=== PATIENT | female | born 1960 | race Caucasian/White ===

== ENCOUNTER → 2017-03-18 | Outpatient (CLI) | payer OTHER ==
[~2017-03-18] MED LIST: FENT25DI T-DERMAL; HYDR2TAB PO; PAXI10TA2 PO; PERC5TAB12 PO; POTA10CA PO; PROT40TA PO; ZOCO40TA PO; ZOFR4TAB PO
[2017-03-18 11:19] LABS: AUTOMATED NEUTROPHIL # 5.4 TH/MM3 (1.8-7.7); BASOPHIL % 0.4 % (0.0-2.0); EOSINOPHIL % 0.7 % (0.0-4.0); HEMATOCRIT 36.1 % (35.0-46.0); HEMO FLAGS DIFF FINAL; LYMPH % 14.4 % (9.0-44.0); MEAN CORPUSCULAR HEMOGLOBIN 29.4 PG (27.0-34.0); MEAN CORPUSCULAR HGB CONC 34.2 % (32.0-36.0); MONO % 9.6 % (0.0-8.0); NEUT % 74.9 % (16.0-70.0); PLATELET COUNT 301 TH/MM3 (150-450); RED BLOOD COUNT 4.19 MIL/MM3 (4.00-5.30); RED CELL DISTRIBUTION WIDTH 13.6 % (11.6-17.2); WHITE BLOOD COUNT 7.2 TH/MM3 (4.0-11.0)
--- NOTE | 2017-03-18 11:30 | RADRPT ---
EXAM DATE/TIME: 03/18/2017 11:07 [facility] COMPARISON: No previous studies available for comparison. INDICATIONS : Evaluate for pneumothorax, pneumonia, or communicable disease. Pre-op, cystoscopy. MEDICAL HISTORY : None. SURGICAL HISTORY : None. ENCOUNTER: Initial ACUITY: 1 day PAIN SCORE: 0/10 LOCATION: Bilateral chest FINDINGS: PA and lateral views of the chest demonstrate the lungs to be symmetrically aerated without evidence of mass, infiltrate or effusion. The cardiomediastinal contours are unremarkable. Osseous structure s are intact. CONCLUSION: No acute disease. Paulo James MD on March 18, 2017 at 11:28 Board Certified Radiologist. This report was verified electronically.
[2017-03-18 11:36] LABS: APTT (PATIENT) 28.6 SEC (24.3-30.1); INTERNATIONAL NORMALIZED RATIO 0.9 RATIO; PROTHROMBIN TIME - PATIENT 10.2 SEC (9.8-11.6)
[2017-03-18 11:40] LABS: ANION GAP 7 MEQ/L (5-15); AST (GOT) 23 U/L (15-37); BICARBONATE 30.9 MEQ/L (21.0-32.0); BLOOD UREA NITROGEN 6 MG/DL (7-18); CHLORIDE 96 MEQ/L (98-107); GLOMERULAR FILTRATION RATE 79 ML/MIN (>89); GLUCOSE,FASTING 83 MG/DL (74-99); SODIUM (NA) 134 MEQ/L (136-145)
[2017-03-18 11:48] LABS: ALKALINE PHOSPHATASE 87 U/L (45-117); ALT (GPT) 14 U/L (10-53); BETA HCG TUMOR MARKER 2 MIU/ML (0-5); TOTAL BILIRUBIN ADULT 0.3 MG/DL (0.2-1.0)
--- NOTE | 2017-03-18 14:01 | EKG ---
Date Performed: 03/18/2017 Time Performed: 10:18:17 PTAGE: 57 years EKG: Sinus rhythm POOR R WAVE PROGRESSION NORMAL ECG NO PREVIOUS TRACING DOCTOR: Eyal Juárez Interpretating Date/Time 03/18/2017 13:59:06
== END ==
LOC: CPRE 09:48
PROVIDERS: ATTEND Obstetrics & Gynecology Gynecologic Oncology
DX: Z01.810 Encounter for preprocedural cardiovascular examination (principal); Z01.811 Encounter for preprocedural respiratory examination; Z01.812 Encounter for preprocedural laboratory examination; R19.09 Other intra-abdominal and pelvic swelling, mass and lump
CPT/HCPCS: 36415; 71020; 80053; 82378; 82397; 84702; 85025; 85610; 85730; 86301; 86304; 93005

== ENCOUNTER → 2017-03-22 | Day surgery (SDC) | payer OTHER ==
[~2017-03-22] VITALS: Ht 165.1 cm; Wt 104.4 kg
[~2017-03-22] MED LIST changes: +*MEPERIDINE 25 MG INJ VIAL PERIprocedural Use ONLY ONE; +*morphine SULFATE 8 MG/ML PERIprocedure ONLY ONE; +ACETAMINOPHEN 1000 MG/100 ML 100 ML IV ONE; +CHLORHEXIDINE GLUCONATE 2 % 1 PACK (2 CLOTHS) TOPICAL PRN; +DEXAMETHASONE SOD PHOS 4 MG/ML VIAL ONE; +DO NOT ADM ANY ANTICOAGULANT DRUGS PRN; +FAMOTIDINE 20 MG/2 ML VIAL ONE; +INSULIN HUMAN REGULAR 1,000 UNITS/10 ML VIAL SQ PRN; +KETOROLAC TROMETHAMINE 30 MG/ML (IVP) VIAL IV PUSH PRN; +KETOROLAC TROMETHAMINE 30 MG/ML (IVP) VIAL ONE; +LACTATED RINGER'S 1000 ML IV PRN; +METOPROLOL TARTRATE 25 MG TAB PO PRN; +MIDAZOLAM HCL 2 MG/2 ML VIAL ONE; +ONDANSETRON HCL 4 MG/2 ML VIAL IV PUSH ONE; +ONDANSETRON HCL 4 MG/2 ML VIAL ONE; +POVIDONE IODINE 5% (ANTISEPSIS KIT) 4 APPLICATIONS EACH NARE PRN; +PROPOFOL 200 MG/20 ML AMP IV ONE; +SILVER NITR/POTASSIUM NITRATE APPLICATORS TOPICAL ONE; +SODIUM CHLORID 0.9% 500 ML IV PRN; +fentaNYL CITRATE 250 MCG/5 ML AMP ONE; +hydrALAZINE HCL 20 MG/ML VIAL IV ONE; +hydrALAZINE HCL 20 MG/ML VIAL ONE; +oxyCODONE/ACETAMINOPHEN 5 MG/325 MG TAB PO PRN
--- NOTE | 2017-03-22 15:00 | MP ---
cc: MEET COLLIER M.D., KELLY L. MD DATE OF SURGERY: 03/22/2017 PREOPERATIVE DIAGNOSIS 1. Uterine mass, postmenopausal bleeding. 2. Adnexal mass, intraperitoneal carcinomatosis. POSTOPERATIVE DIAGNOSIS 1. Uterine mass, postmenopausal bleeding. 2. Adnexal mass, intraperitoneal carcinomatosis. PROCEDURE 1. Examination under anesthesia. 2. Fractional dilation and curettage. 3. Cystoscopy. 4. Proctoscopy. SURGEON Rohini Garsia. 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 ANESTHESIA General endotracheal. ESTIMATED BLOOD LOSS 20 cc. HISTORY This is a 57-year-old female who has had postmenopausal bleeding of many months duration. The last couple of months she really started feeling poorly with heavy bleeding, pelvic pain and back pain. She was found on exam and imaging to have a markedly enlarged uterus, intrauterine mass, adnexal mass, and changes in the peritoneal cavity suggestive of carcinomatous implants including prominent omentum, tumor implant along the rectum and questionable liver and pulmonary nodules. She has been counseled and recommended for a diagnostic surgical evaluation to try to clarify the diagnosis and clarify the extent of the problem. She is seen in the pre-op holding area again today where this plan is discussed. Questions were answered. She expressed good understanding and agreed to move forward. FINDINGS On exam under anesthesia there is no appreciable inguinal adenopathy. External genitalia is without mass or lesion. The cervix is visibly and palpably normal, circumferentially smooth. Rectovaginal exam does not reveal any overt parametrial infiltration or nodularity. The uterus is quite enlarged, sounds between 14 and 15 cm. The endocervix has a small amount of tissue obtained on curetting. The endometrium has a large amount of tissue, polypoid fragments obtained on curetting. On cystoscopy the bladder mucosa appears normal circumferentially. The trigone is well-visualized. The ureteral ostia are well-visualized with good reflux of urine bilaterally. There is no mass or polyp or other abnormality within the bladder. On rigid proctosigmoidoscopy to 22 cm the mucosa appears normal. There is no obvious mass or polyp. No obvious invasion into the colon or abnormality arising from that portion of the colon. It is noted that some extrinsic compression is noted on the rectum as well as on the posterior wall of the bladder due to enlarged uterus. 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 Final pathology is pending. DETAILS OF PROCEDURE She was taken to the operating room and placed in dorsal lithotomy position. After general endotracheal anesthesia was administered a timeout was undertaken. She was identified by sight recognition and hospital ID yogesh, and the proposed procedure was reviewed and confirmed. Exam under anesthesia was performed with findings as described above. She was prepped and draped in sterile fashion. The cervix was grasped, uterine cavity sounded. Endocervical curettings were obtained with multiple passes circumferentially and combined as endocervical curettings. Endometrial curettings were performed. A large volume of polypoid tissue grossly appearing malignant was obtained with endometrial curetting. The tenaculum was removed and the tenaculum sites were rendered hemostatic with silver nitrate. There was no uterine bleeding. Cystoscopy was performed using a 30-degree scope with findings as described above. The bladder was drained and then rigid proctosigmoidoscopy was performed with findings as described above. Adequate prep. Change of sterile gloves was undertaken. Pelvic exam was repeated, confirmed there were no remaining foreign objects in the vagina. The sites were hemostatic. Preliminary and final counts were correct. She was returned to dorsal supine position and was pending reversal of anesthesia when I left the operating room to precede her to the post-anesthesia care unit. MD JOVANI Dumont/GIBRAN /1:57 PM /2:42 PM
[2017-03-22 15:30] VITALS: BP 172/88; PULSE 100; RESP 20; TEMP 99.1; O2SAT 95
== END | disposition home or self-care (01) ==
LOC: HSDC 10:13
PROVIDERS: ATTEND Obstetrics & Gynecology Gynecologic Oncology
DX: C54.1 Malignant neoplasm of endometrium (principal); Z01.818 Encounter for other preprocedural examination
CPT/HCPCS: 00940; 45300; 52000; 58120; 86850; 86900; 86901; 88305; 88331; J0131; J0360; J1100; J1885; J2175; J2250; J2270; J2405; J3010; J7120

== ENCOUNTER 2017-03-29 07:48 | Emergency (ER) | payer OTHER ==
[~2017-03-29 07:48] MED LIST changes: -*MEPERIDINE 25 MG INJ VIAL PERIprocedural Use ONLY ONE; -*morphine SULFATE 8 MG/ML PERIprocedure ONLY ONE; -ACETAMINOPHEN 1000 MG/100 ML 100 ML IV ONE; -CHLORHEXIDINE GLUCONATE 2 % 1 PACK (2 CLOTHS) TOPICAL PRN; -DEXAMETHASONE SOD PHOS 4 MG/ML VIAL ONE; -DO NOT ADM ANY ANTICOAGULANT DRUGS PRN; -FAMOTIDINE 20 MG/2 ML VIAL ONE; -FENT25DI T-DERMAL; -HYDR2TAB PO; -INSULIN HUMAN REGULAR 1,000 UNITS/10 ML VIAL SQ PRN; -KETOROLAC TROMETHAMINE 30 MG/ML (IVP) VIAL IV PUSH PRN; -KETOROLAC TROMETHAMINE 30 MG/ML (IVP) VIAL ONE; -LACTATED RINGER'S 1000 ML IV PRN; -METOPROLOL TARTRATE 25 MG TAB PO PRN; -MIDAZOLAM HCL 2 MG/2 ML VIAL ONE; -ONDANSETRON HCL 4 MG/2 ML VIAL IV PUSH ONE; -ONDANSETRON HCL 4 MG/2 ML VIAL ONE; -POTA10CA PO; -POVIDONE IODINE 5% (ANTISEPSIS KIT) 4 APPLICATIONS EACH NARE PRN; -PROPOFOL 200 MG/20 ML AMP IV ONE; -SILVER NITR/POTASSIUM NITRATE APPLICATORS TOPICAL ONE; -SODIUM CHLORID 0.9% 500 ML IV PRN; -fentaNYL CITRATE 250 MCG/5 ML AMP ONE; -hydrALAZINE HCL 20 MG/ML VIAL IV ONE; -hydrALAZINE HCL 20 MG/ML VIAL ONE; -oxyCODONE/ACETAMINOPHEN 5 MG/325 MG TAB PO PRN
[2017-03-29 07:49] VITALS: BP 185/88; PULSE 104; RESP 20; TEMP 99.1; O2SAT 99
[2017-03-29 08:15] VITALS: BP 180/88; PULSE 82; RESP 22; TEMP 100.4; O2SAT 99
--- NOTE | 2017-03-29 08:29 | PD ---
HPI Chief Complaint: Bag Mender Problem/Complaint Time Seen by Provider: 08:07 Travel History International Travel<30 days: No Contact w/Intl Traveler<30days: No Traveled to known affect area: No History of Present Illness HPI 57-year-old female complains of fever and low abdominal pain pelvic pain. Patient has history of uterine mass, postmenopausal bleeding, adnexal mass, intraperitoneal carcinomatosis. Patient has been seen by Dr. Garsia. Patient is scheduled for outpatient CT-guided abdominal liver biopsy this morning by interventional radiologist. Patient states that she has severe pain that is not controlled with her pain medication at home. Patient has Percocet at home. Patient denies any headache. Patient denies any chest pain or shortness of breath. Patient states that the pain is severe localized to lower abdomen pelvic area. Patient denies any pain radiation. Patient states that she has intermittent nausea vomiting and chills. Patient still had persistent vaginal bleeding. Patient states that she used 1 pad per hour. On a scale of 1-10 the pain is a 10. PFSH Past Medical History Cancer: No Cardiovascular Problems: No High Cholesterol: Yes Diabetes: No Diminished Hearing: No Endocrine: No Gastrointestinal Disorders: Yes (REFLUX) Genitourinary: No Hepatitis: No Hiatal Hernia: No Hypertension: Yes Immune Disorder: No Musculoskeletal: No Neurologic: No Psychiatric: No Respiratory: No Thyroid Disease: No Tetanus Vaccination: Unknown Influenza Vaccination: Yes Menopausal: Yes : 4 Para: 3 Miscarriage: 1 Past Surgical History Body Medical Devices: NONE Gynecologic Surgery: Yes (D&C) Tonsillectomy: Yes Social History Alcohol Use: No Tobacco Use: No (QUIT 10 YEARS AGO, 45 PACK YEARS) Substance Use: No Allergies-Medications (Allergen,Severity, Reaction): Coded Allergies: ciprofloxacin (Verified Allergy, Severe, 03/22/17) Reported Meds & Prescriptions Reported Meds & Active Scripts Active Fentanyl Patch 72 HR (Fentanyl) 25 Mcg/Hr Patch 25 Mcg T-DERMAL Q72H Potassium Chloride ER (Potassium Chloride) 10 Meq Cap 10 Meq PO DAILY Reported Protonix (Pantoprazole Sodium) 40 Mg Tab 40 Mg PO DAILY Zofran (Ondansetron HCl) 4 Mg Tab 4 Mg PO Q8HR PRN Percocet (Oxycodone-Acetaminophen) 5-325 mg Tab 1 Tab PO Q4H PRN Zocor (Simvastatin) 40 Mg Tab 40 Mg PO HS Paxil (Paroxetine HCl) 10 Mg Tab 40 Mg PO HS Review of Systems General / Constitutional: Positive: Fever Eyes: No: Visual changes HENT: No: Headaches Cardiovascular: No: Chest Pain or Discomfort Respiratory: No: Shortness of Breath Gastrointestinal: Positive: Nausea, Vomiting, Abdominal Pain Genitourinary: No: Dysuria Musculoskeletal: No: Pain Skin: No Rash Neurologic: No: Weakness Psychiatric: No: Depression Endocrine: No: Polydipsia Hematologic/Lymphatic: No: Easy Bruising Physical Exam Narrative GENERAL: Well-nourished, well-developed patient. SKIN: Focused skin assessment warm/dry. HEAD: Normocephalic. EYES: No scleral icterus. No injection or drainage. NECK: Supple, trachea midline. No JVD or lymphadenopathy. CARDIOVASCULAR: Regular rate and rhythm without murmurs, gallops, or rubs. RESPIRATORY: Breath sounds equal bilaterally. No accessory muscle use. GASTROINTESTINAL: Abdomen soft, nondistended. Patient has moderate diffuse tenderness over the abdomen including lower abdomen area. No rebound tenderness. MUSCULOSKELETAL: No cyanosis, or edema. BACK: Nontender without obvious deformity. No CVA tenderness. Neurologic exam normal. Data Data Last Documented VS Vital Signs Date Time Temp Pulse Resp B/P (MAP) Pulse Ox O2 Delivery O2 Flow Rate FiO2 03/29/17 09:43 18 03/29/17 09:30 99.4 75 159/91 (113) 100 Room Air Orders Orders Electrocardiogram (03/29/17 08:19) Complete Blood Count With Diff (03/29/17 08:19) Comprehensive Metabolic Panel (03/29/17 08:19) Prothrombin Time / Inr (Pt) (03/29/17 08:19) Act Partial Throm Time (Ptt) (03/29/17 08:19) Blood Culture (03/29/17 08:19) Urinalysis - C+S If Indicated (03/29/17 08:19) Chest, Single Ap (03/29/17 08:19) Iv Access Insert/Monitor (03/29/17 08:19) Ecg Monitoring (03/29/17 08:19) Oximetry (03/29/17 08:19) Sodium Chlor 0.9% 1000 Ml Inj (Ns 1000 M (03/29/17 08:30) Morphine Inj (Morphine Inj) (03/29/17 08:30) Ondansetron Inj (Zofran Inj) (03/29/17 08:30) Lactic Acid (03/29/17 08:22) Morphine Inj (Morphine Inj) (03/29/17 09:15) Potassium Chlor 20 Meq Premix (Kcl 20 Me (03/29/17 09:30) Hydromorphone Pf Inj (Dilaudid Pf Inj) (03/29/17 09:45) Labs Laboratory Tests Test 03/29/17 08:28 03/29/17 08:33 03/29/17 08:45 White Blood Count 9.5 TH/MM3 Red Blood Count 4.40 MIL/MM3 Hemoglobin 12.3 GM/DL Hematocrit 37.3 % Mean Corpuscular Volume 84.9 FL Mean Corpuscular Hemoglobin 28.0 PG Mean Corpuscular Hemoglobin Concent 33.0 % Red Cell Distribution Width 13.5 % Platelet Count 352 TH/MM3 Mean Platelet Volume 8.0 FL Neutrophils (%) (Auto) 86.2 % Lymphocytes (%) (Auto) 6.5 % Monocytes (%) (Auto) 6.8 % Eosinophils (%) (Auto) 0.2 % Basophils (%) (Auto) 0.3 % Neutrophils # (Auto) 8.2 TH/MM3 Lymphocytes # (Auto) 0.6 TH/MM3 Monocytes # (Auto) 0.7 TH/MM3 Eosinophils # (Auto) 0.0 TH/MM3 Basophils # (Auto) 0.0 TH/MM3 CBC Comment DIFF FINAL Differential Comment Prothrombin Time 10.5 SEC Prothromb Time International Ratio 1.0 RATIO Activated Partial Thromboplast Time 28.4 SEC Blood Urea Nitrogen 7 MG/DL Creatinine 0.73 MG/DL Random Glucose 123 MG/DL Total Protein 7.2 GM/DL Albumin 3.2 GM/DL Calcium Level 8.7 MG/DL Alkaline Phosphatase 97 U/L Aspartate Amino Transf (AST/SGOT) 25 U/L Alanine Aminotransferase (ALT/SGPT) 12 U/L Total Bilirubin 0.3 MG/DL Sodium Level 137 MEQ/L Potassium Level 3.0 MEQ/L Chloride Level 97 MEQ/L Carbon Dioxide Level 26.6 MEQ/L Anion Gap 13 MEQ/L Estimat Glomerular Filtration Rate 82 ML/MIN Lactic Acid Level 1.5 mmol/L Urine Color YELLOW Urine Turbidity CLEAR Urine pH 7.5 Urine Specific [place] 1.015 Urine Protein TRACE mg/dL Urine Glucose (UA) NEG mg/dL Urine Ketones 10 mg/dL Urine Occult Blood NEG Urine Nitrite NEG Urine Bilirubin NEG Urine Urobilinogen LESS THAN 2.0 MG/DL Urine Leukocyte Esterase NEG Urine RBC LESS THAN 1 /hpf Urine WBC LESS THAN 1 /hpf Microscopic Urinalysis Comment CATH-CULT NOT IND MDM Medical Decision Making Medical Screen Exam Complete: Yes Emergency Medical Condition: Yes Interpretation(s) 9:16 AM. CBC WBC 9.5. 86 neutrophil. Potassium 3.0. Lactic acid 1.5. UA is negative. Differential Diagnosis Differential diagnosis including acute exacerbation of pain, UTI, pneumonia, sepsis. Narrative Course 57-year-old female with severe low abdominal pain and pelvic pain and vaginal bleeding. History of uterine mass, postmenopausal bleeding, Adnexal mass, intraperitoneal carcinomatosis. Normal saline solution 1 25 cc an hour. Morphine 4 mg IV. Zofran 4 mg IV. Morphine 2 mg IV. Dilaudid 0.5 mg IV. KCl 20 mEq IV given. I spoke with Dr. Garsia and interventional radiologist. Patient will be discharged from the emergency room and transferred to interventional radiology for biopsy. Diagnosis Primary Impression: Abdominal pain Qualified Codes: R10.84 - Generalized abdominal pain Additional Impressions: Hypokalemia Uterine mass Abdominal carcinomatosis Patient Instructions: General Instructions Additional Instructions: Fentanyl patch as directed. Follow-up with personal physician. Patient is scheduled for CT-guided biopsy by IR today. Med/Other Pt SpecificInfo: Prescription(s) given Scripts Fentanyl Patch 72 HR (Fentanyl Patch 72 HR) 25 Mcg/Hr Patch 25 MCG T-DERMAL Q72H for Pain Management, #10 PATCH 0 Refills Prov: Dewayne Mack MD 03/29/17 Potassium Chloride ER (Potassium Chloride ER) 10 Meq Cap 10 MEQ PO DAILY for Electrolyte Replacement, #7 CAP 0 Refills Prov: Dewayne Mack MD 03/29/17 Disposition: 01 DISCHARGE HOME Condition: Stable Dewayne Mack MD Mar 29, 2017 08:29
[2017-03-29] MEDS ORDERED: SODIUM CHLOR 0.9% 1000 ML INJ 1,000 ML IV SCH (08:30)
[2017-03-29] MEDS ORDERED: ONDANSETRON HCL 4 MG/2 ML VIAL IV PUSH ONE (08:30)
[2017-03-29] MEDS ORDERED: MORPHINE SULFATE 4 MG/ML INJ IV PUSH ONE ×2 (08:30→09:15)
[2017-03-29 08:42] VITALS: O2SAT 98
[2017-03-29 08:50] LABS: AUTOMATED NEUTROPHIL # 8.2 TH/MM3 (1.8-7.7); BASOPHIL % 0.3 % (0.0-2.0); EOSINOPHIL % 0.2 % (0.0-4.0); HEMATOCRIT 37.3 % (35.0-46.0); HEMO FLAGS DIFF FINAL; LYMPH % 6.5 % (9.0-44.0); LYMPHOCYTE # 0.6 TH/MM3 (1.0-4.8); MEAN CELL VOLUME 84.9 FL (80.0-100.0); MONO % 6.8 % (0.0-8.0); NEUT % 86.2 % (16.0-70.0); PLATELET COUNT 352 TH/MM3 (150-450); RED CELL DISTRIBUTION WIDTH 13.5 % (11.6-17.2); WHITE BLOOD COUNT 9.5 TH/MM3 (4.0-11.0)
[2017-03-29 08:55] LABS: APTT (PATIENT) 28.4 SEC (24.3-30.1); PROTHROMBIN TIME - PATIENT 10.5 SEC (9.8-11.6)
[2017-03-29 09:01] LABS: ALT (GPT) 12 U/L (10-53); ANION GAP 13 MEQ/L (5-15); AST (GOT) 25 U/L (15-37); BICARBONATE 26.6 MEQ/L (21.0-32.0); BLOOD UREA NITROGEN 7 MG/DL (7-18); CHLORIDE 97 MEQ/L (98-107); GLOMERULAR FILTRATION RATE 82 ML/MIN (>89); SODIUM (NA) 137 MEQ/L (136-145)
[2017-03-29 09:03] LABS: ALKALINE PHOSPHATASE 97 U/L (45-117); TOTAL BILIRUBIN ADULT 0.3 MG/DL (0.2-1.0)
[2017-03-29 09:10] LABS: BLOOD, URINE NEG (NEG); COMMENT (UR) CATH-CULT NOT IND; CULTURE IF INDICATED CATH CULTURE NOT IND; GLUCOSE,URINE NEG (NEG); KETONE, URINE 10 mg/dL (NEG); NITRITE,URINE NEG (NEG); PH, URINE 7.5 (5.0-8.5); URINE COLOR YELLOW (YELLW/STRAW)
--- NOTE | 2017-03-29 09:28 | RADRPT ---
EXAM DATE/TIME: 03/29/2017 09:02 [facility] COMPARISON: No previous studies available for comparison. INDICATIONS : Short of breath and abdominal pain. MEDICAL HISTORY : Hypertension. Hypercholesterolemia. SURGICAL HISTORY : None. ENCOUNTER: Initial ACUITY: 2 weeks PAIN SCORE: 9/10 LOCATION: Bilateral chest FINDINGS: A single view of the chest demonstrates the lungs to be symmetrically aerated without evidence of mas s, infiltrate or effusion. The cardiomediastinal contours are unremarkable. Osseous structures are intact. CONCLUSION: No acute disease. Renny Hollingsworth MD on March 29, 2017 at 9:26 Board Certified Radiologist. This report was verified electronically.
[2017-03-29 09:30] VITALS: BP 159/91; PULSE 75; RESP 22; TEMP 99.4; O2SAT 100
[2017-03-29] MEDS ORDERED: POTASSIUM CHLOR 20 MEQ PREMIX 100 ML IV ONE (09:30)
[2017-03-29] MEDS ORDERED: HYDROmorphone HCL PF 1 MG/ML VIAL IV PUSH ONE (09:45)
[2017-03-29] MEDS ORDERED: FENT25DI T-DERMAL (09:51)
[2017-03-29] MEDS ORDERED: POTA10CA PO (09:51)
[2017-03-29 10:30] VITALS: BP 177/82; PULSE 87; RESP 22; O2SAT 100
--- NOTE | 2017-03-29 15:19 | EKG ---
Date Performed: 03/29/2017 Time Performed: 08:58:23 PTAGE: 57 years EKG: Sinus rhythm BORDERLINE LEFT AXIS DEVIATION Nonspecific lateral T-wave changes BORDERLINE ECG PREVIOUS TRACING : 03/18/2017 10.18 Since the prior tracing, the lateral T-wave changes are new . Clinical correlation to assess the etiology will be important. DOCTOR: Camila Montenegro Interpretating Date/Time 03/29/2017 15:17:29
== END 2017-03-29 11:10 | disposition home or self-care (01) ==
LOC: NEPE 07:48
DX: R10.84 Generalized abdominal pain (principal); E87.6 Hypokalemia; C80.0 Disseminated malignant neoplasm, unspecified; R50.9 Fever, unspecified; R11.2 Nausea with vomiting, unspecified; N93.9 Abnormal uterine and vaginal bleeding, unspecified; E78.00 Pure hypercholesterolemia, unspecified; K21.9 Gastro-esophageal reflux disease without esophagitis; I10 Essential (primary) hypertension
CPT/HCPCS: 71010; 80053; 81001; 83605; 85025; 85610; 85730; 87040; 93005; 96361; 96374; 96375; 96376; 99285; J2270; J2405; J3480; J7030

== ENCOUNTER 2017-03-29 10:11 | Day surgery (SDC) | payer OTHER ==
[~2017-03-29 10:11] MED LIST changes: +FENT25DI T-DERMAL; +POTA10CA PO
[2017-03-29] MEDS ORDERED: SODIUM CHLOR 0.9% 1000 ML IV SCH (11:00)
[2017-03-29] MEDS ORDERED: MIDAZOLAM HCL 2 MG/2 ML VIAL ONE (11:01)
[2017-03-29] MEDS ORDERED: THROMBIN (TOPICAL) 5,000 UNIT VIAL ONE (11:29)
--- NOTE | 2017-03-29 11:38 | PD.RAD ---
Post CT Procedure Prog Note Pre Procedure Diagnosis: (1) Pelvic mass in female Post Procedure Diagnosis: (1) Pelvic mass in female Procedure Date: Mar 29, 2017 Supervising Radiologist: Son Elizabeth JR Anesthesia: Conscious Sedation Plan of Activity Patient to Unit: ROPU Patient Condition: Good See PACS Report for procedural detail/treatment Biopsy Imaging Guidance: CT Side: Right Biopsy Procedure: Pelvic Mass Specimen: Core Biopsy Findings: 3 core samples of large pelvic mass on the right. Thrombin/gelfoam utilized. No hemorrhage on post CT Jr. Glenn,Son Richter MD Mar 29, 2017 11:38
--- NOTE | 2017-03-29 11:58 | RADRPT ---
EXAM DATE/TIME: 03/29/2017 11:10 [facility] COMPARISON: No previous studies available for comparison. INDICATIONS : Pelvic mass SEDATION TIME: 30 minutes BIOPSY SITE: pelvis MEDICATION(S): 1.) 4 mg midazolam (Versed) IV 2.) 200 mcg fentanyl (Sublimaze) IV DEVICE(S): 1.) 18 gauge Temno core biopsy needle 2.) 17 gauge introducer MEDICAL HISTORY : None. SURGICAL HISTORY : None. ENCOUNTER: Initial ACUITY: 1 day PAIN SCORE: 7/10 LOCATION: pelvis A total of three core specimen(s) were obtained and sent to the laboratory for pathologic evaluation. PROCEDURE: 1. CT guided pelvic biopsy. Prior to the procedure informed consent was obtained. Any appropriate prior imaging studies were rev iewed. Using automated exposure control and adjustment of the mA and/or kV according to patient size, radiat ion dose was kept as low as reasonably achievable to obtain optimal diagnostic quality images. DICOM format image data is available electronically for review and comparison. The site was prepped in a sterile fashion. Full sterile technique was used, including cap, mask, chi rile gloves and gown and a large sterile sheet. Hand hygiene and 2% chlorhexidine and/or betadine/al cohol prep was utilized per protocol for cutaneous antisepsis. The skin and subcutaneous tissues wer e infiltrated with local anesthetic solution. With CT guidance the previously identified target was localized. Biopsy was performed using the presc ribed needle as above. Gelfoam and thrombin utilized. Adequate hemostasis was obtained with compressi on at the puncture site. Follow-up CT scan reveals no hemorrhage. The patient tolerated the procedure well and there were no complications. The patient was returned to the Radiology Outpatient Unit in stable condition. CONCLUSION: Uncomplicated CT guided biopsy of a right pelvic mass. Son Elizabeth Jr., MD on March 29, 2017 at 11:56 Board Certified Radiologist. This report was verified electronically.
[2017-03-29 12:05] VITALS: BP 192/100; PULSE 65; RESP 18; O2SAT 92
[2017-03-29 12:35] VITALS: BP 181/113; PULSE 69; RESP 18; O2SAT 92
[2017-03-29 13:05] VITALS: BP 195/113; PULSE 80; RESP 18; O2SAT 95
[2017-03-29 13:35] VITALS: BP 182/107; PULSE 80; RESP 16; O2SAT 96
[2017-03-29] MEDS ORDERED: oxyCODONE/ACETAMINOPHEN 5 MG/325 MG TAB PO ONE (14:00)
[2017-03-29] MEDS ORDERED: ACETAMINOPHEN 500 MG CPLT PO ONE (14:00)
== END 2017-03-29 14:10 | disposition home or self-care (01) ==
LOC: HRAD 10:11 → HRIP 10:14 → HRAD 14:10
PROVIDERS: ATTEND Obstetrics & Gynecology Gynecologic Oncology
DX: C76.8 Malignant neoplasm of other specified ill-defined sites (principal)
CPT/HCPCS: 49180; 77012; 88307; 99152; 99153; J2250; J3010; 88305

== ENCOUNTER 2017-04-06 05:49 | Day surgery (SDC) | payer OTHER ==
[~2017-04-06] VITALS: Ht 165.1 cm; Wt 100.0 kg
[2017-04-06] MEDS ORDERED: HYDR2TAB PO (06:43)
[2017-04-06 06:45] VITALS: BP 215/130; PULSE 88; RESP 22; TEMP 100.1; O2SAT 97
[2017-04-06] MEDS ORDERED: POVIDONE IODINE 5% (ANTISEPSIS KIT) 4 APPLICATIONS EACH NARE SCH (07:00)
[2017-04-06] MEDS ORDERED: SODIUM CHLORIDE 0.9% 1000 ML IV SCH (07:00)
[2017-04-06] MEDS ORDERED: CHLORHEXIDINE GLUCONATE 2 % 1 PACK (2 CLOTHS) TOPICAL SCH (07:00)
[2017-04-06] MEDS ORDERED: VANCOMYCIN 1000 MG/NS 250 ML - implanted port/tunneled catheter IV SCH ×2 (07:00)
[2017-04-06] MEDS ORDERED: ceFAZolin 2 GM PREMIX 50 ML - implanted port/tunneled catheter insertion IV SCH (07:00)
[2017-04-06] MEDS ORDERED: HYDROmorphone HCL 2 MG TAB PO SCH (07:30)
[2017-04-06] MEDS ORDERED: LORazepam 2 MG TAB PO PRN (07:30)
[2017-04-06] MEDS ORDERED: ONDANSETRON HCL 4 MG/2 ML VIAL ONE (07:55)
[2017-04-06] MEDS ORDERED: MIDAZOLAM HCL 2 MG/2 ML VIAL ONE ×3 (07:55→08:37)
[2017-04-06] MEDS ORDERED: SODIUM CHLORIDE 0.9% FLUSH 10 ML FLUSH IVF PRN (09:00)
[2017-04-06 09:05] VITALS: BP 177/70; PULSE 88; RESP 16; TEMP 99.3; O2SAT 91
[2017-04-06 09:20] VITALS: BP 177/70; PULSE 74; RESP 16; O2SAT 96
--- NOTE | 2017-04-06 09:34 | PD.RAD ---
Post Procedure Progress Note Pre Procedure Diagnosis: (1) Pelvic mass in female Post Procedure Diagnosis: (1) Pelvic mass in female Procedure Date: Apr 06, 2017 Supervising Radiologist: Bethel Stein Proceduralist/Assist: Mathew Cota RT(R), RT Yelena(R)(CV) Anesthesia: Local, Analgesia, Conscious Sedation Plan of Activity Patient to Unit: ROPU Patient Condition: Good See PACS Report for procedural detail/treatment Central Venous Access Device Procedure 1 Right Internal Jugular Infusaport Placement single lumen Georgian: 8 Bethel Stein MD Apr 06, 2017 09:34
[2017-04-06 09:50] VITALS: BP 171/87; PULSE 70; RESP 16; O2SAT 95
[2017-04-06 10:30] VITALS: BP 184/116; PULSE 84; RESP 16; O2SAT 96
--- NOTE | 2017-04-06 13:49 | RADRPT ---
EXAM DATE/TIME: 04/06/2017 08:24 [facility] COMPARISON: No previous studies available for comparison. INDICATIONS : Patient with uterine mass. Chemotherapy planed. MEDICAL HISTORY : 1. Uterine mass 2. Adnexal mass 3. Postmenopausal 4. GERD 5. fibroids SURGICAL HISTORY : 1. Colonoscopy 2. upper endoscopy 3. Rhizotomy ENCOUNTER: Initial ACUITY: 2 months PAIN SCORE: 10/10 LOCATION: Abdomin and pelvis and back FLUORO TIME: 0.8 minutes IMAGE SERIES: 1 SEDATION TIME: 30 minutes ACCESS: Right internal jugular vein SEDATION: 1.) 5 mg midazolam (Versed) IV 2.) 250 mcg fentanyl (Sublimaze) IV 3.) 4mg ondansetron (Zofran) IV Prophylactic antibiotics were administered with appropriate pre-procedure timing. Vancomycin within 2 hours of procedure, Ancef (or alternative) within 1 hour of procedure. DEVICE: 1. 8 [place]ian single lumen Smart port PROCEDURE : 1. Continuous pulse oximetry and EKG monitoring. 2. Intravenous conscious sedation. 3. Ultrasound guidance for venous access. 4. Fluoroscopic guided implantable central venous port placement. The patient was placed supine. The neck was prepped in sterile fashion. Full sterile technique was u sed, including cap, mask, sterile gloves and gown, and a large sterile sheet. Hand hygiene and 2% ch lorhexidine Betadine was utilized per protocol for cutaneous antisepsis with appropriate dry time for site. Sterile gel and sterile probe cover were utilized for ultrasound guidance. The skin and sub cutaneous tissues were infiltrated with local anesthetic solution. Under direct ultrasound guidance, central venous access was accomplished in the targeted vessel. The ultrasound images depicting access guidance were stored and saved to PACS for permanent record. A s ubcutaneous pocket was created using blunt dissection. The port was introduced to the pocket. The c atheter tubing was fed through a subcutaneous tunnel to the venotomy site. The catheter tubing was c ut to a suitable length and then was introduced through a valved Peel-Away sheath and positioned with catheter tubing tip at the cavo-atrial junction level. The pocket incision was closed with subcutic ular Vicryl suture. Steri-Strips were applied. The port was flushed and locked with heparin solutio n per protocol. Sterile dressing was applied to the site. The patient tolerated the procedure well. Conscious sedation was performed with the prescribed dosages and duration as above in the presence of an independent trained radiology nurse to assist in the monitoring of the patient. EKG and oximetry remained stable throughout the procedure. The patient tolerated the procedure well and there were no complications. The patient was sent to post anesthesia recovery in stable condition. CONCLUSION: Uncomplicated ultrasound and fluoroscopic guided implanted central venous port catheter placement as described in detail above. An 8 Ghanaian Power port was placed. Bethel Stein MD on April 06, 2017 at 13:47 Board Certified Radiologist. This report was verified electronically.
== END 2017-04-06 11:05 | disposition home or self-care (01) ==
LOC: HROP 05:49 → HRIP 05:49 → HROP 11:05
PROVIDERS: ATTEND Nurse Practitioner Family
DX: C55 Malignant neoplasm of uterus, part unspecified (principal); K21.9 Gastro-esophageal reflux disease without esophagitis; Z78.0 Asymptomatic menopausal state
CPT/HCPCS: 36561; 76937; 77001; 99152; 99153; C1788; J0690; J1642; J2250; J2405; J3010; J3370; J7030; J7050

== ENCOUNTER → 2017-06-16 | Outpatient (CLI) | payer OTHER ==
[~2017-06-16] MED LIST changes: +CALC1TAB87 PO; +FERR325T18 PO; +HYDR-3516 PO; +HYDR2TAB PO; +OXYC1TAB63 PO; -PAXI10TA2 PO; +PAXI10TA8 PO; -PERC5TAB12 PO; +VITA500C18 PO; +ZINC220T PO
== END ==
LOC: CPRE 14:19
PROVIDERS: ATTEND Obstetrics & Gynecology Gynecologic Oncology
DX: C54.1 Malignant neoplasm of endometrium (principal)

== ENCOUNTER 2017-06-30 05:35 | Inpatient (IN) | payer OTHER ==
[~2017-06-30] VITALS: Ht 166.6 cm; Wt 98.5 kg
[~2017-06-30 05:35] MED LIST changes: -FENT25DI T-DERMAL; -HYDR2TAB PO; -OXYC1TAB63 PO; -POTA10CA PO
[2017-06-30] MEDS ORDERED: METOPROLOL TARTRATE 25 MG TAB PO PRN (06:00)
[2017-06-30] MEDS ORDERED: SODIUM CHLORID 0.9% 500 ML IV PRN (06:00)
[2017-06-30] MEDS ORDERED: LACTATED RINGER'S 1000 ML IV PRN (06:00)
[2017-06-30] MEDS ORDERED: HEPARIN SODIUM - SQ 10,000 UNITS/ML VIAL SQ SCH (06:00)
[2017-06-30] MEDS ORDERED: CHLORHEXIDINE GLUCONATE 2 % 1 PACK (2 CLOTHS) TOPICAL PRN (06:00)
[2017-06-30] MEDS ORDERED: ceFAZolin 2 GM PREMIX 50 ML IV SCH (06:00)
[2017-06-30] MEDS ORDERED: POVIDONE IODINE 5% (ANTISEPSIS KIT) 4 APPLICATIONS EACH NARE PRN (06:00)
[2017-06-30] MEDS ORDERED: SODIUM CHLORIDE FLUSH PRN IV FLUSH (06:15)
[2017-06-30] MEDS ORDERED: SUGAMMADEX SODIUM 200 MG/2 ML VIAL IV PUSH ONE ×2 (06:32)
[2017-06-30] MEDS ORDERED: ACETAMINOPHEN 1000 MG/100 ML 100 ML IV ONE (06:32)
[2017-06-30] MEDS ORDERED: HYDROmorphone HCL PF 2 MG/ML VIAL ONE (06:33)
[2017-06-30] MEDS ORDERED: LIDOCAINE 1%/EPINEPHrine 1:100,000 SOLN 20 ML VIAL INFIL ONE (08:36)
[2017-06-30] MEDS ORDERED: ARTIFICIAL TEARS OPTH OINT 3.5 APPLIC/3.5 GM TUBO ONE (08:52)
[2017-06-30] MEDS ORDERED: SODIUM CHLORIDE FLUSH BID IV FLUSH SCH (09:00)
[2017-06-30] MEDS ORDERED: METHYLENE BLUE 10 MG/ML VIAL OTHER ONE (11:18)
[2017-06-30] MEDS ORDERED: LORazepam 0.5 MG TAB PO PRN (13:15)
[2017-06-30] MEDS ORDERED: oxyCODONE/ACETAMINOPHEN 5 MG/325 MG TAB PO PRN (13:15)
[2017-06-30] MEDS ORDERED: diphenhydrAMINE HCL 25 MG CAP PO PRN (13:15)
[2017-06-30] MEDS ORDERED: SODIUM CHLORIDE 0.9% FLUSH 10 ML FLUSH IV FLUSH PRN (13:15)
[2017-06-30] MEDS ORDERED: DO NOT ADM ANY ANTICOAGULANT DRUGS PRN (13:17)
[2017-06-30] MEDS ORDERED: ONDANSETRON ODT 4 MG TAB PO PRN (13:30)
[2017-06-30] MEDS ORDERED: *morphine SULFATE 8 MG/ML PERIprocedure ONLY ONE ×3 (13:30→14:53)
[2017-06-30] MEDS: D5-1/2 NS + KCL 20 MEQ INJ 1,000 ML IV SCH ×2 (13:58→21:12)
[2017-06-30] MEDS: KETOROLAC TROMETHAMINE 30 MG/ML (IVP) VIAL IVP SCH ×2 (14:00→20:59)
[2017-06-30 15:09] VITALS: BP 109/59; PULSE 76; RESP 18; TEMP 97.2; O2SAT 94
[2017-06-30] MEDS: oxyCODONE/ACETAMINOPHEN 5 MG/325 MG TAB PO PRN ×2 (15:35→20:58)
[2017-06-30 20:00] VITALS: PULSE 74
[2017-06-30] MEDS: SODIUM CHLORIDE 0.9% FLUSH 10 ML FLUSH IV FLUSH SCH (20:59)
[2017-06-30 21:00] VITALS: BP 99/55; PULSE 71; RESP 18; TEMP 98.7; O2SAT 94
[2017-06-30] MEDS ORDERED: PRAVASTATIN SOD 80 MG TAB PO SCH (21:00)
[2017-06-30] MEDS ORDERED: PARoxetine HCL 20 MG TAB PO SCH (21:00)
[2017-07-01] VITALS: BP 106/55; PULSE 76; RESP 19; TEMP 99.3; O2SAT 95
[2017-07-01] MEDS: oxyCODONE/ACETAMINOPHEN 5 MG/325 MG TAB PO PRN ×3 (00:53→09:44)
[2017-07-01] MEDS: KETOROLAC TROMETHAMINE 30 MG/ML (IVP) VIAL IVP SCH ×2 (02:31→07:54)
[2017-07-01 04:00] VITALS: BP 107/60; PULSE 71; RESP 18; TEMP 99.1; O2SAT 95
[2017-07-01] MEDS ORDERED: OXYC1TAB63 PO (06:53)
[2017-07-01 07:02] LABS: AUTOMATED NEUTROPHIL # 2.9 TH/MM3 (1.8-7.7); BASOPHIL % 0.1 % (0.0-2.0); EOSINOPHIL % 0.1 % (0.0-4.0); HEMO FLAGS DIFF FINAL; LYMPH % 15.7 % (9.0-44.0); LYMPHOCYTE # 0.6 TH/MM3 (1.0-4.8); MEAN CELL VOLUME 91.5 FL (80.0-100.0); MEAN CORPUSCULAR HEMOGLOBIN 31.2 PG (27.0-34.0); MEAN CORPUSCULAR HGB CONC 34.1 % (32.0-36.0); MONO % 9.4 % (0.0-8.0); NEUT % 74.7 % (16.0-70.0); PLATELET COUNT 156 TH/MM3 (150-450); RED BLOOD COUNT 2.41 MIL/MM3 (4.00-5.30); RED CELL DISTRIBUTION WIDTH 24.2 % (11.6-17.2); WHITE BLOOD COUNT 3.9 TH/MM3 (4.0-11.0)
[2017-07-01 07:16] LABS: POTASSIUM 3.5 MEQ/L (3.5-5.1)
[2017-07-01] MEDS: SODIUM CHLORIDE 0.9% FLUSH 10 ML FLUSH IV FLUSH SCH (07:54)
[2017-07-01 08:00] VITALS: BP 119/70; PULSE 73; PULSE 74; RESP 20; TEMP 98.8; O2SAT 95
--- NOTE | 2017-07-01 08:25 | MP ---
cc: MEET COLLIER M.D., KELLY L. MD DATE OF SURGERY: 06/30/2017 PREOPERATIVE DIAGNOSIS 1. Uterine carcinosarcoma. 2. Enlarged uterus. 3. Right adnexal mass. 4. Postmenopausal bleeding. 5. Probable stage IV disease based on imaging. POSTOPERATIVE DIAGNOSIS 1. Uterine carcinosarcoma. 2. Enlarged uterus. 3. Right adnexal mass. 4. Postmenopausal bleeding. 5. Probable stage IV disease based on imaging. PROCEDURE Robotic-assisted laparoscopic hysterectomy, bilateral salpingo-oophorectomy (with resection of right ovarian mass), omentectomy, intraperitoneal biopsies, resection of tumor. SURGEON Rohini Garsia. DOG OR ANIMAL SITTER [place] [employer]. ANESTHESIA General endotracheal. ESTIMATED BLOOD LOSS 150 cc. FLUIDS 2100 cc. URINE OUTPUT 300 cc. HISTORY A 57-year-old female who presented with findings of significant uterine bleeding and markedly enlarged uterus. Biopsy showed carcinosarcoma. She was having significant pain in the pelvis and the back at that time. Imaging suggested thickening of the omentum. There were what appeared to be tumor implants in the peritoneum adjacent to the liver and/or in the liver and suspicious nodules in the lungs all suggestive of metastatic disease. She was initiated on Taxol and carboplatin chemotherapy but had an infusion reaction to Taxol so she has been continued on single-agent carboplatin and she has completed three cycles now. Recent follow-up was quite significant for her improvement clinically as well as radiographically. Follow-up PET/CT scan showed a persistent PET avid signal in the middle of the uterus but the area of tumor appeared to be approximately half the size compared to prior imaging and the right adnexal mass approximately 8 cm persisted but was not PET avid and there were no other overt nodules, masses or PET avid activity elsewhere. She was counseled regarding the potential benefits of surgery. The main focus was to get the central tumor out and to stop her bleeding as she is still having bleeding and to address whatever areas that could be safely addressed surgically with the understanding that systemic treatment with chemotherapy is ultimately going to be recommended and continued She is seen again in the pre-op holding area where the findings are again reviewed. The pros, cons, risks, benefits and surgical plan are discussed. She expressed good understanding and would like to move forward with surgery. FINDINGS The uterus is markedly enlarged, approximately 16 cm and sounds to 14 cm. The uterine fundus is wide. There are several leiomyomas including a leiomyoma coming off the right side of the uterus overlying the uterine vessels with several fundal fibroids. The left tube and ovary grossly appear normal. The right adnexa appears abnormal. It is approximately 8 cm, irregular and complex in appearance. In the pelvis there are fine granular implants in the cul-de-sac and against the left pelvic sidewall and along the mesentery of the colon that have the appearance of tumor implants that have been responding to chemotherapy but there is no persistent mass effect. Additionally in the omentum there are some areas of the omentum that are thickened and irregular. There are some adhesions between the distal omentum and the pelvic structures but no mass effect or obvious gross disease in the omentum. The liver and diaphragm appears smooth to the extent it can be visualized. There is no obvious persistent mass or nodularity in the peritoneal cavity. The large and small bowel appear normal as do the adjacent mesentery and there are no overtly enlarged pelvic or paraaortic lymph nodes. 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 At the conclusion of the case the only obviously detectable abnormalities in the peritoneal cavity were the granular implants along the cul-de-sac, peritoneum, left pelvic sidewall and the colonic mesentery, the largest of which was approximately 3 mm. STATEMENT OF COMPLEXITY The uterus was markedly enlarged, clearly greater than 250 grams, and the size of uterus and the vascularity associated with it with the distorted anatomy all increased the complexity of this case significantly and modifier should be applied accordingly. DETAILS OF PROCEDURE She was taken to the operating room and placed in dorsal lithotomy position. After general endotracheal anesthesia was administered a timeout was undertaken. She was identified by sight recognition, hospital ID bracelet and the proposed procedure was reviewed and confirmed. She was carefully positioned in padded Ever stirrups. Her arms were padded and secured to the sides. She was further secured to the operating table with eggcrate padding and tape in an across chest over the shoulder fashion. All sites were noted to be properly aligned with no malalignments or pressure points. She was prepped and draped in sterile fashion, placed in high lithotomy position. The cervix was grasped. The uterine cavity was sounded. The cervix had essentially already been dilated from the tumor and a large VCare manipulator was inserted and secured in the usual fashion. A Ortega catheter was placed in the bladder. She was returned to low lithotomy position. Change of sterile gloves was undertaken. We confirmed that an orogastric tube was in the stomach on suction. We completed draping in anticipation of laparoscopy. With manual elevation of the abdominal wall and direct laparoscopic visualization a 5 mm cannula was introduced into the left upper quadrant and atraumatic entry was confirmed. Carbon dioxide gas was insufflated into the peritoneal cavity and under laparoscopic visualization a 12 mm cannula was placed in the midline above the umbilicus. An 8 mm cannula was placed in the right upper quadrant and left lateral quadrant, and the original 5 mm exchanged for an 8 mm cannula. She was placed in Trendelenburg position. The anatomy was explored with findings as described above. Peritoneal washings were obtained for cytology. Some initial adhesions were taken down. Three Ray-Sobia sponges were placed across the root of the small bowel mesentery. The robotic system was brought into the operative field and attached in the usual fashion. Monopolar scissors, fenestrated bipolar forceps and ProGrasp manipulators were placed in arms #1, 2 and 3 respectively, and I took my place at the surgeon's console. Additional lysis of adhesions was carried out, mobilizing adhesions to allow the omentum to be retracted into the abdominal cavity. The right round ligament was isolated, cauterized and transected. The anterior and posterior leafs of the broad ligament were opened. The right ureter was identified. The right infundibulopelvic ligament was isolated. The intervening peritoneum was opened. The infundibulopelvic ligament was cauterized thoroughly at the level of the pelvic brim and transected. The posterior peritoneum was opened along the right side of the uterus and cervix and the peritoneum and attachments around the right lateral fibroid were taken down with sharp dissection to initiate skeletonization of the right uterine vessels. The right vesicouterine peritoneum was dissected off the lower uterine segment and cervix. Attention was directed toward the left side. The left round ligament was isolated, cauterized and transected. The anterior and posterior leafs of the broad ligament were opened. Adhesions were taken down. The left ureter was identified. The left infundibulopelvic ligament was isolated. The intervening peritoneum was opened. The infundibulopelvic ligament was cauterized at the level of the pelvic brim and transected. The posterior peritoneum was opened along the left side of the uterus and cervix. The left vesicouterine peritoneum was dissected off the lower uterine segment and cervix and the left uterine vessels were skeletonized. Now that both sides of prominent uterine vessels were isolated, steps were taken to secure hemostasis and the left uterine vessels were isolated and cauterized thoroughly. Attention was directed toward the right side where the vessels were not directly accessible due to the right-sided leiomyoma so further dissection around the leiomyoma to elevate this mass to further isolate the vessels was undertaken. The right uterine vessels were thoroughly cauterized in a stepwise fashion until all vessels appeared to be secured and the uterus blanched significantly. To better facilitate visualization and specimen delivery the right-sided leiomyoma was removed and it was shelled out from the superficial myometrium. The right utero-ovarian ligament was cauterized and transected to remove the right adnexal mass. These were placed in the right pericolic gutter for later retrieval. Circumferential colpotomy was performed the cervix from the upper vagina and to assist in specimen delivery. I left the surgeon's console to help deliver the specimen. She was placed in high lithotomy position. Specimen was withdrawn such that the cervix was visible at the introitus. It was grasped with tenaculums and sharp curetting was performed where a large volume of tumor was removed from the endometrial cavity in an effort to try to decrease the size of the uterus. With continued manipulation and countertraction and some sharp incisions to essentially reduce the size of the central core the specimen was able to be delivered transvaginally including uterus, cervix and the attached left tube and ovary. A pneumo-occluder balloon was placed in the vagina to maintain pneumoperitoneum. I returned to the surgeon's console. A 12 cm EndoCatch bag was introduced into the pelvis to capture the leiomyoma and some detached tumor that appeared to be probably associated with the right adnexa. These were captured in the EndoCatch bag and brought out through the vagina. A separate EndoCatch bag was introduced and the right tube and ovary were captured and withdrawn transvaginally. A ring forceps was then used to remove each of the three Ray-Sobia sponges. These were removed transvaginally. Each were removed individually and inspected and noted to be removed in their entirety. Instruments 1 and 3 were exchanged for needle drivers as a 0 Vicryl suture was introduced. The vaginal cuff was closed starting at the left corner, full-thickness closure incorporating the edge of the uterosacral ligament and posterior peritoneum and tied via instrument tie. The closure was held on countertraction as a full-thickness running continuous closure was carried across the vaginal apex to the contralateral corner where it was similarly fixed, secured and tied via instrument tie. The needle was cut and removed. The integrity of the bladder was confirmed by filling the bladder with saline dyed with methylene blue. The bladder distended nicely under pressure. There were no areas of thinning of the bladder, certainly no defects in the bladder. There was a good margin between the bladder edge and the vaginal cuff suture line. There was good peristalsis of ureters bilaterally and the bladder was drained. Sharp excision of an area of peritoneum in the pelvis was obtained for biopsy purposes to determine if in fact the granular implants were tumor. A couple patches of peritoneum that could safely be resected were removed and withdrawn laparoscopically. Attention was then directed toward the abdomen. The omentum was placed on stretch by grasping the distal edge and pulling it toward the pelvis. The omentum was removed given its preliminary imaging showing that it was a source of high volume of tumor even though it appeared to have thus far a good response to chemotherapy. The nonvascular attachments were taken down with sharp dissection. The vascular attachments were isolated, cauterized with bipolar cautery and transected. The dissection started near the splenic flexure, was carried along parallel to the transverse colon toward the hepatic flexure until the infracolic omentum as well as a small portion of the gastrocolic ligament were removed and these were placed in the right pericolic gutter for later retrieval. The pelvis and abdomen were again thoroughly irrigated. All small bleeders were rendered hemostatic with bipolar cautery. Hemostatic Kurt powder was placed across the vaginal cuff and across the transverse colon dissection plane. It was felt that all reasonable surgical objectives had been completed. The robotic instruments were removed. The robotic system was disengaged from the operative field. I reentered the bedside under sterile condition. A 12 cm EndoCatch bag was used into which the omentum was placed. It was brought to the abdominal wall and using ring forceps the omentum was able to be withdrawn, still contained within the bag until the bag was withdrawn through the laparoscopic incision. There were no remaining foreign objects in the peritoneal cavity. There was good hemostasis. Preliminary counts were correct. The 12 mm fascial defect was closed with interrupted 0 Vicryl sutures using a fascial closure device under laparoscopic visualization, sutures were tied securely rendering the fascia completely airtight and hemostatic. The remaining cannulas were withdrawn. Carbon dioxide gas was removed. 3-0 Vicryl subcutaneous, 3-0 Vicryl subcuticular and Steri-Strips were used to close these incisions. She was returned to dorsal lithotomy position. Pelvic exam confirmed the vaginal cuff to be well-supported and completely hemostatic. There were no vaginal lacerations. No mucosal irritation except right at the introitus, some superficial irritation, and a small amount of remaining Kurt was placed in this area. There were no foreign objects in the vagina. Final counts were correct. She was returned to dorsal supine position and was pending reversal of anesthesia when I left the operating room to precede her to the post-anesthesia care unit. MD JOVANI Dumont/GIBRAN /6:59 AM /7:37 AM
[2017-07-01] MEDS ORDERED: PANTOPRAZOLE SOD 40 MG DELAYED RELEASE TAB PO SCH (09:00)
[2017-07-01] MEDS: D5-1/2 NS + KCL 20 MEQ INJ 1,000 ML IV SCH (09:40)
[2017-07-01 12:00] VITALS: BP 110/59; PULSE 75; RESP 20; TEMP 98.6; O2SAT 94
[2017-07-01 12:37] LABS: HEMATOCRIT 21.5 % (35.0-46.0); MEAN CELL VOLUME 91.9 FL (80.0-100.0); MEAN CORPUSCULAR HEMOGLOBIN 30.6 PG (27.0-34.0); MEAN CORPUSCULAR HGB CONC 33.3 % (32.0-36.0); PLATELET COUNT 151 TH/MM3 (150-450); RED BLOOD COUNT 2.34 MIL/MM3 (4.00-5.30); RED CELL DISTRIBUTION WIDTH 24.5 % (11.6-17.2); REVIEW FLAG FINAL; WHITE BLOOD COUNT 3.8 TH/MM3 (4.0-11.0)
--- NOTE | 2017-07-01 14:53 | MD ---
cc: MEET COLLIER M.D., KELLY L. MD ADMISSION DATE: 06/30/2017 DISCHARGE DATE: 07/01/2017 PROCEDURE 06/30/2017 Robotic-assisted laparoscopic hysterectomy bilateral salpingo-oophorectomy (with resection of right ovarian mass). Intraperitoneal biopsies tumor resection omentectomy. DIAGNOSIS Uterine carcinosarcoma HOSPITAL COURSE She did well in the early postoperative period she remained afebrile, pulse ranged from 62-76, respirations 12/19, blood pressure 99-109 over 55-59, O2 saturations greater than equal to 95% while awake ins and outs 1750/2250. Labs pending at time of this dictation. PHYSICAL EXAMINATION IN GENERAL: Alert and oriented x3. No acute distress. LUNGS: Lungs are clear except for mild basilar rales. CARDIOVASCULAR SYSTEM: Regular rate and rhythm. ABDOMEN: Soft. Incisions clean and dry. Mild irritation ecchymosis at the central incision. No active bleeding. CURATOR no active bleeding. EXTREMITIES: Nontender. ASSESSMENT Postop day #1 doing well in the early postoperative period. The findings at the time of surgery, the response thus far to chemotherapy. The preliminary pathology are discussed reviewed activities and restrictions reviewed. Questions were asked and answered to the best my capacity. She expressed good understanding. PLAN Anticipate discharge to home. She is to contact our office to schedule follow up in 2 weeks. She is to resume prior medications I will give her prescription for Percocet for pain and she is to contact our office between now the time of scheduled followup should she have any concerns or questions. MD JOVANI Dumont/jojo /6:55 AM /2:50 PM
== END 2017-07-01 13:23 | disposition home or self-care (01) | DRG 737 ==
LOC: HSDC 05:35 → HSDI 13:18 → HCIN 15:02
PROVIDERS: ADMIT Obstetrics & Gynecology Gynecologic Oncology; ATTEND Obstetrics & Gynecology Gynecologic Oncology
PROC: 0UT7FZZ Resection of Bilateral Fallopian Tubes, Via Natural or Artificial Opening With Percutaneous Endoscopic Assistance (ICD-10-PCS; 2017-06-30)
PROC: 0UT2FZZ Resection of Bilateral Ovaries, Via Natural or Artificial Opening With Percutaneous Endoscopic Assistance (ICD-10-PCS; 2017-06-30)
PROC: 0UTC7ZZ Resection of Cervix, Via Natural or Artificial Opening (ICD-10-PCS; 2017-06-30)
PROC: 0DTU4ZZ Resection of Omentum, Percutaneous Endoscopic Approach (ICD-10-PCS; 2017-06-30)
PROC: 8E0W4CZ Robotic Assisted Procedure of Trunk Region, Percutaneous Endoscopic Approach (ICD-10-PCS; 2017-06-30)
PROC: 0DBW4ZX Excision of Peritoneum, Percutaneous Endoscopic Approach, Diagnostic (ICD-10-PCS; 2017-06-30)
PROC: 0UT9FZZ Resection of Uterus, Via Natural or Artificial Opening With Percutaneous Endoscopic Assistance (ICD-10-PCS; principal; 2017-06-30 07:19)
DX: C56.1 Malignant neoplasm of right ovary (principal); C78.6 Secondary malignant neoplasm of retroperitoneum and peritoneum; C54.1 Malignant neoplasm of endometrium; D25.9 Leiomyoma of uterus, unspecified; N95.0 Postmenopausal bleeding
CPT/HCPCS: 80048; 85025; 85027; 86850; 86900; 86901; 86920; 88112; 88305; 88307; 88309; 88331; 94150; J0131; J0690; J1170; J1644; J1885; J2270; J3480; J7120

== ENCOUNTER 2017-08-24 12:21 | Emergency (ER) | payer OTHER ==
[~2017-08-24] VITALS: Ht 165.1 cm; Wt 84.0 kg
[~2017-08-24 12:21] MED LIST changes: +OXYC1TAB63 PO
[2017-08-24 12:23] VITALS: BP 154/93; PULSE 76; RESP 16; TEMP 99.5; O2SAT 100
[2017-08-24] MEDS ORDERED: SODIUM CHLOR 0.9% 1000 ML INJ 1,000 ML IV SCH (13:03)
--- NOTE | 2017-08-24 13:13 | PD ---
HPI Chief Complaint: Abdominal Pain Time Seen by Provider: 12:33 Travel History International Travel<30 days: No Contact w/Intl Traveler<30days: No Traveled to known affect area: No History of Present Illness HPI The patient is a 57-year-old female who presents emergency department for lower abdominal pain and pelvic pain of several days' duration. The patient states the pain started last Tuesday, has been intermittent, but worse today. The abdominal pain is located lower abdomen and pelvic region, left lower quadrant and right lower quadrant, not associated with any nausea or vomiting. The patient called her gynecologic oncologist, Dr. Garsia, and the patient states the office told her to take MiraLAX. The patient took MiraLAX and had a normal bowel movement this morning that was slightly watery, however, without blood. The patient continues to have pain. She does have a history of stage IV cancer and underwent hysterectomy and bilateral nephrectomy on June 30 by her gynecologic surgeon. The patient thinks she may have had a fever last night, denies any chills or sweats today. She denies any dysuria, frequency, urgency, nausea, or vomiting. She denies any known history of diverticulitis. She has been passing flatus without difficulty, denies any history of small bowel obstruction. PFSH Past Medical History Arthritis: Yes (LOW BACK) Anxiety: Yes Depression: No Heart Rhythm Problems: No Cancer: Yes (UTERINE) Cardiovascular Problems: Yes (hyperlipidemia) High Cholesterol: Yes Chemotherapy: Yes Chest Pain: No Congestive Heart Failure: No Diabetes: No Diminished Hearing: No Endocrine: No Gastrointestinal Disorders: Yes (REFLUX) GERD: Yes Genitourinary: No Hepatitis: No Hiatal Hernia: No Hypertension: Yes Immune Disorder: No Musculoskeletal: Yes (LOW BACK PAIN) Neurologic: No Psychiatric: Yes (ANXIETY) Reproductive: Yes (UTERINE CA, TUMOR IN UTERUS) Respiratory: No Immunizations Current: Yes Radiation Therapy: No Sickle Cell Disease: No Thyroid Disease: No Ulcer: Yes Menopausal: Yes : 4 Para: 3 Miscarriage: 1 Past Surgical History Abdominal Surgery: No AICD: No Body Medical Devices: TOP ORAL PLATE Cardiac Surgery: No Ear Surgery: No Endocrine Surgery: No Eye Surgery: No Genitourinary Surgery: No Gynecologic Surgery: Yes (D&C, LASH WITH BSO, OMENECTOMY, PELVIC MASS RESECTION ) Joint Replacement: No Oral Surgery: Yes (T/A) Pacemaker: No Thoracic Surgery: No Tonsillectomy: Yes Social History Alcohol Use: No Tobacco Use: No (QUIT 10 YEARS AGO, 43 PACK YEARS) Substance Use: No Allergies-Medications (Allergen,Severity, Reaction): Coded Allergies: ciprofloxacin (Verified Allergy, Severe, 06/30/17) Reported Meds & Prescriptions Reported Meds & Active Scripts Active Oxycodone-Acetaminophen 5-325 (Oxycodone HCl/Acetaminophen) 5 Mg-325 Mg Tablet 1 Tab PO Q4H PRN Reported Calcium 600 with Vitamin D (Calcium Carbonate-Cholecalciferol) 600-400 mg-Unit Tab 1 Tab PO DAILY Zinc Sulfate 220 Mg Tab 220 Mg PO DAILY Vitamin C Sr (Ascorbic Acid) 500 Mg Caper 1,000 Mg PO DAILY Ferrous Sulfate 325 Mg (65 Mg Iron) Tablet 325 Mg PO DAILY Hydrocodone-Acetaminophen 5-325 mg Tab 1 Tab PO Q4H PRN Protonix (Pantoprazole Sodium) 40 Mg Tab 40 Mg PO DAILY Zofran (Ondansetron HCl) 4 Mg Tab 4 Mg PO Q8HR PRN Zocor (Simvastatin) 40 Mg Tab 40 Mg PO HS Paxil (Paroxetine HCl) 10 Mg Tab 40 Mg PO HS Review of Systems Except as stated in HPI: all other systems reviewed are Neg General / Constitutional: No: Fever Cardiovascular: No: Chest Pain or Discomfort Respiratory: No: Shortness of Breath Gastrointestinal: Positive: Abdominal Pain, No: Nausea, Vomiting Genitourinary: Positive: Pelvic Pain, No: Dysuria, Hematuria, Discharge, Vaginal Bleeding Musculoskeletal: No: Edema Physical Exam Narrative GENERAL: Awake, alert, pleasant 37-year-old female who appears her stated age and is in no acute respiratory distress. SKIN: Focused skin assessment warm/dry. HEAD: Atraumatic. Normocephalic. EYES: Pupils equal and round. No scleral icterus. No injection or drainage. ENT: No nasal bleeding or discharge. Mucous membranes pink and moist. NECK: Trachea midline. No JVD. CARDIOVASCULAR: Regular rate and rhythm. No murmur appreciated. RESPIRATORY: No accessory muscle use. Clear to auscultation. Breath sounds equal bilaterally. GASTROINTESTINAL: Abdomen soft, mild tenderness right lower and left lower quadrant and suprapubic. No guarding or rigidity. Well-healed surgical scars noted. Back: No CVA tenderness. MUSCULOSKELETAL: No obvious deformities. No clubbing. No cyanosis. No edema. NEUROLOGICAL: Awake and alert. No obvious cranial nerve deficits. Motor grossly within normal limits. Normal speech. PSYCHIATRIC: Appropriate mood and affect; insight and judgment normal. Data Data Last Documented VS Vital Signs Date Time Temp Pulse Resp B/P (MAP) Pulse Ox O2 Delivery O2 Flow Rate FiO2 08/24/17 13:27 99 Room Air 08/24/17 12:23 99.5 76 16 Orders Orders Complete Blood Count With Diff (08/24/17 13:03) Comprehensive Metabolic Panel (08/24/17 13:03) Lipase (08/24/17 13:03) Lactic Acid (08/24/17 13:03) Urinalysis - C+S If Indicated (08/24/17 13:03) Iv Access Insert/Monitor (08/24/17 13:03) Ecg Monitoring (08/24/17 13:03) Oximetry (08/24/17 13:03) Morphine Inj (Morphine Inj) (08/24/17 13:15) Ondansetron Inj (Zofran Inj) (08/24/17 13:15) Sodium Chlor 0.9% 1000 Ml Inj (Ns 1000 M (08/24/17 13:03) Sodium Chloride 0.9% Flush (Ns Flush) (08/24/17 13:15) Ct Abd/Pel W Iv Contrast(Rout) (08/24/17 ) Iohexol 350 Inj (Omnipaque 350 Inj) (08/24/17 14:43) Morphine Inj (Morphine Inj) (08/24/17 15:45) Labs Laboratory Tests Test 08/24/17 13:10 White Blood Count 3.5 TH/MM3 Red Blood Count 3.06 MIL/MM3 Hemoglobin 9.5 GM/DL Hematocrit 27.8 % Mean Corpuscular Volume 90.8 FL Mean Corpuscular Hemoglobin 31.1 PG Mean Corpuscular Hemoglobin Concent 34.3 % Red Cell Distribution Width 16.2 % Platelet Count 296 TH/MM3 Mean Platelet Volume 7.5 FL Neutrophils (%) (Auto) 57.1 % Lymphocytes (%) (Auto) 29.5 % Monocytes (%) (Auto) 12.7 % Eosinophils (%) (Auto) 0.4 % Basophils (%) (Auto) 0.3 % Neutrophils # (Auto) 2.0 TH/MM3 Lymphocytes # (Auto) 1.0 TH/MM3 Monocytes # (Auto) 0.4 TH/MM3 Eosinophils # (Auto) 0.0 TH/MM3 Basophils # (Auto) 0.0 TH/MM3 CBC Comment DIFF FINAL Differential Comment Urine Color LIGHT-YELLOW Urine Turbidity CLEAR Urine pH 5.5 Urine Specific [place] 1.007 Urine Protein NEG mg/dL Urine Glucose (UA) NEG mg/dL Urine Ketones NEG mg/dL Urine Occult Blood NEG Urine Nitrite NEG Urine Bilirubin NEG Urine Urobilinogen LESS THAN 2.0 MG/DL Urine Leukocyte Esterase SMALL Urine RBC 1 /hpf Urine WBC 3 /hpf Urine Squamous Epithelial Cells <1 /hpf Urine Transitional Epithelial Cells <1 /hpf Microscopic Urinalysis Comment CULT NOT INDICATED Blood Urea Nitrogen 12 MG/DL Creatinine 0.72 MG/DL Random Glucose 90 MG/DL Total Protein 7.4 GM/DL Albumin 3.8 GM/DL Calcium Level 9.6 MG/DL Alkaline Phosphatase 91 U/L Aspartate Amino Transf (AST/SGOT) 26 U/L Alanine Aminotransferase (ALT/SGPT) 17 U/L Total Bilirubin 0.2 MG/DL Sodium Level 138 MEQ/L Potassium Level 3.5 MEQ/L Chloride Level 104 MEQ/L Carbon Dioxide Level 23.9 MEQ/L Anion Gap 10 MEQ/L Estimat Glomerular Filtration Rate 83 ML/MIN Lactic Acid Level 0.8 mmol/L Lipase 55 U/L [facility] Medical Decision Making Medical Screen Exam Complete: Yes Emergency Medical Condition: Yes Medical Record Reviewed: Yes Interpretation(s) Laboratory Tests Test 08/24/17 13:10 White Blood Count 3.5 TH/MM3 Red Blood Count 3.06 MIL/MM3 Hemoglobin 9.5 GM/DL Hematocrit 27.8 % Mean Corpuscular Volume 90.8 FL Mean Corpuscular Hemoglobin 31.1 PG Mean Corpuscular Hemoglobin Concent 34.3 % Red Cell Distribution Width 16.2 % Platelet Count 296 TH/MM3 Mean Platelet Volume 7.5 FL Neutrophils (%) (Auto) 57.1 % Lymphocytes (%) (Auto) 29.5 % Monocytes (%) (Auto) 12.7 % Eosinophils (%) (Auto) 0.4 % Basophils (%) (Auto) 0.3 % Neutrophils # (Auto) 2.0 TH/MM3 Lymphocytes # (Auto) 1.0 TH/MM3 Monocytes # (Auto) 0.4 TH/MM3 Eosinophils # (Auto) 0.0 TH/MM3 Basophils # (Auto) 0.0 TH/MM3 CBC Comment DIFF FINAL Differential Comment Urine Color LIGHT-YELLOW Urine Turbidity CLEAR Urine pH 5.5 Urine Specific [place] 1.007 Urine Protein NEG mg/dL Urine Glucose (UA) NEG mg/dL Urine Ketones NEG mg/dL Urine Occult Blood NEG Urine Nitrite NEG Urine Bilirubin NEG Urine Urobilinogen LESS THAN 2.0 MG/DL Urine Leukocyte Esterase SMALL Urine RBC 1 /hpf Urine WBC 3 /hpf Urine Squamous Epithelial Cells <1 /hpf Urine Transitional Epithelial Cells <1 /hpf Microscopic Urinalysis Comment CULT NOT INDICATED Blood Urea Nitrogen 12 MG/DL Creatinine 0.72 MG/DL Random Glucose 90 MG/DL Total Protein 7.4 GM/DL Albumin 3.8 GM/DL Calcium Level 9.6 MG/DL Alkaline Phosphatase 91 U/L Aspartate Amino Transf (AST/SGOT) 26 U/L Alanine Aminotransferase (ALT/SGPT) 17 U/L Total Bilirubin 0.2 MG/DL Sodium Level 138 MEQ/L Potassium Level 3.5 MEQ/L Chloride Level 104 MEQ/L Carbon Dioxide Level 23.9 MEQ/L Anion Gap 10 MEQ/L Estimat Glomerular Filtration Rate 83 ML/MIN Lactic Acid Level 0.8 mmol/L Lipase 55 U/L Last Impressions Abdomen/Pelvis CT 08/24/17 0000 Signed Impressions: Service Date/Time: Thursday, August 24, 2017 14:23 - CONCLUSION: 1. Interval hysterectomy with large heterogeneous mass in the uterine surgical bed measuring 9.6 x 5.0 x 6.8 cm. There is some mild inflammatory change particularly along the anterior-inferior margin of this mass without air in the mass. This most likely reflects a hematoma. Secondary infection cannot be excluded in the appropriate clinical setting. 2. Slightly prominent left external iliac node measuring 1.4 cm with a single slightly prominent distal retroperitoneal node measuring 1.3 cm. These nodes were present on PET/CT examination of 06/08/2017 although less than 8 mm in size and therefore may have been below the threshold for PET. Differential considerations include metastatic disease versus inflammatory/infectious adenopathy. Jamaal Meadows MD Differential Diagnosis Differential diagnosis includes postoperative abscess, neuralgia, diverticulitis , appendicitis, UTI, pyelonephritis, carcinoma. Narrative Course IV was established, labs are drawn and sent, and the patient was placed on cardiac telemetry monitoring and continuous pulse oximetry monitoring. The patient was administer morphine, Zofran, and IV fluids. A call was placed to the patient's gynecologic oncologist, Dr. Garsia, at [address] of the abdomen and pelvis with IV contrast was ordered. White count was slightly low at 3.5. Patient's temperature was 99.5. However, patient denies any actual fever at home. CT of the abdomen and pelvis reveals hematoma versus possible abscess. I discussed the patient with the radiologist who read the CT, he feels more than likely this is a hematoma. I discussed the patient with Dr. Garsia, we did have a discussion regarding 23 hour observation possible IR intervention for drainage versus Full watching and management. I had a discussion with the patient regarding this as well as her physician. After discussion with the patient was agreed she would be discharged home with pain medications, would return for intractable nausea/vomiting/pain or fever, temperature greater than 100.4. She is also advised to follow-up with her gynecologic surgeon. Patient does have appropriate discharge instructions, will be provided pain medications , she states she already has Zofran at home. Diagnosis Primary Impression: Pelvic pain in female Additional Impression: Hematoma Patient Instructions: General Instructions Additional Instructions: Please provide the patient a copy of CT results and lab results at discharge. Pain medications as directed. Follow-up with Dr. Garsia. Return for intractable nausea/vomiting/pain and/or temperature greater than 100.4. Med/Other Pt SpecificInfo: Prescription(s) given Scripts Oxycodone-Acetaminophen (Percocet) 5-325 mg Tab 1 TAB PO Q4H Y for PAIN, #20 TAB 0 Refills Prov: David Srivastava MD 08/24/17 Disposition: DISCHARGE HOME Condition: Stable David Srivastava MD Aug 24, 2017 13:13
[2017-08-24] MEDS ORDERED: MORPHINE SULFATE 4 MG/ML INJ IV PUSH ONE ×2 (13:15→15:45)
[2017-08-24] MEDS ORDERED: SODIUM CHLORIDE 0.9% FLUSH 10 ML FLUSH IV FLUSH PRN (13:15)
[2017-08-24] MEDS ORDERED: ONDANSETRON HCL 4 MG/2 ML VIAL IVP ONE (13:15)
[2017-08-24 13:27] VITALS: O2SAT 99
[2017-08-24 13:37] LABS: BASOPHIL % 0.3 % (0.0-2.0); EOSINOPHIL % 0.4 % (0.0-4.0); HEMATOCRIT 27.8 % (35.0-46.0); HEMOGLOBIN 9.5 GM/DL (11.6-15.3); LYMPH % 29.5 % (9.0-44.0); MEAN CELL VOLUME 90.8 FL (80.0-100.0); MEAN CORPUSCULAR HEMOGLOBIN 31.1 PG (27.0-34.0); MEAN CORPUSCULAR HGB CONC 34.3 % (32.0-36.0); MEAN PLATELET VOLUME 7.5 FL (7.0-11.0); MONO % 12.7 % (0.0-8.0); MONOCYTE # 0.4 TH/MM3 (0-0.9); NEUT % 57.1 % (16.0-70.0); PLATELET COUNT 296 TH/MM3 (150-450); RED BLOOD COUNT 3.06 MIL/MM3 (4.00-5.30); RED CELL DISTRIBUTION WIDTH 16.2 % (11.6-17.2); WHITE BLOOD COUNT 3.5 TH/MM3 (4.0-11.0)
[2017-08-24 13:49] LABS: BILIRUBIN, URINE NEG (NEG); BLOOD, URINE NEG (NEG); GLUCOSE,URINE NEG (NEG); KETONE, URINE NEG (NEG); NITRITE,URINE NEG (NEG); PH, URINE 5.5 (5.0-8.5); SQUAMOUS EPITHELIAL CELL URINE <1 /hpf (0-5); TRANSITIONAL EPI CELLS, URINE <1 /hpf; URINE COLOR LIGHT-YELLOW (YELLW/STRAW); URINE LEUKOCYTE ESTERASE SMALL (NEG)
[2017-08-24 13:58] LABS: ALBUMIN 3.8 GM/DL (3.4-5.0); AST (GOT) 26 U/L (15-37); BICARBONATE 23.9 MEQ/L (21.0-32.0); BLOOD UREA NITROGEN 12 MG/DL (7-18); CALCIUM 9.6 MG/DL (8.5-10.1); CHLORIDE 104 MEQ/L (98-107); CREATININE 0.72 MG/DL (0.50-1.00); GLOMERULAR FILTRATION RATE 83 ML/MIN (>89); GLUCOSE,RANDOM 90 MG/DL (74-106); LIPASE 55 U/L (73-393); SODIUM (NA) 138 MEQ/L (136-145)
[2017-08-24 13:59] LABS: ALT (GPT) 17 U/L (10-53)
[2017-08-24 14:01] LABS: ALKALINE PHOSPHATASE 91 U/L (45-117); TOTAL BILIRUBIN ADULT 0.2 MG/DL (0.2-1.0); TOTAL PROTEIN 7.4 GM/DL (6.4-8.2)
[2017-08-24] MEDS ORDERED: IOHEXOL 350 MG/ML 10 ML VIAL (for RAD DIAG) IVCONTRAST ONE (14:43)
--- NOTE | 2017-08-24 15:32 | RADRPT ---
EXAM DATE/TIME: 08/24/2017 14:23 This report includes an Addendum and supersedes previous reports for this exam. [facility] COMPARISON: CT NEEDLE BIOPSY ABDOMEN, March 29, 2017, 11:10. PET/CT examination from [facility] dated 08/08/2016. INDICATIONS : Pelvic pain since Tuesday IV CONTRAST: 95 cc Omnipaque 350 (iohexol) IV ORAL CONTRAST: No oral contrast ingested. RADIATION DOSE: 7.91 CTDIvol (mGy) MEDICAL HISTORY : Gastroesophageal reflux disease. Ulcers. Uterine cancer SURGICAL HISTORY : Hysterectomy. ENCOUNTER: Initial ACUITY: 4 - 6 days PAIN SCALE: 10/10 LOCATION: lower quadrant TECHNIQUE: Volumetric scanning of the abdomen and pelvis was performed. Using automated exposure control and ad justment of the mA and/or kV according to patient size, radiation dose was kept as low as reasonably achievable to obtain optimal diagnostic quality images. DICOM format image data is available electro nically for review and comparison. FINDINGS: LOWER LUNGS: There is a 6 mm solid nodule in the right lung base. LIVER: 1 cm hypodense lesion in segment 2 of the live, stable from prior exam r. Ill-defined region of hyper enhancement in segment 6 measuring 1.5 cm corresponds to focal lesion on prior PET/CT without PET act ivity. Gallbladder is distended but otherwise unremarkable by CT. SPLEEN: Normal size without lesion. PANCREAS: Within normal limits. KIDNEYS: Normal in size and shape. There is no mass, stone or hydronephrosis. ADRENAL GLANDS: Within normal limits. VASCULAR: There is no aortic aneurysm. BOWEL/MESENTERY: The stomach, small bowel, and colon demonstrate no acute abnormality. There is no free intraperitone al air or fluid. ABDOMINAL WALL: Within normal limits. RETROPERITONEUM: Single prominent retroperitoneal node measuring up to 1.3 cm. BLADDER: No wall thickening or mass. REPRODUCTIVE: Interval hysterectomy. Previously noted anterior right pelvic mass is not visualized, likely resected . There is a large heterogeneous partially enhancing mass in the uterine surgical bed measuring 9.6 x 5.0 x 6.8 cm. There is mild associated inflammatory stranding particularly along the inferior anteri or margin and trace fluid again anteriorly. There is a prominent left external iliac lymph node measu ring 1.4 cm. INGUINAL: No hernia. MUSCULOSKELETAL: Within normal limits for patient age. CONCLUSION: 1. Interval hysterectomy with large heterogeneous mass in the uterine surgical bed measuring 9.6 x 5. 0 x 6.8 cm. There is some mild inflammatory change particularly along the anterior-inferior margin of this mass without air in the mass. This most likely reflects a hematoma. Secondary infection cannot be excluded in the appropriate clinical setting. 2. Slightly prominent left external iliac node measuring 1.4 cm with a single slightly prominent dist al retroperitoneal node measuring 1.3 cm. These nodes were present on PET/CT examination of 06/08/2017 although less than 8 mm in size and therefore may have been below the threshold for PET. Differentia l considerations include metastatic disease versus inflammatory/infectious adenopathy. Jamaal Meadows MD on August 24, 2017 at 15:10 Board Certified Radiologist. This report was verified electronically. ADDENDUM: The following was excluded from the conclusion of the report: 3. 6 mm solid nodule in the inferior right lower lobe. Questionable subtle enlargement from prior PE T/CT examination where it measured almost 5 mm. This lesion is below the threshold for PET. Jamaal Meadows MD on August 24, 2017 at 16:08 Board Certified Radiologist. This report was verified electronically.
[2017-08-24] MEDS ORDERED: PERC5TAB12 PO (16:41)
== END 2017-08-24 17:20 | disposition home or self-care (01) ==
LOC: NEPC 12:21
DX: R10.2 Pelvic and perineal pain (principal); M19.90 Unspecified osteoarthritis, unspecified site; F41.9 Anxiety disorder, unspecified; E78.00 Pure hypercholesterolemia, unspecified; K21.9 Gastro-esophageal reflux disease without esophagitis; I10 Essential (primary) hypertension; Z79.899 Other long term (current) drug therapy; Z88.1 Allergy status to other antibiotic agents
CPT/HCPCS: 74177; 80053; 81001; 83605; 83690; 85025; 96374; 96375; 96376; 99285; J2270; J2405; J7030; Q9967

== ENCOUNTER 2017-09-05 09:51 | Inpatient (IN) | payer OTHER ==
[~2017-09-05] VITALS: Ht 165.1 cm; Wt 93.5 kg
[~2017-09-05 09:51] MED LIST changes: +PERC5TAB12 PO
[2017-09-05 09:57] VITALS: BP 121/76; PULSE 96; RESP 18; TEMP 97.7; O2SAT 98
--- NOTE | 2017-09-05 11:25 | PD ---
HPI Chief Complaint: Abdominal Pain Time Seen by Provider: 11:12 Travel History International Travel<30 days: No Contact w/Intl Traveler<30days: No Traveled to known affect area: No History of Present Illness HPI This is a 57 year old female who presents with abdominal pain in the right lower quadrant for 3 days, constant, pressure like, sharp, worse with eating, improved by bringing her legs closer to her. Pt. reports that she is constipated and has decreased appetite. Pt. had a fever of 102 at home, associated with some chills and night sweats. Pt. had a total hysterectomy, endometrial mass resection, and omentectomy on 06/30/[address] Garsia. Pt. reports that 2 weeks ago she had pain in the right lower abdomen and at that time she was noted to have a hematoma on CT. There was no intervention done at the time, but there was some consideration of drainage if her symptoms worsen. Pt. did have chemotherapy on Tuesday. PFSH Past Medical History Arthritis: Yes (LOW BACK) Anxiety: Yes Depression: No Heart Rhythm Problems: No Cancer: Yes (UTERINE) Cardiovascular Problems: Yes (hyperlipidemia) High Cholesterol: Yes Chemotherapy: Yes (UTERINE/OVARIES. LAST TUESDAY) Chest Pain: No Congestive Heart Failure: No Diabetes: No Diminished Hearing: No Endocrine: No Gastrointestinal Disorders: Yes (REFLUX) GERD: Yes Genitourinary: No Hepatitis: No Hiatal Hernia: No Hypertension: Yes Immune Disorder: No Implanted Vascular Access Dvce: Yes Musculoskeletal: Yes (LOW BACK PAIN) Neurologic: No Psychiatric: Yes (ANXIETY) Reproductive: Yes (UTERINE CA, TUMOR IN UTERUS) Respiratory: No Immunizations Current: Yes Radiation Therapy: No Sickle Cell Disease: No Thyroid Disease: No Ulcer: Yes ?: Not Menopausal: Yes : 4 Para: 3 Miscarriage: 1 Past Surgical History Abdominal Surgery: No AICD: No Body Medical Devices: TOP ORAL PLATE Cardiac Surgery: No Ear Surgery: No Endocrine Surgery: No Eye Surgery: No Genitourinary Surgery: No Gynecologic Surgery: Yes (D&C, LASH WITH BSO, OMENECTOMY, PELVIC MASS RESECTION ) Hysterectomy: Yes Joint Replacement: No Oral Surgery: Yes (T/A) Pacemaker: No Thoracic Surgery: No Tonsillectomy: Yes Other Surgery: Yes Social History Alcohol Use: No Tobacco Use: No (QUIT 10 YEARS AGO, 43 PACK YEARS) Substance Use: No Allergies-Medications (Allergen,Severity, Reaction): Coded Allergies: ciprofloxacin (Verified Allergy, Severe, 06/30/17) Reported Meds & Prescriptions Reported Meds & Active Scripts Active Oxycodone-Acetaminophen 5-325 (Oxycodone HCl/Acetaminophen) 5 Mg-325 Mg Tablet 1 Tab PO Q4H PRN Reported Calcium 600 with Vitamin D (Calcium Carbonate-Cholecalciferol) 600-400 mg-Unit Tab 1 Tab PO DAILY Protonix (Pantoprazole Sodium) 40 Mg Tab 40 Mg PO DAILY Zofran (Ondansetron HCl) 4 Mg Tab 4 Mg PO Q8HR PRN Zocor (Simvastatin) 40 Mg Tab 40 Mg PO HS Paxil (Paroxetine HCl) 10 Mg Tab 40 Mg PO HS Review of Systems Except as stated in HPI: all other systems reviewed are Neg Physical Exam Narrative GENERAL:Well appearing, no acute distress SKIN: Focused skin assessment warm and dry. HEAD: Atraumatic. Normocephalic. EYES: Pupils equal and round. No injection or drainage. ENT: Moist mucous membranes NECK: Trachea midline. CARDIOVASCULAR: Regular rate and rhythm. No murmur appreciated. RESPIRATORY: Clear to auscultation. Breath sounds equal bilaterally. GASTROINTESTINAL: Abdomen soft,distended, tender to palpation with rebound and guarding in the right lower quadrant MUSCULOSKELETAL: No obvious deformities. NEUROLOGICAL: Awake and alert. No obvious cranial nerve deficits. Moving all extremities. PSYCHIATRIC: Appropriate mood and affect; insight and judgment normal. Data Data Last Documented VS Vital Signs Date Time Temp Pulse Resp B/P (MAP) Pulse Ox O2 Delivery O2 Flow Rate FiO2 09/05/17 09:57 97.7 96 18 121/76 (91) 98 Orders Orders Complete Blood Count With Diff (09/05/17 11:27) Comprehensive Metabolic Panel (09/05/17 11:27) Prothrombin Time / Inr (Pt) (09/05/17 11:27) Act Partial Throm Time (Ptt) (09/05/17 11:27) Ct Abd/Pel W Iv Contrast(Rout) (09/05/17 ) ^ Insert Iv (09/05/17 11:27) Morphine Inj (Morphine Inj) (09/05/17 11:30) Iohexol 350 Inj (Omnipaque 350 Inj) (09/05/17 13:49) Morphine Inj (Morphine Inj) (09/05/17 14:00) Admit Order (Ed Use Only) (09/05/17 ) Labs Laboratory Tests Test 09/05/17 12:04 White Blood Count 5.2 TH/MM3 Red Blood Count 3.29 MIL/MM3 Hemoglobin 10.3 GM/DL Hematocrit 29.2 % Mean Corpuscular Volume 88.8 FL Mean Corpuscular Hemoglobin 31.2 PG Mean Corpuscular Hemoglobin Concent 35.1 % Red Cell Distribution Width 15.8 % Platelet Count 284 TH/MM3 Mean Platelet Volume 7.4 FL Neutrophils (%) (Auto) 77.1 % Lymphocytes (%) (Auto) 16.4 % Monocytes (%) (Auto) 6.0 % Eosinophils (%) (Auto) 0.2 % Basophils (%) (Auto) 0.3 % Neutrophils # (Auto) 4.0 TH/MM3 Lymphocytes # (Auto) 0.9 TH/MM3 Monocytes # (Auto) 0.3 TH/MM3 Eosinophils # (Auto) 0.0 TH/MM3 Basophils # (Auto) 0.0 TH/MM3 CBC Comment DIFF FINAL Differential Comment Prothrombin Time 10.0 SEC Prothromb Time International Ratio 1.0 RATIO Activated Partial Thromboplast Time 26.8 SEC Blood Urea Nitrogen 14 MG/DL Creatinine 0.86 MG/DL Random Glucose 101 MG/DL Total Protein 7.6 GM/DL Albumin 3.4 GM/DL Calcium Level 9.2 MG/DL Alkaline Phosphatase 94 U/L Aspartate Amino Transf (AST/SGOT) 45 U/L Alanine Aminotransferase (ALT/SGPT) 14 U/L Total Bilirubin 0.4 MG/DL Sodium Level 133 MEQ/L Potassium Level 3.2 MEQ/L Chloride Level 96 MEQ/L Carbon Dioxide Level 30.0 MEQ/L Anion Gap 7 MEQ/L Estimat Glomerular Filtration Rate 68 ML/MIN [facility] Medical Decision Making Medical Screen Exam Complete: Yes Emergency Medical Condition: Yes Interpretation(s) Afebrile, no tachycardia, normotensive Anemia Mild hypokalemia Last 24 hours Impressions Abdomen/Pelvis CT 09/05/17 0000 Signed Impressions: Service Date/Time: Tuesday, September 05, 2017 13:36 - CONCLUSION: Predominantly cystic mass in the pelvis larger when compared to the comparison study either hematoma or seroma. Abscess cannot be entirely excluded Hemangioma right lobe of the liver. Nahum Carrasco MD FACR Differential Diagnosis Hematoma, seroma, abscess, malignancy, obstruction Narrative Course This is a 57-year-old female who presents to the emergency department with abdominal discomfort that has been going on for several days. She has a known pelvic hematoma which was seen on CT following hysterectomy and endometrial mass resection. She was placed on a monitor and an IV was established. Labs are reassuring with an upward trending hemoglobin. She has no fever or leukocytosis to suggest infection. CT demonstrates an increasing size of fluid collection in her pelvis from 9 cm to 12 cm. She is quite uncomfortable on exam. Patient will be admitted. I spoke to Dr. Garsia who requests interventional radiology consult for evaluation of the fluid for possible blood versus infection versus malignancy. Patient will be admitted to Dr. Solorio 's service. Physician Communication Physician Communication Discussed with Dr. Solorio Diagnosis Primary Impression: Abdominal fluid collection Admitting Information Admitting Physician Requests: Admit Yoko Russo MD Sep 05, 2017 11:25
[2017-09-05] MEDS ORDERED: MORPHINE SULFATE 2 MG/ML INJ IV PUSH ONE ×2 (11:30→14:00)
[2017-09-05 12:16] LABS: BASOPHIL % 0.3 % (0.0-2.0); EOSINOPHIL % 0.2 % (0.0-4.0); HEMATOCRIT 29.2 % (35.0-46.0); HEMOGLOBIN 10.3 GM/DL (11.6-15.3); LYMPH % 16.4 % (9.0-44.0); LYMPHOCYTE # 0.9 TH/MM3 (1.0-4.8); MEAN CELL VOLUME 88.8 FL (80.0-100.0); MEAN CORPUSCULAR HEMOGLOBIN 31.2 PG (27.0-34.0); MEAN CORPUSCULAR HGB CONC 35.1 % (32.0-36.0); MEAN PLATELET VOLUME 7.4 FL (7.0-11.0); MONOCYTE # 0.3 TH/MM3 (0-0.9); NEUT % 77.1 % (16.0-70.0); PLATELET COUNT 284 TH/MM3 (150-450); RED BLOOD COUNT 3.29 MIL/MM3 (4.00-5.30); RED CELL DISTRIBUTION WIDTH 15.8 % (11.6-17.2); WHITE BLOOD COUNT 5.2 TH/MM3 (4.0-11.0)
[2017-09-05 12:35] LABS: ALBUMIN 3.4 GM/DL (3.4-5.0); ALT (GPT) 14 U/L (10-53); AST (GOT) 45 U/L (15-37); BLOOD UREA NITROGEN 14 MG/DL (7-18); CALCIUM 9.2 MG/DL (8.5-10.1); CHLORIDE 96 MEQ/L (98-107); CREATININE 0.86 MG/DL (0.50-1.00); GLOMERULAR FILTRATION RATE 68 ML/MIN (>89); GLUCOSE,RANDOM 101 MG/DL (74-106); SODIUM (NA) 133 MEQ/L (136-145)
[2017-09-05 12:37] LABS: ALKALINE PHOSPHATASE 94 U/L (45-117); TOTAL BILIRUBIN ADULT 0.4 MG/DL (0.2-1.0); TOTAL PROTEIN 7.6 GM/DL (6.4-8.2)
[2017-09-05 12:45] VITALS: BP 124/68; PULSE 78; RESP 17; O2SAT 95
[2017-09-05] MEDS ORDERED: IOHEXOL 350 MG/ML 10 ML VIAL (for RAD DIAG) IVCONTRAST ONE (13:49)
--- NOTE | 2017-09-05 15:07 | RADRPT ---
EXAM DATE/TIME: 09/05/2017 13:36 [place] COMPARISON: CT ABDOMEN & PELVIS W CONTRAST, August 24, 2017, 14:23. INDICATIONS : Right lower abdominal pain, constipation. IV CONTRAST: 90 cc Omnipaque 350 (iohexol) IV ORAL CONTRAST: No oral contrast ingested. RADIATION DOSE: 7.11 CTDIvol (mGy) MEDICAL HISTORY : Cardiovascular disease. Uterine cancer SURGICAL HISTORY : Hysterectomy. ENCOUNTER: Initial ACUITY: 4 - 6 days PAIN SCALE: 10/10 LOCATION: Right lower quadrant TECHNIQUE: Volumetric scanning of the abdomen and pelvis was performed. Using automated exposure control and ad justment of the mA and/or kV according to patient size, radiation dose was kept as low as reasonably achievable to obtain optimal diagnostic quality images. DICOM format image data is available electro nically for review and comparison. FINDINGS: LOWER LUNGS: The visualized lower lungs are clear. LIVER: Hemangioma 2 cm right lobe of the liver SPLEEN: Normal size without lesion. PANCREAS: Within normal limits. KIDNEYS: Normal in size and shape. There is no mass, stone or hydronephrosis. ADRENAL GLANDS: Within normal limits. VASCULAR: There is no aortic aneurysm. BOWEL/MESENTERY: There is the large mass measuring 12.7 cm and has progressed in size from the previous study probably representing H. hematoma. Abscess cannot be excluded. ABDOMINAL WALL: Within normal limits. RETROPERITONEUM: Obturator node remains on the left. BLADDER: No wall thickening or mass. REPRODUCTIVE: Status post hysterectomy INGUINAL: There is no lymphadenopathy or hernia. MUSCULOSKELETAL: Within normal limits for patient age. CONCLUSION: Predominantly cystic mass in the pelvis larger when compared to the comparison study either hematoma or seroma. Abscess cannot be entirely excluded Hemangioma right lobe of the liver. Nahum Carrasco MD FACR on September 05, 2017 at 14:59 Board Certified Radiologist. This report was verified electronically.
--- NOTE | 2017-09-05 16:01 | HHI.HP ---
HPI Service [facility] Hospitalists Primary Care Physician Delmar Gray M.D. Admission Diagnosis hematoma Chief Complaint: abd pain Travel History International Travel<30 Days: No Contact w/Intl Traveler <30 Da: No Traveled to Known Affected Are: No History of Present Illness This is a 57 year old female with a past medical history which includes anxiety/ depression, lumbar radiculopathy, chronic back pain, hyperlipidemia, uterine cancer. Patient is currently following with Dr. Garsia last chemotherapy this past Tuesday. She had three chemotherapy treatment then on 06/30/17 Robotic assisted Laparoscopic hysterectomy, BSO, resection of pelvic mass, omentectomy and tumor debulking with Dr. Garsia. After surgery patient has had two additional rounds of chemotherapy. Patient was seen in ER 08/24/17 for lower abdominal pain. CT abd/pelvic revealed: Large heterogeneous mass in the uterine surgical bed measuring 9.6 x 5.0 x6.8 cm. Patient was then DC with follow up with Dr. Garsia as an outpatient. Today patient returned to the ER due to worsening abdominal pain for the past 3 days. Pain constant, pressure like, sharp, worse with eating, improved by bringing her legs closer to her. Pt. reports that she is constipated and has decreased appetite. Pt. had a fever of 100.2 at home, associated with some chills and night sweats. CT abd/Pelvis (09/05/17) revealed: mass 12.7 cm which has progressed in size from previous study. Predominantly cystic mass in the pelvis larger when compared to the comparison study either hematoma or seroma. Abscess cannot be entirely excluded Hemangioma right lobe of the liver. Review of Systems Constitutional: COMPLAINS OF: Fever, Chills Gastrointestinal: COMPLAINS OF: Abdominal pain, Constipation Past Family Social History Past Medical History anxiety/depression, lumbar radiculopathy, chronic back pain, hyperlipidemia, uterine cancer Past Surgical History PORT 06/30/17 Robotic assisted Laparoscopic hysterectomy, BSO, resection of pelvic mass, omentectomy and tumor debulking with Dr. Garsia Reported Medications Oxycodone-Acetaminophen 5-325 (Oxycodone HCl/Acetaminophen) 5 Mg-325 Mg Tablet 1 Tab PO Q4H PRN Protonix (Pantoprazole Sodium) 40 Mg Tab 40 Mg PO DAILY Zofran (Ondansetron HCl) 4 Mg Tab 4 Mg PO Q8HR PRN Zocor (Simvastatin) 40 Mg Tab 40 Mg PO HS Paxil (Paroxetine HCl) 10 Mg Tab 40 Mg PO HS Allergies: Coded Allergies: ciprofloxacin (Verified Allergy, Severe, 06/30/17) Family History HTN and DM Social History Denies ETOH use Denies tobacco use Physical Exam Vital Signs Vital Signs Date Time Temp Pulse Resp B/P (MAP) Pulse Ox O2 Delivery O2 Flow Rate FiO2 09/05/17 09:57 97.7 96 18 121/76 (91) 98 Physical Exam GENERAL: This is a chronically ill appearing 57 year old female. SKIN: No rashes, ecchymoses or lesions. Cool and dry. HEAD: Atraumatic. Normocephalic. No temporal or scalp tenderness. EYES: Extraocular motions intact. No scleral icterus. No injection or drainage. CARDIOVASCULAR: Regular rate and rhythm RESPIRATORY: Clear to auscultation. Breath sounds equal bilaterally. GASTROINTESTINAL: Abdomen soft, tender to mild palpation of generalized abdomen most tender RUQ, nondistended. MUSCULOSKELETAL: Extremities without clubbing, cyanosis, or edema. No joint tenderness, effusion, or edema noted. No calf tenderness. Negative Homans sign bilaterally. NEUROLOGICAL: Awake and alert. No focal deficits. Motor and sensory grossly within normal limits. Five out of 5 muscle strength in all muscle groups. Normal speech. Laboratory Laboratory Tests Test 09/05/17 12:04 White Blood Count 5.2 Red Blood Count 3.29 Hemoglobin 10.3 Hematocrit 29.2 Mean Corpuscular Volume 88.8 Mean Corpuscular Hemoglobin 31.2 Mean Corpuscular Hemoglobin Concent 35.1 Red Cell Distribution Width 15.8 Platelet Count 284 Mean Platelet Volume 7.4 Neutrophils (%) (Auto) 77.1 Lymphocytes (%) (Auto) 16.4 Monocytes (%) (Auto) 6.0 Eosinophils (%) (Auto) 0.2 Basophils (%) (Auto) 0.3 Neutrophils # (Auto) 4.0 Lymphocytes # (Auto) 0.9 Monocytes # (Auto) 0.3 Eosinophils # (Auto) 0.0 Basophils # (Auto) 0.0 CBC Comment DIFF FINAL Differential Comment Prothrombin Time 10.0 Prothromb Time International Ratio 1.0 Activated Partial Thromboplast Time 26.8 Blood Urea Nitrogen 14 Creatinine 0.86 Random Glucose 101 Total Protein 7.6 Albumin 3.4 Calcium Level 9.2 Alkaline Phosphatase 94 Aspartate Amino Transf (AST/SGOT) 45 Alanine Aminotransferase (ALT/SGPT) 14 Total Bilirubin 0.4 Sodium Level 133 Potassium Level 3.2 Chloride Level 96 Carbon Dioxide Level 30.0 Anion Gap 7 Estimat Glomerular Filtration Rate 68 Result Diagram: 09/05/17 1204 09/05/17 1204 Imaging Last Impressions Abdomen/Pelvis CT 09/05/17 0000 Signed Impressions: Service Date/Time: Tuesday, September 05, 2017 13:36 - CONCLUSION: Predominantly cystic mass in the pelvis larger when compared to the comparison study either hematoma or seroma. Abscess cannot be entirely excluded Hemangioma right lobe of the liver. Nahum Carrasco MD FACR Caprini VTE Risk Assessment Caprini VTE Risk Assessment: Mod/High Risk (score >= 2) Caprini Risk Assessment Model Point Value = 1 Point Value = 2 Point Value = 3 Point Value = 5 Age 41-60 Minor surgery BMI > 25 kg/m2 Swollen legs Varicose veins or History of unexplained or recurrent spontaneous Oral contraceptives or hormone replacement Sepsis (< 1 month) Serious lung disease, including pneumonia (< 1 month) Abnormal pulmonary function Acute myocardial infarction Congestive heart failure (< 1 month) History of inflammatory bowel disease Medical patient at bed rest Age 61-74 Arthroscopic surgery Major open surgery (> 45 min) Laparoscopic surgery (> 45 min) Malignancy Confined to bed (> 72 hours) Immobilizing plaster cast Central venous access Age >= 75 History of VTE Family history of VTE Factor V Leiden Prothrombin [id number] Lupus anticoagulant Anticardiolipin antibodies Elevated serum homocysteine Heparin-induced thrombocytopenia Other congenital or acquired thrombophilia Stroke (< 1 month) Elective arthroplasty Hip, pelvis, or leg fracture Acute spinal cord injury (< 1 month) Prophylaxis Regimen Total Risk Factor Score Risk Level Prophylaxis Regimen 0-1 Low Early ambulation 2 Moderate Order ONE of the following: *Sequential Compression Device (SCD) *Heparin 5000 units SQ BID 3-4 Higher Order ONE of the following medications: *Heparin 5000 units SQ TID *Enoxaparin/Lovenox 40 mg SQ daily (WT < 150 kg, CrCl > 30 mL/min) *Enoxaparin/Lovenox 30 mg SQ daily (WT < 150 kg, CrCl > 10-29 mL/min) *Enoxaparin/Lovenox 30 mg SQ BID (WT < 150 kg, CrCl > 30 mL/min) AND/OR *Sequential Compression Device (SCD) 5 or more Highest Order ONE of the following medications: *Heparin 5000 units SQ TID (Preferred with Epidurals) *Enoxaparin/Lovenox 40 mg SQ daily (WT < 150 kg, CrCl > 30 mL/min) *Enoxaparin/Lovenox 30 mg SQ daily (WT < 150 kg, CrCl > 10-29 mL/min) *Enoxaparin/Lovenox 30 mg SQ BID (WT < 150 kg, CrCl > 30 mL/min) AND *Sequential Compression Device (SCD) Assessment and Plan Problem List: (1) Abdominal pain ICD Codes: R10.9 - Unspecified abdominal pain Plan: Abdominal pain Uterine cancer (carcinosarcoma) pelvic mass/hematoma This is a 57 year old female with a past medical history which includes anxiety/ depression, lumbar radiculopathy, chronic back pain, hyperlipidemia, uterine cancer. Patient is currently following with Dr. Garsia last chemotherapy this past Tuesday. She had three chemotherapy treatment then on 06/30/17 Robotic assisted Laparoscopic hysterectomy, BSO, resection of pelvic mass, omentectomy and tumor debulking with Dr. Garsia. After surgery patient has had two additional rounds of chemotherapy. Patient was seen in ER 08/24/17 for lower abdominal pain. CT abd/pelvic (08/24/17)revealed: Large heterogeneous mass in the uterine surgical bed measuring 9.6 x 5.0 x6.8 cm. Patient was then DC with follow up with Dr. Garsia as an outpatient. Today patient returned to the ER due to worsening abdominal pain for the past 3 days. Pain constant, pressure like, sharp, worse with eating, improved by bringing her legs closer to her. Pt. reports that she is constipated and has decreased appetite. Pt. had a fever of 100.2 at home, associated with some chills and night sweats. CT abd/Pelvis (09/05/17) revealed: mass 12.7 cm which has progressed in size from previous study. Predominantly cystic mass in the pelvis larger when compared to the comparison study either hematoma or seroma. Abscess cannot be entirely excluded Hemangioma right lobe of the liver. - ER provider discussed with Dr. Garsia who would like IR to aspirate/biopsy mass/Hematoma - Request placed to IR - Consult placed to Dr. Garsia - Pain medication Morphine and Peridot as needed Constipation Bowel regiment Anxiety/depression continue home Paxil 40 mg PO QHS Hyperlipidemia continue home simvastatin DVT prophylaxis with SCDs (2) Uterine cancer ICD Codes: C55 - Malignant neoplasm of uterus, part unspecified (3) Pelvic mass in female ICD Codes: R19.00 - Intra-abdominal and pelvic swelling, mass and lump, unspecified site (4) Hyperlipidemia ICD Codes: E78.5 - Hyperlipidemia, unspecified (5) Anxiety and depression ICD Codes: F41.8 - Other specified anxiety disorders Physician Certification 2 Midnight Certification Type: Admission for Inpatient Services Order for Inpatient Services The services are ordered in accordance with Medicare regulations or non- Medicare payer requirements, as applicable. In the case of services not specified as inpatient-only, they are appropriately provided as inpatient services in accordance with the 2-midnight benchmark. Estimated LOS (days): 3 days is the estimated time the patient will need to remain in the hospital, assuming treatment plan goals are met and no additional complications. Post-Hospital Plan: Not yet determined Lashanda Call Sep 05, 2017 16:01
[2017-09-05] MEDS ORDERED: NALOXONE HCL 0.4 MG/ML AMP IV PUSH PRN (16:15)
[2017-09-05] MEDS ORDERED: MAGNESIUM HYDROXIDE SUSP 30 ML CUP PO PRN (16:15)
[2017-09-05] MEDS ORDERED: BISACODYL 10 MG SUPP RECTAL PRN (16:15)
[2017-09-05] MEDS ORDERED: ACETAMINOPHEN/HYDROcodone 325 MG/7.5 MG TAB PO PRN (17:00)
[2017-09-05] MEDS ORDERED: LACTULOSE SYRUP 20 GM/30 ML CUP PO ONE (17:00)
[2017-09-05] MEDS ORDERED: BISACODYL EC 5 MG TABEC PO ONE (17:00)
[2017-09-05] MEDS ORDERED: POTASSIUM CHLORIDE 20 MEQ CONTROLLED RELEASE TAB PO ONE (17:00)
[2017-09-05] MEDS: MORPHINE SULFATE 4 MG/ML INJ IV PUSH PRN ×2 (17:32→21:31)
[2017-09-05 17:58] VITALS: BP 116/66; PULSE 75; RESP 16; O2SAT 95
[2017-09-05] MEDS: SODIUM CHLOR 0.9% 1000 ML INJ 1,000 ML IV SCH (18:17)
[2017-09-05 20:00] VITALS: BP 113/58; PULSE 81; RESP 21; TEMP 98.5; O2SAT 97
[2017-09-05] MEDS: PRAVASTATIN SOD 80 MG TAB PO SCH (20:21)
[2017-09-05] MEDS: PARoxetine HCL 20 MG TAB PO SCH (20:22)
[2017-09-05] MEDS: SODIUM CHLORIDE 0.9% FLUSH 10 ML FLUSH IV FLUSH SCH (20:23)
[2017-09-05] MEDS: DOCUSATE SODIUM 50 MG/SENNA 8.6 MG TAB PO SCH (20:27)
[2017-09-06] VITALS (9 sets, daily range): BP systolic 102–137; BP diastolic 55–73; PULSE 74–80; RESP 18–22; TEMP 98.4–100; O2SAT 92–98
[2017-09-06] MEDS: MORPHINE SULFATE 4 MG/ML INJ IV PUSH PRN ×6 (01:22→21:02)
[2017-09-06] MEDS: SODIUM CHLOR 0.9% 1000 ML INJ 1,000 ML IV SCH ×3 (02:14→21:06)
[2017-09-06 06:59] LABS: AUTOMATED NEUTROPHIL # 2.7 TH/MM3 (1.8-7.7); BASOPHIL % 0.4 % (0.0-2.0); EOSINOPHIL % 0.3 % (0.0-4.0); HEMATOCRIT 24.7 % (35.0-46.0); HEMOGLOBIN 8.5 GM/DL (11.6-15.3); LYMPH % 16.3 % (9.0-44.0); LYMPHOCYTE # 0.6 TH/MM3 (1.0-4.8); MEAN CELL VOLUME 89.7 FL (80.0-100.0); MEAN CORPUSCULAR HEMOGLOBIN 30.9 PG (27.0-34.0); MEAN CORPUSCULAR HGB CONC 34.5 % (32.0-36.0); MEAN PLATELET VOLUME 7.4 FL (7.0-11.0); MONO % 8.3 % (0.0-8.0); MONOCYTE # 0.3 TH/MM3 (0-0.9); NEUT % 74.7 % (16.0-70.0); PLATELET COUNT 232 TH/MM3 (150-450); RED BLOOD COUNT 2.75 MIL/MM3 (4.00-5.30); RED CELL DISTRIBUTION WIDTH 15.8 % (11.6-17.2); WHITE BLOOD COUNT 3.6 TH/MM3 (4.0-11.0)
[2017-09-06 07:23] LABS: BICARBONATE 29.1 MEQ/L (21.0-32.0); CALCIUM 8.4 MG/DL (8.5-10.1); CREATININE 0.76 MG/DL (0.50-1.00)
[2017-09-06] MEDS: SODIUM CHLORIDE 0.9% FLUSH 10 ML FLUSH IV FLUSH SCH ×2 (07:55→21:00)
--- NOTE | 2017-09-06 08:14 | PD.CONS ---
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 Lyndsey Call NP Reason for Consult pelvic fluid collection Primary Care Physician Delmar Gary M.D. 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 She was recently seen and evaluated in the ER for pelvic pain. Imaging showed a pelvic fluid collection aprox 9-10cm in greatest dimension. It was described as heterogeneous in nature. She was released and followed up with Dr. Garsia on 09/02/17 where is was discussed to see if IR can drain the fluid, Ms. Reyna at the time did not wish to have it drained and she continued with Chemotherapy, with orders for a [address] scan for reevaluation. Her last IV chemo was cycle #5 Carbplatin AUC 6 on 08/31/17. Ms. Reyna came back to the ER for worsening pelvic pain for 3 days. She was evaluated and admitted to have IR drain drain the fluid collection. Orders were place by hospitalist and she has been NPO for today's procedure. Patient states besides pain she has had constipation with decreased appetite. She reports febrile at home. Ct scan completed and shown that the pelvic fluid collection has gotten bigger at 12.7cm, predominately cystic. Review of Systems Constitutional: COMPLAINS OF: Fever Gastrointestinal: COMPLAINS OF: Abdominal pain, Constipation, Anorexia Past Family Social History Allergies: Coded Allergies: ciprofloxacin (Verified Allergy, Severe, 06/30/17) Past Medical History anxiety depression lumbar radiculopathy chronic back pain hyperlipidemia uterine carcinosarcoma stage IV Past Surgical History robotic assisted laproscopic hysterectomy with BSO and resection of pelvic mass, omentectomy 06/30/17 Reported Medications per EMR Active Ordered Medications Current Medications Morphine Sulfate (Morphine Inj) 4 mg ONCE ONCE IV PUSH Last administered on 09/05/17at 12:19; Start 09/05/17 at 11:30; Stop 09/05/17 at 11:31; Status DC Iohexol (Omnipaque 350 Inj) 90 ml STK-MED ONCE IVCONTRAST Last administered on 09/05/17at 13:49; Start 09/05/17 at 13:49; Stop 09/05/17 at 13:50; Status DC Morphine Sulfate (Morphine Inj) 4 mg ONCE ONCE IV PUSH Last administered on 09/05/17at 15:15; Start 09/05/17 at 14:00; Stop 09/05/17 at 14:01; Status DC Sodium Chloride 1,000 ml @ 100 mls/hr Q10H IV Last administered on 09/06/17at 03 :36; Start 09/05/17 at 16:14 Sodium Chloride (NS Flush) 2 ml UNSCH PRN IV FLUSH FLUSH AFTER USING IV ACCESS ; Start 09/05/17 at 16:15 Sodium Chloride (NS Flush) 2 ml BID IV FLUSH ; Start 09/05/17 at 21:00 Acetaminophen (Tylenol) 650 mg Q4H PRN PO TEMP > 100.4; Start 09/05/17 at 16:15 Ondansetron HCl (Zofran Inj) 4 mg Q6H PRN IVP NAUSEA OR VOMITING; Start at 16:15 Naloxone HCl (Narcan Inj) 0.4 mg UNSCH PRN IV PUSH SEE LABEL COMMENTS; Start at 16:15 Senna/Docusate Sodium (Sharri-Colace) 1 tab BID PO Last administered on 09/05/17at 20:27; Start 09/05/17 at 21:00 Magnesium Hydroxide (Milk Of Magnesia Liq) 30 ml Q12H PRN PO Mild constipation ; Start 09/05/17 at 16:15 Bisacodyl (Dulcolax Supp) 10 mg DAILY PRN RECTAL SEVERE CONSITIPATION; Start at 16:15 Acetaminophen/ Hydrocodone Bitart ([place] 7.5-325 Mg) 1 tab Q4H PRN PO pain 3- 5 Last administered on 09/05/17at 20:22; Start 09/05/17 at 17:00 Morphine Sulfate (Morphine Inj) 4 mg Q4H PRN IV PUSH pain 6-10 Last administered on 09/06/17at 05:45; Start 09/05/17 at 17:00 Pantoprazole Sodium (Protonix) 40 mg DAILY PO ; Start 09/06/17 at 09:00 Paroxetine HCl (Paxil) 40 mg HS PO Last administered on 09/05/17at 20:22; Start 09/05/17 at 21:00 Pravastatin Sodium (Pravachol) 80 mg HS PO Last administered on 09/05/17at 20:21 ; Start 09/05/17 at 21:00 Potassium Chloride (KCl) 40 meq ONCE ONCE PO Last administered on 09/05/17at 17: 31; Start 09/05/17 at 17:00; Stop 09/05/17 at 17:01; Status DC Bisacodyl (Dulcolax Ec) 10 mg ONCE ONCE PO ; Start 09/05/17 at 17:00; Stop at 17:00; Status DC Bisacodyl (Dulcolax Ec) 10 mg DAILY PO ; Start 09/06/17 at 09:00; Stop 09/06/17 at 09:00; Status DC Lactulose (Lactulose Liq) 30 ml ONCE ONCE PO Last administered on 09/05/17at 17: 32; Start 09/05/17 at 17:00; Stop 09/05/17 at 17:01; Status DC Lactulose (Lactulose Liq) 30 ml BID PO ; Start 09/06/17 at 09:00 Family History in EMR Social History denies ETOH denies tobacco Physical Exam Vital Signs Vital Signs Date Time Temp Pulse Resp B/P (MAP) Pulse Ox O2 Delivery O2 Flow Rate FiO2 09/06/17 04:00 98.8 78 18 111/55 (73) 95 09/06/17 00:00 98.6 76 22 104/65 (78) 95 09/05/17 20:00 98.5 81 21 113/58 (76) 97 09/05/17 18:12 09/05/17 18:00 16 09/05/17 17:58 75 16 116/66 (83) 95 Room Air 09/05/17 12:45 78 17 124/68 (86) 95 Room Air 09/05/17 09:57 97.7 96 18 121/76 (91) 98 Physical Exam GENERAL: This is a well-nourished, well-developed patient, in mild amount of distress SKIN: No rashes, ecchymoses or lesions. Cool and dry. HEAD: Atraumatic. Normocephalic. No temporal or scalp tenderness. EYES: Pupils equal round and reactive. Extraocular motions intact. No scleral icterus. No injection or drainage. CARDIOVASCULAR: Regular rate and rhythm without murmurs, gallops, or rubs. RESPIRATORY: Clear to auscultation. Breath sounds equal bilaterally. No wheezes , rales, or rhonchi. GASTROINTESTINAL: Abdomen soft with guarding. + BS x 4 MUSCULOSKELETAL: Extremities without clubbing, cyanosis, or edema. No joint tenderness, effusion, or edema noted. No calf tenderness. Negative Homans sign bilaterally. NEUROLOGICAL: Awake and alert. Normal speech. Laboratory Laboratory Tests Test 09/05/17 12:04 09/06/17 06:40 White Blood Count 5.2 3.6 Red Blood Count 3.29 2.75 Hemoglobin 10.3 8.5 Hematocrit 29.2 24.7 Mean Corpuscular Volume 88.8 89.7 Mean Corpuscular Hemoglobin 31.2 30.9 Mean Corpuscular Hemoglobin Concent 35.1 34.5 Red Cell Distribution Width 15.8 15.8 Platelet Count 284 232 Mean Platelet Volume 7.4 7.4 Neutrophils (%) (Auto) 77.1 74.7 Lymphocytes (%) (Auto) 16.4 16.3 Monocytes (%) (Auto) 6.0 8.3 Eosinophils (%) (Auto) 0.2 0.3 Basophils (%) (Auto) 0.3 0.4 Neutrophils # (Auto) 4.0 2.7 Lymphocytes # (Auto) 0.9 0.6 Monocytes # (Auto) 0.3 0.3 Eosinophils # (Auto) 0.0 0.0 Basophils # (Auto) 0.0 0.0 CBC Comment DIFF FINAL DIFF FINAL Differential Comment Prothrombin Time 10.0 Prothromb Time International Ratio 1.0 Activated Partial Thromboplast Time 26.8 Blood Urea Nitrogen 14 14 Creatinine 0.86 0.76 Random Glucose 101 113 Total Protein 7.6 Albumin 3.4 Calcium Level 9.2 8.4 Alkaline Phosphatase 94 Aspartate Amino Transf (AST/SGOT) 45 Alanine Aminotransferase (ALT/SGPT) 14 Total Bilirubin 0.4 Sodium Level 133 137 Potassium Level 3.2 3.4 Chloride Level 96 101 Carbon Dioxide Level 30.0 29.1 Anion Gap 7 7 Estimat Glomerular Filtration Rate 68 78 Result Diagram: 09/06/17 0640 09/06/17 0640 Imaging Last Impressions Abdomen/Pelvis CT 09/05/17 0000 Signed Impressions: Service Date/Time: Tuesday, September 05, 2017 13:36 - CONCLUSION: Predominantly cystic mass in the pelvis larger when compared to the comparison study either hematoma or seroma. Abscess cannot be entirely excluded Hemangioma right lobe of the liver. Nahum Carrasco MD FACR Assessment and Plan Problem List: (1) Abdominal fluid collection ICD Codes: R18.8 - Other ascites Status: Acute Plan: IR to drain fluid collection to be sent for cytology, gram stain and culture, leave drain in place if needed. (2) Uterine cancer ICD Codes: C55 - Malignant neoplasm of uterus, part unspecified Status: Chronic Plan: Continue IV chemotherapy as scheduled once discharged from hospital Problem Qualifiers (1) Uterine cancer: Qualified Codes: C55 - Malignant neoplasm of uterus, part unspecified Andriy Laguna Sep 06, 2017 08:14
[2017-09-06] MEDS ORDERED: BISACODYL EC 5 MG TABEC PO SCH (09:00)
[2017-09-06] MEDS: LACTULOSE SYRUP 20 GM/30 ML CUP PO SCH ×2 (09:37→21:00)
[2017-09-06] MEDS: DOCUSATE SODIUM 50 MG/SENNA 8.6 MG TAB PO SCH ×2 (09:37→21:00)
[2017-09-06] MEDS: PANTOPRAZOLE SOD 40 MG DELAYED RELEASE TAB PO SCH (09:38)
--- NOTE | 2017-09-06 09:39 | HHI.PR ---
Subjective Remarks pain more controlled Objective Vitals heart reg lung cta abd tender mostly rlq. bs ext no edema Vital Signs Date Time Temp Pulse Resp B/P (MAP) Pulse Ox O2 Delivery O2 Flow Rate FiO2 09/06/17 04:00 98.8 78 18 111/55 (73) 95 09/06/17 00:00 98.6 76 22 104/65 (78) 95 09/05/17 20:00 98.5 81 21 113/58 (76) 97 09/05/17 18:12 09/05/17 18:00 16 09/05/17 17:58 75 16 116/66 (83) 95 Room Air 09/05/17 12:45 78 17 124/68 (86) 95 Room Air 09/05/17 09:57 97.7 96 18 121/76 (91) 98 Result Diagram: 09/06/17 0640 09/06/17 0640 Imaging Last Impressions Abdomen/Pelvis CT 09/05/17 0000 Signed Impressions: Service Date/Time: Tuesday, September 05, 2017 13:36 - CONCLUSION: Predominantly cystic mass in the pelvis larger when compared to the comparison study either hematoma or seroma. Abscess cannot be entirely excluded Hemangioma right lobe of the liver. Nahum Carrasco MD FACR A/P Problem List: (1) Abdominal pain ICD Codes: R10.9 - Unspecified abdominal pain Status: Acute Plan: Abdominal pain Uterine cancer (carcinosarcoma) pelvic mass/hematoma This is a 57 year old female with a past medical history which includes anxiety/ depression, lumbar radiculopathy, chronic back pain, hyperlipidemia, uterine cancer. Patient is currently following with Dr. Garsia last chemotherapy this past Tuesday. She had three chemotherapy treatment then on 06/30/17 Robotic assisted Laparoscopic hysterectomy, BSO, resection of pelvic mass, omentectomy and tumor debulking with Dr. Garsia. After surgery patient has had two additional rounds of chemotherapy. Patient was seen in ER 08/24/17 for lower abdominal pain. CT abd/pelvic (08/24/17)revealed: Large heterogeneous mass in the uterine surgical bed measuring 9.6 x 5.0 x6.8 cm. Patient was then DC with follow up with Dr. Garsia as an outpatient. Today patient returned to the ER due to worsening abdominal pain for the past 3 days. Pain constant, pressure like, sharp, worse with eating, improved by bringing her legs closer to her. Pt. reports that she is constipated and has decreased appetite. Pt. had a fever of 100.2 at home, associated with some chills and night sweats. CT abd/Pelvis (09/05/17) revealed: mass 12.7 cm which has progressed in size from previous study. Predominantly cystic mass in the pelvis larger when compared to the comparison study either hematoma or seroma. Abscess cannot be entirely excluded Hemangioma right lobe of the liver. - ER provider discussed with Dr. Garsia who would like IR to aspirate/biopsy mass/Hematoma - Request placed to IR. going today for ct guided aspiration..check gs/cx/ cytology - Discussed with dr Garsia - Pain medication Morphine and Louise as needed Constipation Bowel regimen Anxiety/depression continue home Paxil 40 mg PO QHS Hyperlipidemia continue home simvastatin DVT prophylaxis with SCDs (2) Uterine cancer ICD Codes: C55 - Malignant neoplasm of uterus, part unspecified Status: Chronic (3) Pelvic mass in female ICD Codes: R19.00 - Intra-abdominal and pelvic swelling, mass and lump, unspecified site Status: Chronic (4) Hyperlipidemia ICD Codes: E78.5 - Hyperlipidemia, unspecified Status: Chronic (5) Anxiety and depression ICD Codes: F41.8 - Other specified anxiety disorders Status: Chronic Jakub Solorio MD Sep 06, 2017 09:39
[2017-09-06] MEDS ORDERED: LIDOCAINE HCL 1% 20 ML VIAL ONE (15:18)
[2017-09-06] MEDS ORDERED: MIDAZOLAM HCL 2 MG/2 ML VIAL ONE (15:27)
--- NOTE | 2017-09-06 16:59 | PD.RAD ---
Post CT Procedure Prog Note Pre Procedure Diagnosis: (1) Abdominal fluid collection Post Procedure Diagnosis: (1) Abdominal fluid collection Procedure Date: Sep 06, 2017 Supervising Radiologist: Jamaal Meadows Anesthesia: Conscious Sedation Plan of Activity Patient to Unit: ROP[facility] Patient Condition: Good See PACS Report for procedural detail/treatment Jamaal Meadows MD Sep 06, 2017 16:59
[2017-09-06] MEDS: PRAVASTATIN SOD 80 MG TAB PO SCH (21:01)
[2017-09-06] MEDS: PARoxetine HCL 20 MG TAB PO SCH (21:01)
[2017-09-06] MEDS: SODIUM CHLORIDE 0.9% 10 ML VIAL IRRIGATION SCH (21:06)
[2017-09-07] VITALS (8 sets, daily range): BP systolic 101–140; BP diastolic 58–84; PULSE 69–94; RESP 18–20; TEMP 98.5–102.6; O2SAT 93–99
[2017-09-07] MEDS: MORPHINE SULFATE 4 MG/ML INJ IV PUSH PRN ×6 (01:57→21:19)
[2017-09-07] MEDS: DOCUSATE SODIUM 50 MG/SENNA 8.6 MG TAB PO SCH ×2 (05:38→20:49)
[2017-09-07] MEDS: LACTULOSE SYRUP 20 GM/30 ML CUP PO SCH (05:38)
[2017-09-07 05:56] LABS: BICARBONATE 30.2 MEQ/L (21.0-32.0); CALCIUM 9.5 MG/DL (8.5-10.1); CREATININE 0.81 MG/DL (0.50-1.00)
[2017-09-07] MEDS: SODIUM CHLORIDE 0.9% 10 ML VIAL IRRIGATION SCH ×3 (06:00→20:50)
[2017-09-07] MEDS ORDERED: POTASSIUM CHLORIDE 20 MEQ CONTROLLED RELEASE TAB PO ONE (07:45)
[2017-09-07] MEDS: PANTOPRAZOLE SOD 40 MG DELAYED RELEASE TAB PO SCH (08:48)
[2017-09-07] MEDS: SODIUM CHLORIDE 0.9% FLUSH 10 ML FLUSH IV FLUSH SCH ×2 (08:49→20:49)
--- NOTE | 2017-09-07 09:10 | HHI.PR ---
Subjective Remarks alot of pain/cramps this AM near drain site had "large bm after lactulose." Objective Vitals heart reg lung cta abd right abdomen drain. bloody drainage very tender over rlq. bs active ext no edema Vital Signs Date Time Temp Pulse Resp B/P (MAP) Pulse Ox O2 Delivery O2 Flow Rate FiO2 09/07/17 08:54 18 09/07/17 07:57 98.5 69 20 140/84 (102) 97 09/07/17 04:00 98.6 80 18 101/58 (72) 99 09/07/17 01:55 99.5 75 19 111/67 (82) 09/06/17 20:00 99.0 80 18 112/63 (79) 96 09/06/17 20:00 99.0 80 18 112/63 (79) 96 09/06/17 17:00 77 20 111/69 (83) 93 09/06/17 16:40 75 20 111/73 (86) 92 09/06/17 16:25 98.5 75 20 102/59 (73) 95 09/06/17 16:00 100.0 74 18 137/66 (89) 98 09/06/17 12:00 98.4 78 18 128/70 (89) 97 09/06/17 10:00 97 Result Diagram: 09/06/17 0640 09/07/17 0434 Imaging Last Impressions Abdomen/Pelvis CT 09/05/17 0000 Signed Impressions: Service Date/Time: Tuesday, September 05, 2017 13:36 - CONCLUSION: Predominantly cystic mass in the pelvis larger when compared to the comparison study either hematoma or seroma. Abscess cannot be entirely excluded Hemangioma right lobe of the liver. Nahum Carrasco MD FACR A/P Problem List: (1) Abdominal pain ICD Codes: R10.9 - Unspecified abdominal pain Status: Acute Plan: Abdominal pain Uterine cancer (carcinosarcoma) pelvic mass/hematoma This is a 57 year old female with a past medical history which includes anxiety/ depression, lumbar radiculopathy, chronic back pain, hyperlipidemia, uterine cancer. Patient is currently following with Dr. Garsia last chemotherapy this past Tuesday. She had three chemotherapy treatment then on 06/30/17 Robotic assisted Laparoscopic hysterectomy, BSO, resection of pelvic mass, omentectomy and tumor debulking with Dr. Garsia. After surgery patient has had two additional rounds of chemotherapy. Patient was seen in ER 08/24/17 for lower abdominal pain. CT abd/pelvic (08/24/17)revealed: Large heterogeneous mass in the uterine surgical bed measuring 9.6 x 5.0 x6.8 cm. Patient was then DC with follow up with Dr. Garsia as an outpatient. Today patient returned to the ER due to worsening abdominal pain for the past 3 days. Pain constant, pressure like, sharp, worse with eating, improved by bringing her legs closer to her. Pt. reports that she is constipated and has decreased appetite. Pt. had a fever of 100.2 at home, associated with some chills and night sweats. CT abd/Pelvis (09/05/17) revealed: mass 12.7 cm which has progressed in size from previous study. Predominantly cystic mass in the pelvis larger when compared to the comparison study either hematoma or seroma. Abscess cannot be entirely excluded Hemangioma right lobe of the liver. - IR placed drain into abdomen fluid collection on 09/06..bloody fluid overnight nursing reports about 100ml bloody fluid out - pain control - f/u cytology and gs/cx -? repeat ct at some point per IR Constipation Bowel regimen Anxiety/depression continue home Paxil 40 mg PO QHS Hyperlipidemia continue home simvastatin DVT prophylaxis with SCDs (2) Uterine cancer ICD Codes: C55 - Malignant neoplasm of uterus, part unspecified Status: Chronic (3) Pelvic mass in female ICD Codes: R19.00 - Intra-abdominal and pelvic swelling, mass and lump, unspecified site Status: Chronic (4) Hyperlipidemia ICD Codes: E78.5 - Hyperlipidemia, unspecified Status: Chronic (5) Anxiety and depression ICD Codes: F41.8 - Other specified anxiety disorders Status: Chronic Jakub Solorio MD Sep 07, 2017 09:10
[2017-09-07] MEDS ORDERED: LACTULOSE SYRUP 20 GM/30 ML CUP PO PRN (09:15)
--- NOTE | 2017-09-07 10:25 | PD.ONC.PN ---
Subjective Subjective Remarks patient OOB to bathroom states she still has a lot of pain to the right side of abdomen. drain placed with bloody drainage aprox 5 cc in bag but was drained at aprox 6:30am this morning patient + BM + flatus Objective Data Date Time Temp Pulse Resp B/P (MAP) Pulse Ox O2 Delivery O2 Flow Rate FiO2 09/07/17 08:54 18 09/07/17 07:57 98.5 69 20 140/84 (102) 97 09/07/17 04:00 98.6 80 18 101/58 (72) 99 09/07/17 01:55 99.5 75 19 111/67 (82) 09/06/17 20:00 99.0 80 18 112/63 (79) 96 09/06/17 20:00 99.0 80 18 112/63 (79) 96 09/06/17 17:00 77 20 111/69 (83) 93 09/06/17 16:40 75 20 111/73 (86) 92 09/06/17 16:25 98.5 75 20 102/59 (73) 95 09/06/17 16:00 100.0 74 18 137/66 (89) 98 09/06/17 12:00 98.4 78 18 128/70 (89) 97 09/07/17 09/07/17 09/07/17 07:00 15:00 23:00 Output Total 100 ml Balance -100 ml Result Diagram: 09/06/17 0640 09/07/17 0434 Laboratory Results Laboratory Tests Test 09/07/17 04:34 Blood Urea Nitrogen 13 MG/DL Creatinine 0.81 MG/DL Random Glucose 114 MG/DL Calcium Level 9.5 MG/DL Sodium Level 136 MEQ/L Potassium Level 3.2 MEQ/L Chloride Level 98 MEQ/L Carbon Dioxide Level 30.2 MEQ/L Anion Gap 8 MEQ/L Estimat Glomerular Filtration Rate 72 ML/MIN Culture Results Microbiology Date/Time Source Procedure Growth Status 09/06/17 16:00 Abscess Abdomen Gram Stain - Final Resulted 09/06/17 16:00 Abscess Abdomen Wound Culture Pending Resulted Administered Medications Medications (Trade) Dose Ordered Sig/Khloe Route PRN Reason Start Time Stop Time Status Last Admin Dose Admin Sodium Chloride (NS Flush) 2 ml BID IV FLUSH 09/05/17 21:00 09/07/17 08:49 Senna/Docusate Sodium (Sharri-Colace) 1 tab BID PO 09/05/17 21:00 09/07/17 05:38 Acetaminophen/ Hydrocodone Bitart (Nelson 7.5-325 Mg) 1 tab Q4H PRN PO pain 3-5 09/05/17 17:00 09/05/17 20:22 Morphine Sulfate (Morphine Inj) 4 mg Q4H PRN IV PUSH pain 6-10 09/05/17 17:00 09/07/17 08:49 Pantoprazole Sodium (Protonix) 40 mg DAILY PO 09/06/17 09:00 09/07/17 08:48 Paroxetine HCl (Paxil) 40 mg HS PO 09/05/17 21:00 09/06/17 21:01 Pravastatin Sodium (Pravachol) 80 mg HS PO 09/05/17 21:00 09/06/17 21:01 Sodium Chloride (NS Inj) 10 ml Q8HR IRRIGATION 09/06/17 22:00 09/07/17 06:00 Objective Remarks GENERAL: Well-nourished, well-developed patient. SKIN: Warm and dry. HEAD: Normocephalic. EYES: No scleral icterus. No injection or drainage. NECK: Supple CARDIOVASCULAR: Regular rate and rhythm without murmurs. RESPIRATORY: Breath sounds equal bilaterally. No accessory muscle use. GASTROINTESTINAL: tender to right abdomen, drain with bloody drainage EXTREMITIES: No cyanosis, or edema. MUSCULOSKELETAL: Adequate muscle tone. NEUROLOGICAL: No obvious focal deficit. Awake, alert, and oriented x3. PSYCHIATRIC: Appropriate mood and affect; insight and judgment normal. Assessment/Plan Problem List: (1) Abdominal fluid collection ICD Codes: R18.8 - Other ascites Status: Acute Plan: s/p IR drainage of pelvic fluid collection 09/06/17 drain placed cultures pending monitor drain outpt (2) Uterine cancer ICD Codes: C55 - Malignant neoplasm of uterus, part unspecified Status: Chronic Plan: patient will continue with IV chemotherapy as scheduled once discharged from [facility] Andriy Laguna Sep 07, 2017 10:25
[2017-09-07] MEDS ORDERED: POLYETHYLENE GLYCOL 17 GM PKG PO PRN (10:30)
[2017-09-07] MEDS: ACETAMINOPHEN 325 MG TAB PO PRN ×2 (14:58→20:49)
[2017-09-07] MEDS ORDERED: cefTRIAXone INJ 1,000 MG in SODIUM CHLORIDE 0.9% INJ 100 ML IV SCH (16:00)
[2017-09-07] MEDS: PRAVASTATIN SOD 80 MG TAB PO SCH (20:48)
[2017-09-07] MEDS: PARoxetine HCL 20 MG TAB PO SCH (20:48)
[2017-09-07] MEDS: POTASSIUM CHLORIDE 20 MEQ CONTROLLED RELEASE TAB PO SCH (20:48)
--- NOTE | 2017-09-07 23:30 | MB ---
cc: MEET COLLIER M.D.,MERYL LUIS,DEBBY Carrizales MD DATE OF CONSULTATION: 09/06/2017 REQUESTING PHYSICIAN: Dr. Meryl Solorio REASON FOR CONSULTATION 1. Uterine carcinosarcoma. 2. Symptomatic pelvic fluid collection. Althea Reyna's findings are reviewed. Her history is reviewed. She is seen, examined by me, counseled by me in conjunction with our nurse practitioner, (Andriy Laguna). I agree with her findings, assessment and plan of care. HISTORY OF PRESENT ILLNESS: The patient is a 57 year-old female who presented with a stage IV uterine carcinosarcoma, initially with significant pain, compromised performance status. She was treated with neoadjuvant Taxol and carboplatin chemotherapy, and then changed to single agent carboplatin because of infusion reaction to Taxol. She then underwent robotic-assisted laparoscopic hysterectomy, bilateral salpingo-oophorectomy, omentectomy, resection of any other detectable tumor. At the time of surgery the impression was that of a good response to chemotherapy thus far. She did well postoperative. She was continued on single-agent carboplatin but in recent time she has had problems with central pelvic, lower abdominal and even at times upper abdominal pain. She has been troubled by constipation, decreased appetite at times, some nausea. She recently presented to the emergency room were exam and imaging showed approximately 9-10 cm complex fluid collection that the radiologist felt had the characteristics of a probable hematoma in the pelvis. She was treated symptomatically. She had no fevers, no elevated white count and no evidence of obstruction. She was seen in followup by me in my office where we again reviewed these findings. She was feeling reasonably well. We offered consult again to interventional radiology to drain the fluid collection but she wanted to see how she would do overtime. Unfortunately her symptoms worsened and she presented to the emergency room. She is admitted now with worsening abdominal pain, pelvic pain, constipation, nausea, decreased appetite. Repeat imaging confirms the central pelvic fluid collection, although now it measures several centimeters larger than on last CT scan. The remainder of her imaging shows no overt evidence of measurable metastatic disease. There is no ascites, no adenopathy, no mesenteric or omental tumor. No solid abnormality. The radiographic features still favor hematoma, although abscess is included in the differential and given her history of carcinosarcoma and the possibility of a cystic recurrence of tumor is considered as well. She is seen in consultation for further evaluation and recommendations regarding these findings. PAST MEDICAL HISTORY, PAST SURGICAL HISTORY, MEDICATIONS, FAMILY HISTORY, SOCIAL HISTORY, REVIEW OF SYSTEMS: All reviewed. I have nothing further to add to that other than the history as summarized above. OBJECTIVE: The CT imaging is as described above showing persistence of the pelvic lower abdominal fluid collection that has increased in size. LABORATORY DATA: Hemoglobin/hematocrit 8.5 and 24.7 which are down a bit from admission after hydration and equilibration. Coagulation studies show INR to be 1.0, platelet count normal at 232. No other sites of reported bleeding, bruising. Electrolytes show preserved renal function, BUN and creatinine of 13 and 0.81, potassium low being repleted at 3.4. PHYSICAL EXAMINATION: GENERAL: The patient is alert and oriented x 3. She is in good spirits but she is clearly uncomfortable. VITAL SIGNS: At the time she is seen in consultation, she has been afebrile, pulse 74 to 78, respiratory rate 18 to 22. Blood pressure 104 to 124/58 to 76. O2 saturations greater than or equal to 95%. HEENT: Pupils equal, round and reactive to light. Mucous membranes a little dry, pale. LYMPH NODE SURVEY: Negative. LUNGS: Clear to auscultation bilaterally. CARDIOVASCULAR: Regular rate and rhythm. ABDOMEN: Tender, right and left lower quadrant and even the right upper quadrant there is some rebound and some guarding. The abdominal wall is a little bit tense. They are present but hypoactive bowel sounds throughout. The mass is difficult to palpate on abdominal exam. BACK: No CVA tenderness or spinal point tenderness. PELVIC: Deferred given recent exam. EXTREMITIES: No palpable cords, neurovascularly intact. Time was spent in discussion with Althea Weeks reviewing the findings in her case to date. I have discussed her care with our nurse practitioner, Andriy Laguna, as well as Dr. Meryl Solorio the admitting physician, very grateful for the excellent medical therapy. The cause of the fluid collection remains unknown but it is likely either directly or indirectly contributing to her symptomatology. I am sorry she is feeling poorly. I think we need to drain this fluid collection, just send it for Gram stain, culture and sensitivity, to determine if it is an infection, need to see if it is drainable, to see if it is blood related, such as hematoma, determine if there is any persistent bleeding for reasons that are unclear, and also to send it for cytology, to determine if this is related to the cancer. I explained to not be overly discourage if cytology shows malignant cells, we know that there is a tumor present and that is the reason she is undergoing chemotherapy. It is unclear why she would have a hematoma more than two months out from surgery. She has not had any vaginal bleeding, spotting or discharge. No other bleeding, bruising and looking through her chemotherapy counts, I do not believe her platelets ever dropped to dangerously low that may have triggered bleeding on her coags. Platelets all are normal at the present time. Nevertheless we need further evaluation to try to get her feeling better and resolve this issue. We have consulted interventional radiology to drain this to the extent possible, remove as much fluid as possible and to leave an indwelling drain if they think that would be helpful. In this case, I suspect it may be helpful to leave an indwelling drain. In the interim will provide supportive care, IV fluids, correction of electrolyte, symptomatic management. Discussion ensued, questions were answered. She expressed good understanding and agreed. ASSESSMENT 1. Stage IV uterine carcinosarcoma. 2. Initial good response to chemotherapy followed by surgery with ongoing carboplatin chemotherapy. 3. Admitted now with persistent symptomatic multiloculated fluid collection radiographically favoring hematoma, although further evaluation needed. 4. Discussion. PLAN 1. Move forward with interventional radiology, image guided drainage of this fluid collection and consider leaving indwelling drain to maximize effective drainage of this collection. 2. Send fluid for Gram stain culture and sensitivity, cytology. 3. Supportive care. Thank you for the consultation. I will follow along in her care. MD JOVANI Dumont/MOO /5:41 PM /11:04 PM
[2017-09-08] VITALS (8 sets, daily range): BP systolic 104–164; BP diastolic 53–66; PULSE 69–80; RESP 18; TEMP 98.6–101.2; O2SAT 94–97
[2017-09-08] MEDS: ACETAMINOPHEN 325 MG TAB PO PRN (02:13)
[2017-09-08] MEDS: MORPHINE SULFATE 4 MG/ML INJ IV PUSH PRN ×6 (02:13→20:09)
[2017-09-08] MEDS: SODIUM CHLORIDE 0.9% 10 ML VIAL IRRIGATION SCH ×3 (06:00→20:10)
[2017-09-08 08:02] LABS: BICARBONATE 29.2 MEQ/L (21.0-32.0); CALCIUM 9.1 MG/DL (8.5-10.1); CREATININE 0.67 MG/DL (0.50-1.00)
[2017-09-08] MEDS: POTASSIUM CHLORIDE 20 MEQ CONTROLLED RELEASE TAB PO SCH ×2 (08:27→20:09)
[2017-09-08] MEDS: PANTOPRAZOLE SOD 40 MG DELAYED RELEASE TAB PO SCH (08:27)
[2017-09-08] MEDS: DOCUSATE SODIUM 50 MG/SENNA 8.6 MG TAB PO SCH ×2 (08:28→20:09)
[2017-09-08] MEDS: SODIUM CHLORIDE 0.9% FLUSH 10 ML FLUSH IV FLUSH SCH ×2 (08:28→20:19)
[2017-09-08] MEDS ORDERED: POTASSIUM CHLORIDE 20 MEQ CONTROLLED RELEASE TAB PO ONE (09:30)
--- NOTE | 2017-09-08 09:42 | HHI.PR ---
Subjective Remarks c/o pain at 3 hr nicolette after morphine. Objective Vitals heart reg lung cta abd rlq drain ext no edema Vital Signs Date Time Temp Pulse Resp B/P (MAP) Pulse Ox O2 Delivery O2 Flow Rate FiO2 09/08/17 08:16 99.9 76 18 111/62 (78) 96 09/08/17 03:10 100.5 80 18 164/66 (98) 95 09/08/17 02:11 101.2 09/08/17 00:39 100.0 76 18 121/61 (81) 94 09/07/17 20:44 101.0 90 18 130/72 (91) 93 09/07/17 17:46 18 09/07/17 15:35 100.3 93 20 132/73 (92) 98 09/07/17 14:51 102.6 94 131/74 (93) 99 09/07/17 12:00 98 09/07/17 11:53 98.6 75 19 119/60 (79) 98 09/08/17 09/08/17 09/09/17 15:00 23:00 07:00 Output Total 150 ml Balance -150 ml Output Drainage Total 150 ml Result Diagram: 09/06/17 0640 09/08/17 0632 Imaging Last Impressions Abdomen/Pelvis CT 09/05/17 0000 Signed Impressions: Service Date/Time: Tuesday, September 05, 2017 13:36 - CONCLUSION: Predominantly cystic mass in the pelvis larger when compared to the comparison study either hematoma or seroma. Abscess cannot be entirely excluded Hemangioma right lobe of the liver. Nahum Carrasco MD FACR A/P Problem List: (1) Abdominal pain ICD Codes: R10.9 - Unspecified abdominal pain Status: Acute Plan: Abdominal pain Uterine cancer (carcinosarcoma) pelvic mass/hematoma This is a 57 year old female with a past medical history which includes anxiety/ depression, lumbar radiculopathy, chronic back pain, hyperlipidemia, uterine cancer. Patient is currently following with Dr. Garsia last chemotherapy this past Tuesday. She had three chemotherapy treatment then on 06/30/17 Robotic assisted Laparoscopic hysterectomy, BSO, resection of pelvic mass, omentectomy and tumor debulking with Dr. Garsia. After surgery patient has had two additional rounds of chemotherapy. Patient was seen in ER 08/24/17 for lower abdominal pain. CT abd/pelvic (08/24/17)revealed: Large heterogeneous mass in the uterine surgical bed measuring 9.6 x 5.0 x6.8 cm. Patient was then DC with follow up with Dr. Garsia as an outpatient. Today patient returned to the ER due to worsening abdominal pain for the past 3 days. Pain constant, pressure like, sharp, worse with eating, improved by bringing her legs closer to her. Pt. reports that she is constipated and has decreased appetite. Pt. had a fever of 100.2 at home, associated with some chills and night sweats. CT abd/Pelvis (09/05/17) revealed: mass 12.7 cm which has progressed in size from previous study. Predominantly cystic mass in the pelvis larger when compared to the comparison study either hematoma or seroma. Abscess cannot be entirely excluded Hemangioma right lobe of the liver. - IR placed drain into abdomen fluid collection on 09/06..bloody fluid - pain control adjustment. - f/u cytology and gs/cx -Pt with fevers since 09/07...zosyn emperically. blood cx pending. -repeat ct at some point to reevaluate fluid collection. Constipation Bowel regimen Anxiety/depression continue home Paxil 40 mg PO QHS Hyperlipidemia continue home simvastatin DVT prophylaxis with SCDs (2) Uterine cancer ICD Codes: C55 - Malignant neoplasm of uterus, part unspecified Status: Chronic (3) Pelvic mass in female ICD Codes: R19.00 - Intra-abdominal and pelvic swelling, mass and lump, unspecified site Status: Chronic (4) Hyperlipidemia ICD Codes: E78.5 - Hyperlipidemia, unspecified Status: Chronic (5) Anxiety and depression ICD Codes: F41.8 - Other specified anxiety disorders Status: Chronic Jakub Solorio MD Sep 08, 2017 09:42
[2017-09-08 10:17] LABS: AUTOMATED NEUTROPHIL # 7.2 TH/MM3 (1.8-7.7); BASOPHIL % 0.2 % (0.0-2.0); EOSINOPHIL % 0.1 % (0.0-4.0); HEMATOCRIT 23.9 % (35.0-46.0); HEMOGLOBIN 8.2 GM/DL (11.6-15.3); LYMPH % 7.7 % (9.0-44.0); LYMPHOCYTE # 0.7 TH/MM3 (1.0-4.8); MEAN CELL VOLUME 88.8 FL (80.0-100.0); MEAN CORPUSCULAR HEMOGLOBIN 30.5 PG (27.0-34.0); MEAN CORPUSCULAR HGB CONC 34.4 % (32.0-36.0); MEAN PLATELET VOLUME 7.6 FL (7.0-11.0); MONO % 6.2 % (0.0-8.0); MONOCYTE # 0.5 TH/MM3 (0-0.9); NEUT % 85.8 % (16.0-70.0); PLATELET COUNT 176 TH/MM3 (150-450); RED BLOOD COUNT 2.69 MIL/MM3 (4.00-5.30); RED CELL DISTRIBUTION WIDTH 15.8 % (11.6-17.2); WHITE BLOOD COUNT 8.4 TH/MM3 (4.0-11.0)
[2017-09-08] MEDS: PIPERACIL-TAZO 3.375 GM PREMIX 50 ML IV SCH ×3 (10:20→20:08)
[2017-09-08] MEDS: oxyCODONE/ACETAMINOPHEN 10 MG/325 MG TAB PO PRN ×4 (12:20→22:45)
[2017-09-08 13:14] LABS: AMORPHOUS SEDIMENT, URINE RARE; BILIRUBIN, URINE NEG (NEG); BLOOD, URINE NEG (NEG); GLUCOSE,URINE NEG (NEG); KETONE, URINE NEG (NEG); MUCUS URINE FEW /lpf (OCC); NITRITE,URINE NEG (NEG); PH, URINE 5.5 (5.0-8.5); SQUAMOUS EPITHELIAL CELL URINE <1 /hpf (0-5); URINE COLOR YELLOW (YELLW/STRAW); URINE LEUKOCYTE ESTERASE MOD (NEG)
[2017-09-08] MEDS: PRAVASTATIN SOD 80 MG TAB PO SCH (20:09)
[2017-09-08] MEDS: PARoxetine HCL 20 MG TAB PO SCH (20:09)
[2017-09-09] VITALS (7 sets, daily range): BP systolic 98–134; BP diastolic 57–60; PULSE 70–92; RESP 16–18; TEMP 98.3–100.9; O2SAT 95–98
[2017-09-09] MEDS: MORPHINE SULFATE 4 MG/ML INJ IV PUSH PRN ×7 (00:03→22:40)
[2017-09-09] MEDS: PIPERACIL-TAZO 3.375 GM PREMIX 50 ML IV SCH ×4 (03:24→21:42)
[2017-09-09] MEDS: oxyCODONE/ACETAMINOPHEN 10 MG/325 MG TAB PO PRN ×5 (03:25→21:41)
[2017-09-09] MEDS: SODIUM CHLORIDE 0.9% 10 ML VIAL IRRIGATION SCH ×3 (05:57→21:46)
[2017-09-09 06:22] LABS: AUTOMATED NEUTROPHIL # 3.7 TH/MM3 (1.8-7.7); BASOPHIL % 0.3 % (0.0-2.0); EOSINOPHIL % 0.3 % (0.0-4.0); HEMOGLOBIN 7.5 GM/DL (11.6-15.3); LYMPH % 20.2 % (9.0-44.0); MEAN CELL VOLUME 90.2 FL (80.0-100.0); MEAN CORPUSCULAR HEMOGLOBIN 30.9 PG (27.0-34.0); MEAN CORPUSCULAR HGB CONC 34.2 % (32.0-36.0); MEAN PLATELET VOLUME 7.8 FL (7.0-11.0); MONO % 7.3 % (0.0-8.0); MONOCYTE # 0.4 TH/MM3 (0-0.9); NEUT % 71.9 % (16.0-70.0); PLATELET COUNT 141 TH/MM3 (150-450); RED BLOOD COUNT 2.44 MIL/MM3 (4.00-5.30); RED CELL DISTRIBUTION WIDTH 15.9 % (11.6-17.2); WHITE BLOOD COUNT 5.1 TH/MM3 (4.0-11.0)
[2017-09-09 06:41] LABS: BICARBONATE 28.8 MEQ/L (21.0-32.0); CALCIUM 8.5 MG/DL (8.5-10.1); CREATININE 0.74 MG/DL (0.50-1.00)
--- NOTE | 2017-09-09 08:12 | HHI.PR ---
Subjective . she reports decreased pain, no n/v, bm x 2 yesterday, no new c/o Objective . afeb (after fever spike ~ 48 hours ago), vss a&o x 3 nad abdomen less distended, drain site clean, minimal (reduced) tenderness, guarding drain with bloody fluid, no overt purulence hgb 7.5 Assessment/Plan . 10 of 15 minute face to face time spent in counseling & coordination of care. Q&A, gram stain & c&s negative to date, positive cytology discussed clinical improvement, on antibiotics, s/p indwelling drain, supportive care cpm, consider transfusion for hgb < 7. Rohini Garsia MD Sep 09, 2017 08:12
[2017-09-09] MEDS: PANTOPRAZOLE SOD 40 MG DELAYED RELEASE TAB PO SCH (08:55)
[2017-09-09] MEDS: POTASSIUM CHLORIDE 20 MEQ CONTROLLED RELEASE TAB PO SCH ×2 (08:55→21:46)
[2017-09-09] MEDS: DOCUSATE SODIUM 50 MG/SENNA 8.6 MG TAB PO SCH ×2 (08:55→21:00)
[2017-09-09] MEDS: SODIUM CHLORIDE 0.9% FLUSH 10 ML FLUSH IV FLUSH SCH ×2 (08:56→21:42)
--- NOTE | 2017-09-09 11:24 | HHI.PR ---
Subjective Remarks less abdomen pain now with some right thigh numbness. no weakness no back pain. Objective Vitals heart reg lung cta abd softer. bs/ rlq drain/bloody ext no edema Vital Signs Date Time Temp Pulse Resp B/P (MAP) Pulse Ox O2 Delivery O2 Flow Rate FiO2 09/09/17 10:16 97 09/09/17 08:15 98.3 92 18 134/60 (84) 97 09/09/17 03:35 98.5 72 16 111/59 (76) 98 09/09/17 00:06 98.8 75 18 103/59 (74) 96 09/08/17 20:00 99.3 71 18 109/56 (73) 97 09/08/17 17:56 95 21 09/08/17 16:19 99.7 77 18 110/53 (72) 95 09/08/17 12:49 98.6 69 18 104/58 (73) 95 Result Diagram: 09/09/17 0551 09/09/17 0551 Imaging Last Impressions Abdomen/Pelvis CT 09/05/17 0000 Signed Impressions: Service Date/Time: Tuesday, September 05, 2017 13:36 - CONCLUSION: Predominantly cystic mass in the pelvis larger when compared to the comparison study either hematoma or seroma. Abscess cannot be entirely excluded Hemangioma right lobe of the liver. Nahum Carrasco MD FACR A/P Problem List: (1) Abdominal pain ICD Codes: R10.9 - Unspecified abdominal pain Status: Acute Plan: Abdominal pain Uterine cancer (carcinosarcoma) pelvic mass/hematoma This is a 57 year old female with a past medical history which includes anxiety/ depression, lumbar radiculopathy, chronic back pain, hyperlipidemia, uterine cancer. Patient is currently following with Dr. Garsia last chemotherapy this past Tuesday. She had three chemotherapy treatment then on 06/30/17 Robotic assisted Laparoscopic hysterectomy, BSO, resection of pelvic mass, omentectomy and tumor debulking with Dr. Garsia. After surgery patient has had two additional rounds of chemotherapy. Patient was seen in ER 08/24/17 for lower abdominal pain. CT abd/pelvic (08/24/17)revealed: Large heterogeneous mass in the uterine surgical bed measuring 9.6 x 5.0 x6.8 cm. Patient was then DC with follow up with Dr. Garsia as an outpatient. Today patient returned to the ER due to worsening abdominal pain for the past 3 days. Pain constant, pressure like, sharp, worse with eating, improved by bringing her legs closer to her. Pt. reports that she is constipated and has decreased appetite. Pt. had a fever of 100.2 at home, associated with some chills and night sweats. CT abd/Pelvis (09/05/17) revealed: mass 12.7 cm which has progressed in size from previous study. Predominantly cystic mass in the pelvis larger when compared to the comparison study either hematoma or seroma. Abscess cannot be entirely excluded Hemangioma right lobe of the liver. - IR placed drain into abdomen fluid collection on 09/06..bloody fluid - pain control adjustment. - f/u cytology shows malignant cells and gs/cx ngtd -Pt with fevers since 09/07...zosyn emperically. blood cx ngtd. no fever x 24hrs. presumed related to fluid collection. -repeat ct at some point over the weekend to reevaluate fluid collection. Constipation Bowel regimen Anxiety/depression continue home Paxil 40 mg PO QHS Hyperlipidemia continue home simvastatin DVT prophylaxis with SCDs (2) Uterine cancer ICD Codes: C55 - Malignant neoplasm of uterus, part unspecified Status: Chronic (3) Pelvic mass in female ICD Codes: R19.00 - Intra-abdominal and pelvic swelling, mass and lump, unspecified site Status: Chronic (4) Hyperlipidemia ICD Codes: E78.5 - Hyperlipidemia, unspecified Status: Chronic (5) Anxiety and depression ICD Codes: F41.8 - Other specified anxiety disorders Status: Chronic Jakub Solorio MD Sep 09, 2017 11:24
[2017-09-09] MEDS: PRAVASTATIN SOD 80 MG TAB PO SCH (21:44)
[2017-09-09] MEDS: PARoxetine HCL 20 MG TAB PO SCH (21:44)
[2017-09-09] MEDS: ACETAMINOPHEN 325 MG TAB PO PRN (23:58)
[2017-09-10] VITALS (7 sets, daily range): BP systolic 102–128; BP diastolic 55–70; PULSE 71–84; RESP 16–18; TEMP 97.8–99.7; O2SAT 93–96
[2017-09-10] MEDS: oxyCODONE/ACETAMINOPHEN 10 MG/325 MG TAB PO PRN ×6 (01:42→22:55)
[2017-09-10] MEDS: PIPERACIL-TAZO 3.375 GM PREMIX 50 ML IV SCH ×3 (03:01→14:30)
[2017-09-10] MEDS: MORPHINE SULFATE 4 MG/ML INJ IV PUSH PRN ×6 (03:01→23:54)
[2017-09-10] MEDS: SODIUM CHLORIDE 0.9% 10 ML VIAL IRRIGATION SCH ×3 (05:51→22:00)
[2017-09-10 08:25] LABS: AUTOMATED NEUTROPHIL # 2.3 TH/MM3 (1.8-7.7); BASOPHIL % 0.3 % (0.0-2.0); EOSINOPHIL % 0.2 % (0.0-4.0); HEMATOCRIT 21.3 % (35.0-46.0); HEMOGLOBIN 7.3 GM/DL (11.6-15.3); LYMPH % 25.2 % (9.0-44.0); LYMPHOCYTE # 0.9 TH/MM3 (1.0-4.8); MEAN CELL VOLUME 89.4 FL (80.0-100.0); MEAN CORPUSCULAR HEMOGLOBIN 30.5 PG (27.0-34.0); MEAN CORPUSCULAR HGB CONC 34.1 % (32.0-36.0); MONO % 8.1 % (0.0-8.0); MONOCYTE # 0.3 TH/MM3 (0-0.9); NEUT % 66.2 % (16.0-70.0); PLATELET COUNT 100 TH/MM3 (150-450); RED BLOOD COUNT 2.38 MIL/MM3 (4.00-5.30); WHITE BLOOD COUNT 3.5 TH/MM3 (4.0-11.0)
[2017-09-10] MEDS: PANTOPRAZOLE SOD 40 MG DELAYED RELEASE TAB PO SCH (08:59)
[2017-09-10] MEDS: SODIUM CHLORIDE 0.9% FLUSH 10 ML FLUSH IV FLUSH SCH ×2 (09:00→20:44)
[2017-09-10] MEDS: POTASSIUM CHLORIDE 20 MEQ CONTROLLED RELEASE TAB PO SCH ×2 (09:00→20:17)
[2017-09-10] MEDS: DOCUSATE SODIUM 50 MG/SENNA 8.6 MG TAB PO SCH (09:00)
--- NOTE | 2017-09-10 10:13 | HHI.PR ---
Subjective Remarks c/o pain around the drain site. loose stools. still numbness right thigh. no weakness. Objective Vitals heart reg lung cta abd right abd drain. bloody fluid tender around the drain site. no rebound. bs ext no edema Vital Signs Date Time Temp Pulse Resp B/P (MAP) Pulse Ox O2 Delivery O2 Flow Rate FiO2 09/10/17 08:00 97.9 71 17 102/55 (71) 93 09/10/17 04:47 97.8 71 18 125/58 (80) 93 09/10/17 01:38 99.7 09/09/17 23:50 100.9 83 16 112/57 (75) 95 09/09/17 16:45 98.4 77 18 98/58 (71) 97 09/09/17 12:12 98.4 70 16 123/59 (80) 98 09/09/17 10:16 97 Result Diagram: 09/10/17 0715 09/09/17 0551 Imaging Last Impressions Abdomen/Pelvis CT 09/05/17 0000 Signed Impressions: Service Date/Time: Tuesday, September 05, 2017 13:36 - CONCLUSION: Predominantly cystic mass in the pelvis larger when compared to the comparison study either hematoma or seroma. Abscess cannot be entirely excluded Hemangioma right lobe of the liver. Nahum Carrasco MD FACR A/P Problem List: (1) Abdominal pain ICD Codes: R10.9 - Unspecified abdominal pain Status: Acute Plan: Abdominal pain Uterine cancer (carcinosarcoma) pelvic mass/hematoma This is a 57 year old female with a past medical history which includes anxiety/ depression, lumbar radiculopathy, chronic back pain, hyperlipidemia, uterine cancer. Patient is currently following with Dr. Garsia last chemotherapy this past Tuesday. She had three chemotherapy treatment then on 06/30/17 Robotic assisted Laparoscopic hysterectomy, BSO, resection of pelvic mass, omentectomy and tumor debulking with Dr. Garsia. After surgery patient has had two additional rounds of chemotherapy. Patient was seen in ER 08/24/17 for lower abdominal pain. CT abd/pelvic (08/24/17)revealed: Large heterogeneous mass in the uterine surgical bed measuring 9.6 x 5.0 x6.8 cm. Patient was then DC with follow up with Dr. Garsia as an outpatient. Today patient returned to the ER due to worsening abdominal pain for the past 3 days. Pain constant, pressure like, sharp, worse with eating, improved by bringing her legs closer to her. Pt. reports that she is constipated and has decreased appetite. Pt. had a fever of 100.2 at home, associated with some chills and night sweats. CT abd/Pelvis (09/05/17) revealed: mass 12.7 cm which has progressed in size from previous study. Predominantly cystic mass in the pelvis larger when compared to the comparison study either hematoma or seroma. Abscess cannot be entirely excluded Hemangioma right lobe of the liver. - IR placed drain into abdomen fluid collection on 09/06..bloody fluid - pain control adjustment. - f/u cytology shows malignant cells and gs/cx ngtd -Pt with fevers since 09/07...zosyn emperically. blood cx ngtd. . presumed related to fluid collection. -repeat ct to reevaluate fluid collection. Constipation Bowel regimen Anxiety/depression continue home Paxil 40 mg PO QHS Hyperlipidemia continue home simvastatin DVT prophylaxis with SCDs (2) Uterine cancer ICD Codes: C55 - Malignant neoplasm of uterus, part unspecified Status: Chronic (3) Pelvic mass in female ICD Codes: R19.00 - Intra-abdominal and pelvic swelling, mass and lump, unspecified site Status: Chronic (4) Hyperlipidemia ICD Codes: E78.5 - Hyperlipidemia, unspecified Status: Chronic (5) Anxiety and depression ICD Codes: F41.8 - Other specified anxiety disorders Status: Chronic Jakub Solorio MD Sep 10, 2017 10:13
[2017-09-10] MEDS ORDERED: DIATRIZOATE MEGLUM/DIATRIZOATE SOD 9 ML CUP PO ONE (11:00)
[2017-09-10] MEDS ORDERED: metroNIDAZOLE 500 MG TAB PO ONE (17:00)
[2017-09-10] MEDS ORDERED: IOHEXOL 350 MG/ML 10 ML VIAL (for RAD DIAG) IVCONTRAST ONE (19:39)
[2017-09-10] MEDS: PARoxetine HCL 20 MG TAB PO SCH (20:16)
[2017-09-10] MEDS: PRAVASTATIN SOD 80 MG TAB PO SCH (20:17)
--- NOTE | 2017-09-10 21:02 | RADRPT ---
EXAM DATE/TIME: 09/10/2017 19:22 [facility] COMPARISON: CT ASSISTED ABSCESS DRAIN, September 06, 2017, 15:39. CT ABDOMEN & PELVIS W CONTRAST, September 05 18, 13:36. INDICATIONS : Evaluate drain. IV CONTRAST: 100 cc Omnipaque 350 (iohexol) IV ORAL CONTRAST: No oral contrast ingested. RADIATION DOSE: 14.61 CTDIvol (mGy) MEDICAL HISTORY : Cardiovascular disease. Carcinoma, not otherwise specified. SURGICAL HISTORY : Hysterectomy. ENCOUNTER: Initial ACUITY: 1 day PAIN SCALE: 5/10 LOCATION: Bilateral abdomen TECHNIQUE: Volumetric scanning of the abdomen and pelvis was performed. Using automated exposure control and ad justment of the mA and/or kV according to patient size, radiation dose was kept as low as reasonably achievable to obtain optimal diagnostic quality images. DICOM format image data is available electro nically for review and comparison. FINDINGS: Right lower quadrant percutaneous drain is coiled within the lateral aspect of the abscess. The size of the abscess has not changed significantly from previous range and measures 16.0 x 7.5 cm. No mayo dence of free intraperitoneal gas. Other CT findings are stable in appearance including the 7 mm lateral right lower lung nodule, 1.7 cm hemangioma lower right lobe of the liver, clustered cysts. No calcified gallstones. The spleen, ki dneys, aorta, and adrenal glands are intact. The pancreas is normal in configuration. No dilated lo ops of small or large bowel. No evidence of free fluid. Inguinal region is unremarkable. Bony stru ctures are stable in appearance. CONCLUSION: Percutaneous drain is located within the pelvic fluid collection; there has been no significant decre ase in size when compared to pre-drainage. Son Pearson MD on September 10, 2017 at 20:56 Board Certified Radiologist. This report was verified electronically.
[2017-09-10] MEDS: metroNIDAZOLE 500 MG TAB PO SCH (22:00)
[2017-09-11 00:30] VITALS: BP 115/69; PULSE 80; RESP 17; TEMP 98.9; O2SAT 97
[2017-09-11] MEDS: MORPHINE SULFATE 4 MG/ML INJ IV PUSH PRN ×5 (03:39→20:29)
[2017-09-11 04:15] VITALS: BP 118/57; PULSE 67; RESP 17; TEMP 98.3; O2SAT 95
[2017-09-11] MEDS: metroNIDAZOLE 500 MG TAB PO SCH ×3 (05:32→21:32)
[2017-09-11] MEDS: oxyCODONE/ACETAMINOPHEN 10 MG/325 MG TAB PO PRN ×4 (05:32→18:38)
[2017-09-11] MEDS: SODIUM CHLORIDE 0.9% 10 ML VIAL IRRIGATION SCH ×3 (05:33→21:33)
[2017-09-11 08:00] VITALS: BP 108/60; PULSE 67; RESP 18; TEMP 98.4; O2SAT 99
[2017-09-11 09:20] LABS: BASOPHIL % 0.4 % (0.0-2.0); EOSINOPHIL % 0.2 % (0.0-4.0); HEMATOCRIT 22.4 % (35.0-46.0); HEMOGLOBIN 7.6 GM/DL (11.6-15.3); LYMPH % 24.2 % (9.0-44.0); LYMPHOCYTE # 0.7 TH/MM3 (1.0-4.8); MEAN CELL VOLUME 89.6 FL (80.0-100.0); MEAN CORPUSCULAR HEMOGLOBIN 30.5 PG (27.0-34.0); MEAN PLATELET VOLUME 7.8 FL (7.0-11.0); MONO % 8.4 % (0.0-8.0); MONOCYTE # 0.2 TH/MM3 (0-0.9); NEUT % 66.8 % (16.0-70.0); PLATELET COUNT 72 TH/MM3 (150-450); RED CELL DISTRIBUTION WIDTH 15.7 % (11.6-17.2)
[2017-09-11] MEDS: PANTOPRAZOLE SOD 40 MG DELAYED RELEASE TAB PO SCH (09:37)
[2017-09-11] MEDS: SODIUM CHLORIDE 0.9% FLUSH 10 ML FLUSH IV FLUSH SCH ×2 (09:38→20:29)
[2017-09-11] MEDS: POTASSIUM CHLORIDE 20 MEQ CONTROLLED RELEASE TAB PO SCH ×2 (09:38→20:28)
[2017-09-11 09:39] LABS: BICARBONATE 29.3 MEQ/L (21.0-32.0); CALCIUM 9.2 MG/DL (8.5-10.1); CREATININE 0.74 MG/DL (0.50-1.00)
[2017-09-11 12:00] VITALS: BP 109/65; PULSE 65; RESP 18; TEMP 98.6; O2SAT 96
--- NOTE | 2017-09-11 13:38 | HHI.PR ---
Subjective Remarks overall doing better. Objective Vitals heart reg lung cta abd mild rlq tenderness. bs. rlq drain. bloody. ext no edema Vital Signs Date Time Temp Pulse Resp B/P (MAP) Pulse Ox O2 Delivery O2 Flow Rate FiO2 09/11/17 12:00 98.6 65 18 109/65 (80) 96 09/11/17 08:00 98.4 67 18 108/60 (76) 99 09/11/17 04:15 98.3 67 17 118/57 (77) 95 09/11/17 00:30 98.9 80 17 115/69 (84) 97 09/10/17 21:30 98.5 84 16 117/61 (79) 96 09/10/17 20:15 95 21 09/10/17 16:00 99.1 83 18 111/63 (79) 96 09/11/17 09/11/17 09/12/17 15:00 23:00 07:00 Output Total 70 ml Balance -70 ml Output Drainage Total 70 ml # Bowel Movements 1 Result Diagram: 09/11/17 0820 09/11/17 0820 Imaging Last Impressions Abdomen/Pelvis CT 09/05/17 0000 Signed Impressions: Service Date/Time: Tuesday, September 05, 2017 13:36 - CONCLUSION: Predominantly cystic mass in the pelvis larger when compared to the comparison study either hematoma or seroma. Abscess cannot be entirely excluded Hemangioma right lobe of the liver. Nahum Carrasco MD FACR A/P Problem List: (1) Abdominal pain ICD Codes: R10.9 - Unspecified abdominal pain Status: Acute Plan: Abdominal pain Uterine cancer (carcinosarcoma) pelvic mass/hematoma This is a 57 year old female with a past medical history which includes anxiety/ depression, lumbar radiculopathy, chronic back pain, hyperlipidemia, uterine cancer. Patient is currently following with Dr. Garsia last chemotherapy this past Tuesday. She had three chemotherapy treatment then on 06/30/17 Robotic assisted Laparoscopic hysterectomy, BSO, resection of pelvic mass, omentectomy and tumor debulking with Dr. Garsia. After surgery patient has had two additional rounds of chemotherapy. Patient was seen in ER 08/24/17 for lower abdominal pain. CT abd/pelvic (08/24/17)revealed: Large heterogeneous mass in the uterine surgical bed measuring 9.6 x 5.0 x6.8 cm. Patient was then DC with follow up with Dr. Garsia as an outpatient. Today patient returned to the ER due to worsening abdominal pain for the past 3 days. Pain constant, pressure like, sharp, worse with eating, improved by bringing her legs closer to her. Pt. reports that she is constipated and has decreased appetite. Pt. had a fever of 100.2 at home, associated with some chills and night sweats. CT abd/Pelvis (09/05/17) revealed: mass 12.7 cm which has progressed in size from previous study. Predominantly cystic mass in the pelvis larger when compared to the comparison study either hematoma or seroma. Abscess cannot be entirely excluded Hemangioma right lobe of the liver. - IR placed drain into abdomen fluid collection on 09/06..bloody fluid - pain control adjustment. - f/u cytology shows malignant cells and gs/cx ngtd -Pt with fevers since 09/07...zosyn emperically. blood cx ngtd. . presumed related to fluid collection. -c.diff positive. flagyl started on 09/10 and zosyn stopped. -repeat ct to reevaluate fluid collection on 09/10 showed essentially the same amt of fluid - will have to reevaluate the situation on Tuesday with IR and Dr Garsia to see if any other surgical or IR options exist. Constipation Bowel regimen Anxiety/depression continue home Paxil 40 mg PO QHS Hyperlipidemia continue home simvastatin DVT prophylaxis with SCDs (2) Uterine cancer ICD Codes: C55 - Malignant neoplasm of uterus, part unspecified Status: Chronic (3) Pelvic mass in female ICD Codes: R19.00 - Intra-abdominal and pelvic swelling, mass and lump, unspecified site Status: Chronic (4) Hyperlipidemia ICD Codes: E78.5 - Hyperlipidemia, unspecified Status: Chronic (5) Anxiety and depression ICD Codes: F41.8 - Other specified anxiety disorders Status: Chronic Jakub Solorio MD Sep 11, 2017 13:38
--- NOTE | 2017-09-11 14:24 | RADRPT ---
EXAM DATE/TIME: 09/06/2017 15:39 [facility] COMPARISON: No previous studies available for comparison. INDICATIONS : Pelvic fluid collection. SEDATION TIME: 30 minutes MEDICATION(S): 1.) 3 mg midazolam (Versed) IV 2.) 150 mcg fentanyl (Sublimaze) IV DEVICE(S): 1.) 12 Fr Skater FLUID: Total volume of 5 cc of red fluid was removed. Fluid was sent for laboratory ordered studies. MEDICAL HISTORY : Uterine cancer SURGICAL HISTORY : Hysterectomy. Pelvic mass resection ENCOUNTER: Initial ACUITY: 2 months PAIN SCORE: 8/10 LOCATION: Bilateral pelvis PROCEDURE: 1.) Conscious sedation with continuous EKG and oximetry monitoring. PROCEDURE : 1. CT guided drainage of left pelvic fluid collection 2. Conscious sedation with continuous EKG and oximetry monitoring. The risks, benefits and alternatives to the procedure were explained and verbal and written consent w as obtained. Using automated exposure control and adjustment of the mA and/or kV according to patient size, radiation dose was kept as low as reasonably achievable to obtain optimal diagnostic quality i mages. The site was prepped in sterile fashion. Full sterile technique was used, including cap, ma sk, sterile gloves and gown and a large sterile sheet. Hand hygiene and 2% chlorhexidine and/or beta dine/alcohol prep was utilized per protocol for cutaneous antisepsis. The skin and subcutaneous tiss ues were infiltrated with local anesthetic solution. DICOM format image data is available electronic ally for review and comparison. Using CT guidance the prescribed site was localized. Drainage was performed using the prescribed cat heter The patient tolerated the procedure well and there were no complications. Conscious sedation was per formed with the prescribed dosages and duration as above in the presence of an independent trained ra diology nurse to assist in the monitoring of the patient. EKG and oximetry remained stable throughou t the procedure. The patient tolerated the procedure well and there were no complications. The patient was sent to pos t anesthesia recovery in stable condition. CONCLUSION: 1. Uncomplicated CT-guided drainage catheter placement in left pelvic fluid collection. Only a small amount of serosanguineous fluid could be aspirated immediately following catheter placement. Entire s ample was submitted for laboratory analysis. Overall, findings are most consistent with pelvic hemato ma. Jamaal Meadows MD on September 11, 2017 at 14:20 Board Certified Radiologist. This report was verified electronically.
[2017-09-11 16:32] VITALS: BP 100/54; PULSE 68; RESP 18; TEMP 97.9; O2SAT 98
[2017-09-11] MEDS: PARoxetine HCL 20 MG TAB PO SCH (20:27)
[2017-09-11] MEDS: PRAVASTATIN SOD 80 MG TAB PO SCH (20:28)
[2017-09-11 20:30] VITALS: BP 119/62; PULSE 71; RESP 18; TEMP 99.1; O2SAT 98
[2017-09-12] VITALS (7 sets, daily range): BP systolic 96–121; BP diastolic 53–67; PULSE 69–91; RESP 16–20; TEMP 97.7–99.7; O2SAT 95–98
[2017-09-12] MEDS: oxyCODONE/ACETAMINOPHEN 10 MG/325 MG TAB PO PRN ×6 (00:44→21:52)
[2017-09-12] MEDS: MORPHINE SULFATE 4 MG/ML INJ IV PUSH PRN ×6 (01:31→21:06)
[2017-09-12] MEDS: metroNIDAZOLE 500 MG TAB PO SCH ×3 (04:50→21:05)
[2017-09-12] MEDS: SODIUM CHLORIDE 0.9% 10 ML VIAL IRRIGATION SCH ×3 (06:00→21:06)
[2017-09-12] MEDS: SODIUM CHLORIDE 0.9% FLUSH 10 ML FLUSH IV FLUSH SCH ×2 (07:57→21:05)
[2017-09-12] MEDS: POTASSIUM CHLORIDE 20 MEQ CONTROLLED RELEASE TAB PO SCH ×2 (07:57→21:05)
[2017-09-12] MEDS: PANTOPRAZOLE SOD 40 MG DELAYED RELEASE TAB PO SCH (07:57)
--- NOTE | 2017-09-12 10:52 | HHI.PR ---
Subjective Remarks Pt states that she had one large BM around 8AM. BM had some form. Pt c/o increased abdominal pain today requiring morphine. Pt worried about decreased urine output. Bladder scan showed 30ml. Objective Vitals Vital Signs Date Time Temp Pulse Resp B/P (MAP) Pulse Ox O2 Delivery O2 Flow Rate FiO2 09/12/17 09:46 96 09/12/17 08:00 97.7 70 18 121/66 (84) 95 09/12/17 04:15 99.3 69 16 121/57 (78) 95 09/12/17 00:00 98.9 69 18 118/65 (82) 98 09/11/17 20:30 99.1 71 18 119/62 (81) 98 09/11/17 16:32 97.9 68 18 100/54 (69) 98 09/11/17 12:00 98.6 65 18 109/65 (80) 96 09/12/17 09/12/17 09/13/17 15:00 23:00 07:00 Output Total 50 ml Balance -50 ml Drainage Total 50 ml Result Diagram: 09/11/17 0820 09/11/17 0820 Imaging Last Impressions Abdomen/Pelvis CT 09/10/17 0000 Signed Impressions: Service Date/Time: Sunday, September 10, 2017 19:22 - CONCLUSION: Percutaneous drain is located within the pelvic fluid collection; there has been no significant decrease in size when compared to pre-drainage. Son Pearson MD Abscess Drainage CT 09/06/17 0833 Signed Impressions: Service Date/Time: Wednesday, September 06, 2017 15:39 - CONCLUSION: 1. Uncomplicated CT-guided drainage catheter placement in left pelvic fluid collection. Only a small amount of serosanguineous fluid could be aspirated immediately following catheter placement. Entire sample was submitted for laboratory analysis. Overall, findings are most consistent with pelvic hematoma. Jamaal Meadows MD Objective Remarks GENERAL: This is a well-nourished, well-developed patient, in no apparent distress. CARDIOVASCULAR: Regular rate and rhythm without murmurs, gallops, or rubs. RESPIRATORY: Clear to auscultation. Breath sounds equal bilaterally. No wheezes , rales, or rhonchi. GASTROINTESTINAL: Abdomen soft, non-tender, nondistended. Normal active bowel sounds drain at RLQ with small amount of sanguinous drainage in bulb MUSCULOSKELETAL: Extremities without clubbing, cyanosis, or edema. NEURO: Alert & Oriented x4 to person, place, time, situation. Moves all ext x4 A/P Problem List: (1) Abdominal pain ICD Codes: R10.9 - Unspecified abdominal pain Status: Acute Plan: Abdominal pain Uterine cancer (carcinosarcoma) pelvic mass/hematoma This is a 57 year old female with a past medical history which includes anxiety/ depression, lumbar radiculopathy, chronic back pain, hyperlipidemia, uterine cancer. Patient is currently following with Dr. Garsia last chemotherapy this past Tuesday. She had three chemotherapy treatment then on 06/30/17 Robotic assisted Laparoscopic hysterectomy, BSO, resection of pelvic mass, omentectomy and tumor debulking with Dr. Garsia. After surgery patient has had two additional rounds of chemotherapy. Patient was seen in ER 08/24/17 for lower abdominal pain. CT abd/pelvic (08/24/17)revealed: Large heterogeneous mass in the uterine surgical bed measuring 9.6 x 5.0 x6.8 cm. Patient was then DC with follow up with Dr. Garsia as an outpatient. Today patient returned to the ER due to worsening abdominal pain for the past 3 days. Pain constant, pressure like, sharp, worse with eating, improved by bringing her legs closer to her. Pt. reports that she is constipated and has decreased appetite. Pt. had a fever of 100.2 at home, associated with some chills and night sweats. CT abd/Pelvis (09/05/17) revealed: mass 12.7 cm which has progressed in size from previous study. Predominantly cystic mass in the pelvis larger when compared to the comparison study either hematoma or seroma. Abscess cannot be entirely excluded Hemangioma right lobe of the liver. - IR placed drain into abdomen fluid collection on 09/06..bloody fluid - pain control adjustment. - f/u cytology shows malignant cells and gs/cx ngtd - Pt with fevers since 09/07...zosyn emperically. blood cx ngtd. . presumed related to fluid collection. - c.diff positive. flagyl started on 09/10 and zosyn stopped. - repeat CT Abd/pelvis (09/10/17) --> pelvic fluid collection essentially unchanged - Case d/w IR, Dr. Stein (09/12) - IR will place tPA in drain, clamp 8 hours, then release clamp, reevaluate drainage - IR does NOT feel that pt would benefit from a 2nd drain. - Case d/w Dr. Garsia (09/12). He will reevaluate pt later today. - DVT prophylaxis with SCDs - supportive care (2) C. difficile colitis ICD Codes: A04.72 - Enterocolitis due to Clostridium difficile, not specified as recurrent Status: Acute Plan: - zosyn stopped. (09/08 - 09/10/17) - PO flagyl (09/10 - present) - supportive care. (3) Uterine cancer ICD Codes: C55 - Malignant neoplasm of uterus, part unspecified Status: Chronic Plan: - see above (4) Anxiety and depression ICD Codes: F41.8 - Other specified anxiety disorders Status: Chronic Plan: continue home Paxil 40 mg PO QHS Problem Qualifiers (1) Abdominal pain: Qualified Codes: R10.31 - Right lower quadrant pain (2) Uterine cancer: Qualified Codes: C55 - Malignant neoplasm of uterus, part unspecified Abel Garvin DO Sep 12, 2017 10:52
[2017-09-12] MEDS: PARoxetine HCL 20 MG TAB PO SCH (21:05)
[2017-09-12] MEDS: PRAVASTATIN SOD 80 MG TAB PO SCH (21:05)
[2017-09-13] VITALS (8 sets, daily range): BP systolic 98–110; BP diastolic 55–65; PULSE 72–80; RESP 17–20; TEMP 98.2–99.8; O2SAT 96–98
[2017-09-13] MEDS: MORPHINE SULFATE 4 MG/ML INJ IV PUSH PRN ×7 (00:51→21:22)
[2017-09-13] MEDS: oxyCODONE/ACETAMINOPHEN 10 MG/325 MG TAB PO PRN ×5 (02:25→20:15)
[2017-09-13] MEDS: SODIUM CHLORIDE 0.9% 10 ML VIAL IRRIGATION SCH ×3 (06:00→21:34)
[2017-09-13] MEDS: metroNIDAZOLE 500 MG TAB PO SCH ×3 (06:27→21:21)
[2017-09-13] MEDS: POTASSIUM CHLORIDE 20 MEQ CONTROLLED RELEASE TAB PO SCH ×2 (08:09→21:22)
[2017-09-13] MEDS: PANTOPRAZOLE SOD 40 MG DELAYED RELEASE TAB PO SCH (08:09)
[2017-09-13] MEDS: SODIUM CHLORIDE 0.9% FLUSH 10 ML FLUSH IV FLUSH SCH ×2 (08:10→21:21)
--- NOTE | 2017-09-13 09:25 | MB ---
cc: MEET COLLIER M.D., EDWARD B. DO MOLPUS, KELLY L. MD BRAITHWAITE, RICHARD L. M.D. FOLLOW-UP TO INITIAL CONSULTATION date of visit 09/13/2017 DIAGNOSIS Stage IV uterine carcinosarcoma. REASON FOR ADMISSION Symptomatic pelvic fluid collection. HISTORY OF PRESENT ILLNESS The history is outlined in recent consult note. She has had interventional radiology place a CT-directed drain. It appears to be placed right in the center of this fluid collection that had characteristics of a hematoma. Included in the differential was an abscess but cultures from the fluid are now greater than five days out with no evidence of infection. She has been treated on broad-spectrum antibiotics. These antibiotics had been stopped as she started having some GI symptoms. Culture was positive for Clostridium difficile and she is now on Flagyl. I had the opportunity to speak with Dr. Joshua Garvin and I am grateful for all of the excellent medical care. Concerns have been expressed and acknowledge as the drain has been placed for a number of days but repeat imaging does not show any significant decrease in the size of this fluid-like to mass-like effect in the pelvis. There was concern that there was ineffective drainage and reportedly some TPA or some other thrombolytic agent was placed in the drain to help remove clots to try and increase the efficiency of the drain and this was done yesterday. Althea Reyna reports and states that afterwards there seemed to be an increase in output from the catheter per her observation and nursing observation. The last 24 hours shows approximately 230 reported as out from that drain. She had been complaining of nausea and vomiting. Her stomach is more settled. She has been able to eat and drink some. Her abdominal pain which had a flare-up in recent time is now much better today per her report. PHYSICAL EXAMINATION VITAL SIGNS: She is afebrile, pulse 65-71, respirations 16-18, blood pressure 100-121/54-65. O2 saturations greater than or equal to 95%. LUNGS: Clear. CARDIOVASCULAR: Regular rate and rhythm. ABDOMEN: She now tolerates the exam reasonably well in all four quadrants without rebound or guarding. The drain site is clean. It is producing serosanguineous (mostly sanguineous) drainage into the collection bag. 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 EXTREMITIES: No focal tenderness. DISCUSSION Time is spent in discussion with her, reviewing the findings in her case to date. I am sorry she has been feeling poorly. I am pleased with the improvement in her abdominal pain and her nausea and it is hoped that increasing the efficiency of this drainage will help reduce or resolve this fluid collection that has been contributing at least in part to her symptomatology. I explained again that there were definitely malignant cells within this fluid collection. I also explained that sometimes a malignancy, especially a carcinosarcoma, can manifest in a complex recurrence that can be both solid and/or cystic in nature. In considering the prospect of surgery if the drainage does not effectively drain it, as well as considering a second drain placed by interventional radiology, Dr. Garvin had a conversation with Dr. Stein who felt that if the first drain was not effective that placing a second drain would be unlikely to help. I am concerned about surgical drainage. We could reenter the vaginal cuff, drain it transvaginally but that may leave her with chronic vaginal drainage and may also be a nidus for tumor formation at the vaginal cuff. We must take into consideration that whatever this process is it occurred within approximately eight weeks of her surgery and while on chemotherapy. This raises a concern about resistance of tumor to the current chemotherapy despite initial response. Furthermore surgery could actually further stir up additional bleeding and may not resolve the problem and ultimately adjunctive therapy is going to need to be effective from this point forward. We discussed the potential value of radiation therapy as this is a focal area in the pelvis. If it persists despite drainage that would suggest that there is an additional source contributing to its continued presence and in that situation we may consider palliative radiation to the pelvis. We also discussed changing chemotherapy. She is on single-agent carboplatin. The Taxol was discontinued because she had an allergic reaction to the Taxol. We could add back a second agent to carboplatin. All of this would be considered when she has a bit more recovery and her performance status has improved. Discussion ensued. Questions were answered. She expressed good understanding and agreed. MD JOVANI Dumont/GIBRAN /8:07 AM /9:02 AM JEANNE
[2017-09-13] MEDS: SODIUM CHLORIDE 0.9% FLUSH 10 ML FLUSH IV FLUSH PRN (14:55)
--- NOTE | 2017-09-13 16:45 | HHI.PR ---
Subjective Remarks No new complaints sensation of urinary retention improved with joshi placement Objective Vitals Vital Signs Date Time Temp Pulse Resp B/P (MAP) Pulse Ox O2 Delivery O2 Flow Rate FiO2 09/13/17 12:00 98.2 72 20 106/55 (72) 97 09/13/17 08:46 98.3 80 20 104/62 (76) 97 09/13/17 08:37 97 21 09/13/17 06:16 99.8 75 20 107/57 (74) 97 09/13/17 00:56 99.8 79 20 110/65 (80) 96 09/12/17 21:28 99.7 91 20 96/53 (67) 96 Result Diagram: 09/11/17 0820 09/11/17 0820 Other Results Laboratory Tests Test 09/11/17 08:20 White Blood Count 3.0 TH/MM3 Red Blood Count 2.50 MIL/MM3 Hemoglobin 7.6 GM/DL Hematocrit 22.4 % Mean Corpuscular Volume 89.6 FL Mean Corpuscular Hemoglobin 30.5 PG Mean Corpuscular Hemoglobin Concent 34.0 % Red Cell Distribution Width 15.7 % Platelet Count 72 TH/MM3 Mean Platelet Volume 7.8 FL Neutrophils (%) (Auto) 66.8 % Lymphocytes (%) (Auto) 24.2 % Monocytes (%) (Auto) 8.4 % Eosinophils (%) (Auto) 0.2 % Basophils (%) (Auto) 0.4 % Neutrophils # (Auto) 2.0 TH/MM3 Lymphocytes # (Auto) 0.7 TH/MM3 Monocytes # (Auto) 0.2 TH/MM3 Eosinophils # (Auto) 0.0 TH/MM3 Basophils # (Auto) 0.0 TH/MM3 CBC Comment AUTO DIFF Differential Comment AUTO DIFF CONFIRMED Platelet Estimate LOW Platelet Morphology Comment NORMAL Blood Urea Nitrogen 12 MG/DL Creatinine 0.74 MG/DL Random Glucose 98 MG/DL Calcium Level 9.2 MG/DL Sodium Level 137 MEQ/L Potassium Level 3.0 MEQ/L Chloride Level 99 MEQ/L Carbon Dioxide Level 29.3 MEQ/L Anion Gap 9 MEQ/L Estimat Glomerular Filtration Rate 80 ML/MIN Imaging Last Impressions Abdomen/Pelvis CT 09/10/17 0000 Signed Impressions: Service Date/Time: Sunday, September 10, 2017 19:22 - CONCLUSION: Percutaneous drain is located within the pelvic fluid collection; there has been no significant decrease in size when compared to pre-drainage. Son Pearson MD Abscess Drainage CT 09/06/17 0833 Signed Impressions: Service Date/Time: Wednesday, September 06, 2017 15:39 - CONCLUSION: 1. Uncomplicated CT-guided drainage catheter placement in left pelvic fluid collection. Only a small amount of serosanguineous fluid could be aspirated immediately following catheter placement. Entire sample was submitted for laboratory analysis. Overall, findings are most consistent with pelvic hematoma. Jamaal Meadows MD Objective Remarks GENERAL: This is a well-nourished, well-developed patient, in no apparent distress. CARDIOVASCULAR: Regular rate and rhythm RESPIRATORY: Clear to auscultation. Breath sounds equal bilaterally. GASTROINTESTINAL: Abdomen soft, generalized tenderness, nondistended. Normal active bowel sounds drain at RLQ with small amount of sanguinous drainage in bulb MUSCULOSKELETAL: Extremities without clubbing, cyanosis, or edema. NEURO: Alert & Oriented x4 to person, place, time, situation. Moves all ext x4 A/P Problem List: (1) Abdominal pain ICD Codes: R10.9 - Unspecified abdominal pain Status: Acute Plan: Abdominal pain Uterine cancer (carcinosarcoma) pelvic mass/hematoma This is a 57 year old female with a past medical history which includes anxiety/ depression, lumbar radiculopathy, chronic back pain, hyperlipidemia, uterine cancer. Patient is currently following with Dr. Garsia last chemotherapy this past Tuesday. She had three chemotherapy treatment then on 06/30/17 Robotic assisted Laparoscopic hysterectomy, BSO, resection of pelvic mass, omentectomy and tumor debulking with Dr. Garsia. After surgery patient has had two additional rounds of chemotherapy. Patient was seen in ER 08/24/17 for lower abdominal pain. CT abd/pelvic (08/24/17)revealed: Large heterogeneous mass in the uterine surgical bed measuring 9.6 x 5.0 x6.8 cm. Patient was then DC with follow up with Dr. Garsia as an outpatient. Today patient returned to the ER due to worsening abdominal pain for the past 3 days. Pain constant, pressure like, sharp, worse with eating, improved by bringing her legs closer to her. Pt. reports that she is constipated and has decreased appetite. Pt. had a fever of 100.2 at home, associated with some chills and night sweats. CT abd/Pelvis (09/05/17) revealed: mass 12.7 cm which has progressed in size from previous study. Predominantly cystic mass in the pelvis larger when compared to the comparison study either hematoma or seroma. Abscess cannot be entirely excluded Hemangioma right lobe of the liver. - IR placed drain into abdomen fluid collection on 09/06..bloody fluid - pain control adjustment. - f/u cytology shows malignant cells and gs/cx ngtd - Pt with fevers since 09/07...zosyn emperically. blood cx ngtd. . presumed related to fluid collection. - c.diff positive. flagyl started on 09/10 and zosyn stopped. - repeat CT Abd/pelvis (09/10/17) --> pelvic fluid collection essentially unchanged - Case d/w IR, Dr. Stein (09/12) - IR will place tPA in drain, clamp 8 hours, then release clamp, continue to monitor drainage - IR does NOT feel that pt would benefit from a 2nd drain. - Case d/w Dr. Garsia (09/12). He reevaluated pt later today (09/13). He discussed options regarding further chemo or radiation. Patient thinking about options at this time. - DVT prophylaxis with SCDs - supportive care - recheck CBC and BMP in AM (2) C. difficile colitis ICD Codes: A04.72 - Enterocolitis due to Clostridium difficile, not specified as recurrent Status: Acute Plan: - zosyn stopped. (09/08 - 09/10/17) - PO flagyl (09/10 - present) - supportive care. (3) Uterine cancer ICD Codes: C55 - Malignant neoplasm of uterus, part unspecified Status: Chronic Plan: - see above (4) Anxiety and depression ICD Codes: F41.8 - Other specified anxiety disorders Status: Chronic Plan: continue home Paxil 40 mg PO QHS Assessment and Plan Patient examined. Assessment and plan formulated with Lashanda Call PA-C. I agree with the above. Problem Qualifiers (1) Abdominal pain: Qualified Codes: R10.31 - Right lower quadrant pain (2) Uterine cancer: Qualified Codes: C55 - Malignant neoplasm of uterus, part unspecified Lashanda Call Sep 13, 2017 16:45 Abel Garvin DO Sep 16, 2017 23:28
[2017-09-13] MEDS: PARoxetine HCL 20 MG TAB PO SCH (21:22)
[2017-09-13] MEDS: PRAVASTATIN SOD 80 MG TAB PO SCH (21:22)
[2017-09-13] MEDS: CALCIUM CARBONATE 500 MG CHEWABLE TAB CHEW PRN (21:23)
[2017-09-14] VITALS (10 sets, daily range): BP systolic 93–112; BP diastolic 52–66; PULSE 71–96; RESP 17–20; TEMP 97.5–101.2; O2SAT 95–100
[2017-09-14] MEDS: oxyCODONE/ACETAMINOPHEN 10 MG/325 MG TAB PO PRN ×5 (00:26→21:24)
[2017-09-14] MEDS: MORPHINE SULFATE 4 MG/ML INJ IV PUSH PRN ×4 (02:15→23:41)
[2017-09-14] MEDS: metroNIDAZOLE 500 MG TAB PO SCH ×3 (05:44→21:24)
[2017-09-14] MEDS: SODIUM CHLORIDE 0.9% 10 ML VIAL IRRIGATION SCH ×3 (06:00→21:25)
[2017-09-14] MEDS: POTASSIUM CHLORIDE 20 MEQ CONTROLLED RELEASE TAB PO SCH ×2 (07:58→21:24)
[2017-09-14] MEDS: PANTOPRAZOLE SOD 40 MG DELAYED RELEASE TAB PO SCH (07:58)
[2017-09-14] MEDS: SODIUM CHLORIDE 0.9% FLUSH 10 ML FLUSH IV FLUSH SCH ×2 (07:58→20:26)
[2017-09-14 10:18] LABS: AUTOMATED NEUTROPHIL # 1.5 TH/MM3 (1.8-7.7); BASOPHIL % 0.2 % (0.0-2.0); EOSINOPHIL % 0.2 % (0.0-4.0); LYMPH % 29.9 % (9.0-44.0); LYMPHOCYTE # 0.7 TH/MM3 (1.0-4.8); MEAN CELL VOLUME 89.5 FL (80.0-100.0); MEAN CORPUSCULAR HEMOGLOBIN 30.8 PG (27.0-34.0); MEAN CORPUSCULAR HGB CONC 34.5 % (32.0-36.0); MEAN PLATELET VOLUME 8.4 FL (7.0-11.0); MONOCYTE # 0.2 TH/MM3 (0-0.9); NEUT % 61.7 % (16.0-70.0); RED BLOOD COUNT 2.03 MIL/MM3 (4.00-5.30); RED CELL DISTRIBUTION WIDTH 15.5 % (11.6-17.2); WHITE BLOOD COUNT 2.4 TH/MM3 (4.0-11.0)
[2017-09-14 10:34] LABS: HEMATOCRIT 18.1 % (35.0-46.0); HEMOGLOBIN 6.3 GM/DL (11.6-15.3); PLATELET COUNT 15 TH/MM3 (150-450)
[2017-09-14 10:47] LABS: BICARBONATE 30.4 MEQ/L (21.0-32.0); CALCIUM 8.9 MG/DL (8.5-10.1); CREATININE 0.59 MG/DL (0.50-1.00); MAGNESIUM 1.6 MG/DL (1.5-2.5)
[2017-09-14] MEDS ORDERED: SODIUM CHLOR 0.9% 250 ML INJ 250 ML IV ONE (11:00)
[2017-09-14 12:12] LABS: BANDS 4 % (0-6); LYMPHOCYTES 45 % (9-44); MONOCYTES 3 % (0-8); NEUTROPHIL # MANUAL DIFF 1.2 TH/MM3 (1.8-7.7); POLYS (SEG NEUTROPHILS) 48 % (16-70)
--- NOTE | 2017-09-14 13:37 | HHI.PR ---
Subjective Remarks Patient HGB dropped to 6.3, HCT 18.1, plt 15,000 Patient denies active bleeding drain at RLQ with 150ml sanguinous drainage in bulb Patient reports feeling much better today, much less painful today Objective Vitals Vital Signs Date Time Temp Pulse Resp B/P (MAP) Pulse Ox O2 Delivery O2 Flow Rate FiO2 09/14/17 12:25 16 09/14/17 12:17 97.5 78 20 93/52 (66) 95 09/14/17 12:16 21 09/14/17 08:44 98.0 83 20 96/52 (67) 96 09/14/17 08:05 16 09/14/17 05:39 97.8 71 17 107/59 (75) 95 09/14/17 00:35 98.5 82 17 103/59 (74) 95 09/13/17 20:32 98.4 75 17 98/55 (69) 96 09/13/17 17:00 97 21 09/13/17 16:00 98.6 74 20 101/62 (75) 98 Result Diagram: 09/14/17 0818 09/14/17 0818 Other Results Laboratory Tests Test 09/14/17 08:18 White Blood Count 2.4 TH/MM3 Red Blood Count 2.03 MIL/MM3 Hemoglobin 6.3 GM/DL Hematocrit 18.1 % Mean Corpuscular Volume 89.5 FL Mean Corpuscular Hemoglobin 30.8 PG Mean Corpuscular Hemoglobin Concent 34.5 % Red Cell Distribution Width 15.5 % Platelet Count 15 TH/MM3 Mean Platelet Volume 8.4 FL Neutrophils (%) (Auto) 61.7 % Lymphocytes (%) (Auto) 29.9 % Monocytes (%) (Auto) 8.0 % Eosinophils (%) (Auto) 0.2 % Basophils (%) (Auto) 0.2 % Neutrophils # (Auto) 1.5 TH/MM3 Lymphocytes # (Auto) 0.7 TH/MM3 Monocytes # (Auto) 0.2 TH/MM3 Eosinophils # (Auto) 0.0 TH/MM3 Basophils # (Auto) 0.0 TH/MM3 CBC Comment AUTO DIFF Differential Total Cells Counted 100 Neutrophils % (Manual) 48 % Band Neutrophils % 4 % Lymphocytes % 45 % Monocytes % 3 % Neutrophils # (Manual) 1.2 TH/MM3 Differential Comment FINAL DIFF MANUAL Platelet Estimate RARE Platelet Morphology Comment NORMAL Blood Urea Nitrogen 11 MG/DL Creatinine 0.59 MG/DL Random Glucose 104 MG/DL Calcium Level 8.9 MG/DL Magnesium Level 1.6 MG/DL Sodium Level 137 MEQ/L Potassium Level 3.6 MEQ/L Chloride Level 100 MEQ/L Carbon Dioxide Level 30.4 MEQ/L Anion Gap 7 MEQ/L Estimat Glomerular Filtration Rate 104 ML/MIN Imaging Last Impressions Abdomen/Pelvis CT 09/10/17 0000 Signed Impressions: Service Date/Time: Sunday, September 10, 2017 19:22 - CONCLUSION: Percutaneous drain is located within the pelvic fluid collection; there has been no significant decrease in size when compared to pre-drainage. Son Pearson MD Abscess Drainage CT 09/06/17 0833 Signed Impressions: Service Date/Time: Wednesday, September 06, 2017 15:39 - CONCLUSION: 1. Uncomplicated CT-guided drainage catheter placement in left pelvic fluid collection. Only a small amount of serosanguineous fluid could be aspirated immediately following catheter placement. Entire sample was submitted for laboratory analysis. Overall, findings are most consistent with pelvic hematoma. Jamaal Meadows MD Objective Remarks GENERAL: This is a well-nourished, well-developed patient, in no apparent distress. CARDIOVASCULAR: Regular rate and rhythm RESPIRATORY: Clear to auscultation. Breath sounds equal bilaterally. GASTROINTESTINAL: Abdomen soft, generalized tenderness, nondistended. Normal active bowel sounds drain at RLQ with small amount of sanguinous drainage in bulb MUSCULOSKELETAL: Extremities without clubbing, cyanosis, or edema. NEURO: Alert & Oriented x4 to person, place, time, situation. Moves all ext x4 A/P Problem List: (1) Abdominal pain ICD Codes: R10.9 - Unspecified abdominal pain Status: Acute Plan: Abdominal pain Uterine cancer (carcinosarcoma) pelvic mass/hematoma This is a 57 year old female with a past medical history which includes anxiety/ depression, lumbar radiculopathy, chronic back pain, hyperlipidemia, uterine cancer. Patient is currently following with Dr. Garsia last chemotherapy this past Tuesday. She had three chemotherapy treatment then on 06/30/17 Robotic assisted Laparoscopic hysterectomy, BSO, resection of pelvic mass, omentectomy and tumor debulking with Dr. Garsia. After surgery patient has had two additional rounds of chemotherapy. Patient was seen in ER 1/24/18 for lower abdominal pain. CT abd/pelvic (08/24/17)revealed: Large heterogeneous mass in the uterine surgical bed measuring 9.6 x 5.0 x6.8 cm. Patient was then DC with follow up with Dr. Garsia as an outpatient. Today patient returned to the ER due to worsening abdominal pain for the past 3 days. Pain constant, pressure like, sharp, worse with eating, improved by bringing her legs closer to her. Pt. reports that she is constipated and has decreased appetite. Pt. had a fever of 100.2 at home, associated with some chills and night sweats. CT abd/Pelvis (09/05/17) revealed: mass 12.7 cm which has progressed in size from previous study. Predominantly cystic mass in the pelvis larger when compared to the comparison study either hematoma or seroma. Abscess cannot be entirely excluded Hemangioma right lobe of the liver. - IR placed drain into abdomen fluid collection on 09/06..bloody fluid - pain control adjustment. - f/u cytology shows malignant cells and gs/cx ngtd - Pt with fevers since 09/07...zosyn empirically. blood cx ngtd. . presumed related to fluid collection. - c.diff positive. flagyl started on 09/10 and zosyn stopped. - repeat CT Abd/pelvis (09/10/17) --> pelvic fluid collection essentially unchanged - Case d/w IR, Dr. Stein (09/12) - IR will place tPA in drain, clamp 8 hours, then release clamp, continue to monitor drainage - IR does NOT feel that pt would benefit from a 2nd drain. - Case d/w Dr. Garsia (09/12). He reevaluated pt (09/13). He discussed options regarding further chemo or radiation. Patient thinking about options at this time. - DVT prophylaxis with SCDs - supportive care - recheck CBC in AM (2) C. difficile colitis ICD Codes: A04.72 - Enterocolitis due to Clostridium difficile, not specified as recurrent Status: Acute Plan: - zosyn stopped. (09/08 - 09/10/17) - PO flagyl (09/10 - present) - supportive care. (3) Uterine cancer ICD Codes: C55 - Malignant neoplasm of uterus, part unspecified Status: Chronic Plan: - see above (4) Anxiety and depression ICD Codes: F41.8 - Other specified anxiety disorders Status: Chronic Plan: continue home Paxil 40 mg PO QHS (5) Pancytopenia ICD Codes: D61.818 - Other pancytopenia Plan: Patient H/H 6.3, 18.1 (09/13) Plt count 15 no signs of active bleeding Patient reports last chemotherapy treatment was 08/31/17 2 units PRBC ordered (09/13) recheck CBC in AM consult placed to Hematology/Medical oncology Assessment and Plan Patient examined. Assessment and plan formulated with Lashanda Call PA-C. I agree with the above. Problem Qualifiers (1) Abdominal pain: Qualified Codes: R10.31 - Right lower quadrant pain (2) Uterine cancer: Qualified Codes: C55 - Malignant neoplasm of uterus, part unspecified Lashanda Call Sep 14, 2017 13:37 Abel Garvin DO Sep 16, 2017 23:29
[2017-09-14] MEDS: PRAVASTATIN SOD 80 MG TAB PO SCH (21:23)
[2017-09-14] MEDS: PARoxetine HCL 20 MG TAB PO SCH (21:24)
[2017-09-14] MEDS: CALCIUM CARBONATE 500 MG CHEWABLE TAB CHEW PRN (21:24)
--- NOTE | 2017-09-14 21:43 | MB ---
cc: IDANIA CORRAL M.D. DATE OF CONSULTATION 09/14/2017 REASON FOR CONSULTATION Consult requested by Dr. Garvin for evaluation of thrombocytopenia. HISTORY OF PRESENT ILLNESS There is a 57-year-old female. 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 She is under the care of Dr. Rohini Garsia, [facility] oncologist. The patient stated she had three cycles of carboplatin and Taxol chemotherapy. After that she had a total radical hysterectomy by Dr. Garsia. Then she had two cycles of chemotherapy. She had developed a reaction from Taxol chemotherapy. She had received cycle number 5 of carboplatin chemotherapy at a AUC of 6 just two weeks ago on August 31. The patient recently presented to the emergency room complaining of pelvic pain. She had a CT scan of the abdomen and pelvis which showed fluid collection. Discussion was held to work this up as an outpatient. She was discharged and was seen by Dr. Garsia who recommended IR to put a IR drain for the fluid collection. This was in the works but the patient came back to the emergency room complaining of worsening pelvic pain. She got admitted to the hospital. The IR put the drain which is draining well. Dr. Garsia also saw the patient. The patient had blood tests today which showed white count 2.4, hemoglobin 6.3 and platelet count is 15. Because of the thrombocytopenia and anemia I have been asked to see the patient for further evaluation. The patient stated that she typically gets severe myelosuppression from the chemotherapy and requires blood and platelet transfusion as an outpatient. Dr. Garvin already has put the order in for blood and platelet transfusion. The patient is currently receiving blood transfusion and the orders have been placed for platelet transfusion already after she completes the blood transfusion. The patient denies any bleeding. She denies any bruising or petechiae. Her abdominal pain has improved since the drain has been placed. She is overall feeling better. The rest of the review of systems is negative. PAST MEDICAL HISTORY 1. Anxiety, depression. 2. Chronic back pain. 3. Hypercholesterolemia. 4. Uterine carcinosarcoma stage IV. PAST SURGICAL HISTORY Robotic-assisted laparoscopic complete hysterectomy in June 2017. ALLERGIES CIPROFLOXACIN. MEDICATIONS Please see EMR FAMILY HISTORY None for malignancy. SOCIAL HISTORY The patient does not smoke cigarettes, does not drink alcohol. PHYSICAL EXAMINATION GENERAL: A well-developed, well-nourished white female in no apparent distress. VITAL SIGNS: Temperature 99.1, heart rate is 89, blood pressure 100/57, O2 saturation 100%. HEENT: PERRLA, EOMI, anicteric. No oral lesions noted. NECK: No lymphadenopathy noted. LUNGS: Are clear. No wheezing, rhonchi or rales. CARDIOVASCULAR: Heart is regular rate and rhythm. ABDOMEN: Soft, distended diffuse tenderness with drain noted on the right side. EXTREMITIES: No pedal edema. NEUROLOGIC: Awake, alert, oriented times three. SKIN: No significant lesions noted. ASSESSMENT 1. Carcinosarcoma of the uterus status post neoadjuvant chemotherapy followed by radical hysterectomy and now she is on the chemotherapy. Her last chemotherapy was 2 weeks ago on August 31. 2. Abdominal fluid collection status post IR, drainage tube. The cultures so far has been negative. The nature of the fluid collection is unknown at this time. 3. Severe anemia most likely due to her chemotherapy carboplatin. 4. Severe thrombocytopenia. This is due to her chemotherapy carboplatin which she had just two weeks ago. 5. C-difficile colitis on Flagyl. PLAN I have reviewed her available records and I have discussed with the patient regarding the anemia and thrombocytopenia. She is well aware of the side effects from the chemotherapy in terms of the myelosuppression. She states that she usually gets severe anemia and thrombocytopenia after the chemotherapy and she gets blood and platelet transfusion. Her last chemotherapy was 2 weeks ago, carboplatin at AUC of 6. She is now at [facility]. Typically the patients gets severe myelosuppression 2 weeks after the chemotherapy. This is very common reaction from the chemotherapy. The patient is well aware of that. The patient is getting blood transfusion and order has all already been placed in for platelet transfusion, this is very appropriate. My recommendation is to monitor the CBC daily and transfuse if the hemoglobin is less than 8 and/or platelet count is less than 15. Further recommendations based on the hospital stay. Thank you for asking my opinion. MD LANRE Lobato/YECENIA /6:47 PM /9:24 PM [facility]
[2017-09-14] MEDS: ACETAMINOPHEN 325 MG TAB PO PRN (23:57)
[2017-09-15] VITALS (11 sets, daily range): BP systolic 101–108; BP diastolic 55–67; PULSE 67–96; RESP 16–20; TEMP 98.1–102.7; O2SAT 94–97
[2017-09-15] MEDS: oxyCODONE/ACETAMINOPHEN 10 MG/325 MG TAB PO PRN ×5 (01:36→18:00)
[2017-09-15 02:40] LABS: BASOPHIL % 0.1 % (0.0-2.0); EOSINOPHIL % 0.2 % (0.0-4.0); HEMOGLOBIN 7.1 GM/DL (11.6-15.3); LYMPH % 16.7 % (9.0-44.0); LYMPHOCYTE # 0.5 TH/MM3 (1.0-4.8); MEAN CELL VOLUME 87.7 FL (80.0-100.0); MEAN CORPUSCULAR HEMOGLOBIN 30.5 PG (27.0-34.0); MEAN CORPUSCULAR HGB CONC 34.7 % (32.0-36.0); MEAN PLATELET VOLUME 8.3 FL (7.0-11.0); MONO % 7.7 % (0.0-8.0); MONOCYTE # 0.2 TH/MM3 (0-0.9); NEUT % 75.3 % (16.0-70.0); RED BLOOD COUNT 2.32 MIL/MM3 (4.00-5.30); RED CELL DISTRIBUTION WIDTH 15.9 % (11.6-17.2); WHITE BLOOD COUNT 2.7 TH/MM3 (4.0-11.0)
[2017-09-15 02:46] LABS: HEMATOCRIT 20.3 % (35.0-46.0); PLATELET COUNT 15 TH/MM3 (150-450)
[2017-09-15 03:26] LABS: BANDS 7 % (0-6); LYMPHOCYTES 12 % (9-44); MYELOCYTES 1 % (0-0); NEUTROPHIL # MANUAL DIFF 2.4 TH/MM3 (1.8-7.7); POLYS (SEG NEUTROPHILS) 80 % (16-70)
[2017-09-15 03:29] LABS: ACANTHOCYTES OCC (NORMAL); OVALOCYTES 1+ (NORMAL)
[2017-09-15] MEDS ORDERED: cefTRIAXone 1,000 MG/NS 100 ML IV ONE ×2 (03:45)
[2017-09-15] MEDS: MORPHINE SULFATE 4 MG/ML INJ IV PUSH PRN ×3 (03:52→21:13)
[2017-09-15] MEDS: ACETAMINOPHEN 325 MG TAB PO PRN ×2 (04:03→14:05)
[2017-09-15] MEDS: SODIUM CHLORIDE 0.9% 10 ML VIAL IRRIGATION SCH ×3 (06:00→21:14)
[2017-09-15] MEDS: metroNIDAZOLE 500 MG TAB PO SCH ×3 (06:19→21:10)
[2017-09-15] MEDS: SODIUM CHLORIDE 0.9% FLUSH 10 ML FLUSH IV FLUSH SCH ×2 (09:00→21:11)
[2017-09-15] MEDS: POTASSIUM CHLORIDE 20 MEQ CONTROLLED RELEASE TAB PO SCH ×2 (09:34→21:10)
[2017-09-15] MEDS: PANTOPRAZOLE SOD 40 MG DELAYED RELEASE TAB PO SCH (09:34)
--- NOTE | 2017-09-15 09:38 | RADRPT ---
EXAM DATE/TIME: 09/15/2017 09:14 [facility] COMPARISON: CHEST SINGLE AP, March 29, 2017, 9:02. INDICATIONS : Fever. MEDICAL HISTORY : Cardiovascular disease. Uterine cancer SURGICAL HISTORY : Hysterectomy. port for chemo for uterine cancer ENCOUNTER: Initial ACUITY: 1 week PAIN SCORE: 0/10 LOCATION: Bilateral chest FINDINGS: A single view of the chest demonstrates the lungs to be symmetrically aerated without evidence of mas s, infiltrate or effusion. Right IJ [id number] with tip in the central SVC. The cardiomediastinal contours are unremarkable. Osseous structures are intact. CONCLUSION: 1. No acute cardiopulmonary disease. Jamaal Meadows MD on September 15, 2017 at 9:36 Board Certified Radiologist. This report was verified electronically.
[2017-09-15] MEDS ORDERED: SODIUM CHLOR 0.9% 250 ML INJ 250 ML IV ONE (11:00)
[2017-09-15] MEDS ORDERED: ACETAMINOPHEN 325 MG TAB PO PRN (11:00)
[2017-09-15] MEDS ORDERED: diphenhydrAMINE HCL 25 MG CAP PO PRN (11:00)
--- NOTE | 2017-09-15 11:17 | HHI.PR ---
Subjective Remarks Patient had temp 102.7 through the night, denies specific cough or dysuria Patient reports a bad night due to fevers but feels much better now Objective Vitals Vital Signs Date Time Temp Pulse Resp B/P (MAP) Pulse Ox O2 Delivery O2 Flow Rate FiO2 09/15/17 08:53 98.6 67 20 106/55 (72) 96 09/15/17 07:00 99.3 09/15/17 06:17 99.3 78 18 102/67 95 09/15/17 04:05 100.4 09/15/17 04:00 100.2 80 18 102/60 (74) 95 09/15/17 01:20 102.7 09/15/17 01:00 102.0 09/15/17 00:00 102.0 96 18 106/57 (73) 94 09/15/17 00:00 99.5 09/14/17 23:45 101.2 96 20 108/56 (73) 100 09/14/17 21:16 98.2 83 17 112/66 100 09/14/17 20:00 99.3 79 18 105/58 (74) 99 09/14/17 17:30 99.1 89 18 100/57 100 09/14/17 17:03 16 09/14/17 16:55 98.2 79 20 94/55 95 09/14/17 16:00 98.2 79 20 94/55 (68) 95 09/14/17 12:17 97.5 78 20 93/52 (66) 95 09/14/17 12:16 21 Result Diagram: 09/15/17 0215 09/14/1718 Other Results Laboratory Tests Test 09/14/17 08:18 09/15/17 02:15 White Blood Count 2.4 TH/MM3 2.7 TH/MM3 Red Blood Count 2.03 MIL/MM3 2.32 MIL/MM3 Hemoglobin 6.3 GM/DL 7.1 GM/DL Hematocrit 18.1 % 20.3 % Mean Corpuscular Volume 89.5 FL 87.7 FL Mean Corpuscular Hemoglobin 30.8 PG 30.5 PG Mean Corpuscular Hemoglobin Concent 34.5 % 34.7 % Red Cell Distribution Width 15.5 % 15.9 % Platelet Count 15 TH/MM3 15 TH/MM3 Mean Platelet Volume 8.4 FL 8.3 FL Neutrophils (%) (Auto) 61.7 % 75.3 % Lymphocytes (%) (Auto) 29.9 % 16.7 % Monocytes (%) (Auto) 8.0 % 7.7 % Eosinophils (%) (Auto) 0.2 % 0.2 % Basophils (%) (Auto) 0.2 % 0.1 % Neutrophils # (Auto) 1.5 TH/MM3 2.0 TH/MM3 Lymphocytes # (Auto) 0.7 TH/MM3 0.5 TH/MM3 Monocytes # (Auto) 0.2 TH/MM3 0.2 TH/MM3 Eosinophils # (Auto) 0.0 TH/MM3 0.0 TH/MM3 Basophils # (Auto) 0.0 TH/MM3 0.0 TH/MM3 CBC Comment AUTO DIFF AUTO DIFF Differential Total Cells Counted 100 100 Neutrophils % (Manual) 48 % 80 % Band Neutrophils % 4 % 7 % Lymphocytes % 45 % 12 % Monocytes % 3 % Neutrophils # (Manual) 1.2 TH/MM3 2.4 TH/MM3 Differential Comment FINAL DIFF MANUAL FINAL DIFF MANUAL Platelet Estimate RARE LOW Platelet Morphology Comment NORMAL NORMAL Blood Urea Nitrogen 11 MG/DL Creatinine 0.59 MG/DL Random Glucose 104 MG/DL Calcium Level 8.9 MG/DL Magnesium Level 1.6 MG/DL Sodium Level 137 MEQ/L Potassium Level 3.6 MEQ/L Chloride Level 100 MEQ/L Carbon Dioxide Level 30.4 MEQ/L Anion Gap 7 MEQ/L Estimat Glomerular Filtration Rate 104 ML/MIN Myelocytes 1 % Ovalocytes 1+ Acanthocytes OCC Imaging Last Impressions Abdomen/Pelvis CT 09/10/17 0000 Signed Impressions: Service Date/Time: Sunday, September 10, 2017 19:22 - CONCLUSION: Percutaneous drain is located within the pelvic fluid collection; there has been no significant decrease in size when compared to pre-drainage. Son Pearson MD Abscess Drainage CT 09/06/17 0833 Signed Impressions: Service Date/Time: Wednesday, September 06, 2017 15:39 - CONCLUSION: 1. Uncomplicated CT-guided drainage catheter placement in left pelvic fluid collection. Only a small amount of serosanguineous fluid could be aspirated immediately following catheter placement. Entire sample was submitted for laboratory analysis. Overall, findings are most consistent with pelvic hematoma. Jamaal Meadows MD Objective Remarks GENERAL: This is a well-nourished, well-developed patient, in no apparent distress. CARDIOVASCULAR: Regular rate and rhythm RESPIRATORY: Clear to auscultation. Breath sounds equal bilaterally. GASTROINTESTINAL: Abdomen soft, generalized tenderness, nondistended. Normal active bowel sounds drain at RLQ with small amount of sanguinous drainage in bulb MUSCULOSKELETAL: Extremities without clubbing, cyanosis, or edema. NEURO: Alert & Oriented x4 to person, place, time, situation. Moves all ext x4 A/P Problem List: (1) Abdominal pain ICD Codes: R10.9 - Unspecified abdominal pain Status: Acute Plan: Abdominal pain Uterine cancer (carcinosarcoma) pelvic mass/hematoma This is a 57 year old female with a past medical history which includes anxiety/ depression, lumbar radiculopathy, chronic back pain, hyperlipidemia, uterine cancer. Patient is currently following with Dr. Garsia last chemotherapy this past Tuesday. She had three chemotherapy treatment then on 06/30/17 Robotic assisted Laparoscopic hysterectomy, BSO, resection of pelvic mass, omentectomy and tumor debulking with Dr. Garsia. After surgery patient has had two additional rounds of chemotherapy. Patient was seen in ER 08/24/17 for lower abdominal pain. CT abd/pelvic (08/24/17)revealed: Large heterogeneous mass in the uterine surgical bed measuring 9.6 x 5.0 x6.8 cm. Patient was then DC with follow up with Dr. Garsia as an outpatient. Today patient returned to the ER due to worsening abdominal pain for the past 3 days. Pain constant, pressure like, sharp, worse with eating, improved by bringing her legs closer to her. Pt. reports that she is constipated and has decreased appetite. Pt. had a fever of 100.2 at home, associated with some chills and night sweats. CT abd/Pelvis (09/05/17) revealed: mass 12.7 cm which has progressed in size from previous study. Predominantly cystic mass in the pelvis larger when compared to the comparison study either hematoma or seroma. Abscess cannot be entirely excluded Hemangioma right lobe of the liver. - IR placed drain into abdomen fluid collection on 09/06..bloody fluid - pain control adjustment. - f/u cytology shows malignant cells and gs/cx ngtd - Pt with fevers since 09/07...zosyn empirically. blood cx ngtd. . presumed related to fluid collection. - c.diff positive. flagyl started on 09/10 and zosyn stopped. - repeat CT Abd/pelvis (09/10/17) --> pelvic fluid collection essentially unchanged - Case d/w IR, Dr. Stein (09/12) - IR will place tPA in drain, clamp 8 hours, then release clamp, continue to monitor drainage - IR does NOT feel that pt would benefit from a 2nd drain. - Case d/w Dr. Garsia (09/12). He reevaluated pt (09/13). He discussed options regarding further chemo or radiation. Patient thinking about options at this time. - DVT prophylaxis with SCDs - supportive care (2) C. difficile colitis ICD Codes: A04.72 - Enterocolitis due to Clostridium difficile, not specified as recurrent Status: Acute Plan: - zosyn stopped. (09/08 - 09/10/17) - PO flagyl (09/10 - present) - supportive care. (3) Uterine cancer ICD Codes: C55 - Malignant neoplasm of uterus, part unspecified Status: Chronic Plan: - see above (4) Anxiety and depression ICD Codes: F41.8 - Other specified anxiety disorders Status: Chronic Plan: continue home Paxil 40 mg PO QHS (5) Pancytopenia ICD Codes: D61.818 - Other pancytopenia Plan: Patient H/H 6.3, 18.1 (09/14) -> 7.1 (09/15) Plt count 15 -> 15 (09/15) no signs of active bleeding Patient reports last chemotherapy treatment was 08/31/17 consult placed to Hematology/Medical oncology, appreciate input. Feel that the drop in Hgb and Plt likely secondary to myelosuppression secondary to chemotherapy two weeks ago. 2 units PRBC transfused (09/14) Hematology ordered additional 1 unit of PRBC (09/15) Patient also received Plt (09/14) recheck CBC pending (6) Fever ICD Codes: R50.9 - Fever, unspecified Plan: Patient had fever through the night, T max 102.7 could be reactive to blood products, tumor fever or infectious Blood cultures x 2 obtained Patient denies dysuria (does have a joshi in place) patient also denies SOB or cough repeat UA C&S if indicated CXR reviewed and reveals no acute cardiopulmonary disease Assessment and Plan Patient examined. Assessment and plan formulated with Lashanda Call PA-C. I agree with the above. Problem Qualifiers (1) Abdominal pain: Qualified Codes: R10.31 - Right lower quadrant pain (2) Uterine cancer: Qualified Codes: C55 - Malignant neoplasm of uterus, part unspecified Lashanda Call Sep 15, 2017 11:17 Abel Garvin DO Sep 16, 2017 23:30
--- NOTE | 2017-09-15 12:03 | PD.ONC.PN ---
Subjective Subjective Remarks Tmax 102.7 overnight. Patient states she feels fatigued. She states she just finished her second unit of blood transfusion. ~680cc drainage from right abdominal catheter. Objective Data Date Time Temp Pulse Resp B/P (MAP) Pulse Ox O2 Delivery O2 Flow Rate FiO2 09/15/17 11:41 99.0 70 20 108/57 (74) 97 09/15/17 08:53 98.6 67 20 106/55 (72) 96 09/15/17 07:00 99.3 09/15/17 06:17 99.3 78 18 102/67 95 09/15/17 04:05 100.4 09/15/17 04:00 100.2 80 18 102/60 (74) 95 09/15/17 01:20 102.7 09/15/17 01:00 102.0 09/15/17 00:00 102.0 96 18 106/57 (73) 94 09/15/17 00:00 99.5 09/14/17 23:45 101.2 96 20 108/56 (73) 100 09/14/17 21:16 98.2 83 17 112/66 100 09/14/17 20:00 99.3 79 18 105/58 (74) 99 09/14/17 17:30 99.1 89 18 100/57 100 09/14/17 17:03 16 09/14/17 16:55 98.2 79 20 94/55 95 09/14/17 16:00 98.2 79 20 94/55 (68) 95 09/14/17 12:17 97.5 78 20 93/52 (66) 95 09/14/17 12:16 21 09/15/17 09/15/17 09/15/17 07:00 15:00 23:00 Intake Total 2547 ml Output Total 380 ml Balance 2167 ml Result Diagram: 09/15/1721409/14/17817 Laboratory Results Laboratory Tests Test 09/15/17 02:15 White Blood Count 2.7 TH/MM3 Red Blood Count 2.32 MIL/MM3 Hemoglobin 7.1 GM/DL Hematocrit 20.3 % Mean Corpuscular Volume 87.7 FL Mean Corpuscular Hemoglobin 30.5 PG Mean Corpuscular Hemoglobin Concent 34.7 % Red Cell Distribution Width 15.9 % Platelet Count 15 TH/MM3 Mean Platelet Volume 8.3 FL Neutrophils (%) (Auto) 75.3 % Lymphocytes (%) (Auto) 16.7 % Monocytes (%) (Auto) 7.7 % Eosinophils (%) (Auto) 0.2 % Basophils (%) (Auto) 0.1 % Neutrophils # (Auto) 2.0 TH/MM3 Lymphocytes # (Auto) 0.5 TH/MM3 Monocytes # (Auto) 0.2 TH/MM3 Eosinophils # (Auto) 0.0 TH/MM3 Basophils # (Auto) 0.0 TH/MM3 CBC Comment AUTO DIFF Differential Total Cells Counted 100 Neutrophils % (Manual) 80 % Band Neutrophils % 7 % Lymphocytes % 12 % Neutrophils # (Manual) 2.4 TH/MM3 Myelocytes 1 % Differential Comment FINAL DIFF MANUAL Platelet Estimate LOW Platelet Morphology Comment NORMAL Ovalocytes 1+ Acanthocytes OCC Culture Results Microbiology Date/Time Source Procedure Growth Status 09/15/17 02:15 Blood Peripheral Aerobic Blood Culture Pending Received 09/15/17 02:15 Blood Peripheral Anaerobic Blood Culture Pending Received 09/15/17 02:00 Blood Peripheral Aerobic Blood Culture Pending Received 09/15/17 02:00 Blood Peripheral Anaerobic Blood Culture Pending Received Imaging Studies Last 24 hours Impressions Chest X-Ray 09/15/17 0000 Signed Impressions: Service Date/Time: September 09:14 - CONCLUSION: 1. No acute cardiopulmonary disease. Jamaal Meadows MD Administered Medications Medications (Trade) Dose Ordered Sig/Khloe Route PRN Reason Start Time Stop Time Status Last Admin Dose Admin Sodium Chloride (NS Flush) 2 ml UNSCH PRN IV FLUSH FLUSH AFTER USING IV ACCESS 09/05/17 16:15 09/13/17 14:55 Sodium Chloride (NS Flush) 2 ml BID IV FLUSH 09/05/17 21:00 09/14/17 20:26 Acetaminophen (Tylenol) 650 mg Q4H PRN PO TEMP > 100.4 09/05/17 16:15 09/15/17 04:03 Pantoprazole Sodium (Protonix) 40 mg DAILY PO 09/06/17 09:00 09/15/17 09:34 Paroxetine HCl (Paxil) 40 mg HS PO 09/05/17 21:00 09/14/17 21:24 Pravastatin Sodium (Pravachol) 80 mg HS PO 09/05/17 21:00 09/14/17 21:23 Sodium Chloride (NS Inj) 10 ml Q8HR IRRIGATION 09/06/17 22:00 09/14/17 11:23 Potassium Chloride (KCl) 20 meq Q12HR PO 09/07/17 21:00 09/15/17 09:34 Morphine Sulfate (Morphine Inj) 4 mg Q3H PRN IV PUSH pain 6-10 09/08/17 09:45 09/15/17 03:52 Oxycodone/ Acetaminophen (Percocet 10-325 Mg) 1 tab Q4H PRN PO pain 3-5 09/08/17 09:45 09/15/17 10:11 Metronidazole (Flagyl) 500 mg Q8HR PO 09/10/17 22:00 09/15/17 06:19 Calcium Carbonate (Tums Chew) 500 mg Q2H PRN CHEW INDIGESTION 09/13/17 17:00 09/14/17 21:24 Objective Remarks GENERAL: Pleasant middle aged female, lying in bed resting. SKIN: Warm and dry. HEAD: Normocephalic. EYES: o injection or drainage. NECK: Supple, trachea midline. CARDIOVASCULAR: Regular rate and rhythm RESPIRATORY: Breath sounds equal bilaterally. No accessory muscle use. GASTROINTESTINAL: Abdomen mildly distended, drainage catheter, right abdomen. EXTREMITIES: No cyanosis NEUROLOGICAL: awake and alert, normal speech. moving all extremities. Assessment/Plan Problem List: (1) Pancytopenia ICD Codes: D61.818 - Other pancytopenia Plan: 09/15: patient's hgb 7.1, however this was prior to the blood transfusion the patient already received this AM. will hold off on ordering additional blood until tomorrow. platelets =15. no platelet transfusion needed. --monitor the CBC daily and transfuse if the hemoglobin is less than 8 and/or platelet count is less than 15. --pancytopenia likely d/t chemotherapy (carboplatin) -- last chemotherapy was 2 weeks ago on August 31. Assessment 57y/o female with uterine cancer. Hematology consulted for thrombocytopenia. Consult requested by Dr. Garvin for evaluation of thrombocytopenia. HISTORY OF PRESENT ILLNESS There is a 57-year-old female. 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 She is under the care of Dr. Rohini Garsia, [employer] oncologist. The patient stated she had three cycles of carboplatin and Taxol chemotherapy. After that she had a total radical hysterectomy by Dr. Garsia. Then she had two cycles of chemotherapy. She had developed a reaction from Taxol chemotherapy. She had received cycle number 5 of carboplatin chemotherapy at a AUC of 6 just two weeks ago on August 31. The patient recently presented to the emergency room complaining of pelvic pain. She had a CT scan of the abdomen and pelvis which showed fluid collection. Discussion was held to work this up as an outpatient. She was discharged and was seen by Dr. Garsia who recommended IR to put a IR drain for the fluid collection. This was in the works but the patient came back to the emergency room complaining of worsening pelvic pain. She got admitted to the hospital. The IR put the drain which is draining well. Dr. Garsia also saw the patient. The patient had blood tests today which showed white count 2.4, hemoglobin 6.3 and platelet count is 15. Because of the thrombocytopenia and anemia I have been asked to see the patient for further evaluation. The patient stated that she typically gets severe myelosuppression from the chemotherapy and requires blood and platelet transfusion as an outpatient. Dr. Garvin already has put the order in for blood and platelet transfusion. The patient is currently receiving blood transfusion and the orders have been placed for platelet transfusion already after she completes the blood transfusion. The patient denies any bleeding. She denies any bruising or petechiae. Her abdominal pain has improved since the drain has been placed. She is overall feeling better. The rest of the review of systems is negative. Attending Statement The exam, history, and the medical decision-making described in the above note were completed with the assistance of the mid-level provider. I reviewed and agree with the findings presented. I attest that I had a [id number] encounter with the patient on the same day, and personally performed and documented my assessment and findings in the medical record. Fever last night after plat plat tx ( Pt did not received premeds) Pt is getting second unit of PRBC now. D/W RN to order cbc after the second unit. monitor cbc and tx as needed. will follow. Glenda Carreon Sep 15, 2017 12:03 Christen Cee MD Sep 15, 2017 15:59
[2017-09-15] MEDS ORDERED: FAMOTIDINE 20 MG TAB PO ONE (12:15)
[2017-09-15] MEDS ORDERED: diphenhydrAMINE HCL 25 MG CAP PO ONE (12:15)
[2017-09-15 12:44] LABS: AUTOMATED NEUTROPHIL # 2.1 TH/MM3 (1.8-7.7); BASOPHIL % 0.3 % (0.0-2.0); EOSINOPHIL % 0.7 % (0.0-4.0); HEMATOCRIT 23.6 % (35.0-46.0); HEMOGLOBIN 8.2 GM/DL (11.6-15.3); LYMPH % 36.3 % (9.0-44.0); LYMPHOCYTE # 1.4 TH/MM3 (1.0-4.8); MEAN CELL VOLUME 88.4 FL (80.0-100.0); MEAN CORPUSCULAR HEMOGLOBIN 30.8 PG (27.0-34.0); MEAN CORPUSCULAR HGB CONC 34.8 % (32.0-36.0); MEAN PLATELET VOLUME 8.9 FL (7.0-11.0); MONO % 9.1 % (0.0-8.0); MONOCYTE # 0.4 TH/MM3 (0-0.9); NEUT % 53.6 % (16.0-70.0); PLATELET COUNT 34 TH/MM3 (150-450); RED BLOOD COUNT 2.67 MIL/MM3 (4.00-5.30); RED CELL DISTRIBUTION WIDTH 15.6 % (11.6-17.2)
--- NOTE | 2017-09-15 12:50 | MB ---
cc: DEBBY LUIS MD FOLLOW-UP VISIT TO INITIAL CONSULTATION date of encounter 09/15/2017 DIAGNOSIS 1. Stage IV uterine carcinosarcoma. 2. Reason for admission abdominal pain, nausea, emesis, failure to thrive. 3. Symptomatic hemorrhagic fluid collection. She is seen. Her findings in the 24 hours are reviewed and have been preliminary discussed with Dr. Joshua Garvin. I appreciate the excellent medical care. I appreciate the input from Dr. Dillon Cee of hematology regarding her grade 4 thrombocytopenia. It is certainly plausible that her thrombocytopenia is related to her single-agent carboplatin chemotherapy which was given approximately two weeks ago and she has shown previous anemia and thrombocytopenia. She has required outpatient red blood cell transfusion, but has not required platelet transfusion. Because her platelet count went down to 15,000, she was given a unit of platelets and it is my understanding that another unit has been ordered. She has also received packed red blood cells. She reports last night that she felt feverish, chills and this was accompanied with her having a temperature spike to 102.7 degrees at 01:20 a.m. She defervesced and has been afebrile since 06:00 a.m. today. She is states that she tolerated the red cell transfusion without any problems, but started to feel poorly after the platelet transfusion. Whether or not this was cause and effect or true to an unrelated is unknown. She does report that she has received Tylenol, Benadryl and Zantac as premedication for transfusion at the [facility]. She does not recall being premedicated for transfusion such that it may be reasonable to consider these premedications. It is possible also she could be developing another manifestation of infection. We know that she is positive for Clostridium difficile. Her white count is low, although she is technically not neutropenic, but given that her white count is 2.7 with 75% neutrophils, but clinically she does not appear septic and she feels infinitely better this morning. PHYSICAL EXAM VITAL SIGNS: She is afebrile, pulse 70, respirations 20, blood pressure 108/57, O2 saturation 97%. GENERAL: She is alert and oriented times three. She is smiling, joking and in good spirits in no acute distress. LUNGS: Her respirations are unlabored. Lungs are clear. CARDIOVASCULAR: Regular rate and rhythm. BACK: No CVA tenderness. ABDOMEN: Completely nontender all four quadrant. She tolerates deep exam. No rebound or guarding. The drain site is clean in the right lower quadrant and the output of the drain has increased. BUDGET ASSISTANT: No bleeding. EXTREMITIES: Trace to 1+ chronic edema. No palpable cords. NEUROLOGIC: Neurovascular intact. IN'S AND OUT'S 3052/1330 with a drain output increased in volume last two 24-hour period measurements 560 cc and 680 cc. DISCUSSION Ten minutes of this 15-minute [id number] encounter were spent in counseling and coordination of care. We were able to joke about the fact that she certainly looks and feels better than her numbers would suggest. I am pleased that she is feeling better. Sorry she had a difficult night. Overall, the main problem that brought her in, the profound abdominal pain and GI symptoms, have largely resolved. She is now reporting essentially one relatively normal bowel movement per day, resolution of nausea and abdominal pain. I explained that if we continue on the carboplatin, we will need to dose reduce her. She is currently at an AUC dosing of 6. We would need to reduce that to an AUC of 5 and follow her counts closely. Because of her fever spike last night, blood cultures were obtained. Chest x-rays were obtained and I explained to her that blood cultures results are pending, but the chest x-ray showed no acute pulmonary problems. Once her counts turn around and start coming back up as is expected after a chemotherapy induced rico, at that point, she may be stabilized enough for transition to home care with home nursing. She understands that she can go home with the intraperitoneal drain in place. The plan would be to give a follow-up outpatient CT scan perhaps about a week after discharge to reevaluate the fluid collection and the timing of that would be somewhat based on the amount of fluid put out as well. Discussion ensued, questions were answered. She expressed a good understanding and agreed. MD JOVANI Dumont/MEGAN /12:08 PM /12:35 PM JEANNE
[2017-09-15 12:58] LABS: BACTERIA, URINE RARE /hpf; BILIRUBIN, URINE NEG (NEG); BLOOD, URINE SMALL (NEG); GLUCOSE,URINE NEG (NEG); KETONE, URINE NEG (NEG); NITRITE,URINE NEG (NEG); PH, URINE 5.5 (5.0-8.5); SQUAMOUS EPITHELIAL CELL URINE <1 /hpf (0-5); URINE COLOR YELLOW (YELLW/STRAW); URINE LEUKOCYTE ESTERASE TRACE (NEG)
[2017-09-15 13:29] LABS: OVALOCYTES 1+ (NORMAL)
[2017-09-15] MEDS: PRAVASTATIN SOD 80 MG TAB PO SCH (21:10)
[2017-09-15] MEDS: PARoxetine HCL 20 MG TAB PO SCH (21:11)
[2017-09-16] VITALS (7 sets, daily range): BP systolic 103–113; BP diastolic 56–64; PULSE 66–81; RESP 17–20; TEMP 97.3–99; O2SAT 96–98
[2017-09-16] MEDS: oxyCODONE/ACETAMINOPHEN 10 MG/325 MG TAB PO PRN ×6 (00:07→22:02)
[2017-09-16] MEDS: MORPHINE SULFATE 4 MG/ML INJ IV PUSH PRN ×6 (01:30→23:35)
[2017-09-16] MEDS: metroNIDAZOLE 500 MG TAB PO SCH ×3 (05:25→22:03)
[2017-09-16] MEDS: SODIUM CHLORIDE 0.9% 10 ML VIAL IRRIGATION SCH ×2 (05:27→22:15)
[2017-09-16] MEDS: POTASSIUM CHLORIDE 20 MEQ CONTROLLED RELEASE TAB PO SCH ×2 (09:06→22:03)
[2017-09-16] MEDS: PANTOPRAZOLE SOD 40 MG DELAYED RELEASE TAB PO SCH (09:06)
[2017-09-16 09:14] LABS: AUTOMATED NEUTROPHIL # 1.3 TH/MM3 (1.8-7.7); BASOPHIL % 0.2 % (0.0-2.0); EOSINOPHIL % 0.4 % (0.0-4.0); HEMATOCRIT 24.5 % (35.0-46.0); HEMOGLOBIN 8.5 GM/DL (11.6-15.3); LYMPH % 39.7 % (9.0-44.0); MEAN CELL VOLUME 89.4 FL (80.0-100.0); MEAN CORPUSCULAR HGB CONC 34.7 % (32.0-36.0); MEAN PLATELET VOLUME 8.3 FL (7.0-11.0); MONO % 8.7 % (0.0-8.0); MONOCYTE # 0.2 TH/MM3 (0-0.9); RED BLOOD COUNT 2.74 MIL/MM3 (4.00-5.30); RED CELL DISTRIBUTION WIDTH 15.8 % (11.6-17.2); WHITE BLOOD COUNT 2.6 TH/MM3 (4.0-11.0)
--- NOTE | 2017-09-16 09:16 | HHI.PR ---
Subjective . no new c/o. tolerated subsequent transfusions without any problems. (+) BM, no n /v Objective . afeb, vss hgb 8.3, platelets 35k s/p transfusion. This morning's labw drawn/results pending a&ox3, nad abd nt, nd, drain site clean ext nt Assessment/Plan . stable/improving check AM labs, if continued improvement is c/w resolving rico then work toward transition to outpatient care Rec repeat CT of pelvis in one week, with plans for IR to remove pelvic drain if collection has resolved/satisfactorily reduced would benefit from home health during this time cpm Rohini Garsia MD Sep 16, 2017 09:16
[2017-09-16 09:23] LABS: PLATELET COUNT 17 TH/MM3 (150-450)
[2017-09-16 10:12] LABS: BANDS 13 % (0-6); LYMPHOCYTES 27 % (9-44); MONOCYTES 5 % (0-8); NEUTROPHIL # MANUAL DIFF 1.8 TH/MM3 (1.8-7.7); POLYS (SEG NEUTROPHILS) 55 % (16-70)
--- NOTE | 2017-09-16 13:07 | PD.ONC.PN ---
Subjective Subjective Remarks Afebrile overnight. Patient resting in bed in nad. Denies dizziness or lightheadedness. No complaints. Objective Data Date Time Temp Pulse Resp B/P (MAP) Pulse Ox O2 Delivery O2 Flow Rate FiO2 09/16/17 11:27 98.5 72 20 103/57 (72) 96 09/16/17 08:10 98.4 66 20 113/64 (80) 96 09/16/17 05:44 18 09/16/17 05:20 18 09/16/17 03:45 97.3 69 17 110/64 (79) 98 09/16/17 01:15 98.5 81 19 112/64 (80) 97 09/15/17 20:40 98.8 70 16 101/62 (75) 96 09/15/17 16:13 98.1 74 20 107/58 (74) 96 09/16/17 09/16/17 09/16/17 07:00 15:00 23:00 Intake Total 1000 ml Output Total 1500 ml Balance -500 ml Result Diagram: 09/16/1782809/14/1718 Laboratory Results Laboratory Tests Test 09/16/17 08:29 White Blood Count 2.6 TH/MM3 Red Blood Count 2.74 MIL/MM3 Hemoglobin 8.5 GM/DL Hematocrit 24.5 % Mean Corpuscular Volume 89.4 FL Mean Corpuscular Hemoglobin 31.0 PG Mean Corpuscular Hemoglobin Concent 34.7 % Red Cell Distribution Width 15.8 % Platelet Count 17 TH/MM3 Mean Platelet Volume 8.3 FL Neutrophils (%) (Auto) 51.0 % Lymphocytes (%) (Auto) 39.7 % Monocytes (%) (Auto) 8.7 % Eosinophils (%) (Auto) 0.4 % Basophils (%) (Auto) 0.2 % Neutrophils # (Auto) 1.3 TH/MM3 Lymphocytes # (Auto) 1.0 TH/MM3 Monocytes # (Auto) 0.2 TH/MM3 Eosinophils # (Auto) 0.0 TH/MM3 Basophils # (Auto) 0.0 TH/MM3 CBC Comment AUTO DIFF Differential Total Cells Counted 100 Neutrophils % (Manual) 55 % Band Neutrophils % 13 % Lymphocytes % 27 % Monocytes % 5 % Neutrophils # (Manual) 1.8 TH/MM3 Differential Comment FINAL DIFF MANUAL Platelet Estimate RARE Platelet Morphology Comment NORMAL Culture Results Microbiology Date/Time Source Procedure Growth Status 09/15/17 02:15 Blood Peripheral Aerobic Blood Culture - Preliminary NO GROWTH IN 1 DAY Resulted 09/15/17 02:15 Blood Peripheral Anaerobic Blood Culture - Preliminary NO GROWTH IN 1 DAY Resulted 09/15/17 02:00 Blood Peripheral Aerobic Blood Culture - Preliminary NO GROWTH IN 1 DAY Resulted 09/15/17 02:00 Blood Peripheral Anaerobic Blood Culture - Preliminary NO GROWTH IN 1 DAY Resulted 09/15/17 11:45 Urine Catheterized Urine Urine Culture Pending Received Administered Medications Medications (Trade) Dose Ordered Sig/Khloe Route PRN Reason Start Time Stop Time Status Last Admin Dose Admin Sodium Chloride (NS Flush) 2 ml UNSCH PRN IV FLUSH FLUSH AFTER USING IV ACCESS 09/05/17 16:15 09/13/17 14:55 Sodium Chloride (NS Flush) 2 ml BID IV FLUSH 09/05/17 21:00 09/15/17 21:11 Acetaminophen (Tylenol) 650 mg Q4H PRN PO TEMP > 100.4 09/05/17 16:15 09/15/17 14:05 Pantoprazole Sodium (Protonix) 40 mg DAILY PO 09/06/17 09:00 09/16/17 09:06 Paroxetine HCl (Paxil) 40 mg HS PO 09/05/17 21:00 09/15/17 21:11 Pravastatin Sodium (Pravachol) 80 mg HS PO 09/05/17 21:00 09/15/17 21:10 Sodium Chloride (NS Inj) 10 ml Q8HR IRRIGATION 09/06/17 22:00 09/16/17 05:27 Potassium Chloride (KCl) 20 meq Q12HR PO 09/07/17 21:00 09/16/17 09:06 Morphine Sulfate (Morphine Inj) 4 mg Q3H PRN IV PUSH pain 6-10 09/08/17 09:45 09/16/17 09:07 Oxycodone/ Acetaminophen (Percocet 10-325 Mg) 1 tab Q4H PRN PO pain 3-5 09/08/17 09:45 09/16/17 09:56 Metronidazole (Flagyl) 500 mg Q8HR PO 09/10/17 22:00 09/16/17 05:25 Calcium Carbonate (Tums Chew) 500 mg Q2H PRN CHEW INDIGESTION 09/13/17 17:00 09/14/17 21:24 Objective Remarks GENERAL: Middle aged female, lying in bed in nad. SKIN: Warm and dry. HEAD: Normocephalic. EYES: no injection or drainage. NECK: Supple, trachea midline. CARDIOVASCULAR: Regular rate and rhythm RESPIRATORY: Breath sounds equal bilaterally. No accessory muscle use. GASTROINTESTINAL: Abdomen mildly distended, mildly ttp. catheter, right abdomen. EXTREMITIES: No cyanosis NEUROLOGICAL: no focal deficit. Assessment/Plan Problem List: (1) Pancytopenia ICD Codes: D61.818 - Other pancytopenia Plan: 09/16: hgb 8.5. platelets 17K. no need for transfusion. monitor CBC. expect counts to improve soon. --monitor the CBC daily and transfuse if the hemoglobin is less than 8 and/or platelet count is less than 15. --pancytopenia likely d/t chemotherapy (carboplatin) -- last chemotherapy was 2 weeks ago on August 31. Assessment 57y/o female with uterine cancer. Hematology consulted for thrombocytopenia. Attending Statement The exam, history, and the medical decision-making described in the above note were completed with the assistance of the mid-level provider. I reviewed and agree with the findings presented. I attest that I had a [id number] encounter with the patient on the same day, and personally performed and documented my assessment and findings in the medical record. pt feels better. Pain under control with present narc No Tx today. Monitor cbc will brando. d/w Dr Garsia. Glenda Carreon Sep 16, 2017 13:07 Christen Cee MD Sep 16, 2017 17:36
--- NOTE | 2017-09-16 17:01 | HHI.PR ---
Subjective Remarks No new complaints Patient continues to require Percocet and morphine IV for pain Objective Vitals Vital Signs Date Time Temp Pulse Resp B/P (MAP) Pulse Ox O2 Delivery O2 Flow Rate FiO2 09/16/17 15:29 98.1 74 20 108/56 (73) 98 09/16/17 11:27 98.5 72 20 103/57 (72) 96 09/16/17 08:10 98.4 66 20 113/64 (80) 96 09/16/17 05:44 18 09/16/17 05:20 18 09/16/17 03:45 97.3 69 17 110/64 (79) 98 09/16/17 01:15 98.5 81 19 112/64 (80) 97 09/15/17 20:40 98.8 70 16 101/62 (75) 96 09/16/17 09/16/17 09/17/17 15:00 23:00 07:00 Intake Total 720 ml Output Total 300 ml Balance 420 ml Intake Oral 720 ml Output Urine Total 300 ml # Bowel Movements 3 Result Diagram: 09/16/17 0829 09/14/1718 Other Results Laboratory Tests Test 09/14/17 08:18 09/15/17 02:15 09/15/17 11:40 09/15/17 11:45 White Blood Count 2.4 TH/MM3 2.7 TH/MM3 4.0 TH/MM3 Red Blood Count 2.03 MIL/MM3 2.32 MIL/MM3 2.67 MIL/MM3 Hemoglobin 6.3 GM/DL 7.1 GM/DL 8.2 GM/DL Hematocrit 18.1 % 20.3 % 23.6 % Mean Corpuscular Volume 89.5 FL 87.7 FL 88.4 FL Mean Corpuscular Hemoglobin 30.8 PG 30.5 PG 30.8 PG Mean Corpuscular Hemoglobin Concent 34.5 % 34.7 % 34.8 % Red Cell Distribution Width 15.5 % 15.9 % 15.6 % Platelet Count 15 TH/MM3 15 TH/MM3 34 TH/MM3 Mean Platelet Volume 8.4 FL 8.3 FL 8.9 FL Neutrophils (%) (Auto) 61.7 % 75.3 % 53.6 % Lymphocytes (%) (Auto) 29.9 % 16.7 % 36.3 % Monocytes (%) (Auto) 8.0 % 7.7 % 9.1 % Eosinophils (%) (Auto) 0.2 % 0.2 % 0.7 % Basophils (%) (Auto) 0.2 % 0.1 % 0.3 % Neutrophils # (Auto) 1.5 TH/MM3 2.0 TH/MM3 2.1 TH/MM3 Lymphocytes # (Auto) 0.7 TH/MM3 0.5 TH/MM3 1.4 TH/MM3 Monocytes # (Auto) 0.2 TH/MM3 0.2 TH/MM3 0.4 TH/MM3 Eosinophils # (Auto) 0.0 TH/MM3 0.0 TH/MM3 0.0 TH/MM3 Basophils # (Auto) 0.0 TH/MM3 0.0 TH/MM3 0.0 TH/MM3 CBC Comment AUTO DIFF AUTO DIFF AUTO DIFF Differential Total Cells Counted 100 100 Neutrophils % (Manual) 48 % 80 % Band Neutrophils % 4 % 7 % Lymphocytes % 45 % 12 % Monocytes % 3 % Neutrophils # (Manual) 1.2 TH/MM3 2.4 TH/MM3 Differential Comment FINAL DIFF MANUAL FINAL DIFF MANUAL AUTO DIFF CONFIRMED Platelet Estimate RARE LOW LOW Platelet Morphology Comment NORMAL NORMAL NORMAL Blood Urea Nitrogen 11 MG/DL Creatinine 0.59 MG/DL Random Glucose 104 MG/DL Calcium Level 8.9 MG/DL Magnesium Level 1.6 MG/DL Sodium Level 137 MEQ/L Potassium Level 3.6 MEQ/L Chloride Level 100 MEQ/L Carbon Dioxide Level 30.4 MEQ/L Anion Gap 7 MEQ/L Estimat Glomerular Filtration Rate 104 ML/MIN Myelocytes 1 % Ovalocytes 1+ 1+ Acanthocytes OCC Urine Color YELLOW Urine Turbidity CLEAR Urine pH 5.5 Urine Specific [place] 1.017 Urine Protein NEG mg/dL Urine Glucose (UA) NEG mg/dL Urine Ketones NEG mg/dL Urine Occult Blood SMALL Urine Nitrite NEG Urine Bilirubin NEG Urine Urobilinogen LESS THAN 2.0 MG/DL Urine Leukocyte Esterase TRACE Urine RBC 10 /hpf Urine WBC 1 /hpf Urine Squamous Epithelial Cells <1 /hpf Urine Bacteria RARE /hpf Microscopic Urinalysis Comment CATH-CULTURE IND Test 09/16/17 08:29 White Blood Count 2.6 TH/MM3 Red Blood Count 2.74 MIL/MM3 Hemoglobin 8.5 GM/DL Hematocrit 24.5 % Mean Corpuscular Volume 89.4 FL Mean Corpuscular Hemoglobin 31.0 PG Mean Corpuscular Hemoglobin Concent 34.7 % Red Cell Distribution Width 15.8 % Platelet Count 17 TH/MM3 Mean Platelet Volume 8.3 FL Neutrophils (%) (Auto) 51.0 % Lymphocytes (%) (Auto) 39.7 % Monocytes (%) (Auto) 8.7 % Eosinophils (%) (Auto) 0.4 % Basophils (%) (Auto) 0.2 % Neutrophils # (Auto) 1.3 TH/MM3 Lymphocytes # (Auto) 1.0 TH/MM3 Monocytes # (Auto) 0.2 TH/MM3 Eosinophils # (Auto) 0.0 TH/MM3 Basophils # (Auto) 0.0 TH/MM3 CBC Comment AUTO DIFF Differential Total Cells Counted 100 Neutrophils % (Manual) 55 % Band Neutrophils % 13 % Lymphocytes % 27 % Monocytes % 5 % Neutrophils # (Manual) 1.8 TH/MM3 Differential Comment FINAL DIFF MANUAL Platelet Estimate RARE Platelet Morphology Comment NORMAL Imaging Last Impressions Abdomen/Pelvis CT 09/10/17 0000 Signed Impressions: Service Date/Time: Sunday, September 10, 2017 19:22 - CONCLUSION: Percutaneous drain is located within the pelvic fluid collection; there has been no significant decrease in size when compared to pre-drainage. Son Pearson MD Abscess Drainage CT 09/06/17 0833 Signed Impressions: Service Date/Time: Wednesday, September 06, 2017 15:39 - CONCLUSION: 1. Uncomplicated CT-guided drainage catheter placement in left pelvic fluid collection. Only a small amount of serosanguineous fluid could be aspirated immediately following catheter placement. Entire sample was submitted for laboratory analysis. Overall, findings are most consistent with pelvic hematoma. Jamaal Meadows MD Objective Remarks GENERAL: This is a well-nourished, well-developed patient, in no apparent distress. CARDIOVASCULAR: Regular rate and rhythm RESPIRATORY: Clear to auscultation. Breath sounds equal bilaterally. GASTROINTESTINAL: Abdomen soft, generalized tenderness, nondistended. Normal active bowel sounds drain at RLQ with small amount of sanguinous drainage in bulb MUSCULOSKELETAL: Extremities without clubbing, cyanosis, or edema. NEURO: Alert & Oriented x4 to person, place, time, situation. Moves all ext x4 A/P Problem List: (1) Abdominal pain ICD Codes: R10.9 - Unspecified abdominal pain Status: Acute Plan: Abdominal pain Uterine cancer (carcinosarcoma) pelvic mass/hematoma This is a 57 year old female with a past medical history which includes anxiety/ depression, lumbar radiculopathy, chronic back pain, hyperlipidemia, uterine cancer. Patient is currently following with Dr. Garsia last chemotherapy this past Tuesday. She had three chemotherapy treatment then on 06/30/17 Robotic assisted Laparoscopic hysterectomy, BSO, resection of pelvic mass, omentectomy and tumor debulking with Dr. Garsia. After surgery patient has had two additional rounds of chemotherapy. Patient was seen in ER 08/24/17 for lower abdominal pain. CT abd/pelvic (08/24/17)revealed: Large heterogeneous mass in the uterine surgical bed measuring 9.6 x 5.0 x6.8 cm. Patient was then DC with follow up with Dr. Garsia as an outpatient. Today patient returned to the ER due to worsening abdominal pain for the past 3 days. Pain constant, pressure like, sharp, worse with eating, improved by bringing her legs closer to her. Pt. reports that she is constipated and has decreased appetite. Pt. had a fever of 100.2 at home, associated with some chills and night sweats. CT abd/Pelvis (09/05/17) revealed: mass 12.7 cm which has progressed in size from previous study. Predominantly cystic mass in the pelvis larger when compared to the comparison study either hematoma or seroma. Abscess cannot be entirely excluded Hemangioma right lobe of the liver. - IR placed drain into abdomen fluid collection on 09/06..bloody fluid - pain control adjustment. - f/u cytology shows malignant cells and gs/cx ngtd - Pt with fevers since 09/07...zosyn empirically. blood cx ngtd. . presumed related to fluid collection. - c.diff positive. flagyl started on 09/10 and zosyn stopped. - repeat CT Abd/pelvis (09/10/17) --> pelvic fluid collection essentially unchanged - Case d/w IR, Dr. Stein (09/12) - IR will place tPA in drain, clamp 8 hours, then release clamp, continue to monitor drainage - IR does NOT feel that pt would benefit from a 2nd drain. - Case d/w Dr. Garsia (09/12). He reevaluated pt (09/13). He discussed options regarding further chemo or radiation. - Dr. Garsia Rec repeat CT of pelvis in one week, with plans for IR to remove pelvic drain if collection has resolved/satisfactorily reduced - Patient continues to require Percocet and IV morphine for pain may need to repeat CT scan prior to DC - DVT prophylaxis with SCDs - supportive care (2) C. difficile colitis ICD Codes: A04.72 - Enterocolitis due to Clostridium difficile, not specified as recurrent Status: Acute Plan: - zosyn stopped. (09/08 - 09/10/17) - PO flagyl (09/10 - present) - supportive care. (3) Uterine cancer ICD Codes: C55 - Malignant neoplasm of uterus, part unspecified Status: Chronic Plan: - see above (4) Anxiety and depression ICD Codes: F41.8 - Other specified anxiety disorders Status: Chronic Plan: continue home Paxil 40 mg PO QHS (5) Pancytopenia ICD Codes: D61.818 - Other pancytopenia Plan: Patient H/H 6.3, 18.1 (09/14) -> 7.1 (09/15) -> 8.5 (09/16) Plt count 15 -> 15 (09/15) -> 17 (09/16) no signs of active bleeding Patient reports last chemotherapy treatment was 08/31/17 consult placed to Hematology/Medical oncology, appreciate input. Feel that the drop in Hgb and Plt likely secondary to myelosuppression secondary to chemotherapy two weeks ago. 2 units PRBC transfused (09/14) Hematology ordered additional 1 unit of PRBC (09/15) Patient also received Plt (09/14) recheck CBC in AM (6) Fever ICD Codes: R50.9 - Fever, unspecified Plan: Patient had fevers 09/14 till 09/15 early AM, T max 102.7 could be reactive to blood products, tumor fever or infectious Blood cultures x 2 obtained NGTD Patient denies dysuria (does have a joshi in place) patient also denies SOB or cough repeat UA C&S if indicated CXR reviewed and reveals no acute cardiopulmonary disease Assessment and Plan Patient examined. Assessment and plan formulated with Lashanda Call PA-C. I agree with the above. Pt continues to have soft stools but NOT watery. Pt continues to require narcotics for pelvic pain. platelet count 17K. Repeat CBC in AM. consider repeat CT abd/pelvis. Problem Qualifiers (1) Abdominal pain: Qualified Codes: R10.31 - Right lower quadrant pain (2) Uterine cancer: Qualified Codes: C55 - Malignant neoplasm of uterus, part unspecified Lashanda Call Sep 16, 2017 17:01 Abel Garvin DO Sep 16, 2017 23:32
[2017-09-16] MEDS: PARoxetine HCL 20 MG TAB PO SCH (22:03)
[2017-09-16] MEDS: PRAVASTATIN SOD 80 MG TAB PO SCH (22:03)
[2017-09-16] MEDS: SODIUM CHLORIDE 0.9% FLUSH 10 ML FLUSH IV FLUSH SCH (22:15)
[2017-09-17] VITALS (8 sets, daily range): BP systolic 93–134; BP diastolic 52–86; PULSE 65–79; RESP 17–20; TEMP 98.3–99.2; O2SAT 94–98
[2017-09-17] MEDS: oxyCODONE/ACETAMINOPHEN 10 MG/325 MG TAB PO PRN ×5 (02:35→19:43)
[2017-09-17] MEDS: MORPHINE SULFATE 4 MG/ML INJ IV PUSH PRN ×6 (03:32→22:06)
[2017-09-17] MEDS: metroNIDAZOLE 500 MG TAB PO SCH ×3 (05:16→22:06)
[2017-09-17] MEDS: SODIUM CHLORIDE 0.9% 10 ML VIAL IRRIGATION SCH ×3 (05:17→22:07)
[2017-09-17] MEDS: SODIUM CHLORIDE 0.9% FLUSH 10 ML FLUSH IV FLUSH SCH ×2 (07:43→20:57)
[2017-09-17] MEDS: PANTOPRAZOLE SOD 40 MG DELAYED RELEASE TAB PO SCH (07:44)
[2017-09-17] MEDS: POTASSIUM CHLORIDE 20 MEQ CONTROLLED RELEASE TAB PO SCH ×2 (07:45→20:57)
[2017-09-17 08:57] LABS: AUTOMATED NEUTROPHIL # 1.7 TH/MM3 (1.8-7.7); BASOPHIL % 0.2 % (0.0-2.0); EOSINOPHIL % 0.3 % (0.0-4.0); HEMATOCRIT 24.3 % (35.0-46.0); HEMOGLOBIN 8.4 GM/DL (11.6-15.3); LYMPH % 30.2 % (9.0-44.0); LYMPHOCYTE # 0.8 TH/MM3 (1.0-4.8); MEAN CELL VOLUME 89.7 FL (80.0-100.0); MEAN CORPUSCULAR HEMOGLOBIN 30.9 PG (27.0-34.0); MEAN CORPUSCULAR HGB CONC 34.5 % (32.0-36.0); MEAN PLATELET VOLUME 8.5 FL (7.0-11.0); MONO % 6.4 % (0.0-8.0); MONOCYTE # 0.2 TH/MM3 (0-0.9); NEUT % 62.9 % (16.0-70.0); PLATELET COUNT 24 TH/MM3 (150-450); RED BLOOD COUNT 2.71 MIL/MM3 (4.00-5.30); WHITE BLOOD COUNT 2.6 TH/MM3 (4.0-11.0)
[2017-09-17 09:20] LABS: BICARBONATE 30.1 MEQ/L (21.0-32.0); CALCIUM 8.9 MG/DL (8.5-10.1); CREATININE 0.72 MG/DL (0.50-1.00)
--- NOTE | 2017-09-17 12:00 | PD.ONC.PN ---
Subjective Subjective Remarks Afebrile overnight. patient resting in room. "I feel tired today." Patient otherwise without complaints. Objective Data Date Time Temp Pulse Resp B/P (MAP) Pulse Ox O2 Delivery O2 Flow Rate FiO2 09/17/17 11:48 98.6 70 20 100/65 (77) 98 09/17/17 07:47 98.5 65 20 109/62 (78) 97 09/17/17 05:53 98.3 09/17/17 04:00 99.0 72 18 134/86 (102) 94 09/17/17 03:38 18 09/17/17 03:29 18 09/17/17 00:00 98.4 66 17 100/58 (72) 96 09/16/17 22:16 97.7 09/16/17 20:00 99.0 77 20 113/64 (80) 96 09/16/17 15:29 98.1 74 20 108/56 (73) 98 09/17/17 09/17/17 09/17/17 07:00 15:00 23:00 Intake Total 240 ml Output Total 1975 ml 775 ml Balance -1735 ml -775 ml Result Diagram: 09/17/17 0820 09/17/17 0820 Laboratory Results Laboratory Tests Test 09/17/17 08:20 White Blood Count 2.6 TH/MM3 Red Blood Count 2.71 MIL/MM3 Hemoglobin 8.4 GM/DL Hematocrit 24.3 % Mean Corpuscular Volume 89.7 FL Mean Corpuscular Hemoglobin 30.9 PG Mean Corpuscular Hemoglobin Concent 34.5 % Red Cell Distribution Width 16.0 % Platelet Count 24 TH/MM3 Mean Platelet Volume 8.5 FL Neutrophils (%) (Auto) 62.9 % Lymphocytes (%) (Auto) 30.2 % Monocytes (%) (Auto) 6.4 % Eosinophils (%) (Auto) 0.3 % Basophils (%) (Auto) 0.2 % Neutrophils # (Auto) 1.7 TH/MM3 Lymphocytes # (Auto) 0.8 TH/MM3 Monocytes # (Auto) 0.2 TH/MM3 Eosinophils # (Auto) 0.0 TH/MM3 Basophils # (Auto) 0.0 TH/MM3 CBC Comment AUTO DIFF Differential Comment AUTO DIFF CONFIRMED Platelet Estimate LOW Platelet Morphology Comment NORMAL Blood Urea Nitrogen 11 MG/DL Creatinine 0.72 MG/DL Random Glucose 96 MG/DL Calcium Level 8.9 MG/DL Sodium Level 139 MEQ/L Potassium Level 3.8 MEQ/L Chloride Level 102 MEQ/L Carbon Dioxide Level 30.1 MEQ/L Anion Gap 7 MEQ/L Estimat Glomerular Filtration Rate 83 ML/MIN Culture Results Microbiology Date/Time Source Procedure Growth Status 09/15/17 02:15 Blood Peripheral Aerobic Blood Culture - Preliminary NO GROWTH IN 2 DAYS Resulted 09/15/17 02:15 Blood Peripheral Anaerobic Blood Culture - Preliminary NO GROWTH IN 2 DAYS Resulted 09/15/17 02:00 Blood Peripheral Aerobic Blood Culture - Preliminary NO GROWTH IN 2 DAYS Resulted 09/15/17 02:00 Blood Peripheral Anaerobic Blood Culture - Preliminary NO GROWTH IN 2 DAYS Resulted 09/15/17 11:45 Urine Catheterized Urine Urine Culture - Final NO GROWTH IN 48 HOURS. Complete Administered Medications Medications (Trade) Dose Ordered Sig/Khloe Route PRN Reason Start Time Stop Time Status Last Admin Dose Admin Sodium Chloride (NS Flush) 2 ml UNSCH PRN IV FLUSH FLUSH AFTER USING IV ACCESS 09/05/17 16:15 09/13/17 14:55 Sodium Chloride (NS Flush) 2 ml BID IV FLUSH 09/05/17 21:00 09/17/17 07:43 Acetaminophen (Tylenol) 650 mg Q4H PRN PO TEMP > 100.4 09/05/17 16:15 09/15/17 14:05 Pantoprazole Sodium (Protonix) 40 mg DAILY PO 09/06/17 09:00 09/17/17 07:44 Paroxetine HCl (Paxil) 40 mg HS PO 09/05/17 21:00 09/16/17 22:03 Pravastatin Sodium (Pravachol) 80 mg HS PO 09/05/17 21:00 09/16/17 22:03 Sodium Chloride (NS Inj) 10 ml Q8HR IRRIGATION 09/06/17 22:00 09/17/17 05:17 Potassium Chloride (KCl) 20 meq Q12HR PO 09/07/17 21:00 09/17/17 07:45 Morphine Sulfate (Morphine Inj) 4 mg Q3H PRN IV PUSH pain 6-10 09/08/17 09:45 09/17/17 11:31 Oxycodone/ Acetaminophen (Percocet 10-325 Mg) 1 tab Q4H PRN PO pain 3-5 09/08/17 09:45 09/17/17 10:30 Metronidazole (Flagyl) 500 mg Q8HR PO 09/10/17 22:00 09/17/17 05:16 Calcium Carbonate (Tums Chew) 500 mg Q2H PRN CHEW INDIGESTION 09/13/17 17:00 09/14/17 21:24 Objective Remarks GENERAL: Middle aged female, supine in bed resting. SKIN: Warm and dry. HEAD: Normocephalic. EYES: no injection or drainage. NECK: Supple, trachea midline. CARDIOVASCULAR: Regular rate and rhythm RESPIRATORY: Breath sounds equal bilaterally. No accessory muscle use. GASTROINTESTINAL: Abdomen with mild distension and ttp. percutaneous catheter without drainage at time of examination. EXTREMITIES: No cyanosis NEUROLOGICAL: awake, alert. no obvious focal deficit. Assessment/Plan Problem List: (1) Pancytopenia ICD Codes: D61.818 - Other pancytopenia Plan: --monitor the CBC daily and transfuse if the hemoglobin is less than 8 and/or platelet count is less than 15. --pancytopenia likely d/t chemotherapy (carboplatin) -- last chemotherapy was 2 weeks ago on August 31. Assessment 57y/o female with uterine cancer. Hematology consulted for thrombocytopenia. Plan 1. no transfusion needed today 2. monitor CBC Attending Statement The exam, history, and the medical decision-making described in the above note were completed with the assistance of the mid-level provider. I reviewed and agree with the findings presented. I attest that I had a [id number] encounter with the patient on the same day, and personally performed and documented my assessment and findings in the medical record. Pt seen and examined, family at bedside. Noted recovery of bone marrow, resolution of neutropenia. Neutropenic precaution can be DC'd . NO platelet transfusion needed. Glenda Carreon Sep 17, 2017 12:00 Maya Porras MD Sep 17, 2017 14:17
--- NOTE | 2017-09-17 13:00 | HHI.PR ---
Subjective Remarks Patient reports feeling fatigued today c/o pain across abdomen and tenderness at drain site Patient reports 1 BM soft formed Objective Vitals Vital Signs Date Time Temp Pulse Resp B/P (MAP) Pulse Ox O2 Delivery O2 Flow Rate FiO2 09/17/17 11:48 98.6 70 20 100/65 (77) 98 09/17/17 07:47 98.5 65 20 109/62 (78) 97 09/17/17 05:53 98.3 09/17/17 04:00 99.0 72 18 134/86 (102) 94 09/17/17 03:38 18 09/17/17 03:29 18 09/17/17 00:00 98.4 66 17 100/58 (72) 96 09/16/17 22:16 97.7 09/16/17 20:00 99.0 77 20 113/64 (80) 96 09/16/17 15:29 98.1 74 20 108/56 (73) 98 09/17/17 09/17/17 09/18/17 15:00 23:00 07:00 Output Total 775 ml Balance -775 ml Output Urine Total 775 ml Result Diagram: 09/17/17 0820 09/17/17 0820 Other Results Laboratory Tests Test 09/15/17 02:15 09/15/17 11:40 09/15/17 11:45 09/16/17 08:29 White Blood Count 2.7 TH/MM3 4.0 TH/MM3 2.6 TH/MM3 Red Blood Count 2.32 MIL/MM3 2.67 MIL/MM3 2.74 MIL/MM3 Hemoglobin 7.1 GM/DL 8.2 GM/DL 8.5 GM/DL Hematocrit 20.3 % 23.6 % 24.5 % Mean Corpuscular Volume 87.7 FL 88.4 FL 89.4 FL Mean Corpuscular Hemoglobin 30.5 PG 30.8 PG 31.0 PG Mean Corpuscular Hemoglobin Concent 34.7 % 34.8 % 34.7 % Red Cell Distribution Width 15.9 % 15.6 % 15.8 % Platelet Count 15 TH/MM3 34 TH/MM3 17 TH/MM3 Mean Platelet Volume 8.3 FL 8.9 FL 8.3 FL Neutrophils (%) (Auto) 75.3 % 53.6 % 51.0 % Lymphocytes (%) (Auto) 16.7 % 36.3 % 39.7 % Monocytes (%) (Auto) 7.7 % 9.1 % 8.7 % Eosinophils (%) (Auto) 0.2 % 0.7 % 0.4 % Basophils (%) (Auto) 0.1 % 0.3 % 0.2 % Neutrophils # (Auto) 2.0 TH/MM3 2.1 TH/MM3 1.3 TH/MM3 Lymphocytes # (Auto) 0.5 TH/MM3 1.4 TH/MM3 1.0 TH/MM3 Monocytes # (Auto) 0.2 TH/MM3 0.4 TH/MM3 0.2 TH/MM3 Eosinophils # (Auto) 0.0 TH/MM3 0.0 TH/MM3 0.0 TH/MM3 Basophils # (Auto) 0.0 TH/MM3 0.0 TH/MM3 0.0 TH/MM3 CBC Comment AUTO DIFF AUTO DIFF AUTO DIFF Differential Total Cells Counted 100 100 Neutrophils % (Manual) 80 % 55 % Band Neutrophils % 7 % 13 % Lymphocytes % 12 % 27 % Neutrophils # (Manual) 2.4 TH/MM3 1.8 TH/MM3 Myelocytes 1 % Differential Comment FINAL DIFF MANUAL AUTO DIFF CONFIRMED FINAL DIFF MANUAL Platelet Estimate LOW LOW RARE Platelet Morphology Comment NORMAL NORMAL NORMAL Ovalocytes 1+ 1+ Acanthocytes OCC Urine Color YELLOW Urine Turbidity CLEAR Urine pH 5.5 Urine Specific [place] 1.017 Urine Protein NEG mg/dL Urine Glucose (UA) NEG mg/dL Urine Ketones NEG mg/dL Urine Occult Blood SMALL Urine Nitrite NEG Urine Bilirubin NEG Urine Urobilinogen LESS THAN 2.0 MG/DL Urine Leukocyte Esterase TRACE Urine RBC 10 /hpf Urine WBC 1 /hpf Urine Squamous Epithelial Cells <1 /hpf Urine Bacteria RARE /hpf Microscopic Urinalysis Comment CATH-CULTURE IND Monocytes % 5 % Test 09/17/17 08:20 White Blood Count 2.6 TH/MM3 Red Blood Count 2.71 MIL/MM3 Hemoglobin 8.4 GM/DL Hematocrit 24.3 % Mean Corpuscular Volume 89.7 FL Mean Corpuscular Hemoglobin 30.9 PG Mean Corpuscular Hemoglobin Concent 34.5 % Red Cell Distribution Width 16.0 % Platelet Count 24 TH/MM3 Mean Platelet Volume 8.5 FL Neutrophils (%) (Auto) 62.9 % Lymphocytes (%) (Auto) 30.2 % Monocytes (%) (Auto) 6.4 % Eosinophils (%) (Auto) 0.3 % Basophils (%) (Auto) 0.2 % Neutrophils # (Auto) 1.7 TH/MM3 Lymphocytes # (Auto) 0.8 TH/MM3 Monocytes # (Auto) 0.2 TH/MM3 Eosinophils # (Auto) 0.0 TH/MM3 Basophils # (Auto) 0.0 TH/MM3 CBC Comment AUTO DIFF Differential Comment AUTO DIFF CONFIRMED Platelet Estimate LOW Platelet Morphology Comment NORMAL Blood Urea Nitrogen 11 MG/DL Creatinine 0.72 MG/DL Random Glucose 96 MG/DL Calcium Level 8.9 MG/DL Sodium Level 139 MEQ/L Potassium Level 3.8 MEQ/L Chloride Level 102 MEQ/L Carbon Dioxide Level 30.1 MEQ/L Anion Gap 7 MEQ/L Estimat Glomerular Filtration Rate 83 ML/MIN Imaging Last Impressions Abdomen/Pelvis CT 09/10/17 0000 Signed Impressions: Service Date/Time: Sunday, September 10, 2017 19:22 - CONCLUSION: Percutaneous drain is located within the pelvic fluid collection; there has been no significant decrease in size when compared to pre-drainage. Son Pearson MD Abscess Drainage CT 09/06/17 0833 Signed Impressions: Service Date/Time: Wednesday, September 06, 2017 15:39 - CONCLUSION: 1. Uncomplicated CT-guided drainage catheter placement in left pelvic fluid collection. Only a small amount of serosanguineous fluid could be aspirated immediately following catheter placement. Entire sample was submitted for laboratory analysis. Overall, findings are most consistent with pelvic hematoma. Jamaal Meadows MD Objective Remarks GENERAL: This is a well-nourished, well-developed patient, in no apparent distress. CARDIOVASCULAR: Regular rate and rhythm RESPIRATORY: Clear to auscultation. Breath sounds equal bilaterally. GASTROINTESTINAL: Abdomen soft, tender RLQ, nondistended. Normal active bowel sounds drain at RLQ with small amount of sanguinous drainage in bulb MUSCULOSKELETAL: Extremities without clubbing, cyanosis, or edema. NEURO: Alert & Oriented x4 to person, place, time, situation. Moves all ext x4 A/P Problem List: (1) Abdominal pain ICD Codes: R10.9 - Unspecified abdominal pain Status: Acute Plan: Abdominal pain Uterine cancer (carcinosarcoma) pelvic mass/hematoma This is a 57 year old female with a past medical history which includes anxiety/ depression, lumbar radiculopathy, chronic back pain, hyperlipidemia, uterine cancer. Patient is currently following with Dr. Garsia last chemotherapy this past Tuesday. She had three chemotherapy treatment then on 06/30/17 Robotic assisted Laparoscopic hysterectomy, BSO, resection of pelvic mass, omentectomy and tumor debulking with Dr. Garsia. After surgery patient has had two additional rounds of chemotherapy. Patient was seen in ER 08/24/17 for lower abdominal pain. CT abd/pelvic (08/24/17)revealed: Large heterogeneous mass in the uterine surgical bed measuring 9.6 x 5.0 x6.8 cm. Patient was then DC with follow up with Dr. Garsia as an outpatient. Today patient returned to the ER due to worsening abdominal pain for the past 3 days. Pain constant, pressure like, sharp, worse with eating, improved by bringing her legs closer to her. Pt. reports that she is constipated and has decreased appetite. Pt. had a fever of 100.2 at home, associated with some chills and night sweats. CT abd/Pelvis (09/05/17) revealed: mass 12.7 cm which has progressed in size from previous study. Predominantly cystic mass in the pelvis larger when compared to the comparison study either hematoma or seroma. Abscess cannot be entirely excluded Hemangioma right lobe of the liver. - IR placed drain into abdomen fluid collection on 09/06..bloody fluid - pain control adjustment. - f/u cytology shows malignant cells and gs/cx ngtd - Pt with fevers since 09/07...zosyn empirically. blood cx ngtd. . presumed related to fluid collection. - c.diff positive. flagyl started on 09/10 and zosyn stopped. - repeat CT Abd/pelvis (09/10/17) --> pelvic fluid collection essentially unchanged - Case d/w IR, Dr. Stein (09/12) - IR will place tPA in drain, clamp 8 hours, then release clamp, continue to monitor drainage - IR does NOT feel that pt would benefit from a 2nd drain. - Case d/w Dr. Garsia (09/12). He reevaluated pt (09/13). He discussed options regarding further chemo or radiation. - Dr. Garsia Rec repeat CT of pelvis in one week, with plans for IR to remove pelvic drain if collection has resolved/satisfactorily reduced - Patient continues to require Percocet and IV morphine for pain - repeat CT abd/pelvic with IV contrast - DVT prophylaxis with SCDs - supportive care (2) C. difficile colitis ICD Codes: A04.72 - Enterocolitis due to Clostridium difficile, not specified as recurrent Status: Acute Plan: - zosyn stopped. (09/08 - 09/10/17) - PO flagyl (09/10 - present) - supportive care. (3) Uterine cancer ICD Codes: C55 - Malignant neoplasm of uterus, part unspecified Status: Chronic Plan: - see above (4) Anxiety and depression ICD Codes: F41.8 - Other specified anxiety disorders Status: Chronic Plan: continue home Paxil 40 mg PO QHS (5) Pancytopenia ICD Codes: D61.818 - Other pancytopenia Plan: Patient H/H 6.3, 18.1 (09/14) -> 7.1 (09/15) -> 8.5 (09/16) -> 8.4 (09/17) Plt count 15 -> 15 (09/15) -> 17 (09/16) -> 24 (09/17) no signs of active bleeding Patient reports last chemotherapy treatment was 08/31/17 consult placed to Hematology/Medical oncology, appreciate input. Feel that the drop in Hgb and Plt likely secondary to myelosuppression secondary to chemotherapy two weeks ago. 2 units PRBC transfused (09/14) Hematology ordered additional 1 unit of PRBC (09/15) Patient also received Plt (09/14) recheck CBC in AM (6) Fever ICD Codes: R50.9 - Fever, unspecified Plan: Patient had fevers 09/14 till 09/15 early AM, T max 102.7 could be reactive to blood products, tumor fever or infectious Blood cultures x 2 obtained NGTD Patient denies dysuria (does have a joshi in place) patient also denies SOB or cough repeat UA C&S if indicated CXR reviewed and reveals no acute cardiopulmonary disease Assessment and Plan Patient examined. Assessment and plan formulated with Lashanda MACE I agree with the above. Problem Qualifiers (1) Abdominal pain: Qualified Codes: R10.31 - Right lower quadrant pain (2) Uterine cancer: Qualified Codes: C55 - Malignant neoplasm of uterus, part unspecified Lashanda Call Sep 17, 2017 13:00 Abel Garvin DO Sep 19, 2017 01:22
--- NOTE | 2017-09-17 13:04 | HHI.FF ---
Face to Face Verification Diagnosis: (1) Abdominal fluid collection (2) Abdominal pain (3) Pelvic mass in female (4) Pancytopenia Home Health Nursing Order: Medical education Medication education-adverse effect Nursing assessment with vital signs I have seen patient Althea Reyna on 09/17/17. My clinical findings support the need for the requested home health care services because: Deconditioned w/ increased weakness Limited ability to care for self I certify that my clinical findings support that this patient is homebound because: Post-op weakness Lashanda Call Sep 17, 2017 13:04
[2017-09-17] MEDS ORDERED: IOHEXOL 350 MG/ML 10 ML VIAL (for RAD DIAG) IVCONTRAST ONE (16:08)
--- NOTE | 2017-09-17 16:32 | RADRPT ---
EXAM DATE/TIME: 09/17/2017 16:03 [facility] COMPARISON: CT ABDOMEN & PELVIS W CONTRAST, September 10, 2017, 19:22. INDICATIONS : Evalaute drain. Lower abdominal pain and tenderness around drain. IV CONTRAST: 71 cc Omnipaque 350 (iohexol) IV ORAL CONTRAST: No oral contrast ingested. RADIATION DOSE: 15.18 CTDIvol (mGy) MEDICAL HISTORY : Cardiovascular disease. Gastroesophageal reflux disease. Uterine cancer. SURGICAL HISTORY : Hysterectomy. ENCOUNTER: Subsequent ACUITY: 1 week PAIN SCALE: 4/10 LOCATION: Bilateral lower quadrant TECHNIQUE: Volumetric scanning of the abdomen and pelvis was performed. Using automated exposure control and ad justment of the mA and/or kV according to patient size, radiation dose was kept as low as reasonably achievable to obtain optimal diagnostic quality images. DICOM format image data is available electro nically for review and comparison. FINDINGS: LOWER LUNGS: Stable 7 mm nodule in the right lung base. LIVER: Stable 1.2 cm low-density lesion in segment 2 of the liver. There is also a stable 1 cm probable faisal ngioma in segment 6. SPLEEN: Normal size without lesion. PANCREAS: Within normal limits. KIDNEYS: Normal in size and shape. There is no mass, stone or hydronephrosis. ADRENAL GLANDS: Within normal limits. VASCULAR: There is no aortic aneurysm. BOWEL/MESENTERY: Minimal interval improvement in the size of the large pelvic collection which now measures 14.5 x 7.5 cm in comparison to 16.1 x 7.5 cm on prior exam. The percutaneous drainage catheter has been retract ed and is now along the right inferior margin of the collection. The most proximal sidehole is abutti ng the collection wall. Bowel appears grossly unremarkable without evidence for obstruction. ABDOMINAL WALL: Very small fat containing periumbilical hernia. RETROPERITONEUM: There is no lymphadenopathy. BLADDER: Decompressed secondary to Ortega catheter. REPRODUCTIVE: Within normal limits. INGUINAL: There is no lymphadenopathy or hernia. MUSCULOSKELETAL: Within normal limits for patient age. CONCLUSION: 1. Minimally improved large pelvic collection now measuring 14.5 x 7.5 cm in comparison to 16.1 x 7.5 cm on prior exam. 2. Interval retraction of the percutaneous drainage catheter with pigtail in the inferior lateral mar gin of the collection and most proximal sidehole abutting the collection wall. 3. Remainder of the exam is unchanged. Jamaal Meadows MD on September 17, 2017 at 16:24 Board Certified Radiologist. This report was verified electronically.
[2017-09-17] MEDS: PRAVASTATIN SOD 80 MG TAB PO SCH (20:57)
[2017-09-17] MEDS: PARoxetine HCL 20 MG TAB PO SCH (20:57)
[2017-09-18] MEDS: oxyCODONE/ACETAMINOPHEN 10 MG/325 MG TAB PO PRN ×5 (00:30→20:46)
[2017-09-18 01:02] VITALS: BP 119/57; PULSE 80; RESP 18; TEMP 98.6; O2SAT 97
[2017-09-18] MEDS: MORPHINE SULFATE 4 MG/ML INJ IV PUSH PRN ×7 (01:47→21:44)
[2017-09-18 04:47] VITALS: BP 114/58; PULSE 80; RESP 18; TEMP 98.7; O2SAT 96
[2017-09-18] MEDS: metroNIDAZOLE 500 MG TAB PO SCH ×3 (04:58→21:43)
[2017-09-18] MEDS: SODIUM CHLORIDE 0.9% 10 ML VIAL IRRIGATION SCH ×3 (04:59→22:38)
[2017-09-18 07:38] VITALS: BP 106/59; PULSE 63; RESP 18; TEMP 98.6; O2SAT 98
[2017-09-18] MEDS: PANTOPRAZOLE SOD 40 MG DELAYED RELEASE TAB PO SCH (07:55)
[2017-09-18] MEDS: POTASSIUM CHLORIDE 20 MEQ CONTROLLED RELEASE TAB PO SCH ×2 (07:56→20:46)
[2017-09-18] MEDS: SODIUM CHLORIDE 0.9% FLUSH 10 ML FLUSH IV FLUSH SCH ×2 (07:56→20:46)
[2017-09-18 10:51] LABS: AUTOMATED NEUTROPHIL # 1.6 TH/MM3 (1.8-7.7); BASOPHIL % 0.1 % (0.0-2.0); EOSINOPHIL % 0.3 % (0.0-4.0); HEMATOCRIT 24.4 % (35.0-46.0); HEMOGLOBIN 8.2 GM/DL (11.6-15.3); LYMPH % 25.5 % (9.0-44.0); LYMPHOCYTE # 0.6 TH/MM3 (1.0-4.8); MEAN CELL VOLUME 90.3 FL (80.0-100.0); MEAN CORPUSCULAR HEMOGLOBIN 30.5 PG (27.0-34.0); MEAN CORPUSCULAR HGB CONC 33.7 % (32.0-36.0); MEAN PLATELET VOLUME 8.6 FL (7.0-11.0); MONO % 5.7 % (0.0-8.0); MONOCYTE # 0.1 TH/MM3 (0-0.9); NEUT % 68.4 % (16.0-70.0); PLATELET COUNT 31 TH/MM3 (150-450); WHITE BLOOD COUNT 2.3 TH/MM3 (4.0-11.0)
[2017-09-18 11:51] VITALS: BP 108/61; PULSE 65; RESP 18; TEMP 97.7; O2SAT 95
[2017-09-18 12:25] LABS: BANDS 13 % (0-6); LYMPHOCYTES 26 % (9-44); MONOCYTES 7 % (0-8); NEUTROPHIL # MANUAL DIFF 1.5 TH/MM3 (1.8-7.7); POLYS (SEG NEUTROPHILS) 54 % (16-70)
--- NOTE | 2017-09-18 12:57 | HHI.PR ---
Subjective Remarks Pt continues to require IV pain medication for pelvic/abdominal pain. Decrease output from drainage catheter. Objective Vitals Vital Signs Date Time Temp Pulse Resp B/P (MAP) Pulse Ox O2 Delivery O2 Flow Rate FiO2 09/18/17 11:51 97.7 65 18 108/61 (77) 95 09/18/17 07:38 98.6 63 18 106/59 (75) 98 09/18/17 04:47 98.7 80 18 114/58 (76) 96 09/18/17 01:02 98.6 80 18 119/57 (77) 97 09/17/17 21:03 99.2 79 18 106/62 (77) 95 09/17/17 16:21 110/57 (74) 09/17/17 15:36 98.8 75 20 93/52 (66) 97 09/18/17 09/18/17 09/19/17 15:00 23:00 07:00 Output Total 80 ml Balance -80 ml Drainage Total 80 ml Result Diagram: 09/18/17 1030 09/17/17 0820 Imaging Last Impressions Abdomen/Pelvis CT 09/17/17 0000 Signed Impressions: Service Date/Time: Sunday, September 17, 2017 16:03 - CONCLUSION: 1. Minimally improved large pelvic collection now measuring 14.5 x 7.5 cm in comparison to 16.1 x 7.5 cm on prior exam. 2. Interval retraction of the percutaneous drainage catheter with pigtail in the inferior lateral margin of the collection and most proximal sidehole abutting the collection wall. 3. Remainder of the exam is unchanged. Jamaal Meadows MD Chest X-Ray 09/15/17 0000 Signed Impressions: Service Date/Time: September 09:14 - CONCLUSION: 1. No acute cardiopulmonary disease. Jamaal Meadows MD Abscess Drainage CT 09/06/17 0833 Signed Impressions: Service Date/Time: Wednesday, September 06, 2017 15:39 - CONCLUSION: 1. Uncomplicated CT-guided drainage catheter placement in left pelvic fluid collection. Only a small amount of serosanguineous fluid could be aspirated immediately following catheter placement. Entire sample was submitted for laboratory analysis. Overall, findings are most consistent with pelvic hematoma. Jamaal Meadows MD Objective Remarks GENERAL: This is a well-nourished, well-developed patient, in no apparent distress. CARDIOVASCULAR: Regular rate and rhythm RESPIRATORY: Clear to auscultation. Breath sounds equal bilaterally. GASTROINTESTINAL: Abdomen soft, tender RLQ, nondistended. Normal active bowel sounds drain at RLQ with small amount of sanguinous drainage in bulb MUSCULOSKELETAL: Extremities without clubbing, cyanosis, or edema. NEURO: Alert & Oriented x4 to person, place, time, situation. Moves all ext x4 A/P Problem List: (1) Abdominal pain ICD Codes: R10.9 - Unspecified abdominal pain Status: Acute Plan: Abdominal pain Uterine cancer (carcinosarcoma) pelvic mass/hematoma This is a 57 year old female with a past medical history which includes anxiety/ depression, lumbar radiculopathy, chronic back pain, hyperlipidemia, uterine cancer. Patient is currently following with Dr. Garsia last chemotherapy this past Tuesday. She had three chemotherapy treatment then on 06/30/17 Robotic assisted Laparoscopic hysterectomy, BSO, resection of pelvic mass, omentectomy and tumor debulking with Dr. Garsia. After surgery patient has had two additional rounds of chemotherapy. Patient was seen in ER 08/24/17 for lower abdominal pain. CT abd/pelvic (08/24/17)revealed: Large heterogeneous mass in the uterine surgical bed measuring 9.6 x 5.0 x6.8 cm. Patient was then DC with follow up with Dr. Garsia as an outpatient. Today patient returned to the ER due to worsening abdominal pain for the past 3 days. Pain constant, pressure like, sharp, worse with eating, improved by bringing her legs closer to her. Pt. reports that she is constipated and has decreased appetite. Pt. had a fever of 100.2 at home, associated with some chills and night sweats. CT abd/Pelvis (09/05/17) revealed: mass 12.7 cm which has progressed in size from previous study. Predominantly cystic mass in the pelvis larger when compared to the comparison study either hematoma or seroma. Abscess cannot be entirely excluded Hemangioma right lobe of the liver. - IR placed drain into abdomen fluid collection on 09/06..bloody fluid - pain control adjustment. - f/u cytology shows malignant cells and gs/cx ngtd - Pt with fevers since 09/07...zosyn empirically. blood cx ngtd. . presumed related to fluid collection. - c.diff positive. flagyl started on 09/10 and zosyn stopped. - repeat CT Abd/pelvis (09/10/17) --> pelvic fluid collection essentially unchanged - Case d/w IR, Dr. Stien (09/12) - IR will place tPA in drain (09/12) - IR does NOT feel that pt would benefit from a 2nd drain. - Case d/w Dr. Garsia (09/12). He reevaluated pt (09/13). He discussed options regarding further chemo or radiation. - less output from drainage catheter in the last few days - Pt continues with pelvic/abd pain requiring IV pain medication - Request IR reevaluate drain to reposition or consider exchanging for larger drainage catheter - DVT prophylaxis with SCDs - supportive care (2) C. difficile colitis ICD Codes: A04.72 - Enterocolitis due to Clostridium difficile, not specified as recurrent Status: Acute Plan: - zosyn stopped. (09/08 - 09/10/17) - PO flagyl (09/10 - present) - supportive care. (3) Uterine cancer ICD Codes: C55 - Malignant neoplasm of uterus, part unspecified Status: Chronic Plan: - see above (4) Anxiety and depression ICD Codes: F41.8 - Other specified anxiety disorders Status: Chronic Plan: continue home Paxil 40 mg PO QHS (5) Pancytopenia ICD Codes: D61.818 - Other pancytopenia Plan: Patient H/H 6.3, 18.1 (09/14) -> 7.1 (09/15) -> 8.5 (09/16) -> 8.4 (09/17), 8.2 (09/18) Plt count 15 -> 15 (09/15) -> 17 (09/16) -> 24 (09/17), 31 (09/18) no signs of active bleeding Patient reports last chemotherapy treatment was 08/31/17 consult placed to Hematology/Medical oncology, appreciate input. Feel that the drop in Hgb and Plt likely secondary to myelosuppression secondary to chemotherapy two weeks ago. 2 units PRBC transfused (09/14) Hematology ordered additional 1 unit of PRBC (09/15) Patient also received Plt (09/14) recheck CBC in AM (6) Fever ICD Codes: R50.9 - Fever, unspecified Plan: Patient had fevers 09/14 till 09/15 early AM, T max 102.7 could be reactive to blood products, tumor fever or infectious Blood cultures x 2 obtained NGTD Patient denies dysuria (does have a joshi in place) patient also denies SOB or cough repeat UA C&S if indicated CXR reviewed and reveals no acute cardiopulmonary disease Problem Qualifiers (1) Abdominal pain: Qualified Codes: R10.31 - Right lower quadrant pain (2) Uterine cancer: Qualified Codes: C55 - Malignant neoplasm of uterus, part unspecified Abel Garvin DO Sep 18, 2017 12:57
[2017-09-18 15:32] VITALS: BP 101/61; PULSE 82; RESP 18; TEMP 98.5; O2SAT 96
[2017-09-18] MEDS: PARoxetine HCL 20 MG TAB PO SCH (20:46)
[2017-09-18] MEDS: PRAVASTATIN SOD 80 MG TAB PO SCH (20:46)
[2017-09-18 20:50] VITALS: BP 104/63; PULSE 75; RESP 18; TEMP 97.4; O2SAT 99
[2017-09-19] VITALS (10 sets, daily range): BP systolic 96–118; BP diastolic 55–80; PULSE 58–79; RESP 18–20; TEMP 96.9–99; O2SAT 96–99
[2017-09-19] MEDS: oxyCODONE/ACETAMINOPHEN 10 MG/325 MG TAB PO PRN ×5 (01:48→21:01)
[2017-09-19] MEDS: MORPHINE SULFATE 4 MG/ML INJ IV PUSH PRN ×6 (03:25→22:50)
[2017-09-19] MEDS: metroNIDAZOLE 500 MG TAB PO SCH ×3 (06:17→21:01)
[2017-09-19] MEDS: SODIUM CHLORIDE 0.9% 10 ML VIAL IRRIGATION SCH ×3 (06:18→21:01)
[2017-09-19] MEDS: PANTOPRAZOLE SOD 40 MG DELAYED RELEASE TAB PO SCH (08:37)
[2017-09-19] MEDS: SODIUM CHLORIDE 0.9% FLUSH 10 ML FLUSH IV FLUSH SCH ×2 (08:38→19:53)
[2017-09-19] MEDS: POTASSIUM CHLORIDE 20 MEQ CONTROLLED RELEASE TAB PO SCH ×2 (08:38→19:53)
--- NOTE | 2017-09-19 09:08 | PD.ONC.PN ---
Subjective Subjective Remarks patient resting in bed no complaints concerned about placing larger drain..if that doesn't work?? talked with her about consideration of radiation to the mass as malignant cells were found despite current treatment and surgery. discussed with her if she wants to continue with treatment as we know her type of cancer can be very aggressive and readily metastasize. consideration of speaking with Palliative Care, pt will let me know Objective Data Date Time Temp Pulse Resp B/P (MAP) Pulse Ox O2 Delivery O2 Flow Rate FiO2 09/19/17 08:00 96.9 59 18 113/59 (77) 96 09/19/17 05:10 99.0 74 18 107/60 (76) 97 09/19/17 01:03 97.7 68 18 98/55 (69) 97 09/18/17 20:50 97.4 75 18 104/63 (77) 99 09/18/17 17:56 16 09/18/17 15:32 98.5 82 18 101/61 (74) 96 09/18/17 11:51 97.7 65 18 108/61 (77) 95 09/19/17 09/19/17 09/19/17 07:00 15:00 23:00 Output Total 1350 ml Balance -1350 ml Result Diagram: 09/18/17 1030 09/17/17 0820 Laboratory Results Laboratory Tests Test 09/18/17 10:30 White Blood Count 2.3 TH/MM3 Red Blood Count 2.70 MIL/MM3 Hemoglobin 8.2 GM/DL Hematocrit 24.4 % Mean Corpuscular Volume 90.3 FL Mean Corpuscular Hemoglobin 30.5 PG Mean Corpuscular Hemoglobin Concent 33.7 % Red Cell Distribution Width 16.0 % Platelet Count 31 TH/MM3 Mean Platelet Volume 8.6 FL Neutrophils (%) (Auto) 68.4 % Lymphocytes (%) (Auto) 25.5 % Monocytes (%) (Auto) 5.7 % Eosinophils (%) (Auto) 0.3 % Basophils (%) (Auto) 0.1 % Neutrophils # (Auto) 1.6 TH/MM3 Lymphocytes # (Auto) 0.6 TH/MM3 Monocytes # (Auto) 0.1 TH/MM3 Eosinophils # (Auto) 0.0 TH/MM3 Basophils # (Auto) 0.0 TH/MM3 CBC Comment AUTO DIFF Differential Total Cells Counted 100 Neutrophils % (Manual) 54 % Band Neutrophils % 13 % Lymphocytes % 26 % Monocytes % 7 % Neutrophils # (Manual) 1.5 TH/MM3 Differential Comment FINAL DIFF MANUAL Platelet Estimate LOW Platelet Morphology Comment NORMAL Administered Medications Medications (Trade) Dose Ordered Sig/Khloe Route PRN Reason Start Time Stop Time Status Last Admin Dose Admin Sodium Chloride (NS Flush) 2 ml UNSCH PRN IV FLUSH FLUSH AFTER USING IV ACCESS 09/05/17 16:15 09/13/17 14:55 Sodium Chloride (NS Flush) 2 ml BID IV FLUSH 09/05/17 21:00 09/19/17 08:38 Acetaminophen (Tylenol) 650 mg Q4H PRN PO TEMP > 100.4 09/05/17 16:15 09/15/17 14:05 Pantoprazole Sodium (Protonix) 40 mg DAILY PO 09/06/17 09:00 09/19/17 08:37 Paroxetine HCl (Paxil) 40 mg HS PO 09/05/17 21:00 09/18/17 20:46 Pravastatin Sodium (Pravachol) 80 mg HS PO 09/05/17 21:00 09/18/17 20:46 Sodium Chloride (NS Inj) 10 ml Q8HR IRRIGATION 09/06/17 22:00 09/19/17 06:18 Potassium Chloride (KCl) 20 meq Q12HR PO 09/07/17 21:00 09/19/17 08:38 Morphine Sulfate (Morphine Inj) 4 mg Q3H PRN IV PUSH BREAKTHROUGH PAIN 09/08/17 09:45 09/19/17 08:38 Oxycodone/ Acetaminophen (Percocet 10-325 Mg) 1 tab Q4H PRN PO pain 3-10 09/08/17 09:45 09/19/17 06:17 Metronidazole (Flagyl) 500 mg Q8HR PO 09/10/17 22:00 09/19/17 06:17 Calcium Carbonate (Tums Chew) 500 mg Q2H PRN CHEW INDIGESTION 09/13/17 17:00 09/14/17 21:24 Objective Remarks GENERAL: Well-nourished, well-developed patient. SKIN: Warm and dry. HEAD: Normocephalic. EYES: No scleral icterus. No injection or drainage. EXTREMITIES: No cyanosis, or edema. MUSCULOSKELETAL: Adequate muscle tone. NEUROLOGICAL: No obvious focal deficit. Awake, alert, and oriented x3. PSYCHIATRIC: Appropriate mood and affect; insight and judgment normal. Assessment/Plan Problem List: (1) Pancytopenia ICD Codes: D61.818 - Other pancytopenia Plan: --monitor the CBC daily and transfuse if the hemoglobin is less than 8 and/or platelet count is less than 15. --pancytopenia likely d/t chemotherapy (carboplatin) -- last chemotherapy was 2 weeks ago on August 31. 09/19/17: ANC improved 1600, T max 99.0, continued thrombocytopenia: continue to monitor daily labs hem/omc following for pancytopenia (2) Abdominal fluid collection ICD Codes: R18.8 - Other ascites Status: Acute Plan: s/p IR drainage of pelvic fluid collection 09/06/17 drain placed cultures pending monitor drain outpt 09/19/17: patient to IR today to switch out drain for larger one in hopes of draining mass pelvic fluid cultures negative malignant cells found in pelvic fluid, radiation oncology consulted patient will let me know if she wants to consider talking to Palliative Care. Assessment 57y/o female with uterine cancer. Hematology consulted for thrombocytopenia. Plan 1. no transfusion needed today 2. monitor CBC Andriy Laguna Sep 19, 2017 09:08
[2017-09-19 10:29] LABS: AUTOMATED NEUTROPHIL # 1.7 TH/MM3 (1.8-7.7); BASOPHIL % 0.2 % (0.0-2.0); EOSINOPHIL % 0.3 % (0.0-4.0); HEMATOCRIT 24.9 % (35.0-46.0); HEMOGLOBIN 8.3 GM/DL (11.6-15.3); LYMPHOCYTE # 0.7 TH/MM3 (1.0-4.8); MEAN CORPUSCULAR HEMOGLOBIN 30.3 PG (27.0-34.0); MEAN CORPUSCULAR HGB CONC 33.3 % (32.0-36.0); MEAN PLATELET VOLUME 9.4 FL (7.0-11.0); MONO % 7.8 % (0.0-8.0); MONOCYTE # 0.2 TH/MM3 (0-0.9); NEUT % 65.7 % (16.0-70.0); PLATELET COUNT 55 TH/MM3 (150-450); RED BLOOD COUNT 2.74 MIL/MM3 (4.00-5.30); RED CELL DISTRIBUTION WIDTH 15.5 % (11.6-17.2); WHITE BLOOD COUNT 2.7 TH/MM3 (4.0-11.0)
--- NOTE | 2017-09-19 10:55 | HHI.PR ---
Subjective Remarks Patient feeling about the same, continues to require both PO and IV pain medication Objective Vitals Vital Signs Date Time Temp Pulse Resp B/P (MAP) Pulse Ox O2 Delivery O2 Flow Rate FiO2 09/19/17 08:00 96.9 59 18 113/59 (77) 96 09/19/17 05:10 99.0 74 18 107/60 (76) 97 09/19/17 01:03 97.7 68 18 98/55 (69) 97 09/18/17 20:50 97.4 75 18 104/63 (77) 99 09/18/17 17:56 16 09/18/17 15:32 98.5 82 18 101/61 (74) 96 09/18/17 11:51 97.7 65 18 108/61 (77) 95 Result Diagram: 09/19/17 0806 09/17/17 0820 Other Results Laboratory Tests Test 09/17/17 08:20 09/18/17 10:30 09/19/17 08:06 White Blood Count 2.6 TH/MM3 2.3 TH/MM3 2.7 TH/MM3 Red Blood Count 2.71 MIL/MM3 2.70 MIL/MM3 2.74 MIL/MM3 Hemoglobin 8.4 GM/DL 8.2 GM/DL 8.3 GM/DL Hematocrit 24.3 % 24.4 % 24.9 % Mean Corpuscular Volume 89.7 FL 90.3 FL 91.0 FL Mean Corpuscular Hemoglobin 30.9 PG 30.5 PG 30.3 PG Mean Corpuscular Hemoglobin Concent 34.5 % 33.7 % 33.3 % Red Cell Distribution Width 16.0 % 16.0 % 15.5 % Platelet Count 24 TH/MM3 31 TH/MM3 55 TH/MM3 Mean Platelet Volume 8.5 FL 8.6 FL 9.4 FL Neutrophils (%) (Auto) 62.9 % 68.4 % 65.7 % Lymphocytes (%) (Auto) 30.2 % 25.5 % 26.0 % Monocytes (%) (Auto) 6.4 % 5.7 % 7.8 % Eosinophils (%) (Auto) 0.3 % 0.3 % 0.3 % Basophils (%) (Auto) 0.2 % 0.1 % 0.2 % Neutrophils # (Auto) 1.7 TH/MM3 1.6 TH/MM3 1.7 TH/MM3 Lymphocytes # (Auto) 0.8 TH/MM3 0.6 TH/MM3 0.7 TH/MM3 Monocytes # (Auto) 0.2 TH/MM3 0.1 TH/MM3 0.2 TH/MM3 Eosinophils # (Auto) 0.0 TH/MM3 0.0 TH/MM3 0.0 TH/MM3 Basophils # (Auto) 0.0 TH/MM3 0.0 TH/MM3 0.0 TH/MM3 CBC Comment AUTO DIFF AUTO DIFF AUTO DIFF Differential Comment AUTO DIFF CONFIRMED FINAL DIFF MANUAL Platelet Estimate LOW LOW Platelet Morphology Comment NORMAL NORMAL Blood Urea Nitrogen 11 MG/DL Creatinine 0.72 MG/DL Random Glucose 96 MG/DL Calcium Level 8.9 MG/DL Sodium Level 139 MEQ/L Potassium Level 3.8 MEQ/L Chloride Level 102 MEQ/L Carbon Dioxide Level 30.1 MEQ/L Anion Gap 7 MEQ/L Estimat Glomerular Filtration Rate 83 ML/MIN Differential Total Cells Counted 100 Neutrophils % (Manual) 54 % Band Neutrophils % 13 % Lymphocytes % 26 % Monocytes % 7 % Neutrophils # (Manual) 1.5 TH/MM3 Imaging Last Impressions Abdomen/Pelvis CT 09/17/17 0000 Signed Impressions: Service Date/Time: Sunday, September 17, 2017 16:03 - CONCLUSION: 1. Minimally improved large pelvic collection now measuring 14.5 x 7.5 cm in comparison to 16.1 x 7.5 cm on prior exam. 2. Interval retraction of the percutaneous drainage catheter with pigtail in the inferior lateral margin of the collection and most proximal sidehole abutting the collection wall. 3. Remainder of the exam is unchanged. Jamaal Meadows MD Chest X-Ray 09/15/17 0000 Signed Impressions: Service Date/Time: September 09:14 - CONCLUSION: 1. No acute cardiopulmonary disease. Jamaal Meadows MD Abscess Drainage CT 09/06/17 0833 Signed Impressions: Service Date/Time: Wednesday, September 06, 2017 15:39 - CONCLUSION: 1. Uncomplicated CT-guided drainage catheter placement in left pelvic fluid collection. Only a small amount of serosanguineous fluid could be aspirated immediately following catheter placement. Entire sample was submitted for laboratory analysis. Overall, findings are most consistent with pelvic hematoma. Jamaal Meadows MD Objective Remarks GENERAL: This is a well-nourished, well-developed patient, in no apparent distress. CARDIOVASCULAR: Regular rate and rhythm RESPIRATORY: Clear to auscultation. Breath sounds equal bilaterally. GASTROINTESTINAL: Abdomen soft, tender RLQ, nondistended. Normal active bowel sounds drain at RLQ with small amount of sanguinous drainage in bulb MUSCULOSKELETAL: Extremities without clubbing, cyanosis, or edema. NEURO: Alert & Oriented x4 to person, place, time, situation. Moves all ext x4 A/P Problem List: (1) Abdominal pain ICD Codes: R10.9 - Unspecified abdominal pain Status: Acute Plan: Abdominal pain Uterine cancer (carcinosarcoma) pelvic mass/hematoma This is a 57 year old female with a past medical history which includes anxiety/ depression, lumbar radiculopathy, chronic back pain, hyperlipidemia, uterine cancer. Patient is currently following with Dr. Garsia last chemotherapy this past Tuesday. She had three chemotherapy treatment then on 06/30/17 Robotic assisted Laparoscopic hysterectomy, BSO, resection of pelvic mass, omentectomy and tumor debulking with Dr. Garsia. After surgery patient has had two additional rounds of chemotherapy. Patient was seen in ER 08/24/17 for lower abdominal pain. CT abd/pelvic (08/24/17)revealed: Large heterogeneous mass in the uterine surgical bed measuring 9.6 x 5.0 x6.8 cm. Patient was then DC with follow up with Dr. Garsia as an outpatient. Today patient returned to the ER due to worsening abdominal pain for the past 3 days. Pain constant, pressure like, sharp, worse with eating, improved by bringing her legs closer to her. Pt. reports that she is constipated and has decreased appetite. Pt. had a fever of 100.2 at home, associated with some chills and night sweats. CT abd/Pelvis (09/05/17) revealed: mass 12.7 cm which has progressed in size from previous study. Predominantly cystic mass in the pelvis larger when compared to the comparison study either hematoma or seroma. Abscess cannot be entirely excluded Hemangioma right lobe of the liver. - IR placed drain into abdomen fluid collection on 09/06..bloody fluid - pain control adjustment. - f/u cytology shows malignant cells and gs/cx ngtd - Pt with fevers since 2/7...zosyn empirically. blood cx ngtd. . presumed related to fluid collection. - c.diff positive. flagyl started on 09/10 and zosyn stopped. - repeat CT Abd/pelvis (09/10/17) --> pelvic fluid collection essentially unchanged - Case d/w IR, Dr. Stein (09/12) - IR will place tPA in drain (09/12) - IR does NOT feel that pt would benefit from a 2nd drain. - Case d/w Dr. Garsia (09/12). He reevaluated pt (09/13). He discussed options regarding further chemo or radiation. - less output from drainage catheter in the last few days - Pt continues with pelvic/abd pain requiring IV pain medication - Request IR reevaluate drain to reposition or consider exchanging for larger drainage catheter - Case discussed with Dr. Garsia plan to consult radiation oncology. Case discussed with Dr. Otto plan for radiation simulation tomorrow then start Radiation or Tuesday for a total of 10 treatments. - Patient seen by Andriy KESSLER CANAL EQUIPMENT MAINTENANCE SUPERVISOR oncology discussed the possible option of palliative care. Patient considering but has not yet decided - DVT prophylaxis with SCDs - supportive care (2) C. difficile colitis ICD Codes: A04.72 - Enterocolitis due to Clostridium difficile, not specified as recurrent Status: Acute Plan: - zosyn stopped. (09/08 - 09/10/17) - PO flagyl (09/10 - present) stop date 09/24 - 09/19 patient continues to have about 3 soft stools per day. Will recheck for C diff - if C diff neg will start Questran for bulking - supportive care. (3) Uterine cancer ICD Codes: C55 - Malignant neoplasm of uterus, part unspecified Status: Chronic Plan: - see above (4) Anxiety and depression ICD Codes: F41.8 - Other specified anxiety disorders Status: Chronic Plan: continue home Paxil 40 mg PO QHS (5) Pancytopenia ICD Codes: D61.818 - Other pancytopenia Status: Acute Plan: Patient H/H 6.3, 18.1 (09/14) -> 7.1 (09/15) -> 8.5 (09/16) -> 8.4 (09/17) - > 8.2 (09/18) -> 8.3 (09/19) Plt count 15 -> 15 (09/15) -> 17 (216) -> 24 (09/17) -> 31 (09/18) -> 55 (09/19) no signs of active bleeding Patient reports last chemotherapy treatment was 08/31/17 consult placed to Hematology/Medical oncology, appreciate input. Feel that the drop in Hgb and Plt likely secondary to myelosuppression secondary to chemotherapy two weeks ago. 2 units PRBC transfused (09/14) Hematology ordered additional 1 unit of PRBC (09/15) Patient also received Plt (09/14) (6) Fever ICD Codes: R50.9 - Fever, unspecified Status: Acute Plan: Patient had fevers 09/14 till 09/15 early AM, T max 102.7 could be reactive to blood products, tumor fever or infectious Blood cultures x 2 obtained NGTD Patient denies dysuria (does have a joshi in place) patient also denies SOB or cough repeat UA urine culture shows no growth in 48 hours CXR reviewed and reveals no acute cardiopulmonary disease Assessment and Plan Patient examined. Assessment and plan formulated with Lashanda Call PA-C. I agree with the above. Problem Qualifiers (1) Abdominal pain: Qualified Codes: R10.31 - Right lower quadrant pain (2) Uterine cancer: Qualified Codes: C55 - Malignant neoplasm of uterus, part unspecified Lashanda Call Sep 19, 2017 10:55 Abel Garvin DO Sep 24, 2017 15:48
[2017-09-19] MEDS ORDERED: MIDAZOLAM HCL 2 MG/2 ML VIAL IV ONE ×2 (14:10)
[2017-09-19] MEDS ORDERED: fentaNYL CITRATE 250 MCG/5 ML AMP IV ONE (14:10)
[2017-09-19] MEDS ORDERED: IOHEXOL 350 MG/ML 50 ML BTL (for RAD DIAG) OTHER ONE (14:30)
[2017-09-19] MEDS ORDERED: ALTEPLASE RECOMBINANT 2 MG VIAL OTHER ONE (14:40)
--- NOTE | 2017-09-19 15:11 | PD.RAD ---
Post Procedure Progress Note Pre Procedure Diagnosis: (1) Abdominal fluid collection (2) Uterine cancer Post Procedure Diagnosis: (1) Abdominal fluid collection (2) Uterine cancer Procedure Date: Sep 19, 2017 Supervising Radiologist: Son Elizabeth JR Proceduralist/Assist: Marian Marrero, RT(R), Kathleen Alex RT(R) Anesthesia: Conscious Sedation Plan of Activity Patient to Unit: ROPU Patient Condition: Good See PACS Report for procedural detail/treatment Drainage Procedure Procedure 1 Imaging Guidance: Fluoroscopy Side: Right Procedure Type: Abscess Drainage Procedure: Reposition Kazakh: 12 Drainage: Suction Fluid Description: Bloody Findings: Original 12F tube had backed out. Repositioned new 12 F tube deeper into collection and coiled a wire within the collection to try to break up some of the locules. Approx 10mL of sanguinous fluid obtained. Placed 4mg TPA into collection to try to aid in aspiration. Plan Keep tube capped for four hours. Then place to accordion suction device. Jr. Glenn,Son Richter MD Sep 19, 2017 15:11
--- NOTE | 2017-09-19 15:21 | RADRPT ---
EXAM DATE/TIME: 09/19/2017 14:01 [facility] COMPARISON: CT ABDOMEN & PELVIS W CONTRAST, September 17, 2017, 16:03. INDICATIONS : Patient with pelvic fluid collection in need of drainage catheter exchange. MEDICAL HISTORY : HLD, Uterine cancer, Chronic back pain, Lumbar radiculopathy, Pelvic mass SURGICAL HISTORY : Port, Drainage catheter, Resection of pelvic mass, Omentectomy and tumor debulking, Hysterectomy, Bi lateral salpingo oophorectomy ENCOUNTER: Initial ACUITY: 1 month PAIN SCORE: 5/10 LOCATION: Right drainage site FLUORO TIME: 2 minutes IMAGE SERIES: 2 SEDATION TIME: 30 minutes CONTRAST: 10 cc Omnipaque (iohexol) 350 MEDICATION(S): 1.) 3.5 mg midazolam (Versed) IV 2.) 175 mcg fentanyl (Sublimaze) IV DEVICE: 1.) 12 Jamaican X30CM locking pigtail [place] PROCEDURE : 1. Fluoroscopically guided tube exchange. 2. Conscious sedation with continuous EKG and oximetry monitoring. The risks, benefits and alternatives to the procedure were explained and verbal and written consent w as obtained. The site was prepped in sterile fashion. Full sterile technique was used, including ca p, mask, sterile gloves and gown and a large sterile sheet. Hand hygiene and 2% chlorhexidine and/or betadine/alcohol prep was utilized per protocol for cutaneous antisepsis. With fluoroscopic guidance the previously placed tube was removed over a wire. A Berenstein catheter was utilized to manipulate the wire throughout the fluid collection in an attempt to break up the loc ulations. A new 12 Jamaican catheter was coiled deeper within the collection. This yielded 10 mL of estrada guinous fluid. This was not turbid. Post procedure image demonstrates satisfactory position of the tu be. The catheter was sutured in place and a Percu-Stay was applied. 4 mg of TPA was instilled into t he collection and will be allowed to dwell for 4 hours. After which the drain will be placed back to a accordion suction. Conscious sedation was performed with the prescribed dosages and duration as above in the presence of an independent trained radiology nurse to assist in the monitoring of the patient. EKG and oximetry remained stable throughout the procedure. The patient tolerated the procedure well and there were no complications. The patient was sent to post anesthesia recovery in stable condition. CONCLUSION: The right lower quadrant drainage catheter was manipulated deeper into the collection. 4 mg of TPA wa s instilled into the collection to try and improve drainage. Son Elizabeth Jr., MD on September 19, 2017 at 15:16 Board Certified Radiologist. This report was verified electronically.
[2017-09-19] MEDS: fentaNYL 25 MCG/HR PATCH T-DERMAL SCH (16:46)
--- NOTE | 2017-09-19 17:22 | HHI.HCPN ---
Case discussed with onc, VICTORIA Chavez. Met with patient in her room. Just returned from IR from having pelvic drainage catheter exchanged. Palliative care services introduced, patient declined consultation today given recent procedure/discomfort. However, receptive to palliative care consult tomorrow 09/20 at 9:30 AM with sister present. Contact information provided. Palliative care to follow-up. VICTORIA Lopez Palliative care REFINERY OPERATOR . (Lucy Grimm) Chart reviewed. Case discussed with palliative care STACKER AND SORTER OPERATOR. Above VICTORIA note reviewed and I concur. . (Vimal Murphy MD) Lucy Grimm Sep 19, 2017 17:22 Vimal Murphy MD Sep 28, 2017 16:37
[2017-09-19] MEDS: PRAVASTATIN SOD 80 MG TAB PO SCH (19:53)
[2017-09-19] MEDS: PARoxetine HCL 20 MG TAB PO SCH (19:53)
--- NOTE | 2017-09-19 21:56 | PD.ONC.PN ---
Subjective Subjective Remarks Complaining of Severe Abdominal and pelvic pain Objective Data Date Time Temp Pulse Resp B/P (MAP) Pulse Ox O2 Delivery O2 Flow Rate FiO2 09/19/17 19:56 98.5 72 18 102/60 (74) 97 09/19/17 16:00 75 18 118/78 (91) 96 09/19/17 15:45 79 18 111/75 (87) 99 09/19/17 15:30 77 20 113/80 (91) 97 09/19/17 15:00 75 20 96/58 (71) 98 09/19/17 14:45 98.5 77 18 104/64 (77) 97 09/19/17 14:45 98.5 77 18 104/64 (77) 97 09/19/17 12:00 97.1 58 18 101/56 (71) 97 09/19/17 08:00 96.9 59 18 113/59 (77) 96 09/19/17 05:10 99.0 74 18 107/60 (76) 97 09/19/17 01:03 97.7 68 18 98/55 (69) 97 09/19/17 09/19/17 09/19/17 07:00 15:00 23:00 Output Total 1350 ml 500 ml Balance -1350 ml -500 ml Result Diagram: 09/19/17 0806 09/17/17 0820 Laboratory Results Laboratory Tests Test 09/19/17 08:06 09/19/17 21:39 White Blood Count 2.7 TH/MM3 Red Blood Count 2.74 MIL/MM3 Hemoglobin 8.3 GM/DL Hematocrit 24.9 % Mean Corpuscular Volume 91.0 FL Mean Corpuscular Hemoglobin 30.3 PG Mean Corpuscular Hemoglobin Concent 33.3 % Red Cell Distribution Width 15.5 % Platelet Count 55 TH/MM3 Mean Platelet Volume 9.4 FL Neutrophils (%) (Auto) 65.7 % Lymphocytes (%) (Auto) 26.0 % Monocytes (%) (Auto) 7.8 % Eosinophils (%) (Auto) 0.3 % Basophils (%) (Auto) 0.2 % Neutrophils # (Auto) 1.7 TH/MM3 Lymphocytes # (Auto) 0.7 TH/MM3 Monocytes # (Auto) 0.2 TH/MM3 Eosinophils # (Auto) 0.0 TH/MM3 Basophils # (Auto) 0.0 TH/MM3 CBC Comment AUTO DIFF Differential Comment AUTO DIFF CONFIRMED Platelet Estimate LOW Platelet Morphology Comment NORMAL Imaging Studies Last 24 hours Impressions Catheter Change 09/19/17 0000 Signed Impressions: Service Date/Time: Tuesday, September 19, 2017 14:01 - CONCLUSION: The right lower quadrant drainage catheter was manipulated deeper into the collection. 4 mg of TPA was instilled into the collection to try and improve drainage. Son Elizabeth Jr., MD Administered Medications Medications (Trade) Dose Ordered Sig/Khloe Route PRN Reason Start Time Stop Time Status Last Admin Dose Admin Sodium Chloride (NS Flush) 2 ml UNSCH PRN IV FLUSH FLUSH AFTER USING IV ACCESS 09/05/17 16:15 09/13/17 14:55 Sodium Chloride (NS Flush) 2 ml BID IV FLUSH 09/05/17 21:00 09/19/17 19:53 Acetaminophen (Tylenol) 650 mg Q4H PRN PO TEMP > 100.4 09/05/17 16:15 09/15/17 14:05 Pantoprazole Sodium (Protonix) 40 mg DAILY PO 09/06/17 09:00 09/19/17 08:37 Paroxetine HCl (Paxil) 40 mg HS PO 09/05/17 21:00 09/19/17 19:53 Pravastatin Sodium (Pravachol) 80 mg HS PO 09/05/17 21:00 09/19/17 19:53 Sodium Chloride (NS Inj) 10 ml Q8HR IRRIGATION 09/06/17 22:00 09/19/17 21:01 Potassium Chloride (KCl) 20 meq Q12HR PO 09/07/17 21:00 09/19/17 19:53 Morphine Sulfate (Morphine Inj) 4 mg Q3H PRN IV PUSH BREAKTHROUGH PAIN 09/08/17 09:45 09/19/17 19:50 Oxycodone/ Acetaminophen (Percocet 10-325 Mg) 1 tab Q4H PRN PO pain 3-10 09/08/17 09:45 09/19/17 21:01 Metronidazole (Flagyl) 500 mg Q8HR PO 09/10/17 22:00 09/19/17 21:01 Calcium Carbonate (Tums Chew) 500 mg Q2H PRN CHEW INDIGESTION 09/13/17 17:00 09/14/17 21:24 Fentanyl (Duragesic 25 Mcg Patch.72 Hr) 1 patch Q3D T-DERMAL 09/19/17 14:00 09/19/17 16:46 Objective Remarks GENERAL: Well-nourished, well-developed patient. SKIN: Warm and dry. HEAD: Normocephalic. EYES: No scleral icterus. No injection or drainage. NECK: Supple, trachea midline. No JVD or lymphadenopathy. LYMPHATIC: No adenopathy. CARDIOVASCULAR: Regular rate and rhythm without murmurs. RESPIRATORY: Breath sounds equal bilaterally. No accessory muscle use. GASTROINTESTINAL: Abdomen soft, tender, distended. EXTREMITIES: No cyanosis, or edema. MUSCULOSKELETAL: Adequate muscle tone. NEUROLOGICAL: No obvious focal deficit. Awake, alert, and oriented x3. PSYCHIATRIC: Appropriate mood and affect; insight and judgment normal. Assessment/Plan Problem List: (1) Pancytopenia ICD Codes: D61.818 - Other pancytopenia Plan: --monitor the CBC daily and transfuse if the hemoglobin is less than 8 and/or platelet count is less than 15. --pancytopenia likely d/t chemotherapy (carboplatin) -- last chemotherapy was 2 weeks ago on August 31. 09/19/17: ANC improved 1600, T max 99.0, continued thrombocytopenia but improving . continue to monitor daily labs (2) Abdominal fluid collection ICD Codes: R18.8 - Other ascites Status: Acute Plan: s/p IR drainage of pelvic fluid collection 09/06/17 drain placed cultures pending monitor drain outpt 09/19/17: patient to IR today to switch out drain for larger one in hopes of draining mass pelvic fluid cultures negative malignant cells found in pelvic fluid, radiation oncology consulted Assessment 57y/o female with uterine cancer. Hematology consulted for thrombocytopenia. Plan 1. no transfusion needed today 2. monitor CBC Christen Cee MD Sep 19, 2017 21:56
[2017-09-20 00:24] VITALS: BP 107/57; PULSE 81; RESP 16; TEMP 99.7; O2SAT 96
[2017-09-20] MEDS: oxyCODONE/ACETAMINOPHEN 10 MG/325 MG TAB PO PRN ×6 (00:51→21:26)
[2017-09-20] MEDS: MORPHINE SULFATE 4 MG/ML INJ IV PUSH PRN ×5 (02:00→21:26)
[2017-09-20 04:20] VITALS: BP 102/58; PULSE 82; RESP 18; TEMP 98.9; O2SAT 95
[2017-09-20] MEDS: metroNIDAZOLE 500 MG TAB PO SCH ×3 (05:38→21:26)
[2017-09-20] MEDS: SODIUM CHLORIDE 0.9% 10 ML VIAL IRRIGATION SCH ×3 (05:39→21:27)
[2017-09-20 08:00] VITALS: BP 109/53; PULSE 81; RESP 16; TEMP 98.5; O2SAT 95
--- NOTE | 2017-09-20 08:08 | HHI.PR ---
Subjective Remarks Patient had pelvic drain repositioned yesterday (09/19) Plan for radiation simulation today no new complaints Objective Vitals Vital Signs Date Time Temp Pulse Resp B/P (MAP) Pulse Ox O2 Delivery O2 Flow Rate FiO2 09/20/17 04:20 98.9 82 18 102/58 (73) 95 09/20/17 00:24 99.7 81 16 107/57 (74) 96 09/19/17 19:56 98.5 72 18 102/60 (74) 97 09/19/17 16:00 75 18 118/78 (91) 96 09/19/17 15:45 79 18 111/75 (87) 99 09/19/17 15:30 77 20 113/80 (91) 97 09/19/17 15:00 75 20 96/58 (71) 98 09/19/17 14:45 98.5 77 18 104/64 (77) 97 09/19/17 14:45 98.5 77 18 104/64 (77) 97 09/19/17 12:00 97.1 58 18 101/56 (71) 97 Result Diagram: 09/19/17 0806 09/17/17 0820 Other Results Laboratory Tests Test 09/17/17 08:20 09/18/17 10:30 09/19/17 08:06 09/19/17 21:39 White Blood Count 2.6 TH/MM3 2.3 TH/MM3 2.7 TH/MM3 Red Blood Count 2.71 MIL/MM3 2.70 MIL/MM3 2.74 MIL/MM3 Hemoglobin 8.4 GM/DL 8.2 GM/DL 8.3 GM/DL Hematocrit 24.3 % 24.4 % 24.9 % Mean Corpuscular Volume 89.7 FL 90.3 FL 91.0 FL Mean Corpuscular Hemoglobin 30.9 PG 30.5 PG 30.3 PG Mean Corpuscular Hemoglobin Concent 34.5 % 33.7 % 33.3 % Red Cell Distribution Width 16.0 % 16.0 % 15.5 % Platelet Count 24 TH/MM3 31 TH/MM3 55 TH/MM3 Mean Platelet Volume 8.5 FL 8.6 FL 9.4 FL Neutrophils (%) (Auto) 62.9 % 68.4 % 65.7 % Lymphocytes (%) (Auto) 30.2 % 25.5 % 26.0 % Monocytes (%) (Auto) 6.4 % 5.7 % 7.8 % Eosinophils (%) (Auto) 0.3 % 0.3 % 0.3 % Basophils (%) (Auto) 0.2 % 0.1 % 0.2 % Neutrophils # (Auto) 1.7 TH/MM3 1.6 TH/MM3 1.7 TH/MM3 Lymphocytes # (Auto) 0.8 TH/MM3 0.6 TH/MM3 0.7 TH/MM3 Monocytes # (Auto) 0.2 TH/MM3 0.1 TH/MM3 0.2 TH/MM3 Eosinophils # (Auto) 0.0 TH/MM3 0.0 TH/MM3 0.0 TH/MM3 Basophils # (Auto) 0.0 TH/MM3 0.0 TH/MM3 0.0 TH/MM3 CBC Comment AUTO DIFF AUTO DIFF AUTO DIFF Differential Comment AUTO DIFF CONFIRMED FINAL DIFF MANUAL AUTO DIFF CONFIRMED Platelet Estimate LOW LOW LOW Platelet Morphology Comment NORMAL NORMAL NORMAL Blood Urea Nitrogen 11 MG/DL Creatinine 0.72 MG/DL Random Glucose 96 MG/DL Calcium Level 8.9 MG/DL Sodium Level 139 MEQ/L Potassium Level 3.8 MEQ/L Chloride Level 102 MEQ/L Carbon Dioxide Level 30.1 MEQ/L Anion Gap 7 MEQ/L Estimat Glomerular Filtration Rate 83 ML/MIN Differential Total Cells Counted 100 Neutrophils % (Manual) 54 % Band Neutrophils % 13 % Lymphocytes % 26 % Monocytes % 7 % Neutrophils # (Manual) 1.5 TH/MM3 Stool C. difficile Toxin (PCR) NEGATIVE Stl C. difficile Toxin Epiderm 027 PRESUMPTIVE NEGATIVE Imaging Last Impressions Abdomen/Pelvis CT 09/17/17 0000 Signed Impressions: Service Date/Time: Sunday, September 17, 2017 16:03 - CONCLUSION: 1. Minimally improved large pelvic collection now measuring 14.5 x 7.5 cm in comparison to 16.1 x 7.5 cm on prior exam. 2. Interval retraction of the percutaneous drainage catheter with pigtail in the inferior lateral margin of the collection and most proximal sidehole abutting the collection wall. 3. Remainder of the exam is unchanged. Jamaal Meadows MD Chest X-Ray 09/15/17 0000 Signed Impressions: Service Date/Time: September 09:14 - CONCLUSION: 1. No acute cardiopulmonary disease. Jamaal Meadows MD Abscess Drainage CT 09/06/17 0833 Signed Impressions: Service Date/Time: Wednesday, September 06, 2017 15:39 - CONCLUSION: 1. Uncomplicated CT-guided drainage catheter placement in left pelvic fluid collection. Only a small amount of serosanguineous fluid could be aspirated immediately following catheter placement. Entire sample was submitted for laboratory analysis. Overall, findings are most consistent with pelvic hematoma. Jamaal Meadows MD Objective Remarks GENERAL: This is a well-nourished, well-developed patient, in no apparent distress. CARDIOVASCULAR: Regular rate and rhythm RESPIRATORY: Clear to auscultation. Breath sounds equal bilaterally. GASTROINTESTINAL: Abdomen soft, tender RLQ, nondistended. Normal active bowel sounds drain at RLQ with small amount of sanguinous drainage in bulb MUSCULOSKELETAL: Extremities without clubbing, cyanosis, or edema. NEURO: Alert & Oriented x4 to person, place, time, situation. Moves all ext x4 A/P Problem List: (1) Abdominal pain ICD Codes: R10.9 - Unspecified abdominal pain Status: Acute Plan: Abdominal pain Uterine cancer (carcinosarcoma) pelvic mass/hematoma This is a 57 year old female with a past medical history which includes anxiety/ depression, lumbar radiculopathy, chronic back pain, hyperlipidemia, uterine cancer. Patient is currently following with Dr. Garsia last chemotherapy this past Tuesday. She had three chemotherapy treatment then on 06/30/17 Robotic assisted Laparoscopic hysterectomy, BSO, resection of pelvic mass, omentectomy and tumor debulking with Dr. Garsia. After surgery patient has had two additional rounds of chemotherapy. Patient was seen in ER 08/24/17 for lower abdominal pain. CT abd/pelvic (08/24/17)revealed: Large heterogeneous mass in the uterine surgical bed measuring 9.6 x 5.0 x6.8 cm. Patient was then DC with follow up with Dr. Garsia as an outpatient. Today patient returned to the ER due to worsening abdominal pain for the past 3 days. Pain constant, pressure like, sharp, worse with eating, improved by bringing her legs closer to her. Pt. reports that she is constipated and has decreased appetite. Pt. had a fever of 100.2 at home, associated with some chills and night sweats. CT abd/Pelvis (09/05/17) revealed: mass 12.7 cm which has progressed in size from previous study. Predominantly cystic mass in the pelvis larger when compared to the comparison study either hematoma or seroma. Abscess cannot be entirely excluded Hemangioma right lobe of the liver. - IR placed drain into abdomen fluid collection on 09/06..bloody fluid - pain control adjustment. - f/u cytology shows malignant cells and gs/cx ngtd - Pt with fevers since 09/07...zosyn empirically. blood cx ngtd. . presumed related to fluid collection. - c.diff positive. flagyl started on 09/10 and zosyn stopped. - repeat CT Abd/pelvis (09/10/17) --> pelvic fluid collection essentially unchanged - Case d/w IR, Dr. Stein (09/12) - IR will place tPA in drain (09/12) - IR does NOT feel that pt would benefit from a 2nd drain. - Case d/w Dr. Garsia (09/12). He reevaluated pt (09/13). He discussed options regarding further chemo or radiation. - less output from drainage catheter in the last few days - Pt continues with pelvic/abd pain requiring IV pain medication - (09/19) Repositioned new 12 F tube deeper into collection and coiled a wire within the collection to try to break up some of the locules. Approx 10mL of sanguinous fluid obtained. Placed 4mg TPA into collection to try to aid in aspiration. - Case discussed with Dr. Garsia. Case discussed with Dr. Otto (09/19)plan for radiation simulation (09/20) then start Radiation or Tuesday for a total of 10 treatments. - Patient seen by Andriy [facility] [employer] oncology discussed the possible option of palliative care. Patient receptive to meeting with Palliative care - DVT prophylaxis with SCDs - supportive care C. difficile colitis - zosyn stopped. (09/08 - 09/10/17) - PO flagyl (09/10 - present) stop date 09/24 - 09/19 patient continues to have about 3 soft stools per day. recheck for C diff negative - will start Questran for bulking - supportive care. Uterine cancer - see above Anxiety and depression continue home Paxil 40 mg PO QHS Pancytopenia Patient H/H 6.3, 18.1 (09/14) -> 7.1 (09/15) -> 8.5 (09/16) -> 8.4 (09/17) -> 8.2 () -> 8.3 (09/19) -> CBC pending for (09/20) Plt count 15 -> 15 (09/15) -> 17 (09/16) -> 24 (09/17) -> 31 (09/18) -> 55 (09/19) - > CBC pending for (09/20) no signs of active bleeding Patient reports last chemotherapy treatment was 08/31/17 consult placed to Hematology/Medical oncology, appreciate input. Feel that the drop in Hgb and Plt likely secondary to myelosuppression secondary to chemotherapy two weeks ago. 2 units PRBC transfused (09/14) Hematology ordered additional 1 unit of PRBC (09/15) Patient also received Plt (09/14) Fever Patient had fevers 09/14 till 09/15 early AM, T max 102.7 could be reactive to blood products, tumor fever or infectious Blood cultures x 2 obtained NGTD Patient denies dysuria (does have a joshi in place) patient also denies SOB or cough repeat UA urine culture shows no growth in 48 hours CXR reviewed and reveals no acute cardiopulmonary disease (2) C. difficile colitis ICD Codes: A04.72 - Enterocolitis due to Clostridium difficile, not specified as recurrent Status: Acute (3) Uterine cancer ICD Codes: C55 - Malignant neoplasm of uterus, part unspecified Status: Chronic Plan: - see above (4) Anxiety and depression ICD Codes: F41.8 - Other specified anxiety disorders Status: Chronic (5) Pancytopenia ICD Codes: D61.818 - Other pancytopenia (6) Fever ICD Codes: R50.9 - Fever, unspecified Assessment and Plan Patient examined. Assessment and plan formulated with Lashanda Call PA-C. I agree with the above. drain exchanged and tpa given 09/19 ct simulation for radiation. cont supportive care. complete abx for c.diff Problem Qualifiers (1) Abdominal pain: Qualified Codes: R10.31 - Right lower quadrant pain (2) Uterine cancer: Qualified Codes: C55 - Malignant neoplasm of uterus, part unspecified Lashanda Call Sep 20, 2017 08:08 Jakub Solorio MD Sep 20, 2017 11:26
[2017-09-20] MEDS: POTASSIUM CHLORIDE 20 MEQ CONTROLLED RELEASE TAB PO SCH ×2 (08:41→21:26)
[2017-09-20] MEDS: PANTOPRAZOLE SOD 40 MG DELAYED RELEASE TAB PO SCH (08:41)
[2017-09-20] MEDS: SODIUM CHLORIDE 0.9% FLUSH 10 ML FLUSH IV FLUSH SCH ×2 (08:44→21:00)
--- NOTE | 2017-09-20 09:24 | MB ---
cc: MEET COLLIER M.D., EDWARD B. DO MOLPUS, KELLY L. MD FACTOR,GORDON BLACK,MERYL Carrizales M.D. FOLLOW-UP TO INITIAL CONSULTATION 09/20/2017 DAILY PROGRESS NOTE Essentially 15 minutes of this 15-minute [id number] encounter was spent in counseling and coordination of care. I met with Althea Reyna. Her sister is again at the bedside. Reviewed the findings in her case to date. She underwent reevaluation of the pelvic fluid collection where the drain seemed to have been dislodged to the periphery of the fluid collection that was draining inefficiently and so interventional radiology reevaluated and replaced a new drain that seems to be draining effectively. 700 cc of predominantly sanguineous fluid is recorded overnight and there seems to be more in the collection bag. She has had an increase in abdominal and pelvic pain the last couple of days and that seems to have been improved to some extent. Whether or not it is related to the new drain placement or whether or not it is related to other factors is unclear, possibly the improvement or resolution of her Clostridium difficile colitis. Nevertheless, her abdominal and pelvic pain are improved to some extent. I had the opportunity speak with Dr. Gordon Otto and he graciously saw her in consultation with concern that the central mass effect although it has a cystic component we know the cytology from it shows malignant cells such that it may well be at least in part related to the tumor. It is possible she continued to have bleeding in this area when she was thrombocytopenic from chemotherapy as her platelet count went down to 15,000, but it is also noted that she had this bleeding prior to profound thrombocytopenia such that there seems to be other contributing factors. As per our prior discussion, if with effective drainage this fluid collection persists there are other things contributing to it its persistence and I believe that is the case now since such that we must realize that this is likely to be tumor related. We know from the clinical behavior of carcinosarcomas they can be quite aggressive and they can present as recurrence in this fashion. VITAL SIGNS On exam she remains afebrile, vital signs are stable. LABORATORY H&H yesterday was 8.3 and 24.9. Electrolytes show BUN and creatinine 11 and 0.72. No labs yet this morning. Her cultures from the pelvic fluid as well as blood cultures have all been negative to date, now 4-5 days out with no growth. PHYSICAL EXAMINATION GENERAL: She is alert and oriented x3, in no acute distress, remains in good spirits. She was up walking around unassisted and in that regard doing well. ABDOMEN: On abdominal exam she tolerates deep palpation in all four quadrants with minimal discomfort. At the present time there is no rebound or guarding. The drain site in the right lower quadrant is clean. Additional time was spent in discussion. Questions were asked and answered. She understands the rationale for the recommendations of radiation. Will put chemotherapy on hold as the morbidity associated with simultaneous radiation and chemotherapy is thought to be excessive, especially given her bone marrow suppression Specific questions were asked and answered regarding the anticipated side effects as well as hopeful benefits of radiation therapy. Discussion was continued until they felt that all questions were satisfactorily answered and they expressed good understanding. MD JOVANI Dumont/GIBRAN /8:24 AM /9:05 AM MTDLeah
[2017-09-20] MEDS: CHOLESTYRAMINE 4 GM PACKET PO SCH (10:04)
--- NOTE | 2017-09-20 10:43 | PD.CONS ---
Consult Service Palliative Care Consult Requested By DEBBIE Call/ Dr. Garvin. Primary Care Physician Delmar Gary M.D. Reason for Consultation a. To assist with evaluation and management of symptoms including: pain. b. To assist medical decision maker(s) with: better understanding of current medical conditions; weighing benefits/burdens of medical treatment options; making medical treatment decisions. . (Lucy Grimm) HPI History of Present Illness Mrs. 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 Patient presented to emergency room on 09/05/17 endorsing right lower quadrant abdominal pain for the prior 3 days, decreased appetite, fever associated with chills and night sweats. CT of abdomen and pelvis revealing cystic mass in the pelvis measuring 12.7 cm suggesting hematoma or seroma, however, abscess could not be excluded. Patient was previously seen in the emergency room on 08/24/17 secondary to lower abdominal pain. At that time, CT abdomen and pelvis revealed heterogeneous mass in the uterine surgical bed measuring 9.6 x 5.0 x6.8 cm. Patient was admitted for further management. Patient was originally diagnosed of stage IV uterine carcinosarcoma on March 2017. She was treated with neoadjuvant Taxol and carboplatin chemotherapy, however, changed to single agent carboplatin secondary to infusion reaction to Taxol. On June,, patient underwent robotic-assisted laparoscopic hysterectomy, salpingo-oophorectomy, omentectomy and resection of tumor. Post surgical intervention, patient was continued on single agent chemotherapy. Oncology, Dr. Garsia consulted during this admission. Recommending drainage of fluid collection. On 09/06/17, patient underwent CT assisted drainage catheter placement in the left pelvic fluid collection. A small amount of serosanguineous fluid was aspirated and sent for cytology which was positive for very poorly differentiated malignant cells, consistent with carcinoma. Clinical course complicated by C. difficile. Follow-up imaging not showing any significant decrease in size of this fluid-like mass in the pelvis, concerns of ineffective drainage. Hematology, Dr. Holden consulted on 09/14/16 for evaluation of thrombocytopenia and anemia secondary to chemotherapy. Patient underwent replacement of abdominal drainage catheter on 09/19/17. Radiation oncology, Dr. Otto consulted 09/18/17 for consideration of radiation to the mass. Plan for radiation simulation today, followed by 10 treatments. Palliative care has been consulted for further clarifications of goals of care given progression of disease. Patient seen in her room, resting bed in no acute distress. Endorsing right upper lower quadrant pain, exacerbated with movement. Alleviating with aggressive pain medication. Pelvic drain in place, moderate amount of serosanguineous output. Patient reports that her appetite remains poor to fair. No nausea/vomiting reported. Currently being treated for C. difficile, last BM yesterday. Repeat C. difficile CPR 09/19/17 negative. Urine, blood and pelvic fluid cultures negative. Patient remains afebrile, stable hemodynamically. Tolerating room air with oxygen saturation in the mid to high 90s. Sister Carmen at bedside. In this first visit, introduced the role of palliative care in regards to symptom management as well as support surrounding advanced directives and goals of care. Patient receptive to visit. Obtained patient's past medical history and psychosocial history. Reviewed events leading to this hospitalization, clinical course and current medical management. Patient with a very good understanding of her diagnosis of stage IV uterine carcinosarcoma. Verbalized understanding of palliative chemotherapy and radiation but the goal to control symptoms, improve quality of life. Reviewed that additional palliative systemic therapy is subject to her performance status. Reviewed risks, benefits and limitations of CPR, intubation and mechanical ventilation given progressive disease. Patient electing full code at this time. Reviewed previously completed advance directives, no changes required. Introduce hospice philosophy and benefits. Patient receptive to comfort directed care with hospice should her clinical condition continues to worsen, increased symptoms burden or progressive physical decline. Goals of therapy remain aggressive at this time. . Function/Cognitive Trajectory Patient residing independently prior to this hospitalization. Independent with ADLs. No cognitive deficit or decline reported. . (Lucy Grimm) Review of Systems Constitutional: COMPLAINS OF: Change in appetite, Pain, DENIES: Fever Endocrine: DENIES: Heat/cold intolerance Eyes: DENIES: Eye inflammation, Eye pain Ears, nose, mouth, throat: DENIES: Hearing loss, Throat pain, Running Nose, Epistaxis, Sinus Pain Respiratory: DENIES: Cough, Wheezing, Shortness of breath Cardiovascular: DENIES: Dyspnea on Exertion, Lower Extremity Edema Gastrointestinal: COMPLAINS OF: Abdominal pain, Diarrhea, DENIES: Nausea, Vomiting, Difficulty Swallowing Genitourinary: DENIES: Urinary incontinence, Hematuria Musculoskeletal: DENIES: Joint pain, Back pain, Neck pain, Decreased range of motion Integumentary: DENIES: Abnormal pigmentation, Non-healing sores Hematologic/Lymphatics: COMPLAINS OF: Bruising Immunologic/Allergic: DENIES: Eczema Neurologic: DENIES: Abnormal gait, Localized weakness, Speech Problems, Tremor Psychiatric: DENIES: Anxiety, Confusion, Mood changes, Hallucinations, Agitation (Lucy Grimm) Past Family Social History Coded Allergies: ciprofloxacin (Verified Allergy, Severe, 06/30/17) Past Medical History Stage IV uterine carcinosarcoma Lumbar radiculopathy Hyperlipidemia GERD Anxiety Depression Migraine Uterine fibroids . Past Surgical History Robotic assisted Laparoscopic hysterectomy, BSO, resection of pelvic mass, omentectomy and tumor debulking with Dr. Garsia on 06/30/2017. Upper endoscopy in 2013 Colonoscopy in 2013 . Reported Medications Oxycodone-Acetaminophen 5-325 (Oxycodone HCl/Acetaminophen) 5 Mg-325 Mg Tablet 1 Tab PO Q4H PRN Calcium 600 with Vitamin D (Calcium Carbonate-Cholecalciferol) 600-400 mg-Unit Tab 1 Tab PO DAILY Protonix (Pantoprazole Sodium) 40 Mg Tab 40 Mg PO DAILY Zofran (Ondansetron HCl) 4 Mg Tab 4 Mg PO Q8HR PRN Zocor (Simvastatin) 40 Mg Tab 40 Mg PO HS Paxil (Paroxetine HCl) 10 Mg Tab 40 Mg PO HS . Current Medications Medications (Trade) Dose Ordered Sig/Khloe Route Start Time Stop Time Status Last Admin (NS Flush) 2 ml UNSCH PRN IV FLUSH 09/05/17 16:15 09/13/17 14:55 (NS Flush) 2 ml BID IV FLUSH 09/05/17 21:00 09/20/17 08:44 (Tylenol) 650 mg Q4H PRN PO 09/05/17 16:15 09/15/17 14:05 (Zofran Inj) 4 mg Q6H PRN IVP 09/05/17 16:15 (Narcan Inj) 0.4 mg UNSCH PRN IV PUSH 09/05/17 16:15 (Milk Of Magnesia Liq) 30 ml Q12H PRN PO 09/05/17 16:15 (Dulcolax Supp) 10 mg DAILY PRN RECTAL 09/05/17 16:15 (Protonix) 40 mg DAILY PO 09/06/17 09:00 09/20/17 08:41 (Paxil) 40 mg HS PO 09/05/17 21:00 09/19/17 19:53 (Pravachol) 80 mg HS PO 09/05/17 21:00 09/19/17 19:53 (NS Inj) 10 ml Q8HR IRRIGATION 09/06/17 22:00 09/20/17 05:39 (KCl) 20 meq Q12HR PO 09/07/17 21:00 09/20/17 08:41 (Lactulose Liq) 30 ml BID PRN PO 09/07/17 09:15 (Miralax) 17 gm BID PRN PO 09/07/17 10:30 (Morphine Inj) 4 mg Q3H PRN IV PUSH 09/08/17 09:45 09/20/17 05:38 (Percocet 10-325 Mg) 1 tab Q4H PRN PO 09/08/17 09:45 09/20/17 08:41 (Flagyl) 500 mg Q8HR PO 09/10/17 22:00 09/20/17 05:38 (Tums Chew) 500 mg Q2H PRN CHEW 09/13/17 17:00 09/14/17 21:24 (Duragesic 25 Mcg Patch.72 Hr) 1 patch Q3D T-DERMAL 09/19/17 14:00 09/19/17 16:46 Miscellaneous Information 1 Q3D T-DERMAL 09/22/17 14:00 (Questran 4 Gm Pkt) 4 gm DAILY PO 09/20/17 09:00 Family History Patient has 3 children who are alive and well. . Substance Use Tobacco: Denies. Alcohol: Denies. Prescription med abuse: Denies. Illicits: Denies. . Psychosocial History Patient originally from [place]. Moved to [place] 6 years ago. Patient is , in 2002. Patient has 3 children. 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 . Spiritual/Cultural Factors Seventh day Catholic marian. . (Lucy Grimm) Living Will: Copy in medical record Health Care Surrogate: Copy in medical record Date completed: 06/30/2017. . Health Care Surrogate(s): Patient has designated her sister Yoana Lopez as healthcare surrogate decision- maker, alternate surrogate is her mother Janice Abbott. . Documented care wishes: Living will with standard verbiage as it pertains to terminal condition, end- stage condition or persistent vegetative state. . Today's verbally stated goals: Full code. Patient electing aggressive management at this time. . Family/friends goals: Sister Carmen fully supportive of patient's wishes. . Ethical and Legal Issues No ethical legal issues identified. . (Lucy Grimm) Physical Exam Vital Signs Date Time Temp Pulse Resp B/P (MAP) Pulse Ox O2 Delivery O2 Flow Rate FiO2 09/20/17 08:00 98.5 81 16 109/53 (71) 95 09/20/17 04:20 98.9 82 18 102/58 (73) 95 09/20/17 00:24 99.7 81 16 107/57 (74) 96 09/19/17 19:56 98.5 72 18 102/60 (74) 97 09/19/17 16:00 75 18 118/78 (91) 96 09/19/17 15:45 79 18 111/75 (87) 99 09/19/17 15:30 77 20 113/80 (91) 97 09/19/17 15:00 75 20 96/58 (71) 98 09/19/17 14:45 98.5 77 18 104/64 (77) 97 09/19/17 14:45 98.5 77 18 104/64 (77) 97 09/19/17 12:00 97.1 58 18 101/56 (71) 97 Exam CONSTITUTIONAL/GENERAL: This is an adequately nourished patient, in no apparent distress. TUBES/LINES/DRAINS: PIV's, pelvic drainage catheter with moderate amount of serosanguineous output, Ortega catheter. SKIN: No jaundice, rashes, or lesions. Ecchymoses on upper extremities. No wounds seen anteriorly. Skin temperature appropriate. Not diaphoretic. HEAD: Atraumatic. Normocephalic. EYES: Pupils equal and round and reactive. Extraocular motions intact. No scleral icterus. No injection or drainage. ENT: Hearing grossly normal. Nose without bleeding or purulent drainage. Moist oral mucosa. NECK: Trachea midline. Supple, nontender. CARDIOVASCULAR: Regular rate and rhythm without murmurs, gallops, or rubs. No JVD. Peripheral pulses symmetric. RESPIRATORY/CHEST: Symmetric, unlabored respirations. Clear to auscultation. Breath sounds equal bilaterally. No wheezes, rales, or rhonchi. GASTROINTESTINAL: Abdomen soft, round, tender to palpation. Pelvic drainage catheter in place. Bowel sounds present. GENITOURINARY: Without palpable bladder distension. Ortega catheter in place. MUSCULOSKELETAL: Extremities without clubbing, cyanosis, or edema. No joint tenderness or effusion noted. No calf tenderness. No mottling or clubbing. NEUROLOGICAL: Awake and alert. Motor and sensory grossly within normal limits. Follows commands. Cognitively sharp. Moves all extremities. PSYCHIATRIC: No obvious anxiety/depression. no apparent hallucinations or other psychotic thought process. Pleasant and cooperative. . (Lucy Grimm) Diagnostic Tests Laboratory Laboratory Tests Test 09/18/17 10:30 09/19/17 08:06 09/19/17 21:39 White Blood Count 2.3 TH/MM3 (4.0-11.0) 2.7 TH/MM3 (4.0-11.0) Red Blood Count 2.70 MIL/MM3 (4.00-5.30) 2.74 MIL/MM3 (4.00-5.30) Hemoglobin 8.2 GM/DL (11.6-15.3) 8.3 GM/DL (11.6-15.3) Hematocrit 24.4 % (35.0-46.0) 24.9 % (35.0-46.0) Mean Corpuscular Volume 90.3 FL (80.0-100.0) 91.0 FL (80.0-100.0) Mean Corpuscular Hemoglobin 30.5 PG (27.0-34.0) 30.3 PG (27.0-34.0) Mean Corpuscular Hemoglobin Concent 33.7 % (32.0-36.0) 33.3 % (32.0-36.0) Red Cell Distribution Width 16.0 % (11.6-17.2) 15.5 % (11.6-17.2) Platelet Count 31 TH/MM3 (150-450) 55 TH/MM3 (150-450) Mean Platelet Volume 8.6 FL (7.0-11.0) 9.4 FL (7.0-11.0) Neutrophils (%) (Auto) 68.4 % (16.0-70.0) 65.7 % (16.0-70.0) Lymphocytes (%) (Auto) 25.5 % (9.0-44.0) 26.0 % (9.0-44.0) Monocytes (%) (Auto) 5.7 % (0.0-8.0) 7.8 % (0.0-8.0) Eosinophils (%) (Auto) 0.3 % (0.0-4.0) 0.3 % (0.0-4.0) Basophils (%) (Auto) 0.1 % (0.0-2.0) 0.2 % (0.0-2.0) Neutrophils # (Auto) 1.6 TH/MM3 (1.8-7.7) 1.7 TH/MM3 (1.8-7.7) Lymphocytes # (Auto) 0.6 TH/MM3 (1.0-4.8) 0.7 TH/MM3 (1.0-4.8) Monocytes # (Auto) 0.1 TH/MM3 (0-0.9) 0.2 TH/MM3 (0-0.9) Eosinophils # (Auto) 0.0 TH/MM3 (0-0.4) 0.0 TH/MM3 (0-0.4) Basophils # (Auto) 0.0 TH/MM3 (0-0.2) 0.0 TH/MM3 (0-0.2) CBC Comment AUTO DIFF AUTO DIFF Differential Total Cells Counted 100 Neutrophils % (Manual) 54 % (16-70) Band Neutrophils % 13 % (0-6) Lymphocytes % 26 % (9-44) Monocytes % 7 % (0-8) Neutrophils # (Manual) 1.5 TH/MM3 (1.8-7.7) Differential Comment FINAL DIFF MANUAL AUTO DIFF CONFIRMED Platelet Estimate LOW (NORMAL) LOW (NORMAL) Platelet Morphology Comment NORMAL (NORMAL) NORMAL (NORMAL) Stool C. difficile Toxin (PCR) NEGATIVE (NEGATIVE) Stl C. difficile Toxin Epiderm 027 PRESUMPTIVE NEGATIVE (Lucy Grimm [facility]) Result Diagram: 09/19/17 0806 09/17/17 0820 Microbiology Microbiology Date/Time Source Procedure Growth Status 09/15/17 02:15 Blood Peripheral Aerobic Blood Culture - Preliminary NO GROWTH IN 4 DAYS Resulted 09/15/17 02:15 Blood Peripheral Anaerobic Blood Culture - Preliminary NO GROWTH IN 4 DAYS Resulted 09/15/17 11:45 Urine Catheterized Urine Urine Culture - Final NO GROWTH IN 48 HOURS. Complete 09/06/17 16:00 Abscess Abdomen Gram Stain - Final Complete 09/06/17 16:00 Abscess Abdomen Wound Culture - Final NO GROWTH IN 72 HRS.--AEROBICALLY OR ... Complete Imaging Last Impressions Catheter Change 09/19/17 0000 Signed Impressions: Service Date/Time: Tuesday, September 19, 2017 14:01 - CONCLUSION: The right lower quadrant drainage catheter was manipulated deeper into the collection. 4 mg of TPA was instilled into the collection to try and improve drainage. Son Elizabeth Jr., MD Abdomen/Pelvis CT 09/17/17 0000 Signed Impressions: Service Date/Time: Sunday, September 17, 2017 16:03 - CONCLUSION: 1. Minimally improved large pelvic collection now measuring 14.5 x 7.5 cm in comparison to 16.1 x 7.5 cm on prior exam. 2. Interval retraction of the percutaneous drainage catheter with pigtail in the inferior lateral margin of the collection and most proximal sidehole abutting the collection wall. 3. Remainder of the exam is unchanged. Jamaal Meadows MD Chest X-Ray 09/15/17 0000 Signed Impressions: Service Date/Time: September 09:14 - CONCLUSION: 1. No acute cardiopulmonary disease. Jamaal Meadows MD Abscess Drainage CT 09/06/17 0833 Signed Impressions: Service Date/Time: Wednesday, September 06, 2017 15:39 - CONCLUSION: 1. Uncomplicated CT-guided drainage catheter placement in left pelvic fluid collection. Only a small amount of serosanguineous fluid could be aspirated immediately following catheter placement. Entire sample was submitted for laboratory analysis. Overall, findings are most consistent with pelvic hematoma. Jamaal Meadows MD Procedures * 09/06/17: Pelvic drainage catheter placement. * 09/19/17: Replacement of pelvic drainage catheter. . (Lucy Grimm) Patient/Family Conference Present at Family Conference: Sister Carmen and patient. Family Conference Time (mins): 44 Family Conference Location: Bedside Issues Discussed: * Palliative care role, purpose, approach * Additional medical, psychosocial, and spiritual history * Patients general health, functional status, and cognitive changes in the months leading up to the current hospitalization * Patient/family understanding of the current medical problems -progressive stage IV uterine carcinosarcoma. * Patient/family understanding of prognosis * Patients goals of care as best understood from advance directives and/or conversations and/or values * Current medical treatment options and benefits/burdens of those options * Likely scenarios comparing ongoing aggressive care with a transition to comfort measures only * Questions answered to the best of my ability * Palliative care contact information provided * Hospice philosophy and benefits * Risks, benefits and limitations of CPR, intubation and mechanical ventilation given her progressive carcinosarcoma. . (Lucy Grimm) Assessment and Plan Disease Oriented Problem List: (1) Uterine cancer (2) C. difficile colitis (3) Anemia (4) Pancytopenia (5) Abdominal fluid collection Symptom Scale: (1) Abdominal pain 0-10 Scale: 8 Pertinent Non-Medical Issues Psychosocial: Patient originally from [place]. Moved to [place] 6 years ago. Patient is , in 2002. Patient has 3 children. 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 Spiritual: Seventh day Catholic marian. Legal: Advance directives completed. Ethical issues impacting care: No ethical issues have been identified. . Important Contacts Sister/[facility] Yoana Lopez . Mother/alt [facility] Janice Abbott . Prognosis Mrs. 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 Medical course complicated by abdominal cystic mass requiring catheter drainage placement. Patient with progressive disease in spite of chemotherapy. Currently seeking palliative radiation. Patient at a very high risk for further complications, continue decline and . Patient appears hospice appropriate should she elects comfort-directed care. . Code Status: Full Code Plan * CODE STATUS: Full code. Risks, benefits and limitations of CPR, intubation and mechanical ventilation discussed with patient given progressive disease. * HEALTHCARE DECISION-MAKING: Patient participating in medical decision-making. Patient has a very good understanding of her diagnosis, prognosis and retains the ability to weight benefits versus burden of treatment options. Advance directives completed. Patient has designated her sister Yoana Lopez as healthcare surrogate decision-maker, alternate surrogate is her mother Janice Abbott. * GOALS OF CARE: Goals of therapy is to continue with ongoing aggressive attempts at disease specific therapy. Overall goal is for palliation of symptoms and prolongation of survival. Patient was encouraged to discuss limitations of treatment with her family, mainly her sister Yoana and her mother Janice as they are her designated healthcare surrogate. Hospice philosophy and benefits introduced. Discussed the future role of hospice should her symptom burden increases or she has additional functional decline which could limit additional treatment options. Patient appears receptive to this. * SYMPTOMS: =Pain, secondary to burden of disease. Home regimen of Percocet 5/ 325 mg every 4 hours as needed. Currently on Percocet 10/325 mg every 4 hours as needed, has required 5 doses yesterday and 3 doses today as of this morning. Morphine 4 mg IV q3hr PRN, required 6 doses yesterday and 2 doses today as of this morning. Patient was started on fentanyl patch 25 mcg yesterday, reviewed that it may take from 12-24 hours to full effect. No further recommendations at this time. = Bowel regimen: Being treated for C. difficile. CPR negative yesterday. Last BM 09/19. On lactulose daily twice a day. Milk of magnesia and Dulcolax suppository available as needed. * Case discussed with oncology, Ricky Laguna NP. * Contact information has been provided to patient and sister Carmen. * Palliative care will continue to follow-up for further clarifications of goals of care as patient's clinical course continues to evolve. . (Lucy Grimm) Time Spent Total Floor Time (mins): 75 (Total time to include review and summarization of available medical records to include prior hospitalizations, physical exam, goals of care conversation with patient and sister, case discussion with oncology.) >50% Counseling/Coord of Care: Yes (Lucy Grimm) Thank you for the opportunity to participate in the care of Ms. Reyna. (Lucy Grimm) Attestation To help prompt me to consider important information that might be impacting today's encounter and assessment, information from prior notes written by myself or my colleagues may have been "brought forward" into today's note. My signature on this note, however, is an attestation that I personally performed the exam, history, and/or decision-making noted today, and, unless otherwise indicated, the interactions with patient, family, and staff as well as the review of records all occurred today. I also attest that the listed assessment and stated plan reflect my best clinical judgment today based on the combination of historical information, prior notes, and today's exam/ interactions. When time spent is documented, it refers only to time spent today by the signer, or if indicated, combined time spent today by collaborating physician/nurse practitioner. (Lucy Grimm) Collaborating MD Comments Chart reviewed. Case discussed with palliative care NON LICENSED NUCLEAR PLANT OPERATOR. Above NON LICENSED NUCLEAR PLANT OPERATOR note reviewed and I concur. . (Vimal Murphy MD) Lucy Grimm Sep 20, 2017 10:43 Vimal Murphy MD Sep 28, 2017 16:57
[2017-09-20 12:00] VITALS: BP 103/62; PULSE 67; RESP 16; TEMP 98.6; O2SAT 94
[2017-09-20 13:32] LABS: AUTOMATED NEUTROPHIL # 1.5 TH/MM3 (1.8-7.7); BASOPHIL % 0.2 % (0.0-2.0); EOSINOPHIL % 0.2 % (0.0-4.0); HEMATOCRIT 23.6 % (35.0-46.0); HEMOGLOBIN 8.2 GM/DL (11.6-15.3); LYMPH % 27.5 % (9.0-44.0); LYMPHOCYTE # 0.7 TH/MM3 (1.0-4.8); MEAN CELL VOLUME 90.3 FL (80.0-100.0); MEAN CORPUSCULAR HEMOGLOBIN 31.2 PG (27.0-34.0); MEAN CORPUSCULAR HGB CONC 34.6 % (32.0-36.0); MEAN PLATELET VOLUME 8.8 FL (7.0-11.0); MONO % 9.8 % (0.0-8.0); MONOCYTE # 0.2 TH/MM3 (0-0.9); NEUT % 62.3 % (16.0-70.0); PLATELET COUNT 72 TH/MM3 (150-450); RED BLOOD COUNT 2.61 MIL/MM3 (4.00-5.30); RED CELL DISTRIBUTION WIDTH 16.3 % (11.6-17.2); WHITE BLOOD COUNT 2.5 TH/MM3 (4.0-11.0)
[2017-09-20 16:00] VITALS: BP 106/60; PULSE 71; RESP 16; TEMP 98; O2SAT 96
[2017-09-20 16:04] LABS: SPHEROCYTES OCC (NORMAL)
--- NOTE | 2017-09-20 17:44 | RC ---
cc: GORDON OTTO EDWARD B. DO MOLPUS, KELLY L. MD DATE OF SERVICE 09/19/2017 Initial evaluation HISTORY Ms. Reyna is a 57-year-old female I am asked to see by Dr. Garsia. A copy of this evaluation will be forwarded to Dr. Garsia to aide in the medical decision making process. Treatment recommendations be provided as well. Discussed the case with Dr. Garvin as well. Ms. Reyna is a 57-year-old female with recurrent stage IV uterine carcinosarcoma recently admitted for abdominal discomfort, thrombocytopenia, failure to thrive. She is seen as an inpatient. She is currently positive for C diff and has isolation contact criteria. She had been receiving systemic chemotherapy as well. She has a history of stage IV uterine carcinosarcoma and underwent three cycles carboplatin, Taxol and then total radical hysterectomy by Dr. Garsia and additional chemotherapy. CT scan of the abdomen and pelvis demonstrates fluid collection as well as mass. She does have a drain in place as well that will be changed today. She denies any prior radiation therapy. PAST MEDICAL HISTORY Significant for: 1. Anxiety. 2. Depression. 3. Back pain. 4. Hypercholesterolemia. ALLERGIES CIPROFLOXACIN. FAMILY HISTORY Negative for malignancy. MEDICATIONS Please see electronic medical record. SOCIAL HISTORY She does not smoke or consume alcohol. REVIEW OF SYSTEMS GENERAL: Fatigued. GASTROINTESTINAL: With C. Difficile looser. VITAL SIGNS: Reviewed. EYES: Extraocular muscles intact. EXTREMITIES: Clubbing or edema. NEUROLOGIC: Follw up commands. IMAGING Radiographic imaging data, please see above. Reviewed CT, mass approximately 14-16 cm. IMPRESSION Ms. Reyna is a 57-year-old female with recurrent carcinosarcoma. RECOMMENDATIONS We discussed definitive radiation therapy. Discussed palliative care. We discussed CT simulation. She is interested in proceeding with palliative approach of radiation therapy. We discussed likely radiation may decrease fluid collection. It may help with pain or discomfort and slow down disease progression. She is interested in considering radiation therapy and trying this. We will schedule her for CT simulation Tuesday. Discussed with Dr. Garsia and Dr. Garvin Gordon Otto MD Radiation Oncologist JOSEPHINE/YECENIA /12:59 PM /5:22 PM JEANNE
[2017-09-20 20:00] VITALS: BP 96/52; PULSE 80; RESP 18; TEMP 98.4; O2SAT 97
[2017-09-20] MEDS: PRAVASTATIN SOD 80 MG TAB PO SCH (21:25)
[2017-09-20] MEDS: PARoxetine HCL 20 MG TAB PO SCH (21:26)
[2017-09-21] VITALS: BP 103/58; PULSE 78; RESP 18; TEMP 98.3; O2SAT 97
[2017-09-21] MEDS: MORPHINE SULFATE 4 MG/ML INJ IV PUSH PRN ×5 (03:48→20:02)
[2017-09-21] MEDS: oxyCODONE/ACETAMINOPHEN 10 MG/325 MG TAB PO PRN ×4 (03:56→17:58)
[2017-09-21 04:00] VITALS: BP 107/64; PULSE 69; RESP 18; TEMP 98.4; O2SAT 96
[2017-09-21] MEDS: SODIUM CHLORIDE 0.9% 10 ML VIAL IRRIGATION SCH ×3 (06:00→20:02)
[2017-09-21] MEDS: metroNIDAZOLE 500 MG TAB PO SCH ×3 (06:50→20:01)
--- NOTE | 2017-09-21 07:15 | PD.ONC.PN ---
Subjective Subjective Remarks patient is resting in bed has met with Dr. Otto and wants to try Palliative radiation has met with Palliative Care and we appreciate assistance goal remain aggressive despite advancement of disease while on treatment still having abdominal pain Objective Data Date Time Temp Pulse Resp B/P (MAP) Pulse Ox O2 Delivery O2 Flow Rate FiO2 09/21/17 04:00 98.4 69 18 107/64 (78) 96 09/21/17 00:00 98.3 78 18 103/58 (73) 97 09/20/17 20:00 98.4 80 18 96/52 (67) 97 09/20/17 16:00 98.0 71 16 106/60 (75) 96 09/20/17 12:00 98.6 67 16 103/62 (76) 94 09/20/17 08:00 98.5 81 16 109/53 (71) 95 09/21/17 09/21/17 09/21/17 07:00 15:00 23:00 Output Total 250 ml Balance -250 ml Result Diagram: 09/20/17 1253 09/17/17 0820 Laboratory Results Laboratory Tests Test 09/20/17 12:53 White Blood Count 2.5 TH/MM3 Red Blood Count 2.61 MIL/MM3 Hemoglobin 8.2 GM/DL Hematocrit 23.6 % Mean Corpuscular Volume 90.3 FL Mean Corpuscular Hemoglobin 31.2 PG Mean Corpuscular Hemoglobin Concent 34.6 % Red Cell Distribution Width 16.3 % Platelet Count 72 TH/MM3 Mean Platelet Volume 8.8 FL Neutrophils (%) (Auto) 62.3 % Lymphocytes (%) (Auto) 27.5 % Monocytes (%) (Auto) 9.8 % Eosinophils (%) (Auto) 0.2 % Basophils (%) (Auto) 0.2 % Neutrophils # (Auto) 1.5 TH/MM3 Lymphocytes # (Auto) 0.7 TH/MM3 Monocytes # (Auto) 0.2 TH/MM3 Eosinophils # (Auto) 0.0 TH/MM3 Basophils # (Auto) 0.0 TH/MM3 CBC Comment AUTO DIFF Differential Comment AUTO DIFF CONFIRMED Platelet Estimate LOW Platelet Morphology Comment NORMAL Basophilic Stippling FAINT Spherocytes OCC Imaging Studies Last Impressions Catheter Change 09/19/17 0000 Signed Impressions: Service Date/Time: Tuesday, September 19, 2017 14:01 - CONCLUSION: The right lower quadrant drainage catheter was manipulated deeper into the collection. 4 mg of TPA was instilled into the collection to try and improve drainage. Son Elizabeth Jr., MD Abdomen/Pelvis CT 09/17/17 0000 Signed Impressions: Service Date/Time: Sunday, September 17, 2017 16:03 - CONCLUSION: 1. Minimally improved large pelvic collection now measuring 14.5 x 7.5 cm in comparison to 16.1 x 7.5 cm on prior exam. 2. Interval retraction of the percutaneous drainage catheter with pigtail in the inferior lateral margin of the collection and most proximal sidehole abutting the collection wall. 3. Remainder of the exam is unchanged. Jamaal Meadows MD Chest X-Ray 09/15/17 0000 Signed Impressions: Service Date/Time: September 09:14 - CONCLUSION: 1. No acute cardiopulmonary disease. Jamaal Meadows MD Abscess Drainage CT 09/06/17 0833 Signed Impressions: Service Date/Time: Wednesday, September 06, 2017 15:39 - CONCLUSION: 1. Uncomplicated CT-guided drainage catheter placement in left pelvic fluid collection. Only a small amount of serosanguineous fluid could be aspirated immediately following catheter placement. Entire sample was submitted for laboratory analysis. Overall, findings are most consistent with pelvic hematoma. Jamaal Meadows MD Administered Medications Medications (Trade) Dose Ordered Sig/Khloe Route PRN Reason Start Time Stop Time Status Last Admin Dose Admin Sodium Chloride (NS Flush) 2 ml UNSCH PRN IV FLUSH FLUSH AFTER USING IV ACCESS 09/05/17 16:15 09/13/17 14:55 Sodium Chloride (NS Flush) 2 ml BID IV FLUSH 09/05/17 21:00 09/20/17 21:00 Acetaminophen (Tylenol) 650 mg Q4H PRN PO TEMP > 100.4 09/05/17 16:15 09/15/17 14:05 Pantoprazole Sodium (Protonix) 40 mg DAILY PO 09/06/17 09:00 09/20/17 08:41 Paroxetine HCl (Paxil) 40 mg HS PO 09/05/17 21:00 09/20/17 21:26 Pravastatin Sodium (Pravachol) 80 mg HS PO 09/05/17 21:00 09/20/17 21:25 Sodium Chloride (NS Inj) 10 ml Q8HR IRRIGATION 09/06/17 22:00 09/21/17 06:00 Potassium Chloride (KCl) 20 meq Q12HR PO 09/07/17 21:00 09/20/17 21:26 Morphine Sulfate (Morphine Inj) 4 mg Q3H PRN IV PUSH BREAKTHROUGH PAIN 09/08/17 09:45 09/21/17 03:48 Oxycodone/ Acetaminophen (Percocet 10-325 Mg) 1 tab Q4H PRN PO pain 3-10 09/08/17 09:45 09/21/17 03:56 Metronidazole (Flagyl) 500 mg Q8HR PO 09/10/17 22:00 09/21/17 06:50 Calcium Carbonate (Tums Chew) 500 mg Q2H PRN CHEW INDIGESTION 09/13/17 17:00 09/14/17 21:24 Fentanyl (Duragesic 25 Mcg Patch.72 Hr) 1 patch Q3D T-DERMAL 09/19/17 14:00 09/19/17 16:46 Cholestyramine Resin (Questran 4 Gm Pkt) 4 gm DAILY PO 09/20/17 09:00 09/20/17 10:04 Objective Remarks GENERAL: Well-nourished, well-developed patient. SKIN: Warm and dry. HEAD: Normocephalic. EYES: No scleral icterus. No injection or drainage. GASTROINTESTINAL: Abdomen soft, drain to right lower quad, dressing C/D/I MUSCULOSKELETAL: Adequate muscle tone. NEUROLOGICAL: No obvious focal deficit. Awake, alert, and oriented x3. PSYCHIATRIC: Appropriate mood and affect; insight and judgment normal. Assessment/Plan Problem List: (1) Pancytopenia ICD Codes: D61.818 - Other pancytopenia Plan: --monitor the CBC daily and transfuse if the hemoglobin is less than 8 and/or platelet count is less than 15. --pancytopenia likely d/t chemotherapy (carboplatin) -- last chemotherapy was 2 weeks ago on August 31. 09/19/17: ANC improved 1600, T max 99.0, continued thrombocytopenia but improving . continue to monitor daily labs 09/21/17: platelets continue to improve, afebrile (2) Abdominal fluid collection ICD Codes: R18.8 - Other ascites Status: Acute Plan: s/p IR drainage of pelvic fluid collection 09/06/17 drain placed cultures pending monitor drain outpt 09/19/17: patient to IR today to switch out drain for larger one in hopes of draining mass pelvic fluid cultures negative malignant cells found in pelvic fluid, radiation oncology consulted 09/21/28: drain replaced on 09/19/17 with small improvement in drainage malignant cells found in mass, patient to start palliative radiation under direction of Dr. Otto, simulation today in hopes to shrink mass discharge per hospitalist Assessment 57y/o female with uterine cancer. Hematology consulted for thrombocytopenia. Plan 1. no transfusion needed today 2. monitor CBC Andriy Laguna Sep 21, 2017 07:15
[2017-09-21 08:00] VITALS: BP 108/58; PULSE 64; RESP 20; TEMP 98.6; O2SAT 97
[2017-09-21] MEDS: PANTOPRAZOLE SOD 40 MG DELAYED RELEASE TAB PO SCH (08:29)
[2017-09-21] MEDS: SODIUM CHLORIDE 0.9% FLUSH 10 ML FLUSH IV FLUSH SCH ×2 (08:29→20:01)
[2017-09-21] MEDS: POTASSIUM CHLORIDE 20 MEQ CONTROLLED RELEASE TAB PO SCH ×2 (08:29→20:01)
[2017-09-21] MEDS: CHOLESTYRAMINE 4 GM PACKET PO SCH (08:29)
--- NOTE | 2017-09-21 10:00 | HHI.PR ---
Subjective Remarks doing ok. comfortable. Objective Vitals heart reg lng cta abd s/nt ext no edema Vital Signs Date Time Temp Pulse Resp B/P (MAP) Pulse Ox O2 Delivery O2 Flow Rate FiO2 09/21/17 08:00 98.6 64 20 108/58 (75) 97 09/21/17 04:00 98.4 69 18 107/64 (78) 96 09/21/17 00:00 98.3 78 18 103/58 (73) 97 09/20/17 20:00 98.4 80 18 96/52 (67) 97 09/20/17 16:00 98.0 71 16 106/60 (75) 96 09/20/17 12:00 98.6 67 16 103/62 (76) 94 09/21/17 09/21/17 09/22/17 15:00 23:00 07:00 Output Total 2000 ml Balance -2000 ml Output Urine Total 2000 ml Result Diagram: 09/20/17 1253 09/17/17 0820 Imaging Last Impressions Abdomen/Pelvis CT 09/17/17 0000 Signed Impressions: Service Date/Time: Sunday, September 17, 2017 16:03 - CONCLUSION: 1. Minimally improved large pelvic collection now measuring 14.5 x 7.5 cm in comparison to 16.1 x 7.5 cm on prior exam. 2. Interval retraction of the percutaneous drainage catheter with pigtail in the inferior lateral margin of the collection and most proximal sidehole abutting the collection wall. 3. Remainder of the exam is unchanged. Jamaal Meadows MD Chest X-Ray 09/15/17 0000 Signed Impressions: Service Date/Time: September 09:14 - CONCLUSION: 1. No acute cardiopulmonary disease. Jamaal Meadows MD Abscess Drainage CT 09/06/17 0833 Signed Impressions: Service Date/Time: Wednesday, September 06, 2017 15:39 - CONCLUSION: 1. Uncomplicated CT-guided drainage catheter placement in left pelvic fluid collection. Only a small amount of serosanguineous fluid could be aspirated immediately following catheter placement. Entire sample was submitted for laboratory analysis. Overall, findings are most consistent with pelvic hematoma. Jamaal Meadows MD A/P Problem List: (1) Abdominal pain ICD Codes: R10.9 - Unspecified abdominal pain Status: Acute Plan: Abdominal pain Uterine cancer (carcinosarcoma) pelvic mass/hematoma This is a 57 year old female with a past medical history which includes anxiety/ depression, lumbar radiculopathy, chronic back pain, hyperlipidemia, uterine cancer. Patient is currently following with Dr. Garsia last chemotherapy this past Tuesday. She had three chemotherapy treatment then on 06/30/17 Robotic assisted Laparoscopic hysterectomy, BSO, resection of pelvic mass, omentectomy and tumor debulking with Dr. Garsia. After surgery patient has had two additional rounds of chemotherapy. Patient was seen in ER 08/24/17 for lower abdominal pain. CT abd/pelvic (08/24/17)revealed: Large heterogeneous mass in the uterine surgical bed measuring 9.6 x 5.0 x6.8 cm. Patient was then DC with follow up with Dr. Garsia as an outpatient. Today patient returned to the ER due to worsening abdominal pain for the past 3 days. Pain constant, pressure like, sharp, worse with eating, improved by bringing her legs closer to her. Pt. reports that she is constipated and has decreased appetite. Pt. had a fever of 100.2 at home, associated with some chills and night sweats. CT abd/Pelvis (09/05/17) revealed: mass 12.7 cm which has progressed in size from previous study. Predominantly cystic mass in the pelvis larger when compared to the comparison study either hematoma or seroma. Abscess cannot be entirely excluded Hemangioma right lobe of the liver. - IR placed drain into abdomen fluid collection on 09/06..bloody fluid - pain control adjustment. - f/u cytology shows malignant cells and gs/cx ngtd - Pt with fevers since 09/07...zosyn empirically. blood cx ngtd. . presumed related to fluid collection. - c.diff positive. flagyl started on 09/10 and zosyn stopped. - repeat CT Abd/pelvis (09/10/17) --> pelvic fluid collection essentially unchanged - Case d/w IR, Dr. Stein (09/12) - IR will place tPA in drain (09/12) - IR does NOT feel that pt would benefit from a 2nd drain. - Case d/w Dr. Garsia (09/12). He reevaluated pt (09/13). He discussed options regarding further chemo or radiation. - less output from drainage catheter in the last few days - Pt continues with pelvic/abd pain requiring IV pain medication - (09/19) Repositioned new 12 F tube deeper into collection and coiled a wire within the collection to try to break up some of the locules. . Placed 4mg TPA into collection to try to aid in aspiration. - Case discussed with Dr. Garsia. Case discussed with Dr. Otto (09/19)plan for radiation simulation then start Radiation or Tuesday for a total of 10 treatments. - - DVT prophylaxis with SCDs - supportive care C. difficile colitis - zosyn stopped. (09/08 - 09/10/17) - PO flagyl (09/10 - present) stop date 09/24 - 09/19 patient continues to have about 3 soft stools per day. recheck for C diff negative - will start Questran for bulking - supportive care. Uterine cancer - see above Anxiety and depression continue home Paxil 40 mg PO QHS Pancytopenia Patient H/H 6.3, 18.1 (09/14) -> 7.1 (09/15) -> 8.5 (09/16) -> 8.4 (09/17) -> 8.2 () -> 8.3 (09/19) -> CBC pending for (09/20) Plt count 15 -> 15 (09/15) -> 17 (09/16) -> 24 (09/17) -> 31 (09/18) -> 55 (09/19) - > CBC pending for (09/20) no signs of active bleeding Patient reports last chemotherapy treatment was 08/31/17 consult placed to Hematology/Medical oncology, appreciate input. Feel that the drop in Hgb and Plt likely secondary to myelosuppression secondary to chemotherapy two weeks ago. 2 units PRBC transfused (09/14) Hematology ordered additional 1 unit of PRBC (09/15) Patient also received Plt (09/14) (2) C. difficile colitis ICD Codes: A04.72 - Enterocolitis due to Clostridium difficile, not specified as recurrent Status: Acute (3) Uterine cancer ICD Codes: C55 - Malignant neoplasm of uterus, part unspecified Status: Chronic Plan: - see above (4) Anxiety and depression ICD Codes: F41.8 - Other specified anxiety disorders Status: Chronic (5) Pancytopenia ICD Codes: D61.818 - Other pancytopenia (6) Fever ICD Codes: R50.9 - Fever, unspecified Problem Qualifiers (1) Abdominal pain: Qualified Codes: R10.31 - Right lower quadrant pain (2) Uterine cancer: Qualified Codes: C55 - Malignant neoplasm of uterus, part unspecified Jakub Solorio MD Sep 21, 2017 10:00
[2017-09-21] MEDS: SODIUM CHLORIDE 0.9% FLUSH 10 ML FLUSH IV FLUSH PRN ×2 (11:55→16:02)
[2017-09-21 12:00] VITALS: BP 116/66; PULSE 78; RESP 20; TEMP 98.6; O2SAT 96
[2017-09-21 13:18] LABS: AUTOMATED NEUTROPHIL # 1.9 TH/MM3 (1.8-7.7); BASOPHIL % 0.2 % (0.0-2.0); EOSINOPHIL % 0.2 % (0.0-4.0); HEMATOCRIT 24.2 % (35.0-46.0); HEMOGLOBIN 8.1 GM/DL (11.6-15.3); LYMPH % 20.9 % (9.0-44.0); LYMPHOCYTE # 0.6 TH/MM3 (1.0-4.8); MEAN CELL VOLUME 91.5 FL (80.0-100.0); MEAN CORPUSCULAR HEMOGLOBIN 30.8 PG (27.0-34.0); MEAN CORPUSCULAR HGB CONC 33.6 % (32.0-36.0); MEAN PLATELET VOLUME 9.3 FL (7.0-11.0); MONO % 9.8 % (0.0-8.0); MONOCYTE # 0.3 TH/MM3 (0-0.9); NEUT % 68.9 % (16.0-70.0); PLATELET COUNT 89 TH/MM3 (150-450); RED BLOOD COUNT 2.65 MIL/MM3 (4.00-5.30); RED CELL DISTRIBUTION WIDTH 16.1 % (11.6-17.2); WHITE BLOOD COUNT 2.8 TH/MM3 (4.0-11.0)
[2017-09-21 14:26] LABS: OVALOCYTES 1+ (NORMAL)
[2017-09-21 14:29] LABS: SPHEROCYTES OCC (NORMAL)
[2017-09-21 16:07] VITALS: BP 99/63; PULSE 73; RESP 20; TEMP 98.2; O2SAT 96
[2017-09-21 20:00] VITALS: BP 97/52; PULSE 79; RESP 18; TEMP 98.2; O2SAT 99
[2017-09-21] MEDS: PARoxetine HCL 20 MG TAB PO SCH (20:01)
[2017-09-21] MEDS: PRAVASTATIN SOD 80 MG TAB PO SCH (20:01)
[2017-09-22] VITALS: BP 97/53; PULSE 73; RESP 18; TEMP 98.1; O2SAT 99
[2017-09-22] MEDS: oxyCODONE/ACETAMINOPHEN 10 MG/325 MG TAB PO PRN ×6 (03:22→20:57)
[2017-09-22 04:00] VITALS: BP 111/58; PULSE 74; RESP 18; TEMP 98; O2SAT 99
[2017-09-22] MEDS: SODIUM CHLORIDE 0.9% 10 ML VIAL IRRIGATION SCH ×3 (04:40→22:31)
[2017-09-22] MEDS: MORPHINE SULFATE 4 MG/ML INJ IV PUSH PRN ×5 (04:40→22:29)
[2017-09-22] MEDS: metroNIDAZOLE 500 MG TAB PO SCH ×3 (04:40→22:28)
[2017-09-22] MEDS: PANTOPRAZOLE SOD 40 MG DELAYED RELEASE TAB PO SCH (08:36)
[2017-09-22] MEDS: POTASSIUM CHLORIDE 20 MEQ CONTROLLED RELEASE TAB PO SCH ×2 (08:36→20:57)
[2017-09-22 08:38] VITALS: BP 109/76; PULSE 71; RESP 18; TEMP 98; O2SAT 93
[2017-09-22] MEDS: SODIUM CHLORIDE 0.9% FLUSH 10 ML FLUSH IV FLUSH SCH ×2 (09:00→20:58)
--- NOTE | 2017-09-22 09:13 | HHI.PR ---
Subjective Remarks painful. stool forming and not wanting the questran. Objective Vitals heart reg lung cta abd right abd drain. ext no edema Vital Signs Date Time Temp Pulse Resp B/P (MAP) Pulse Ox O2 Delivery O2 Flow Rate FiO2 09/22/17 08:38 98.0 71 18 109/76 (87) 93 09/22/17 04:00 98.0 74 18 111/58 (75) 99 09/22/17 00:00 98.1 73 18 97/53 (68) 99 09/21/17 20:00 98.2 79 18 97/52 (67) 99 09/21/17 16:07 98.2 73 20 99/63 (75) 96 09/21/17 12:00 98.6 78 20 116/66 (83) 96 09/22/17 09/22/17 09/23/17 15:00 23:00 07:00 Output Total 1000 ml Balance -1000 ml Output Urine Total 1000 ml Result Diagram: 09/21/17 1248 Imaging Last Impressions Abdomen/Pelvis CT 09/17/17 0000 Signed Impressions: Service Date/Time: Sunday, September 17, 2017 16:03 - CONCLUSION: 1. Minimally improved large pelvic collection now measuring 14.5 x 7.5 cm in comparison to 16.1 x 7.5 cm on prior exam. 2. Interval retraction of the percutaneous drainage catheter with pigtail in the inferior lateral margin of the collection and most proximal sidehole abutting the collection wall. 3. Remainder of the exam is unchanged. Jamaal Meadows MD Chest X-Ray 09/15/17 0000 Signed Impressions: Service Date/Time: September 09:14 - CONCLUSION: 1. No acute cardiopulmonary disease. Jamaal Meadows MD Abscess Drainage CT 09/06/17 0833 Signed Impressions: Service Date/Time: Wednesday, September 06, 2017 15:39 - CONCLUSION: 1. Uncomplicated CT-guided drainage catheter placement in left pelvic fluid collection. Only a small amount of serosanguineous fluid could be aspirated immediately following catheter placement. Entire sample was submitted for laboratory analysis. Overall, findings are most consistent with pelvic hematoma. Jamaal Meadows MD A/P Problem List: (1) Abdominal pain ICD Codes: R10.9 - Unspecified abdominal pain Status: Acute Plan: Abdominal pain Uterine cancer (carcinosarcoma) pelvic mass/hematoma This is a 57 year old female with a past medical history which includes anxiety/ depression, lumbar radiculopathy, chronic back pain, hyperlipidemia, uterine cancer. Patient is currently following with Dr. Garsia last chemotherapy this past Tuesday. She had three chemotherapy treatment then on 06/30/17 Robotic assisted Laparoscopic hysterectomy, BSO, resection of pelvic mass, omentectomy and tumor debulking with Dr. Garsia. After surgery patient has had two additional rounds of chemotherapy. Patient was seen in ER 08/24/17 for lower abdominal pain. CT abd/pelvic (08/24/17)revealed: Large heterogeneous mass in the uterine surgical bed measuring 9.6 x 5.0 x6.8 cm. Patient was then DC with follow up with Dr. Garsia as an outpatient. Today patient returned to the ER due to worsening abdominal pain for the past 3 days. Pain constant, pressure like, sharp, worse with eating, improved by bringing her legs closer to her. Pt. reports that she is constipated and has decreased appetite. Pt. had a fever of 100.2 at home, associated with some chills and night sweats. CT abd/Pelvis (09/05/17) revealed: mass 12.7 cm which has progressed in size from previous study. Predominantly cystic mass in the pelvis larger when compared to the comparison study either hematoma or seroma. Abscess cannot be entirely excluded Hemangioma right lobe of the liver. - IR placed drain into abdomen fluid collection on 09/06..bloody fluid - f/u cytology shows malignant cells and gs/cx ngtd - Pt with fevers 09/07...zosyn empirically. blood cx ngtd. . presumed related to fluid collection. - c.diff positive. flagyl started on 09/10 and zosyn stopped. - repeat CT Abd/pelvis (09/10/17) --> pelvic fluid collection essentially unchanged - Case d/w IR, Dr. Stein (09/12) - IR will place tPA in drain (09/12) - IR does NOT feel that pt would benefit from a 2nd drain. - Case d/w Dr. Garsia (09/12). He reevaluated pt (09/13). He discussed options regarding further chemo or radiation. - less output from drainage catheter in the last few days - Pt continues with pelvic/abd pain requiring IV pain medication - (09/19) Repositioned new 12 F tube deeper into collection and coiled a wire within the collection to try to break up some of the locules. . Placed 4mg TPA into collection to try to aid in aspiration. - Case discussed with Dr. Garsia. Case discussed with Dr. Otto (09/19)plan for radiation simulation/ CT simulation done on 09/21 and await planned 10 treatments. discussed again with Dr Otto on 09/21 - DVT prophylaxis with SCDs - supportive care C. difficile colitis - zosyn stopped. (09/08 - 09/10/17) - PO flagyl (09/10 - ) stop date 09/24 - stop questran - supportive care. overall improved. Uterine cancer - see above Anxiety and depression continue home Paxil 40 mg PO QHS Pancytopenia Patient H/H 6.3, 18.1 (09/14) -> 7.1 (09/15) -> 8.5 (09/16) -> 8.4 (09/17) -> 8.2 () -> 8.3 (09/19) -> CBC pending for (09/20) Plt count 15 -> 15 (09/15) -> 17 (09/16) -> 24 (09/17) -> 31 (09/18) -> 55 (09/19) - > CBC pending for (09/20) no signs of active bleeding Patient reports last chemotherapy treatment was 08/31/17 consult placed to Hematology/Medical oncology, appreciate input. Feel that the drop in Hgb and Plt likely secondary to myelosuppression secondary to chemotherapy two weeks ago. 2 units PRBC transfused (09/14) Hematology ordered additional 1 unit of PRBC (09/15) Patient also received Plt (09/14) (2) C. difficile colitis ICD Codes: A04.72 - Enterocolitis due to Clostridium difficile, not specified as recurrent Status: Acute (3) Uterine cancer ICD Codes: C55 - Malignant neoplasm of uterus, part unspecified Status: Chronic Plan: - see above (4) Anxiety and depression ICD Codes: F41.8 - Other specified anxiety disorders Status: Chronic (5) Pancytopenia ICD Codes: D61.818 - Other pancytopenia Status: Acute (6) Fever ICD Codes: R50.9 - Fever, unspecified Status: Acute Problem Qualifiers (1) Abdominal pain: Qualified Codes: R10.31 - Right lower quadrant pain (2) Uterine cancer: Qualified Codes: C55 - Malignant neoplasm of uterus, part unspecified Jakub Solorio MD Sep 22, 2017 09:13
[2017-09-22 12:00] VITALS: BP 123/60; PULSE 71; RESP 18; TEMP 98.3; O2SAT 95
[2017-09-22] MEDS: fentaNYL 25 MCG/HR PATCH T-DERMAL SCH (12:49)
[2017-09-22] MEDS ORDERED: REMOVE OLD FENTANYL PATCH T-DERMAL SCH (14:00)
--- NOTE | 2017-09-22 14:49 | HHI.HCPN ---
Reason for visit a. To assist with evaluation and management of symptoms including: pain. b. To assist medical decision maker(s) with: better understanding of current medical conditions; weighing benefits/burdens of medical treatment options; making medical treatment decisions. . (Lucy Grimm) Subjective/Interval History Palliative care follow-up for further clarifications of goals of care, symptom management. Patient seen in her room, resting in bed in moderate distress. Facial grimacing noted. Patient endorsing abdominal pain that is a mixture of sharp and crampy. Mainly localized to right side of abdomen, sometimes described as "pressure pain". Pain exacerbated by movement, alleviated with pain medication. However, patient reports that Percocet and morphine only offers a very short period of effectiveness. Patient denies nausea, vomiting or shortness of breath. Appetite remains fair. Pain interfering with eating, resting and sleep. Abdominal drainage catheter in place, moderate amount of sanguineous output in collection bag. Patient underwent radiation stimulation yesterday, plan for 10 treatments. Patient's sister and [id number] at bedside. Goals of care readdress. Patient wishing to proceed with palliative radiation for symptom management. Patient verbalized being aware that she may not be a candidate for further systemic chemotherapy given performance status. Reviewed the future role of hospice should her symptoms Barten increases or she has additional functional decline. Patient and family are receptive to this. Provided additional information regarding hospice services at home. Patient receptive to palliative care follow-ups. . Family/friend interactions See interval note. . (Lucy Grimm) Advance Directives Living Will: Copy in medical record Health Care Surrogate: Copy in medical record (Lucy Grimm) Advance Directive Specifics Date completed: 06/30/2017. . Health Care Surrogate(s): Patient has designated her sister Yoana Lopez as healthcare surrogate decision- maker, alternate surrogate is her mother Janice Abbott. . Documented care wishes: Living will with standard verbiage as it pertains to terminal condition, end- stage condition or persistent vegetative state. . Significant change in goals: Goals of therapy remain unchanged. . (Lucy Grimm) Objective Vital Signs Date Time Temp Pulse Resp B/P (MAP) Pulse Ox O2 Delivery O2 Flow Rate FiO2 09/22/17 12:00 98.3 71 18 123/60 (81) 95 09/22/17 08:38 98.0 71 18 109/76 (87) 93 09/22/17 04:00 98.0 74 18 111/58 (75) 99 09/22/17 00:00 98.1 73 18 97/53 (68) 99 09/21/17 20:00 98.2 79 18 97/52 (67) 99 09/21/17 16:07 98.2 73 20 99/63 (75) 96 Intake & Output 09/22/17 09/22/17 07:00 19:00 Intake Total 180 ml Output Total 260 ml 1000 ml Balance -80 ml -1000 ml Intake Oral 180 ml Output Urine Total 1000 ml Drainage Total 260 ml Physical Exam CONSTITUTIONAL/GENERAL: This is an adequately nourished patient in moderate distress secondary to abdominal pain. Facial grimacing noted, patient holding abdomen with hands. TUBES/LINES/DRAINS: PIV's, pelvic drainage catheter with moderate amount of serosanguineous output, Ortega catheter. SKIN: No jaundice, rashes, or lesions. Ecchymoses on upper extremities. No wounds seen anteriorly. Skin temperature appropriate. Not diaphoretic. HEAD: Atraumatic. Normocephalic. EYES: Pupils equal and round and reactive. Extraocular motions intact. No scleral icterus. No injection or drainage. ENT: Hearing grossly normal. Nose without bleeding or purulent drainage. Moist oral mucosa. NECK: Trachea midline. Supple, nontender. CARDIOVASCULAR: Regular rate and rhythm without murmurs, gallops, or rubs. No JVD. Peripheral pulses symmetric. RESPIRATORY/CHEST: Symmetric, unlabored respirations. Clear to auscultation. Breath sounds equal bilaterally. No wheezes, rales, or rhonchi. GASTROINTESTINAL: Abdomen soft, round, tender to palpation. Pelvic drainage catheter in place. Bowel sounds present. GENITOURINARY: Without palpable bladder distension. Ortega catheter in place. MUSCULOSKELETAL: Extremities without clubbing, cyanosis, or edema. No joint tenderness or effusion noted. No calf tenderness. No mottling or clubbing. NEUROLOGICAL: Awake and alert. Motor and sensory grossly within normal limits. Follows commands. Cognitively sharp. Moves all extremities. PSYCHIATRIC: No obvious anxiety/depression. no apparent hallucinations or other psychotic thought process. Pleasant and cooperative. . (Lucy Grimm) Diagnostic Tests Laboratory Laboratory Tests Test 09/19/17 21:39 09/20/17 12:53 09/21/17 12:48 Stool C. difficile Toxin (PCR) NEGATIVE (NEGATIVE) Stl C. difficile Toxin Epiderm 027 PRESUMPTIVE NEGATIVE White Blood Count 2.5 TH/MM3 (4.0-11.0) 2.8 TH/MM3 (4.0-11.0) Red Blood Count 2.61 MIL/MM3 (4.00-5.30) 2.65 MIL/MM3 (4.00-5.30) Hemoglobin 8.2 GM/DL (11.6-15.3) 8.1 GM/DL (11.6-15.3) Hematocrit 23.6 % (35.0-46.0) 24.2 % (35.0-46.0) Mean Corpuscular Volume 90.3 FL (80.0-100.0) 91.5 FL (80.0-100.0) Mean Corpuscular Hemoglobin 31.2 PG (27.0-34.0) 30.8 PG (27.0-34.0) Mean Corpuscular Hemoglobin Concent 34.6 % (32.0-36.0) 33.6 % (32.0-36.0) Red Cell Distribution Width 16.3 % (11.6-17.2) 16.1 % (11.6-17.2) Platelet Count 72 TH/MM3 (150-450) 89 TH/MM3 (150-450) Mean Platelet Volume 8.8 FL (7.0-11.0) 9.3 FL (7.0-11.0) Neutrophils (%) (Auto) 62.3 % (16.0-70.0) 68.9 % (16.0-70.0) Lymphocytes (%) (Auto) 27.5 % (9.0-44.0) 20.9 % (9.0-44.0) Monocytes (%) (Auto) 9.8 % (0.0-8.0) 9.8 % (0.0-8.0) Eosinophils (%) (Auto) 0.2 % (0.0-4.0) 0.2 % (0.0-4.0) Basophils (%) (Auto) 0.2 % (0.0-2.0) 0.2 % (0.0-2.0) Neutrophils # (Auto) 1.5 TH/MM3 (1.8-7.7) 1.9 TH/MM3 (1.8-7.7) Lymphocytes # (Auto) 0.7 TH/MM3 (1.0-4.8) 0.6 TH/MM3 (1.0-4.8) Monocytes # (Auto) 0.2 TH/MM3 (0-0.9) 0.3 TH/MM3 (0-0.9) Eosinophils # (Auto) 0.0 TH/MM3 (0-0.4) 0.0 TH/MM3 (0-0.4) Basophils # (Auto) 0.0 TH/MM3 (0-0.2) 0.0 TH/MM3 (0-0.2) CBC Comment AUTO DIFF AUTO DIFF Differential Comment AUTO DIFF CONFIRMED AUTO DIFF CONFIRMED Platelet Estimate LOW (NORMAL) LOW (NORMAL) Platelet Morphology Comment NORMAL (NORMAL) NORMAL (NORMAL) Basophilic Stippling FAINT (NORMAL) Spherocytes OCC (NORMAL) OCC (NORMAL) Ovalocytes 1+ (NORMAL) (Lucy Grimm) Result Diagram: 09/21/17 1248 Procedures * 09/06/17: Pelvic drainage catheter placement. * 09/19/17: Replacement of pelvic drainage catheter. . (Lucy Grimm) Assessment and Plan Disease Oriented Problem List: (1) Uterine cancer (2) C. difficile colitis (3) Anemia (4) Pancytopenia (5) Abdominal fluid collection Symptom Scale: (1) Abdominal pain 0-10 Scale: 8 Pertinent Non-Medical Issues Psychosocial: Patient originally from [place]. Moved to [place] 6 years ago. Patient is , in 2002. Patient has 3 children. 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 Spiritual: Seventh day Tenri[employer] marian. Legal: Advance directives completed. Ethical issues impacting care: No ethical issues have been identified. . Important Contacts Sister/HCS Yoana Lopez . Mother/alt HCS Janice Abbott . Prognosis Mrs. 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 Medical course complicated by abdominal cystic mass requiring catheter drainage placement. Patient with progressive disease in spite of chemotherapy. Currently seeking palliative radiation. Patient at a very high risk for further complications, continue decline and . Patient appears hospice appropriate should she elects comfort-directed care. . Code Status: Full Code Plan * CODE STATUS: Full code. Risks, benefits and limitations of CPR, intubation and mechanical ventilation discussed with patient given progressive disease. * HEALTHCARE DECISION-MAKING: Patient participating in medical decision-making. Patient has a very good understanding of her diagnosis, prognosis and retains the ability to weight benefits versus burden of treatment options. Advance directives completed. Patient has designated her sister Yoana Lopez as healthcare surrogate decision-maker, alternate surrogate is her mother Janice Abbott. * GOALS OF CARE: Overall goal is for palliation of symptoms and prolongation of survival. Patient electing to proceed with palliative radiation for symptom management. Patient verbalized being aware that she may not be a candidate for further systemic chemotherapy given performance status. Reviewed the future role of hospice should her symptoms burden increases or she has additional functional decline. Patient and family are receptive to this. Provided additional information regarding hospice services at home. Patient receptive to palliative care follow-ups. * SYMPTOMS: =Pain, secondary to burden of disease. Home regimen of Percocet 5/ 325 mg every 4 hours as needed. Currently on Percocet 10/325 mg every 4 hours as needed, has required 4 doses yesterday and 3 doses today. Morphine 4 mg IV q3hr PRN, required 5 doses yesterday and 2 doses today as of this morning. Patient was started on fentanyl patch 25 mcg 3 days ago. Patient reporting that pain it is not well controlled, interfering with rest, eating and sleeping. Has continued requiring as needed's [id number]. Palliative care recommends increasing fentanyl patch dose from 25mcg to 50mcg given total opioid use within the past 24 hours. = Bowel regimen: Being treated for C. difficile. Repeat test negative. Milk of magnesia and Dulcolax suppository available as needed. * Contact information has been provided to patient and sister Carmen. * Palliative care will continue to follow-up for further clarifications of goals of care as patient's clinical course continues to evolve. . (Lucy Grimm) Time Spent Total Floor Time (mins): 37 (Total time to include review of medical records, physical exam, goals of care conversation with patient. ) >50% Counseling/Coord of Care: Yes (Lucy Grimm) Attestation To help prompt me to consider important information that might be impacting today's encounter and assessment, information from prior notes written by myself or my colleagues may have been "brought forward" into today's note. My signature on this note, however, is an attestation that I personally performed the exam, history, and/or decision-making noted today, and, unless otherwise indicated, the interactions with patient, family, and staff as well as the review of records all occurred today. I also attest that the listed assessment and stated plan reflect my best clinical judgment today based on the combination of historical information, prior notes, and today's exam/ interactions. When time spent is documented, it refers only to time spent today by the signer, or if indicated, combined time spent today by collaborating physician/nurse practitioner. (Lucy Grimm) Collaborating MD Comments Chart reviewed. Case discussed with palliative care PROCESS VALIDATION ENGINEER. Above PROCESS VALIDATION ENGINEER note reviewed and I concur. . (Vimal Murphy MD) Lucy Grimm Sep 22, 2017 14:49 Vimal Murphy MD Sep 28, 2017 17:20
[2017-09-22 16:06] VITALS: BP 116/63; PULSE 75; RESP 18; TEMP 98.1; O2SAT 96
[2017-09-22 20:44] VITALS: BP 103/59; PULSE 107; RESP 18; TEMP 98.2; O2SAT 95
[2017-09-22] MEDS: PARoxetine HCL 20 MG TAB PO SCH (20:57)
[2017-09-22] MEDS: PRAVASTATIN SOD 80 MG TAB PO SCH (20:57)
[2017-09-23] VITALS: BP 93/56; PULSE 74; RESP 18; TEMP 98; O2SAT 94
[2017-09-23] MEDS: oxyCODONE/ACETAMINOPHEN 10 MG/325 MG TAB PO PRN ×5 (03:33→22:28)
[2017-09-23 04:00] VITALS: BP 98/63; PULSE 73; RESP 18; TEMP 98.7; O2SAT 97
[2017-09-23] MEDS: MORPHINE SULFATE 4 MG/ML INJ IV PUSH PRN ×5 (04:28→20:46)
[2017-09-23] MEDS: metroNIDAZOLE 500 MG TAB PO SCH ×3 (06:39→22:28)
[2017-09-23] MEDS: SODIUM CHLORIDE 0.9% 10 ML VIAL IRRIGATION SCH ×3 (06:40→22:29)
[2017-09-23 07:37] LABS: BICARBONATE 30.4 MEQ/L (21.0-32.0); CALCIUM 8.6 MG/DL (8.5-10.1); CREATININE 0.69 MG/DL (0.50-1.00)
[2017-09-23 08:00] VITALS: BP 120/57; RESP 18; TEMP 97.9; O2SAT 98
[2017-09-23] MEDS: PANTOPRAZOLE SOD 40 MG DELAYED RELEASE TAB PO SCH (08:12)
[2017-09-23] MEDS: POTASSIUM CHLORIDE 20 MEQ CONTROLLED RELEASE TAB PO SCH ×2 (08:12→20:45)
[2017-09-23] MEDS: SODIUM CHLORIDE 0.9% FLUSH 10 ML FLUSH IV FLUSH SCH ×2 (08:51→17:18)
--- NOTE | 2017-09-23 08:58 | HHI.PR ---
Subjective . no new c/o Objective . afeb vss nad abd minimal tender centrally, no rebound fisher troll line no bleeding Assessment/Plan . cpm XRT to be initiated Q&A, she expresses understanding Rohini Garsia MD Sep 23, 2017 08:58
--- NOTE | 2017-09-23 09:49 | HHI.PR ---
Subjective Remarks no complaints. Objective Vitals heart reg lung cta abd s/nt/drain ext no edema joshi Vital Signs Date Time Temp Pulse Resp B/P (MAP) Pulse Ox O2 Delivery O2 Flow Rate FiO2 09/23/17 08:00 97.9 18 120/57 (78) 98 09/23/17 04:00 98.7 73 18 98/63 (75) 97 09/23/17 00:00 98.0 74 18 93/56 (68) 94 09/22/17 20:44 98.2 107 18 103/59 (74) 95 09/22/17 16:06 98.1 75 18 116/63 (80) 96 09/22/17 12:00 98.3 71 18 123/60 (81) 95 Result Diagram: 09/21/17 1248 09/23/17 0527 Imaging Last Impressions Abdomen/Pelvis CT 09/17/17 0000 Signed Impressions: Service Date/Time: Sunday, September 17, 2017 16:03 - CONCLUSION: 1. Minimally improved large pelvic collection now measuring 14.5 x 7.5 cm in comparison to 16.1 x 7.5 cm on prior exam. 2. Interval retraction of the percutaneous drainage catheter with pigtail in the inferior lateral margin of the collection and most proximal sidehole abutting the collection wall. 3. Remainder of the exam is unchanged. Jamaal Meadows MD Chest X-Ray 09/15/17 0000 Signed Impressions: Service Date/Time: September 09:14 - CONCLUSION: 1. No acute cardiopulmonary disease. Jamaal Meadows MD Abscess Drainage CT 09/06/17 0833 Signed Impressions: Service Date/Time: Wednesday, September 06, 2017 15:39 - CONCLUSION: 1. Uncomplicated CT-guided drainage catheter placement in left pelvic fluid collection. Only a small amount of serosanguineous fluid could be aspirated immediately following catheter placement. Entire sample was submitted for laboratory analysis. Overall, findings are most consistent with pelvic hematoma. Jamaal Meadows MD A/P Problem List: (1) Abdominal pain ICD Codes: R10.9 - Unspecified abdominal pain Status: Acute Plan: Abdominal pain Uterine cancer (carcinosarcoma) pelvic mass/hematoma This is a 57 year old female with a past medical history which includes anxiety/ depression, lumbar radiculopathy, chronic back pain, hyperlipidemia, uterine cancer. Patient is currently following with Dr. Garsia last chemotherapy this past Tuesday. She had three chemotherapy treatment then on 06/30/17 Robotic assisted Laparoscopic hysterectomy, BSO, resection of pelvic mass, omentectomy and tumor debulking with Dr. Garsia. After surgery patient has had two additional rounds of chemotherapy. Patient was seen in ER 08/24/17 for lower abdominal pain. CT abd/pelvic (08/24/17)revealed: Large heterogeneous mass in the uterine surgical bed measuring 9.6 x 5.0 x6.8 cm. Patient was then DC with follow up with Dr. Garsia as an outpatient. Today patient returned to the ER due to worsening abdominal pain for the past 3 days. Pain constant, pressure like, sharp, worse with eating, improved by bringing her legs closer to her. Pt. reports that she is constipated and has decreased appetite. Pt. had a fever of 100.2 at home, associated with some chills and night sweats. CT abd/Pelvis (09/05/17) revealed: mass 12.7 cm which has progressed in size from previous study. Predominantly cystic mass in the pelvis larger when compared to the comparison study either hematoma or seroma. Abscess cannot be entirely excluded Hemangioma right lobe of the liver. - IR placed drain into abdomen fluid collection on 09/06..bloody fluid - f/u cytology shows malignant cells and gs/cx ngtd - Pt with fevers 09/07...zosyn empirically. blood cx ngtd. . presumed related to fluid collection. - c.diff positive. flagyl started on 09/10 and zosyn stopped. - repeat CT Abd/pelvis (09/10/17) --> pelvic fluid collection essentially unchanged - Case d/w IR, Dr. Stein (09/12) - IR will place tPA in drain (09/12) - IR does NOT feel that pt would benefit from a 2nd drain. - Case d/w Dr. Garsia (09/12). He reevaluated pt (09/13). He discussed options regarding further chemo or radiation. - less output from drainage catheter in the last few days - Pt continues with pelvic/abd pain requiring IV pain medication - (09/19) Repositioned new 12 F tube deeper into collection and coiled a wire within the collection to try to break up some of the locules. . Placed 4mg TPA into collection to try to aid in aspiration. - Case discussed with Dr. Garsia. Case discussed with Dr. Otto (09/19)plan for radiation simulation/ CT simulation done on 09/21 and await planned 10 treatments. discussed again with Dr Otto on 09/21 - DVT prophylaxis with SCDs - discussed with dr Garsia and Dr Knutson....Await radiation per Dr Otto. C. difficile colitis - zosyn stopped. (09/08 - 09/10/17) - PO flagyl (09/10 - present) stop date 09/24 - stop questran - supportive care. overall improved. Uterine cancer - see above Anxiety and depression continue home Paxil 40 mg PO QHS Pancytopenia Patient H/H 6.3, 18.1 (09/14) -> 7.1 (09/15) -> 8.5 (09/16) -> 8.4 (09/17) -> 8.2 () -> 8.3 (09/19) -> CBC pending for (09/20) Plt count 15 -> 15 (09/15) -> 17 (09/16) -> 24 (09/17) -> 31 (09/18) -> 55 (09/19) - > CBC pending for (09/20) no signs of active bleeding Patient reports last chemotherapy treatment was 08/31/17 consult placed to Hematology/Medical oncology, appreciate input. Feel that the drop in Hgb and Plt likely secondary to myelosuppression secondary to chemotherapy two weeks ago. 2 units PRBC transfused (09/14) Hematology ordered additional 1 unit of PRBC (09/15) Patient also received Plt (09/14) (2) C. difficile colitis ICD Codes: A04.72 - Enterocolitis due to Clostridium difficile, not specified as recurrent Status: Acute (3) Uterine cancer ICD Codes: C55 - Malignant neoplasm of uterus, part unspecified Status: Chronic Plan: - see above (4) Anxiety and depression ICD Codes: F41.8 - Other specified anxiety disorders Status: Chronic (5) Pancytopenia ICD Codes: D61.818 - Other pancytopenia Status: Acute (6) Fever ICD Codes: R50.9 - Fever, unspecified Status: Acute Problem Qualifiers (1) Abdominal pain: Qualified Codes: R10.31 - Right lower quadrant pain (2) Uterine cancer: Qualified Codes: C55 - Malignant neoplasm of uterus, part unspecified Jakub Solorio MD Sep 23, 2017 09:49
[2017-09-23 12:00] VITALS: BP 104/59; PULSE 80; RESP 17; TEMP 98.9; O2SAT 98
[2017-09-23 20:00] VITALS: BP 90/53; PULSE 78; RESP 18; TEMP 98.9; O2SAT 97
[2017-09-23] MEDS: PRAVASTATIN SOD 80 MG TAB PO SCH (20:45)
[2017-09-23] MEDS: PARoxetine HCL 20 MG TAB PO SCH (20:45)
[2017-09-24] VITALS: BP 113/87; PULSE 75; RESP 18; TEMP 97; O2SAT 95
[2017-09-24] MEDS: oxyCODONE/ACETAMINOPHEN 10 MG/325 MG TAB PO PRN ×5 (02:50→21:40)
[2017-09-24 04:00] VITALS: BP 108/56; PULSE 71; RESP 18; TEMP 97; O2SAT 98
[2017-09-24] MEDS: MORPHINE SULFATE 4 MG/ML INJ IV PUSH PRN ×4 (04:00→19:21)
[2017-09-24] MEDS: metroNIDAZOLE 500 MG TAB PO SCH (06:30)
[2017-09-24] MEDS: SODIUM CHLORIDE 0.9% 10 ML VIAL IRRIGATION SCH ×3 (06:30→21:39)
[2017-09-24 08:00] VITALS: BP 117/53; PULSE 74; RESP 17; TEMP 97.9; O2SAT 94
--- NOTE | 2017-09-24 09:12 | HHI.PR ---
Subjective Remarks no complaints Objective Vitals heart reg lung cta abd drain ext no edema Vital Signs Date Time Temp Pulse Resp B/P (MAP) Pulse Ox O2 Delivery O2 Flow Rate FiO2 09/24/17 08:00 97.9 74 17 117/53 (74) 94 09/24/17 04:00 97.0 71 18 108/56 (73) 98 09/24/17 00:00 97.0 75 18 113/87 (96) 95 09/23/17 20:00 98.9 78 18 90/53 (65) 97 09/23/17 12:00 98.9 80 17 104/59 (74) 98 Result Diagram: 09/21/17 1248 09/23/17 0527 Imaging Last Impressions Abdomen/Pelvis CT 09/17/17 0000 Signed Impressions: Service Date/Time: Sunday, September 17, 2017 16:03 - CONCLUSION: 1. Minimally improved large pelvic collection now measuring 14.5 x 7.5 cm in comparison to 16.1 x 7.5 cm on prior exam. 2. Interval retraction of the percutaneous drainage catheter with pigtail in the inferior lateral margin of the collection and most proximal sidehole abutting the collection wall. 3. Remainder of the exam is unchanged. Jamaal Meadows MD Chest X-Ray 09/15/17 0000 Signed Impressions: Service Date/Time: September 09:14 - CONCLUSION: 1. No acute cardiopulmonary disease. Jamaal Meadows MD Abscess Drainage CT 09/06/17 0833 Signed Impressions: Service Date/Time: Wednesday, September 06, 2017 15:39 - CONCLUSION: 1. Uncomplicated CT-guided drainage catheter placement in left pelvic fluid collection. Only a small amount of serosanguineous fluid could be aspirated immediately following catheter placement. Entire sample was submitted for laboratory analysis. Overall, findings are most consistent with pelvic hematoma. Jamaal Meadows MD A/P Problem List: (1) Abdominal pain ICD Codes: R10.9 - Unspecified abdominal pain Status: Acute Plan: Abdominal pain Uterine cancer (carcinosarcoma) pelvic mass/hematoma This is a 57 year old female with a past medical history which includes anxiety/ depression, lumbar radiculopathy, chronic back pain, hyperlipidemia, uterine cancer. Patient is currently following with Dr. Garsia last chemotherapy this past Tuesday. She had three chemotherapy treatment then on 06/30/17 Robotic assisted Laparoscopic hysterectomy, BSO, resection of pelvic mass, omentectomy and tumor debulking with Dr. Garsia. After surgery patient has had two additional rounds of chemotherapy. Patient was seen in ER 08/24/17 for lower abdominal pain. CT abd/pelvic (08/24/17)revealed: Large heterogeneous mass in the uterine surgical bed measuring 9.6 x 5.0 x6.8 cm. Patient was then DC with follow up with Dr. Garsia as an outpatient. Today patient returned to the ER due to worsening abdominal pain for the past 3 days. Pain constant, pressure like, sharp, worse with eating, improved by bringing her legs closer to her. Pt. reports that she is constipated and has decreased appetite. Pt. had a fever of 100.2 at home, associated with some chills and night sweats. CT abd/Pelvis (09/05/17) revealed: mass 12.7 cm which has progressed in size from previous study. Predominantly cystic mass in the pelvis larger when compared to the comparison study either hematoma or seroma. Abscess cannot be entirely excluded Hemangioma right lobe of the liver. - IR placed drain into abdomen fluid collection on 09/06..bloody fluid - f/u cytology shows malignant cells and gs/cx ngtd - Pt with fevers 09/07...zosyn empirically. blood cx ngtd. . presumed related to fluid collection. - c.diff positive. flagyl started on 09/10 and zosyn stopped. - repeat CT Abd/pelvis (09/10/17) --> pelvic fluid collection essentially unchanged - Case d/w IR, Dr. Stein (09/12) - IR will place tPA in drain (09/12) - IR does NOT feel that pt would benefit from a 2nd drain. - Case d/w Dr. Garsia (09/12). He reevaluated pt (09/13). He discussed options regarding further chemo or radiation. - less output from drainage catheter in the last few days - Pt continues with pelvic/abd pain requiring IV pain medication - (09/19) Repositioned new 12 F tube deeper into collection and coiled a wire within the collection to try to break up some of the locules. . Placed 4mg TPA into collection to try to aid in aspiration. - Case discussed with Dr. Garsia. Case discussed with Dr. Otto (09/19)plan for radiation simulation/ CT simulation done on 09/21 and await planned 10 treatments. discussed again with Dr Otto on 09/21 - DVT prophylaxis with SCDs - discussed with dr Garsia and Dr Knutson.... - radiation started on 09/23.. - I spoke to patient about going home in next 2 or 3 days and completing radiation as outpatient and drain care per [facility] with close dock grader/onc f/u .....she is considering it if we can get better control of her pain. will increase fentanyl patch. C. difficile colitis - zosyn stopped. (09/08 - 09/10/17) - PO flagyl (09/10 - present) stop date 09/24 - stop questran - supportive care. overall improved. Uterine cancer - see above Anxiety and depression continue home Paxil 40 mg PO QHS Pancytopenia Patient H/H 6.3, 18.1 (09/14) -> 7.1 (09/15) -> 8.5 (09/16) -> 8.4 (09/17) -> 8.2 () -> 8.3 (09/19) -> CBC pending for (09/20) Plt count 15 -> 15 (09/15) -> 17 (09/16) -> 24 (09/17) -> 31 (09/18) -> 55 (09/19) - > CBC pending for (09/20) no signs of active bleeding Patient reports last chemotherapy treatment was 08/31/17 consult placed to Hematology/Medical oncology, appreciate input. Feel that the drop in Hgb and Plt likely secondary to myelosuppression secondary to chemotherapy two weeks ago. 2 units PRBC transfused (09/14) Hematology ordered additional 1 unit of PRBC (09/15) Patient also received Plt (09/14) (2) C. difficile colitis ICD Codes: A04.72 - Enterocolitis due to Clostridium difficile, not specified as recurrent Status: Acute (3) Uterine cancer ICD Codes: C55 - Malignant neoplasm of uterus, part unspecified Status: Chronic Plan: - see above (4) Anxiety and depression ICD Codes: F41.8 - Other specified anxiety disorders Status: Chronic (5) Pancytopenia ICD Codes: D61.818 - Other pancytopenia Status: Acute (6) Fever ICD Codes: R50.9 - Fever, unspecified Status: Acute Problem Qualifiers (1) Abdominal pain: Qualified Codes: R10.31 - Right lower quadrant pain (2) Uterine cancer: Qualified Codes: C55 - Malignant neoplasm of uterus, part unspecified Jakub Solorio MD Sep 24, 2017 09:12
[2017-09-24] MEDS: PANTOPRAZOLE SOD 40 MG DELAYED RELEASE TAB PO SCH (09:24)
[2017-09-24] MEDS: SODIUM CHLORIDE 0.9% FLUSH 10 ML FLUSH IV FLUSH SCH ×2 (09:24→21:40)
[2017-09-24] MEDS: POTASSIUM CHLORIDE 20 MEQ CONTROLLED RELEASE TAB PO SCH ×2 (09:24→21:39)
[2017-09-24] MEDS ORDERED: REMOVE OLD FENTANYL PATCH T-DERMAL SCH (10:00)
[2017-09-24] MEDS ORDERED: fentaNYL 50 MCG/HR PATCH T-DERMAL SCH (10:00)
[2017-09-24 12:00] VITALS: BP 102/56; PULSE 75; RESP 18; TEMP 98.2; O2SAT 95
[2017-09-24 16:00] VITALS: BP 110/65; PULSE 77; RESP 18; TEMP 98.3; O2SAT 96
[2017-09-24 21:15] VITALS: BP 101/58; PULSE 78; RESP 18; TEMP 98.5; O2SAT 97
[2017-09-24] MEDS: PARoxetine HCL 20 MG TAB PO SCH (21:39)
[2017-09-24] MEDS: PRAVASTATIN SOD 80 MG TAB PO SCH (21:39)
[2017-09-25] MEDS: MORPHINE SULFATE 4 MG/ML INJ IV PUSH PRN ×5 (00:14→22:57)
[2017-09-25 00:50] VITALS: BP 109/64; PULSE 75; RESP 18; TEMP 98.2; O2SAT 96
[2017-09-25] MEDS: oxyCODONE/ACETAMINOPHEN 10 MG/325 MG TAB PO PRN ×4 (03:19→21:20)
[2017-09-25 06:00] VITALS: BP 120/67; PULSE 80; RESP 16; TEMP 98.3; O2SAT 96
[2017-09-25] MEDS: SODIUM CHLORIDE 0.9% 10 ML VIAL IRRIGATION SCH ×3 (06:11→23:01)
[2017-09-25 08:00] VITALS: BP 114/59; PULSE 75; RESP 18; TEMP 98.2; O2SAT 97
[2017-09-25] MEDS: SODIUM CHLORIDE 0.9% FLUSH 10 ML FLUSH IV FLUSH SCH ×2 (08:38→20:03)
[2017-09-25] MEDS: POTASSIUM CHLORIDE 20 MEQ CONTROLLED RELEASE TAB PO SCH ×2 (08:38→20:03)
[2017-09-25] MEDS: PANTOPRAZOLE SOD 40 MG DELAYED RELEASE TAB PO SCH (08:38)
--- NOTE | 2017-09-25 09:41 | HHI.PR ---
Subjective Remarks pain better controlled with fentanyl increase. Objective Vitals heart reg lung cta abd s/nt/drain ext no edema Vital Signs Date Time Temp Pulse Resp B/P (MAP) Pulse Ox O2 Delivery O2 Flow Rate FiO2 09/25/17 08:00 98.2 75 18 114/59 (77) 97 09/25/17 06:00 98.3 80 16 120/67 (84) 96 09/25/17 00:50 98.2 75 18 109/64 (79) 96 09/24/17 21:15 98.5 78 18 101/58 (72) 97 09/24/17 16:00 98.3 77 18 110/65 (80) 96 09/24/17 12:00 98.2 75 18 102/56 (71) 95 Result Diagram: 09/21/17 1248 09/23/17 0527 Imaging Last Impressions Abdomen/Pelvis CT 09/17/17 0000 Signed Impressions: Service Date/Time: Sunday, September 17, 2017 16:03 - CONCLUSION: 1. Minimally improved large pelvic collection now measuring 14.5 x 7.5 cm in comparison to 16.1 x 7.5 cm on prior exam. 2. Interval retraction of the percutaneous drainage catheter with pigtail in the inferior lateral margin of the collection and most proximal sidehole abutting the collection wall. 3. Remainder of the exam is unchanged. Jamaal Meadows MD Chest X-Ray 09/15/17 0000 Signed Impressions: Service Date/Time: September 09:14 - CONCLUSION: 1. No acute cardiopulmonary disease. Jamaal Meadows MD Abscess Drainage CT 09/06/17 0833 Signed Impressions: Service Date/Time: Wednesday, September 06, 2017 15:39 - CONCLUSION: 1. Uncomplicated CT-guided drainage catheter placement in left pelvic fluid collection. Only a small amount of serosanguineous fluid could be aspirated immediately following catheter placement. Entire sample was submitted for laboratory analysis. Overall, findings are most consistent with pelvic hematoma. Jamaal Meadows MD A/P Problem List: (1) Abdominal pain ICD Codes: R10.9 - Unspecified abdominal pain Status: Acute Plan: Abdominal pain Uterine cancer (carcinosarcoma) pelvic mass/hematoma This is a 57 year old female with a past medical history which includes anxiety/ depression, lumbar radiculopathy, chronic back pain, hyperlipidemia, uterine cancer. Patient is currently following with Dr. Garsia last chemotherapy this past Tuesday. She had three chemotherapy treatment then on 06/30/17 Robotic assisted Laparoscopic hysterectomy, BSO, resection of pelvic mass, omentectomy and tumor debulking with Dr. Garsia. After surgery patient has had two additional rounds of chemotherapy. Patient was seen in ER 08/24/17 for lower abdominal pain. CT abd/pelvic (08/24/17)revealed: Large heterogeneous mass in the uterine surgical bed measuring 9.6 x 5.0 x6.8 cm. Patient was then DC with follow up with Dr. Garsia as an outpatient. Today patient returned to the ER due to worsening abdominal pain for the past 3 days. Pain constant, pressure like, sharp, worse with eating, improved by bringing her legs closer to her. Pt. reports that she is constipated and has decreased appetite. Pt. had a fever of 100.2 at home, associated with some chills and night sweats. CT abd/Pelvis (09/05/17) revealed: mass 12.7 cm which has progressed in size from previous study. Predominantly cystic mass in the pelvis larger when compared to the comparison study either hematoma or seroma. Abscess cannot be entirely excluded Hemangioma right lobe of the liver. - IR placed drain into abdomen fluid collection on 09/06..bloody fluid - f/u cytology shows malignant cells and gs/cx ngtd - Pt with fevers 09/07...zosyn empirically. blood cx ngtd. . presumed related to fluid collection. - c.diff positive. flagyl started on 09/10 and zosyn stopped. - repeat CT Abd/pelvis (09/10/17) --> pelvic fluid collection essentially unchanged - Case d/w IR, Dr. Stein (09/12) - IR will place tPA in drain (09/12) - IR does NOT feel that pt would benefit from a 2nd drain. - Case d/w Dr. Garsia (09/12). He reevaluated pt (09/13). He discussed options regarding further chemo or radiation. - less output from drainage catheter in the last few days - Pt continues with pelvic/abd pain requiring IV pain medication - (09/19) Repositioned new 12 F tube deeper into collection and coiled a wire within the collection to try to break up some of the locules. . Placed 4mg TPA into collection to try to aid in aspiration. - Case discussed with Dr. Garsia. Case discussed with Dr. Otto (09/19)plan for radiation simulation/ CT simulation done on 09/21 and await planned 10 treatments. discussed again with Dr Otto on 09/21 - DVT prophylaxis with SCDs - discussed with dr Garsia and Dr Knutson.... - radiation started on 09/23.. - I spoke to patient about going home in next 2 or 3 days and completing radiation as outpatient and drain care per [facility] with close dyslexia teacher/onc f/u .....she is considering it if we can get better control of her pain. ....increased fentanyl patch on 09/24 and so far pain control is better and less iv med. she will try to use only po med for breakthrough. C. difficile colitis - zosyn stopped. (09/08 - 09/10/17) - PO flagyl (09/10 - present) stop date 09/24 - stop questran - supportive care. overall improved. Uterine cancer - see above Anxiety and depression continue home Paxil 40 mg PO QHS Pancytopenia Patient H/H 6.3, 18.1 (09/14) -> 7.1 (09/15) -> 8.5 (09/16) -> 8.4 (09/17) -> 8.2 () -> 8.3 (09/19) -> CBC pending for (09/20) Plt count 15 -> 15 (09/15) -> 17 (09/16) -> 24 (09/17) -> 31 (09/18) -> 55 (09/19) - > CBC pending for (09/20) no signs of active bleeding Patient reports last chemotherapy treatment was 08/31/17 consult placed to Hematology/Medical oncology, appreciate input. Feel that the drop in Hgb and Plt likely secondary to myelosuppression secondary to chemotherapy two weeks ago. 2 units PRBC transfused (09/14) Hematology ordered additional 1 unit of PRBC (09/15) Patient also received Plt (09/14) (2) C. difficile colitis ICD Codes: A04.72 - Enterocolitis due to Clostridium difficile, not specified as recurrent Status: Acute (3) Uterine cancer ICD Codes: C55 - Malignant neoplasm of uterus, part unspecified Status: Chronic Plan: - see above (4) Anxiety and depression ICD Codes: F41.8 - Other specified anxiety disorders Status: Chronic (5) Pancytopenia ICD Codes: D61.818 - Other pancytopenia Status: Acute (6) Fever ICD Codes: R50.9 - Fever, unspecified Status: Acute Problem Qualifiers (1) Abdominal pain: Qualified Codes: R10.31 - Right lower quadrant pain (2) Uterine cancer: Qualified Codes: C55 - Malignant neoplasm of uterus, part unspecified Jakub Solorio MD Sep 25, 2017 09:41
[2017-09-25 12:00] VITALS: BP 104/57; PULSE 72; RESP 18; TEMP 98.2; O2SAT 96
[2017-09-25 16:00] VITALS: BP 126/58; PULSE 75; RESP 18; TEMP 98.4; O2SAT 96
[2017-09-25 20:00] VITALS: BP 98/53; PULSE 79; RESP 18; TEMP 99.1; O2SAT 96
[2017-09-25] MEDS: PARoxetine HCL 20 MG TAB PO SCH (20:03)
[2017-09-25] MEDS: PRAVASTATIN SOD 80 MG TAB PO SCH (20:03)
[2017-09-26] VITALS: BP 100/53; PULSE 71; RESP 18; TEMP 98.7; O2SAT 96
[2017-09-26] MEDS: oxyCODONE/ACETAMINOPHEN 10 MG/325 MG TAB PO PRN ×6 (01:15→21:59)
[2017-09-26] MEDS: MORPHINE SULFATE 4 MG/ML INJ IV PUSH PRN ×5 (03:51→20:06)
[2017-09-26 04:00] VITALS: BP 102/61; PULSE 81; RESP 18; TEMP 98.1; O2SAT 96
[2017-09-26] MEDS: SODIUM CHLORIDE 0.9% 10 ML VIAL IRRIGATION SCH ×3 (06:00→20:09)
[2017-09-26] MEDS: POTASSIUM CHLORIDE 20 MEQ CONTROLLED RELEASE TAB PO SCH ×2 (07:34→20:06)
[2017-09-26] MEDS: SODIUM CHLORIDE 0.9% FLUSH 10 ML FLUSH IV FLUSH SCH ×2 (07:34→20:06)
[2017-09-26] MEDS: PANTOPRAZOLE SOD 40 MG DELAYED RELEASE TAB PO SCH (07:34)
[2017-09-26 08:36] VITALS: BP_SYST 51; PULSE 84; RESP 18; TEMP 98.1; O2SAT 95
[2017-09-26 12:32] VITALS: BP 111/56; PULSE 87; RESP 18; TEMP 99; O2SAT 96
--- NOTE | 2017-09-26 16:40 | HHI.PR ---
Subjective Remarks Pt reports that the pain is better controlled but she is still using the IV Morphine and po Percocet about every 4 hours. She has about 200cc of bloody fluid in her drain currently Objective Vitals Vital Signs Date Time Temp Pulse Resp B/P (MAP) Pulse Ox O2 Delivery O2 Flow Rate FiO2 09/26/17 14:14 16 09/26/17 12:32 99.0 87 18 111/56 (74) 96 09/26/17 11:50 16 09/26/17 08:36 98.1 84 18 51/ 95 09/26/17 04:00 98.1 81 18 102/61 (75) 96 09/26/17 00:00 98.7 71 18 100/53 (69) 96 09/25/17 20:00 99.1 79 18 98/53 (68) 96 09/26/17 09/26/17 09/27/17 15:00 23:00 07:00 Intake Total 240 ml Balance 240 ml Intake Oral 240 ml Result Diagram: 09/23/17 0527 Imaging Last Impressions Abdomen/Pelvis CT 09/17/17 0000 Signed Impressions: Service Date/Time: Sunday, September 17, 2017 16:03 - CONCLUSION: 1. Minimally improved large pelvic collection now measuring 14.5 x 7.5 cm in comparison to 16.1 x 7.5 cm on prior exam. 2. Interval retraction of the percutaneous drainage catheter with pigtail in the inferior lateral margin of the collection and most proximal sidehole abutting the collection wall. 3. Remainder of the exam is unchanged. Jamaal Meadows MD Chest X-Ray 09/15/17 0000 Signed Impressions: Service Date/Time: September 09:14 - CONCLUSION: 1. No acute cardiopulmonary disease. Jamaal Meadows MD Abscess Drainage CT 09/06/17 0833 Signed Impressions: Service Date/Time: Wednesday, September 06, 2017 15:39 - CONCLUSION: 1. Uncomplicated CT-guided drainage catheter placement in left pelvic fluid collection. Only a small amount of serosanguineous fluid could be aspirated immediately following catheter placement. Entire sample was submitted for laboratory analysis. Overall, findings are most consistent with pelvic hematoma. Jamaal Meadows MD Objective Remarks General: NAD, AAOx3 Chest: CTA Cardiac: Regular Abd: +BS, soft, nontender, drain in place Ext: No edema Ortega catheter in place A/P Problem List: (1) Abdominal pain ICD Codes: R10.9 - Unspecified abdominal pain Status: Acute Plan: Abdominal pain Uterine cancer (carcinosarcoma) pelvic mass/hematoma - This is a 57 year old female with a past medical history which includes anxiety/depression, lumbar radiculopathy, chronic back pain, hyperlipidemia, uterine cancer. Patient is currently following with Dr. Garsia. She had three chemotherapy treatment then on 06/30/17 Robotic assisted Laparoscopic hysterectomy, BSO, resection of pelvic mass, omentectomy and tumor debulking with Dr. Garsia. After surgery patient has had two additional rounds of chemotherapy. Patient was seen in ER 08/24/17 for lower abdominal pain. - CT abd/pelvic (08/24/17) --> Large heterogeneous mass in the uterine surgical bed measuring 9.6 x 5.0 x6.8 cm. Patient was then DC with follow up with Dr. Garsia as an outpatient. - Patient returned to the ER on 09/05/17 due to worsening abdominal pain x 3 days. Pain constant, pressure like, sharp, worse with eating, improved by bringing her legs closer to her. Pt reports that she is constipated and has decreased appetite. Pt had a fever of 100.2 at home, associated with some chills and night sweats. - CT Abd/Pelvis (09/05/17) --> mass 12.7 cm which has progressed in size from previous study. Predominantly cystic mass in the pelvis larger when compared to the comparison study either hematoma or seroma. Abscess cannot be entirely excluded Hemangioma right lobe of the liver. - IR placed drain into abdomen fluid collection on 09/06 with noted bloody fluid - f/u cytology shows malignant cells and gs/cx ngtd - Pt with fevers 09/07 and was given Zosyn empirically. Blood cx (09/07/17) with NGTD. Presumed related to fluid collection. - C.diff was positive on 09/10/17. Flagyl started on 09/10 and Zosyn stopped. - Repeat CT Abd/pelvis (09/10/17) --> pelvic fluid collection essentially unchanged - Case d/w IR, Dr. Stein (09/12) - IR will place tPA in drain (09/12) - IR does NOT feel that pt would benefit from a 2nd drain. - Case d/w Dr. Garsia (09/12). He reevaluated pt (09/13). He discussed options regarding further chemo or radiation. - Less output from drainage catheter in the last few days - Pt continues with pelvic/abd pain requiring IV pain medication - (09/19) Repositioned new 12 F tube deeper into collection and coiled a wire within the collection to try to break up some of the locules. Placed 4mg TPA into collection to try to aid in aspiration. - Case discussed with Dr. Garsia. Case discussed with Dr. Otto (09/19) plan for radiation. CT simulation done on 09/21 and planned for 10 treatments. Radiation started on 09/23 - I spoke to patient about going home in next 2 or 3 days and completing radiation as outpatient and drain care per [facility] with close meter and regulator shop supervisor/onc f/u she is considering it if we can get better control of her pain. Fentanyl patch increased to 50mcg on 09/24 and but still requiring IV Morphine and PO Percocet. We will increase the dose to 75mcg Q3D C. difficile colitis - Zosyn stopped. (09/08 - 09/10/17) - PO Flagyl (09/10 - 09/24) - stop Questran - Repeat stool studies on 09/19 are negative for C. diff - supportive care. - Overall improved. Uterine cancer - see above Anxiety and depression - Continue home Paxil 40 mg PO QHS Pancytopenia - She did require 2 units PRBC transfused (09/14) and 1 unit PRBCs on 09/15. H/H has been stable since then. - Patient also received Plt (09/14). Plt count has been increasing. - No signs of active bleeding - Patient reports last chemotherapy treatment was 08/31/17 - Hematology/Medical oncology following and they feel that the drop in Hgb and Plt likely secondary to myelosuppression secondary to chemotherapy two weeks ago. (2) C. difficile colitis ICD Codes: A04.72 - Enterocolitis due to Clostridium difficile, not specified as recurrent Status: Acute (3) Uterine cancer ICD Codes: C55 - Malignant neoplasm of uterus, part unspecified Status: Chronic Plan: - see above (4) Anxiety and depression ICD Codes: F41.8 - Other specified anxiety disorders Status: Chronic (5) Pancytopenia ICD Codes: D61.818 - Other pancytopenia Status: Acute (6) Fever ICD Codes: R50.9 - Fever, unspecified Status: Acute Assessment and Plan Patient examined. Assessment and plan formulated with Bridgette March PA-C. I agree with the above. Problem Qualifiers (1) Abdominal pain: Qualified Codes: R10.31 - Right lower quadrant pain (2) Uterine cancer: Qualified Codes: C55 - Malignant neoplasm of uterus, part unspecified Bridgette March Sep 26, 2017 16:40 Abel Garvin DO Sep 28, 2017 15:27
[2017-09-26 16:59] VITALS: BP 109/59; PULSE 82; RESP 17; TEMP 98.4; O2SAT 96
[2017-09-26] MEDS ORDERED: REMOVE OLD FENTANYL PATCH T-DERMAL SCH (18:00)
[2017-09-26] MEDS ORDERED: fentaNYL 75 MCG/HR PATCH T-DERMAL SCH (18:00)
[2017-09-26] MEDS: PRAVASTATIN SOD 80 MG TAB PO SCH (20:05)
[2017-09-26] MEDS: PARoxetine HCL 20 MG TAB PO SCH (20:05)
[2017-09-26 21:15] VITALS: BP 103/55; PULSE 83; RESP 18; TEMP 99.3; O2SAT 96
[2017-09-27] MEDS: MORPHINE SULFATE 4 MG/ML INJ IV PUSH PRN ×6 (00:16→21:11)
[2017-09-27 00:41] VITALS: BP 112/60; PULSE 83; RESP 18; TEMP 98; O2SAT 97
[2017-09-27] MEDS: oxyCODONE/ACETAMINOPHEN 10 MG/325 MG TAB PO PRN ×6 (01:49→23:55)
[2017-09-27 05:20] VITALS: BP 123/59; PULSE 72; RESP 18; TEMP 98.5; O2SAT 94
[2017-09-27] MEDS: SODIUM CHLORIDE 0.9% 10 ML VIAL IRRIGATION SCH ×3 (06:05→20:10)
[2017-09-27] MEDS: PANTOPRAZOLE SOD 40 MG DELAYED RELEASE TAB PO SCH (07:44)
[2017-09-27] MEDS: SODIUM CHLORIDE 0.9% FLUSH 10 ML FLUSH IV FLUSH SCH ×2 (07:44→20:09)
[2017-09-27] MEDS: POTASSIUM CHLORIDE 20 MEQ CONTROLLED RELEASE TAB PO SCH ×2 (07:45→20:09)
[2017-09-27 08:22] VITALS: BP 102/60; PULSE 76; RESP 18; TEMP 98.5; O2SAT 94
--- NOTE | 2017-09-27 08:50 | HHI.PR ---
Subjective . no new c/o better pain control no n/v, (+) bm she inquires as to when she can go home? Objective . 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 findings reviewed repeat cultures (-) to date 48 hrs/5days discussed with Dr. Solorio, work toward goal of discharge after XRT tomorrow (treatment #5 of 10) outpatient f/u to complete 10 scheduled fractions of xrt f/u with i.r. 7-10 days for repeat imaging and hopeful i.p.drain removal f/u with me ~ 2-3 weeks Rohini Garsia MD Sep 27, 2017 08:50
[2017-09-27 12:39] VITALS: BP 120/65; PULSE 87; RESP 18; TEMP 98.6; O2SAT 96
[2017-09-27] MEDS ORDERED: MORPHINE SULFATE 4 MG/ML INJ IV PUSH PRN (16:15)
--- NOTE | 2017-09-27 16:16 | HHI.PR ---
Subjective Remarks Pt feels that her pelvic/abdominal pain is worse today. Pt requires continued prn percocet & IV morphine despite increase of duragesic ( 09/26) Objective Vitals Vital Signs Date Time Temp Pulse Resp B/P (MAP) Pulse Ox O2 Delivery O2 Flow Rate FiO2 09/27/17 14:58 16 09/27/17 12:39 98.6 87 18 120/65 (83) 96 09/27/17 12:21 16 09/27/17 08:22 98.5 76 18 102/60 (74) 94 09/27/17 05:20 98.5 72 18 123/59 (80) 94 09/27/17 00:41 98.0 83 18 112/60 (77) 97 09/26/17 21:15 99.3 83 18 103/55 (71) 96 09/26/17 18:32 16 09/26/17 16:59 98.4 82 17 109/59 (76) 96 09/27/17 09/27/17 09/28/17 15:00 23:00 07:00 Intake Total 240 ml Balance 240 ml Intake Oral 240 ml Result Diagram: 09/23/17526 Imaging Last Impressions Abdomen/Pelvis CT 09/17/17 0000 Signed Impressions: Service Date/Time: Sunday, September 17, 2017 16:03 - CONCLUSION: 1. Minimally improved large pelvic collection now measuring 14.5 x 7.5 cm in comparison to 16.1 x 7.5 cm on prior exam. 2. Interval retraction of the percutaneous drainage catheter with pigtail in the inferior lateral margin of the collection and most proximal sidehole abutting the collection wall. 3. Remainder of the exam is unchanged. Jamaal Meadows MD Chest X-Ray 09/15/17 0000 Signed Impressions: Service Date/Time: September 09:14 - CONCLUSION: 1. No acute cardiopulmonary disease. Jamaal Meadows MD Abscess Drainage CT 09/06/17 0833 Signed Impressions: Service Date/Time: Wednesday, September 06, 2017 15:39 - CONCLUSION: 1. Uncomplicated CT-guided drainage catheter placement in left pelvic fluid collection. Only a small amount of serosanguineous fluid could be aspirated immediately following catheter placement. Entire sample was submitted for laboratory analysis. Overall, findings are most consistent with pelvic hematoma. Jamaal Meadows MD Objective Remarks General: NAD, AAOx3 Chest: CTA Cardiac: Regular Abd: +BS, soft, nontender, drain in place Ext: No edema Ortega catheter in place A/P Problem List: (1) Abdominal pain ICD Codes: R10.9 - Unspecified abdominal pain Status: Acute Plan: Abdominal pain Uterine cancer (carcinosarcoma) pelvic mass/hematoma - This is a 57 year old female with a past medical history which includes anxiety/depression, lumbar radiculopathy, chronic back pain, hyperlipidemia, uterine cancer. Patient is currently following with Dr. Garsia. She had three chemotherapy treatment then on 06/30/17 Robotic assisted Laparoscopic hysterectomy, BSO, resection of pelvic mass, omentectomy and tumor debulking with Dr. Garsia. After surgery patient has had two additional rounds of chemotherapy. Patient was seen in ER 08/24/17 for lower abdominal pain. - CT abd/pelvic (08/24/17) --> Large heterogeneous mass in the uterine surgical bed measuring 9.6 x 5.0 x6.8 cm. Patient was then DC with follow up with Dr. Garsia as an outpatient. - Patient returned to the ER on 09/05/17 due to worsening abdominal pain x 3 days. Pain constant, pressure like, sharp, worse with eating, improved by bringing her legs closer to her. Pt reports that she is constipated and has decreased appetite. Pt had a fever of 100.2 at home, associated with some chills and night sweats. - CT Abd/Pelvis (09/05/17) --> mass 12.7 cm which has progressed in size from previous study. Predominantly cystic mass in the pelvis larger when compared to the comparison study either hematoma or seroma. Abscess cannot be entirely excluded Hemangioma right lobe of the liver. - IR placed drain into abdomen fluid collection on 09/06 with noted bloody fluid - f/u cytology shows malignant cells and gs/cx ngtd - Pt with fevers 09/07 and was given Zosyn empirically. Blood cx (09/07/17) with NGTD. Presumed related to fluid collection. - C.diff was positive on 09/10/17. Flagyl started on 09/10 and Zosyn stopped. - Repeat CT Abd/pelvis (09/10/17) --> pelvic fluid collection essentially unchanged - Case d/w IR, Dr. Stein (09/12) - IR will place tPA in drain (09/12) - IR does NOT feel that pt would benefit from a 2nd drain. - Case d/w Dr. Garsia (09/12). He reevaluated pt (09/13). He discussed options regarding further chemo or radiation. - Less output from drainage catheter in the last few days - Pt continues with pelvic/abd pain requiring IV pain medication - (09/19) Repositioned new 12 F tube deeper into collection and coiled a wire within the collection to try to break up some of the locules. Placed 4mg TPA into collection to try to aid in aspiration. - Case discussed with Dr. Garsia. Case discussed with Dr. Otto (09/19) plan for radiation. CT simulation done on 09/21 and planned for 10 treatments. Radiation started on 09/23 - discharge to home once pt's pain is better controlled. - duragesic increased to 75mgc (09/26) - Pt does NOT want morphine frequency decreased because of continued pain - prn IV morphine, PO percocet - case d/w Dr. Garsia (09/27) - Case d/w Dr. Otto (09/27). He feels pt will likely require 5-10 sessions of radiation before any possible improvement. - obtain repeat CT abd/pelvis d/t persistent/increased pelvic pain - supportive care C. difficile colitis - Zosyn stopped. (09/08 - 09/10/17) - PO Flagyl (09/10 - 09/24) - stop Questran - Repeat stool studies on 09/19 are negative for C. diff - supportive care. - Overall improved. Uterine cancer - see above Anxiety and depression - Continue home Paxil 40 mg PO QHS Pancytopenia - She did require 2 units PRBC transfused (09/14) and 1 unit PRBCs on 09/15. H/H has been stable since then. - Patient also received Plt (09/14). Plt count has been increasing. - No signs of active bleeding - Patient reports last chemotherapy treatment was 08/31/17 - Hematology/Medical oncology following and they feel that the drop in Hgb and Plt likely secondary to myelosuppression secondary to chemotherapy two weeks ago. (2) C. difficile colitis ICD Codes: A04.72 - Enterocolitis due to Clostridium difficile, not specified as recurrent Status: Acute (3) Uterine cancer ICD Codes: C55 - Malignant neoplasm of uterus, part unspecified Status: Chronic Plan: - see above (4) Anxiety and depression ICD Codes: F41.8 - Other specified anxiety disorders Status: Chronic (5) Pancytopenia ICD Codes: D61.818 - Other pancytopenia Status: Acute (6) Fever ICD Codes: R50.9 - Fever, unspecified Status: Acute Problem Qualifiers (1) Abdominal pain: Qualified Codes: R10.31 - Right lower quadrant pain (2) Uterine cancer: Qualified Codes: C55 - Malignant neoplasm of uterus, part unspecified Abel Garvin DO Sep 27, 2017 16:16
[2017-09-27] MEDS: ACETAMINOPHEN 325 MG TAB PO PRN (16:23)
[2017-09-27 16:35] VITALS: BP 123/67; PULSE 76; RESP 18; TEMP 98.7; O2SAT 97
[2017-09-27] MEDS ORDERED: DIATRIZOATE MEGLUM/DIATRIZOATE SOD 9 ML CUP PO ONE (17:30)
[2017-09-27] MEDS ORDERED: IOHEXOL 350 MG/ML 10 ML VIAL (for RAD DIAG) IVCONTRAST ONE (19:49)
[2017-09-27] MEDS: PRAVASTATIN SOD 80 MG TAB PO SCH (20:09)
[2017-09-27] MEDS: PARoxetine HCL 20 MG TAB PO SCH (20:09)
--- NOTE | 2017-09-27 20:19 | RADRPT ---
EXAM DATE/TIME: 09/27/2017 19:33 [facility] COMPARISON: CT NEEDLE BIOPSY ABDOMEN, March 29, 2017, 11:10. CT ABDOMEN & PELVIS W CONTRAST, August 24, 2017, 14:23. CT ABDOMEN & PELVIS W CONTRAST, September 17, 2017, 16:03. INDICATIONS : Diffuse abdomen pain, post drain tube. IV CONTRAST: 91 cc Omnipaque 350 (iohexol) IV ORAL CONTRAST: No oral contrast ingested. RADIATION DOSE: 15.91 CTDIvol (mGy) MEDICAL HISTORY : Cardiovascular disease. Uterine cancer, SURGICAL HISTORY : Hysterectomy. ENCOUNTER: Initial ACUITY: 1 day PAIN SCALE: 6/10 LOCATION: Bilateral lower quadrant TECHNIQUE: Volumetric scanning of the abdomen and pelvis was performed. Using automated exposure control and ad justment of the mA and/or kV according to patient size, radiation dose was kept as low as reasonably achievable to obtain optimal diagnostic quality images. DICOM format image data is available electro nically for review and comparison. FINDINGS: There is a 6 mm nodule in the right lung base unchanged. This may reflect metastatic disease in this patient with history of uterine cancer. No pleural effusions are identified. There are stable hepatic lesions in segment 2 and segment 6 without FDG activity by report. There is a 3.5 cm mass in the dom e of liver which was not previously identified on the CT scan of the abdomen may reflect trapped flui d. PET/CT scan is recommended to further evaluation if clinically indicated. The gallbladder and panc reas are unremarkable. No intrahepatic or extrahepatic ductal dilatation is seen. The adrenal glands are unremarkable. The left kidney is unremarkable. There is new right hydronephrosis secondary to ure teral compression from the large fluid collection measuring 16 cm which is unchanged from the prior s tudy. The drain is in the anterior aspect of the collection and could be repositioned for improved dr herrera. No free fluid is identified. CONCLUSION: 1. Moon remains in place though the fluid question is not decreased in size measuring 16 CM by 8 CM. Repositioning of the catheter could be considered. 2. Right hydronephrosis secondary to ureteral compression mild in nature. 3. New hypodensity which may be subcapsular over the dome of the liver and reflect trapped fluid. The appearance is atypical for metastatic disease. 4. Stable 6 mm nodule in the right lower lobe. Eyal Grimaldo MD on September 27, 2017 at 20:09 Board Certified Radiologist. This report was verified electronically.
[2017-09-27 20:41] VITALS: BP 113/59; PULSE 82; RESP 18; TEMP 98.5; O2SAT 97
[2017-09-28] VITALS: BP 115/67; PULSE 78; RESP 16; TEMP 98.9; O2SAT 96
[2017-09-28] MEDS: MORPHINE SULFATE 4 MG/ML INJ IV PUSH PRN ×5 (01:26→23:28)
[2017-09-28] MEDS: oxyCODONE/ACETAMINOPHEN 10 MG/325 MG TAB PO PRN ×5 (04:31→21:54)
[2017-09-28 04:35] VITALS: BP 112/69; PULSE 84; RESP 16; TEMP 98.6; O2SAT 96
[2017-09-28] MEDS: SODIUM CHLORIDE 0.9% 10 ML VIAL IRRIGATION SCH ×3 (06:07→22:00)
[2017-09-28 07:24] LABS: AUTOMATED NEUTROPHIL # 2.6 TH/MM3 (1.8-7.7); BASOPHIL % 0.3 % (0.0-2.0); EOSINOPHIL % 0.5 % (0.0-4.0); HEMATOCRIT 27.1 % (35.0-46.0); HEMOGLOBIN 9.2 GM/DL (11.6-15.3); LYMPH % 15.8 % (9.0-44.0); LYMPHOCYTE # 0.6 TH/MM3 (1.0-4.8); MEAN CELL VOLUME 92.3 FL (80.0-100.0); MEAN CORPUSCULAR HEMOGLOBIN 31.3 PG (27.0-34.0); MONO % 13.4 % (0.0-8.0); MONOCYTE # 0.5 TH/MM3 (0-0.9); PLATELET COUNT 496 TH/MM3 (150-450); RED BLOOD COUNT 2.94 MIL/MM3 (4.00-5.30); RED CELL DISTRIBUTION WIDTH 18.9 % (11.6-17.2); WHITE BLOOD COUNT 3.7 TH/MM3 (4.0-11.0)
--- NOTE | 2017-09-28 07:43 | PD.ONC.PN ---
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 states still having to take IV morphine Q 3 hours along with Percocet and with Fentanyl patch s/p 3 radiation treatments 4th today drain in place with bloody drainage Objective Data Date Time Temp Pulse Resp B/P (MAP) Pulse Ox O2 Delivery O2 Flow Rate FiO2 09/28/17 04:35 98.6 84 16 112/69 (83) 96 09/28/17 00:00 98.9 78 16 115/67 (83) 96 09/27/17 20:41 98.5 82 18 113/59 (77) 97 09/27/17 18:01 16 09/27/17 17:14 16 09/27/17 17:14 16 09/27/17 16:35 98.7 76 18 123/67 (85) 97 09/27/17 14:58 16 09/27/17 12:39 98.6 87 18 120/65 (83) 96 09/27/17 08:22 98.5 76 18 102/60 (74) 94 09/28/17 09/28/17 09/28/17 07:00 15:00 23:00 Output Total 1200 ml Balance -1200 ml Laboratory Results Laboratory Tests Test 09/05/17 12:04 09/08/17 12:35 09/15/17 02:15 09/15/17 11:45 Prothrombin Time 10.0 SEC Prothromb Time International Ratio 1.0 RATIO Activated Partial Thromboplast Time 26.8 SEC Blood Urea Nitrogen 14 MG/DL Creatinine 0.86 MG/DL Random Glucose 101 MG/DL Total Protein 7.6 GM/DL Albumin 3.4 GM/DL Calcium Level 9.2 MG/DL Alkaline Phosphatase 94 U/L Aspartate Amino Transf (AST/SGOT) 45 U/L Alanine Aminotransferase (ALT/SGPT) 14 U/L Total Bilirubin 0.4 MG/DL Sodium Level 133 MEQ/L Potassium Level 3.2 MEQ/L Chloride Level 96 MEQ/L Carbon Dioxide Level 30.0 MEQ/L Urine Amorphous Sediment RARE Urine Mucus FEW /lpf Myelocytes 1 % Acanthocytes OCC Urine Color YELLOW Urine Turbidity CLEAR Urine pH 5.5 Urine Specific [place] 1.017 Urine Protein NEG mg/dL Urine Glucose (UA) NEG mg/dL Urine Ketones NEG mg/dL Urine Occult Blood SMALL Urine Nitrite NEG Urine Bilirubin NEG Urine Urobilinogen LESS THAN 2.0 MG/DL Urine Leukocyte Esterase TRACE Urine RBC 10 /hpf Urine WBC 1 /hpf Urine Squamous Epithelial Cells <1 /hpf Urine Bacteria RARE /hpf Microscopic Urinalysis Comment CATH-CULTURE IND Test 09/18/17 10:30 09/19/17 21:39 09/20/17 12:53 09/21/17 12:48 Differential Total Cells Counted 100 Neutrophils % (Manual) 54 % Band Neutrophils % 13 % Lymphocytes % 26 % Monocytes % 7 % Neutrophils # (Manual) 1.5 TH/MM3 Stool C. difficile Toxin (PCR) NEGATIVE Stl C. difficile Toxin Epiderm 027 PRESUMPTIVE NEGATIVE Basophilic Stippling FAINT Mean Corpuscular Volume 91.5 FL Mean Corpuscular Hemoglobin 30.8 PG Mean Corpuscular Hemoglobin Concent 33.6 % Red Cell Distribution Width 16.1 % Mean Platelet Volume 9.3 FL Neutrophils (%) (Auto) 68.9 % Lymphocytes (%) (Auto) 20.9 % Monocytes (%) (Auto) 9.8 % Eosinophils (%) (Auto) 0.2 % Basophils (%) (Auto) 0.2 % Neutrophils # (Auto) 1.9 TH/MM3 Lymphocytes # (Auto) 0.6 TH/MM3 Monocytes # (Auto) 0.3 TH/MM3 Eosinophils # (Auto) 0.0 TH/MM3 Basophils # (Auto) 0.0 TH/MM3 CBC Comment AUTO DIFF Platelet Estimate LOW Platelet Morphology Comment NORMAL Spherocytes OCC Ovalocytes 1+ Test 09/23/17 05:27 09/28/17 06:47 Estimat Glomerular Filtration Rate 87 ML/MIN Laboratory Tests Test 09/28/17 06:47 Administered Medications Medications (Trade) Dose Ordered Sig/Khloe Route PRN Reason Start Time Stop Time Status Last Admin Dose Admin Sodium Chloride (NS Flush) 2 ml UNSCH PRN IV FLUSH FLUSH AFTER USING IV ACCESS 09/05/17 16:15 09/21/17 16:02 Sodium Chloride (NS Flush) 2 ml BID IV FLUSH 09/05/17 21:00 09/27/17 20:09 Acetaminophen (Tylenol) 650 mg Q4H PRN PO TEMP > 100.4 09/05/17 16:15 09/27/17 16:23 Pantoprazole Sodium (Protonix) 40 mg DAILY PO 09/06/17 09:00 09/27/17 07:44 Paroxetine HCl (Paxil) 40 mg HS PO 09/05/17 21:00 09/27/17 20:09 Pravastatin Sodium (Pravachol) 80 mg HS PO 09/05/17 21:00 09/27/17 20:09 Sodium Chloride (NS Inj) 10 ml Q8HR IRRIGATION 09/06/17 22:00 09/28/17 06:07 Potassium Chloride (KCl) 20 meq Q12HR PO 09/07/17 21:00 09/27/17 20:09 Oxycodone/ Acetaminophen (Percocet 10-325 Mg) 1 tab Q4H PRN PO pain 3-10 09/08/17 09:45 09/28/17 04:31 Calcium Carbonate (Tums Chew) 500 mg Q2H PRN CHEW INDIGESTION 09/13/17 17:00 09/14/17 21:24 Fentanyl (Duragesic 75 Mcg Patch.72 Hr) 1 patch Q3D T-DERMAL 09/26/17 18:00 09/26/17 17:50 Miscellaneous Information 1 Q3D T-DERMAL 09/26/17 18:00 09/26/17 17:51 Morphine Sulfate (Morphine Inj) 4 mg Q3H PRN IV PUSH BREAKTHROUGH PAIN 09/27/17 16:45 09/28/17 06:06 Objective Remarks GENERAL: Well-nourished, well-developed patient. SKIN: Warm and dry. HEAD: Normocephalic. EYES: No scleral icterus. No injection or drainage. NECK: Supple, trachea midline. CARDIOVASCULAR: Regular rate and rhythm without murmurs. RESPIRATORY: Breath sounds equal bilaterally. No accessory muscle use. MUSCULOSKELETAL: Adequate muscle tone. NEUROLOGICAL: No obvious focal deficit. Awake, alert, and oriented x3. PSYCHIATRIC: Appropriate mood and affect; insight and judgment normal. Assessment/Plan Problem List: (1) Pancytopenia ICD Codes: D61.818 - Other pancytopenia Status: Acute Plan: --monitor the CBC daily and transfuse if the hemoglobin is less than 8 and/or platelet count is less than 15. --pancytopenia likely d/t chemotherapy (carboplatin) -- last chemotherapy was 2 weeks ago on August 31. 09/19/17: ANC improved 1600, T max 99.0, continued thrombocytopenia but improving . continue to monitor daily labs 09/21/17: platelets continue to improve, afebrile 09/28/17: resolved and hem/onc signed off (2) Abdominal fluid collection ICD Codes: R18.8 - Other ascites Status: Acute Plan: s/p IR drainage of pelvic fluid collection 09/06/17 drain placed cultures pending monitor drain outpt 09/19/17: patient to IR today to switch out drain for larger one in hopes of draining mass pelvic fluid cultures negative malignant cells found in pelvic fluid, radiation oncology consulted 09/21/17: drain replaced on 09/19/17 with small improvement in drainage malignant cells found in mass, patient to start palliative radiation under direction of Dr. Otto, simulation today in hopes to shrink mass discharge per hospitalist 09/28/17: ct scan, no change in mass, probable fluid to dome of liver, mild hydronephrosis, lung lesion-- mets (?). drain in place with bloody drainage s/p 3 radiation treatments, 4th scheduled for today, Dr. Otto feels will take ~ 5-10 treatments Palliative Care following pain control per medicine team, appreciate assistance with Ms. Reyna Assessment 57y/o female with uterine cancer. Hematology consulted for thrombocytopenia. Plan 1. no transfusion needed today 2. monitor CBC Andriy Laguna Sep 28, 2017 07:43
[2017-09-28 07:45] LABS: BICARBONATE 26.7 MEQ/L (21.0-32.0); CALCIUM 9.2 MG/DL (8.5-10.1); CREATININE 0.91 MG/DL (0.50-1.00); MAGNESIUM 1.5 MG/DL (1.5-2.5)
[2017-09-28 08:02] VITALS: BP 108/56; PULSE 77; RESP 20; TEMP 99.3; O2SAT 96
[2017-09-28] MEDS: PANTOPRAZOLE SOD 40 MG DELAYED RELEASE TAB PO SCH (09:07)
[2017-09-28] MEDS: POTASSIUM CHLORIDE 20 MEQ CONTROLLED RELEASE TAB PO SCH ×2 (09:07→20:05)
[2017-09-28] MEDS: SODIUM CHLORIDE 0.9% FLUSH 10 ML FLUSH IV FLUSH SCH ×2 (09:08→20:06)
[2017-09-28 11:40] VITALS: BP 107/59; PULSE 73; RESP 18; TEMP 98.9; O2SAT 94
--- NOTE | 2017-09-28 15:30 | HHI.PR ---
Subjective Remarks No new complaints. Objective Vitals Vital Signs Date Time Temp Pulse Resp B/P (MAP) Pulse Ox O2 Delivery O2 Flow Rate FiO2 09/28/17 11:40 98.9 73 18 107/59 (75) 94 09/28/17 08:02 99.3 77 20 108/56 (73) 96 09/28/17 04:35 98.6 84 16 112/69 (83) 96 09/28/17 00:00 98.9 78 16 115/67 (83) 96 09/27/17 20:41 98.5 82 18 113/59 (77) 97 09/27/17 18:01 16 09/27/17 17:14 16 09/27/17 17:14 16 09/27/17 16:35 98.7 76 18 123/67 (85) 97 Result Diagram: 09/28/17 0647 09/28/17 0647 Imaging Last Impressions Abdomen/Pelvis CT 09/27/17 0000 Signed Impressions: Service Date/Time: Wednesday, September 27, 2017 19:33 - CONCLUSION: 1. Moon remains in place though the fluid question is not decreased in size measuring 16 CM by 8 CM. Repositioning of the catheter could be considered. 2. Right hydronephrosis secondary to ureteral compression mild in nature. 3. New hypodensity which may be subcapsular over the dome of the liver and reflect trapped fluid. The appearance is atypical for metastatic disease. 4. Stable 6 mm nodule in the right lower lobe. Eyal Grimaldo MD Catheter Change 09/19/17 0000 Signed Impressions: Service Date/Time: Tuesday, September 19, 2017 14:01 - CONCLUSION: The right lower quadrant drainage catheter was manipulated deeper into the collection. 4 mg of TPA was instilled into the collection to try and improve drainage. Son Elizabeth Jr., MD Chest X-Ray 09/15/17 0000 Signed Impressions: Service Date/Time: September 09:14 - CONCLUSION: 1. No acute cardiopulmonary disease. Jamaal Meadows MD Abscess Drainage CT 09/06/17 0833 Signed Impressions: Service Date/Time: Wednesday, September 06, 2017 15:39 - CONCLUSION: 1. Uncomplicated CT-guided drainage catheter placement in left pelvic fluid collection. Only a small amount of serosanguineous fluid could be aspirated immediately following catheter placement. Entire sample was submitted for laboratory analysis. Overall, findings are most consistent with pelvic hematoma. Jamaal Meadows MD Objective Remarks General: NAD, AAOx3 Chest: CTA Cardiac: Regular Abd: +BS, soft, nontender, drain in place Ext: No edema Ortega catheter in place A/P Problem List: (1) Abdominal pain ICD Codes: R10.9 - Unspecified abdominal pain Status: Acute Plan: Abdominal pain Uterine cancer (carcinosarcoma) pelvic mass/hematoma - This is a 57 year old female with a past medical history which includes anxiety/depression, lumbar radiculopathy, chronic back pain, hyperlipidemia, uterine cancer. Patient is currently following with Dr. Garsia. She had three chemotherapy treatment then on 06/30/17 Robotic assisted Laparoscopic hysterectomy, BSO, resection of pelvic mass, omentectomy and tumor debulking with Dr. Garsia. After surgery patient has had two additional rounds of chemotherapy. Patient was seen in ER 08/24/17 for lower abdominal pain. - CT abd/pelvic (08/24/17) --> Large heterogeneous mass in the uterine surgical bed measuring 9.6 x 5.0 x6.8 cm. Patient was then DC with follow up with Dr. Garsia as an outpatient. - Patient returned to the ER on 09/05/17 due to worsening abdominal pain x 3 days. Pain constant, pressure like, sharp, worse with eating, improved by bringing her legs closer to her. Pt reports that she is constipated and has decreased appetite. Pt had a fever of 100.2 at home, associated with some chills and night sweats. - CT Abd/Pelvis (09/05/17) --> mass 12.7 cm which has progressed in size from previous study. Predominantly cystic mass in the pelvis larger when compared to the comparison study either hematoma or seroma. Abscess cannot be entirely excluded Hemangioma right lobe of the liver. - IR placed drain into abdomen fluid collection on 09/06 with noted bloody fluid - f/u cytology shows malignant cells and gs/cx ngtd - Pt with fevers /7 and was given Zosyn empirically. Blood cx (09/07/17) with NGTD. Presumed related to fluid collection. - C.diff was positive on 09/10/17. Flagyl started on 09/10 and Zosyn stopped. - Repeat CT Abd/pelvis (09/10/17) --> pelvic fluid collection essentially unchanged - Case d/w IR, Dr. Stein (09/12) - IR will place tPA in drain (09/12) - IR does NOT feel that pt would benefit from a 2nd drain. - Case d/w Dr. Garsia (09/12). He reevaluated pt (09/13). He discussed options regarding further chemo or radiation. - Less output from drainage catheter in the last few days - Pt continues with pelvic/abd pain requiring IV pain medication - (09/19) Repositioned new 12 F tube deeper into collection and coiled a wire within the collection to try to break up some of the locules. Placed 4mg TPA into collection to try to aid in aspiration. - Case discussed with Dr. Garsia. Case discussed with Dr. Otto (09/19) plan for radiation. CT simulation done on 09/21 and planned for 10 treatments. Radiation started on 09/23 - discharge to home once pt's pain is better controlled. - duragesic increased to 75mgc (09/26) - Pt does NOT want morphine frequency decreased because of continued pain - prn IV morphine, PO percocet - case d/w Dr. Garsia (09/27) - Case d/w Dr. Otto (09/27). He feels pt will likely require 5-10 sessions of radiation before any possible improvement. - repeat CT abd/pelvis (09/28) --> no change in size of fluid collection - Consult IR (09/28) to adjust drainage catheter - case d/w nursing (09/28). Pt sleeping most of the day. Appears comfortable overall. - Decrease frequency of IV morphine to q6h prn - supportive care C. difficile colitis - Zosyn stopped. (09/08 - 09/10/17) - PO Flagyl (09/10 - 09/24) - stop Questran - Repeat stool studies on 09/19 are negative for C. diff - supportive care. - Overall improved. Uterine cancer - see above Anxiety and depression - Continue home Paxil 40 mg PO QHS Pancytopenia - She did require 2 units PRBC transfused (09/14) and 1 unit PRBCs on 2/15. H/H has been stable since then. - Patient also received Plt (09/14). Plt count has been increasing. - No signs of active bleeding - Patient reports last chemotherapy treatment was 08/31/17 - Hematology/Medical oncology following and they feel that the drop in Hgb and Plt likely secondary to myelosuppression secondary to chemotherapy two weeks ago. (2) C. difficile colitis ICD Codes: A04.72 - Enterocolitis due to Clostridium difficile, not specified as recurrent Status: Acute (3) Uterine cancer ICD Codes: C55 - Malignant neoplasm of uterus, part unspecified Status: Chronic Plan: - see above (4) Anxiety and depression ICD Codes: F41.8 - Other specified anxiety disorders Status: Chronic (5) Pancytopenia ICD Codes: D61.818 - Other pancytopenia Status: Acute (6) Fever ICD Codes: R50.9 - Fever, unspecified Status: Acute Problem Qualifiers (1) Abdominal pain: Qualified Codes: R10.31 - Right lower quadrant pain (2) Uterine cancer: Qualified Codes: C55 - Malignant neoplasm of uterus, part unspecified Abel Garvin DO Sep 28, 2017 15:30
[2017-09-28 16:14] VITALS: BP 112/56; PULSE 70; RESP 20; TEMP 99; O2SAT 98
[2017-09-28 20:00] VITALS: BP 102/57; PULSE 81; RESP 18; TEMP 98.7; O2SAT 96
[2017-09-28] MEDS: PRAVASTATIN SOD 80 MG TAB PO SCH (20:05)
[2017-09-28] MEDS: PARoxetine HCL 20 MG TAB PO SCH (20:05)
[2017-09-29] VITALS: BP 102/57; PULSE 81; RESP 18; TEMP 98.7; O2SAT 96
[2017-09-29] MEDS: oxyCODONE/ACETAMINOPHEN 10 MG/325 MG TAB PO PRN ×5 (03:43→23:04)
[2017-09-29 04:00] VITALS: BP 112/63; PULSE 86; RESP 18; TEMP 97; O2SAT 97
[2017-09-29] MEDS: MORPHINE SULFATE 4 MG/ML INJ IV PUSH PRN ×3 (05:43→17:54)
[2017-09-29] MEDS: SODIUM CHLORIDE 0.9% 10 ML VIAL IRRIGATION SCH ×3 (05:43→21:23)
[2017-09-29 08:22] VITALS: BP 104/58; PULSE 75; RESP 20; TEMP 99.4; O2SAT 94
[2017-09-29] MEDS: SODIUM CHLORIDE 0.9% FLUSH 10 ML FLUSH IV FLUSH SCH ×2 (08:50→21:23)
[2017-09-29] MEDS: POTASSIUM CHLORIDE 20 MEQ CONTROLLED RELEASE TAB PO SCH ×2 (08:52→21:23)
[2017-09-29] MEDS: PANTOPRAZOLE SOD 40 MG DELAYED RELEASE TAB PO SCH (08:53)
[2017-09-29 12:19] VITALS: BP 110/59; PULSE 72; RESP 20; TEMP 98.1; O2SAT 96
--- NOTE | 2017-09-29 15:42 | HHI.PR ---
Subjective Remarks Pt sleeping when I entered the room. Pt c/o ongoing low pelvic pain. Pt agrees that the percocet does help for about 4 hours, but feels that it starts to wear off toward the end of 4 hours and onset is quicker for her morphine. Pt is concerned that she is beginning to become constipated. Pt states that she had 2 small bowel movements today. Objective Vitals Vital Signs Date Time Temp Pulse Resp B/P (MAP) Pulse Ox O2 Delivery O2 Flow Rate FiO2 09/29/17 12:19 98.1 72 20 110/59 (76) 96 09/29/17 08:22 99.4 75 20 104/58 (73) 94 09/29/17 04:00 97.0 86 18 112/63 (79) 97 09/29/17 00:00 98.7 81 18 102/57 (72) 96 09/28/17 20:00 98.7 81 18 102/57 (72) 96 09/28/17 16:14 99.0 70 20 112/56 (74) 98 09/29/17 09/29/17 09/30/17 15:00 23:00 07:00 Output Total 675 ml Balance -675 ml Output Urine Total 675 ml Result Diagram: 09/28/17 0647 09/28/17 0647 Imaging Last Impressions Abdomen/Pelvis CT 09/27/17 0000 Signed Impressions: Service Date/Time: Wednesday, September 27, 2017 19:33 - CONCLUSION: 1. Moon remains in place though the fluid question is not decreased in size measuring 16 CM by 8 CM. Repositioning of the catheter could be considered. 2. Right hydronephrosis secondary to ureteral compression mild in nature. 3. New hypodensity which may be subcapsular over the dome of the liver and reflect trapped fluid. The appearance is atypical for metastatic disease. 4. Stable 6 mm nodule in the right lower lobe. Eyal Grimaldo MD Catheter Change 09/19/17 0000 Signed Impressions: Service Date/Time: Tuesday, September 19, 2017 14:01 - CONCLUSION: The right lower quadrant drainage catheter was manipulated deeper into the collection. 4 mg of TPA was instilled into the collection to try and improve drainage. Son Elizabeth Jr., MD Chest X-Ray 09/15/17 0000 Signed Impressions: Service Date/Time: September 09:14 - CONCLUSION: 1. No acute cardiopulmonary disease. Jamaal Meadows MD Abscess Drainage CT 09/06/17 0833 Signed Impressions: Service Date/Time: Wednesday, September 06, 2017 15:39 - CONCLUSION: 1. Uncomplicated CT-guided drainage catheter placement in left pelvic fluid collection. Only a small amount of serosanguineous fluid could be aspirated immediately following catheter placement. Entire sample was submitted for laboratory analysis. Overall, findings are most consistent with pelvic hematoma. Jamaal Meadows MD Objective Remarks General: NAD, AAOx3 Chest: CTA Cardiac: Regular Abd: +BS, soft, nontender, drain in place Ext: No edema Ortega catheter in place A/P Problem List: (1) Abdominal pain ICD Codes: R10.9 - Unspecified abdominal pain Status: Acute Plan: Abdominal pain Uterine cancer (carcinosarcoma) pelvic mass/hematoma - This is a 57 year old female with a past medical history which includes anxiety/depression, lumbar radiculopathy, chronic back pain, hyperlipidemia, uterine cancer. Patient is currently following with Dr. Garsia. She had three chemotherapy treatment then on 06/30/17 Robotic assisted Laparoscopic hysterectomy, BSO, resection of pelvic mass, omentectomy and tumor debulking with Dr. Garsia. After surgery patient has had two additional rounds of chemotherapy. Patient was seen in ER 08/24/17 for lower abdominal pain. - CT abd/pelvic (08/24/17) --> Large heterogeneous mass in the uterine surgical bed measuring 9.6 x 5.0 x6.8 cm. Patient was then DC with follow up with Dr. Garsia as an outpatient. - Patient returned to the ER on 09/05/17 due to worsening abdominal pain x 3 days. Pain constant, pressure like, sharp, worse with eating, improved by bringing her legs closer to her. Pt reports that she is constipated and has decreased appetite. Pt had a fever of 100.2 at home, associated with some chills and night sweats. - CT Abd/Pelvis (09/05/17) --> mass 12.7 cm which has progressed in size from previous study. Predominantly cystic mass in the pelvis larger when compared to the comparison study either hematoma or seroma. Abscess cannot be entirely excluded Hemangioma right lobe of the liver. - IR placed drain into abdomen fluid collection on 09/06 with noted bloody fluid - f/u cytology shows malignant cells and gs/cx ngtd - Pt with fevers 09/07 and was given Zosyn empirically. Blood cx (09/07/17) with NGTD. Presumed related to fluid collection. - C.diff was positive on 09/10/17. Flagyl started on 09/10 and Zosyn stopped. - Repeat CT Abd/pelvis (09/10/17) --> pelvic fluid collection essentially unchanged - Case d/w IR, Dr. Stein (09/12) - IR will place tPA in drain (09/12) - IR does NOT feel that pt would benefit from a 2nd drain. - Case d/w Dr. Garsia (09/12). He reevaluated pt (09/13). He discussed options regarding further chemo or radiation. - Less output from drainage catheter in the last few days - Pt continues with pelvic/abd pain requiring IV pain medication - (09/19) Repositioned new 12 F tube deeper into collection and coiled a wire within the collection to try to break up some of the locules. Placed 4mg TPA into collection to try to aid in aspiration. - Case discussed with Dr. Garsia. Case discussed with Dr. Otto (09/19) plan for radiation. CT simulation done on 09/21 and planned for 10 treatments. Radiation started on 09/23 - discharge to home once pt's pain is better controlled. - Pt does NOT want morphine frequency decreased because of continued pain - prn IV morphine, PO percocet - case d/w Dr. Garsia (09/27) - Case d/w Dr. Otto (09/27). He feels pt will likely require 5-10 sessions of radiation before any possible improvement. - repeat CT abd/pelvis (09/28) --> no change in size of fluid collection - IR re-evaluated drainage catheter (09/28). No adjustment was necessary per IR. - increase duragesic to 100mgc (09/29) - stop prn morphine in the AM (09/30) - start colace 100mg BID - obtain KUB in AM - supportive care C. difficile colitis - Zosyn stopped. (09/08 - 09/10/17) - PO Flagyl (09/10 - 09/24) - stop Questran - Repeat stool studies on 09/19 are negative for C. diff - supportive care. - Overall improved. Uterine cancer - see above Anxiety and depression - Continue home Paxil 40 mg PO QHS Pancytopenia - She did require 2 units PRBC transfused (09/14) and 1 unit PRBCs on 09/15. H/H has been stable since then. - Patient also received Plt (09/14). Plt count has been increasing. - No signs of active bleeding - Patient reports last chemotherapy treatment was 08/31/17 - Hematology/Medical oncology following and they feel that the drop in Hgb and Plt likely secondary to myelosuppression secondary to chemotherapy two weeks ago. (2) C. difficile colitis ICD Codes: A04.72 - Enterocolitis due to Clostridium difficile, not specified as recurrent Status: Acute (3) Uterine cancer ICD Codes: C55 - Malignant neoplasm of uterus, part unspecified Status: Chronic Plan: - see above (4) Anxiety and depression ICD Codes: F41.8 - Other specified anxiety disorders Status: Chronic (5) Pancytopenia ICD Codes: D61.818 - Other pancytopenia Status: Acute (6) Fever ICD Codes: R50.9 - Fever, unspecified Status: Acute Problem Qualifiers (1) Abdominal pain: Qualified Codes: R10.31 - Right lower quadrant pain (2) Uterine cancer: Qualified Codes: C55 - Malignant neoplasm of uterus, part unspecified Abel Garvin DO Sep 29, 2017 15:42
[2017-09-29] MEDS ORDERED: fentaNYL 100 MCG/HR PATCH T-DERMAL ONE (15:45)
[2017-09-29] MEDS: REMOVE OLD FENTANYL PATCH T-DERMAL SCH (16:00)
[2017-09-29 16:44] VITALS: BP 95/59; PULSE 72; RESP 20; TEMP 98.1; O2SAT 96
[2017-09-29] MEDS: fentaNYL 100 MCG/HR PATCH T-DERMAL SCH (17:58)
[2017-09-29 20:30] VITALS: BP 108/58; PULSE 80; RESP 16; TEMP 99.3; O2SAT 94
[2017-09-29] MEDS: PRAVASTATIN SOD 80 MG TAB PO SCH (21:23)
[2017-09-29] MEDS: PARoxetine HCL 20 MG TAB PO SCH (21:23)
[2017-09-29] MEDS: DOCUSATE SODIUM 100 MG CAP PO SCH (21:26)
[2017-09-30] MEDS: MORPHINE SULFATE 4 MG/ML INJ IV PUSH PRN ×2 (00:04→06:22)
[2017-09-30 00:20] VITALS: BP 110/60; PULSE 76; RESP 17; TEMP 98.9; O2SAT 95
[2017-09-30 03:50] VITALS: BP 115/61; PULSE 84; RESP 16; TEMP 98.3; O2SAT 95
[2017-09-30] MEDS: oxyCODONE/ACETAMINOPHEN 10 MG/325 MG TAB PO PRN ×5 (03:58→21:07)
[2017-09-30] MEDS: SODIUM CHLORIDE 0.9% 10 ML VIAL IRRIGATION SCH ×3 (06:22→21:06)
[2017-09-30] MEDS: SODIUM CHLORIDE 0.9% FLUSH 10 ML FLUSH IV FLUSH SCH ×2 (07:57→21:06)
[2017-09-30] MEDS: DOCUSATE SODIUM 100 MG CAP PO SCH ×2 (07:58→21:06)
[2017-09-30] MEDS: POTASSIUM CHLORIDE 20 MEQ CONTROLLED RELEASE TAB PO SCH ×2 (07:58→21:06)
[2017-09-30] MEDS: PANTOPRAZOLE SOD 40 MG DELAYED RELEASE TAB PO SCH (07:58)
[2017-09-30 08:01] VITALS: BP 100/57; PULSE 76; RESP 18; TEMP 98.7; O2SAT 94
--- NOTE | 2017-09-30 08:30 | HHI.PR ---
Subjective . no new c/o good pain control no n/v Objective . afeb, vss hgb 9.2 a&o x 3, comfortable, nad in wheelchair (en rout from radiology), seen in hallway q&a most recent CT shows no change in fluid collection new fluid collection above/adjacent to liver Assessment/Plan . 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
--- NOTE | 2017-09-30 09:21 | RADRPT ---
EXAM DATE/TIME: 09/30/2017 08:10 [facility] COMPARISON: CT ABDOMEN & PELVIS W CONTRAST, September 27, 2017, 19:33. INDICATIONS : Low quadrant abdominal pain and pressure. MEDICAL HISTORY : Cardiovascular disease. Uterine cancer with metastasis. Radiation SURGICAL HISTORY : Hysterectomy. ENCOUNTER: Subsequent ACUITY: 1 month PAIN SCORE: 5/10 LOCATION: Bilateral lower quadrant abdomen FINDINGS: The bowel gas pattern is nonobstructive. Medicinal tablet overlies the left upper quadrant. Right low er quadrant percutaneous drainage catheter again seen. Osseous structures are intact. CONCLUSION: Nonobstructive bowel gas pattern. A moderate amount of stool is noted. Basilio Carpio MD on September 30, 2017 at 9:19 Board Certified Radiologist. This report was verified electronically.
[2017-09-30 12:11] VITALS: BP 119/67; PULSE 88; RESP 18; TEMP 98.5; O2SAT 99
--- NOTE | 2017-09-30 15:50 | HHI.PR ---
Subjective Remarks pain is controlled with current regimen Objective Vitals Vital Signs Date Time Temp Pulse Resp B/P (MAP) Pulse Ox O2 Delivery O2 Flow Rate FiO2 09/30/17 12:11 98.5 88 18 119/67 (84) 99 09/30/17 08:01 98.7 76 18 100/57 (71) 94 09/30/17 03:50 98.3 84 16 115/61 (79) 95 09/30/17 00:20 98.9 76 17 110/60 (77) 95 09/29/17 20:30 99.3 80 16 108/58 (75) 94 09/29/17 16:44 98.1 72 20 95/59 (71) 96 09/30/17 09/30/17 10/01/17 14:59 22:59 06:59 Output Total 375 ml Balance -375 ml Output Urine Total 225 ml Drainage Total 150 ml Result Diagram: 09/28/17 0647 09/28/17 0647 Imaging Last Impressions Abdomen X-Ray 09/30/17 0800 Signed Impressions: Service Date/Time: Saturday, September 30, 2017 08:10 - CONCLUSION: Nonobstructive bowel gas pattern. A moderate amount of stool is noted. Basilio Carpio MD Abdomen/Pelvis CT 09/27/17 0000 Signed Impressions: Service Date/Time: Wednesday, September 27, 2017 19:33 - CONCLUSION: 1. Moon remains in place though the fluid question is not decreased in size measuring 16 CM by 8 CM. Repositioning of the catheter could be considered. 2. Right hydronephrosis secondary to ureteral compression mild in nature. 3. New hypodensity which may be subcapsular over the dome of the liver and reflect trapped fluid. The appearance is atypical for metastatic disease. 4. Stable 6 mm nodule in the right lower lobe. Eyal Grimaldo MD Catheter Change 09/19/17 0000 Signed Impressions: Service Date/Time: Tuesday, September 19, 2017 14:01 - CONCLUSION: The right lower quadrant drainage catheter was manipulated deeper into the collection. 4 mg of TPA was instilled into the collection to try and improve drainage. Son Elizabeth Jr., MD Chest X-Ray 09/15/17 0000 Signed Impressions: Service Date/Time: September 09:14 - CONCLUSION: 1. No acute cardiopulmonary disease. Jamaal Bozorgmanesh, MD Abscess Drainage CT 09/06/17 0833 Signed Impressions: Service Date/Time: Wednesday, September 06, 2017 15:39 - CONCLUSION: 1. Uncomplicated CT-guided drainage catheter placement in left pelvic fluid collection. Only a small amount of serosanguineous fluid could be aspirated immediately following catheter placement. Entire sample was submitted for laboratory analysis. Overall, findings are most consistent with pelvic hematoma. Jamaal Meadows MD Objective Remarks General: NAD, AAOx3 Chest: CTA Cardiac: Regular Abd: +BS, soft, nontender, drain in place Ext: No edema Ortega catheter in place A/P Problem List: (1) Abdominal pain ICD Codes: R10.9 - Unspecified abdominal pain Status: Acute Plan: Abdominal pain Uterine cancer (carcinosarcoma) pelvic mass/hematoma - This is a 57 year old female with a past medical history which includes anxiety/depression, lumbar radiculopathy, chronic back pain, hyperlipidemia, uterine cancer. Patient is currently following with Dr. Garsia. She had three chemotherapy treatment then on 06/30/17 Robotic assisted Laparoscopic hysterectomy, BSO, resection of pelvic mass, omentectomy and tumor debulking with Dr. Garsia. After surgery patient has had two additional rounds of chemotherapy. Patient was seen in ER 08/24/17 for lower abdominal pain. - CT abd/pelvic (08/24/17) --> Large heterogeneous mass in the uterine surgical bed measuring 9.6 x 5.0 x6.8 cm. Patient was then DC with follow up with Dr. Garsia as an outpatient. - Patient returned to the ER on 09/05/17 due to worsening abdominal pain x 3 days. Pain constant, pressure like, sharp, worse with eating, improved by bringing her legs closer to her. Pt reports that she is constipated and has decreased appetite. Pt had a fever of 100.2 at home, associated with some chills and night sweats. - CT Abd/Pelvis (09/05/17) --> mass 12.7 cm which has progressed in size from previous study. Predominantly cystic mass in the pelvis larger when compared to the comparison study either hematoma or seroma. Abscess cannot be entirely excluded Hemangioma right lobe of the liver. - IR placed drain into abdomen fluid collection on 09/06 with noted bloody fluid - f/u cytology shows malignant cells and gs/cx ngtd - Pt with fevers 09/07 and was given Zosyn empirically. Blood cx (09/07/17) with NGTD. Presumed related to fluid collection. - C.diff was positive on 09/10/17. Flagyl started on 09/10 and Zosyn stopped. - Repeat CT Abd/pelvis (09/10/17) --> pelvic fluid collection essentially unchanged - Case d/w IR, Dr. Stein (09/12) - IR will place tPA in drain (09/12) - IR does NOT feel that pt would benefit from a 2nd drain. - Case d/w Dr. Garsia (09/12). He reevaluated pt (09/13). He discussed options regarding further chemo or radiation. - Less output from drainage catheter in the last few days - Pt continues with pelvic/abd pain requiring IV pain medication - (09/19) Repositioned new 12 F tube deeper into collection and coiled a wire within the collection to try to break up some of the locules. Placed 4mg TPA into collection to try to aid in aspiration. - Case discussed with Dr. Garsia. Case discussed with Dr. Otto (09/19) plan for radiation. CT simulation done on 09/21 and planned for 10 treatments. Radiation started on 09/23 - discharge to home once pt's pain is better controlled. - Pt does NOT want morphine frequency decreased because of continued pain - prn IV morphine, PO percocet - case d/w Dr. Garsia (09/27) - Case d/w Dr. Otto (09/27). He feels pt will likely require 5-10 sessions of radiation before any possible improvement. - repeat CT abd/pelvis (09/28) --> no change in size of fluid collection - IR re-evaluated drainage catheter (09/28). No adjustment was necessary per IR. - increase duragesic to 100mgc (09/29) - stop prn morphine in the AM (09/30) - start colace 100mg BID - KUB (09/30) --> moderate stool burden - start MOM 30ml daily - supportive care C. difficile colitis - Zosyn stopped. (09/08 - 09/10/17) - PO Flagyl (09/10 - 09/24) - stop Questran - Repeat stool studies on 09/19 are negative for C. diff - supportive care. - Overall improved. Uterine cancer - see above Anxiety and depression - Continue home Paxil 40 mg PO QHS Pancytopenia - She did require 2 units PRBC transfused (09/14) and 1 unit PRBCs on 09/15. H/H has been stable since then. - Patient also received Plt (09/14). Plt count has been increasing. - No signs of active bleeding - Patient reports last chemotherapy treatment was 08/31/17 - Hematology/Medical oncology following and they feel that the drop in Hgb and Plt likely secondary to myelosuppression secondary to chemotherapy two weeks ago. (2) C. difficile colitis ICD Codes: A04.72 - Enterocolitis due to Clostridium difficile, not specified as recurrent Status: Acute (3) Uterine cancer ICD Codes: C55 - Malignant neoplasm of uterus, part unspecified Status: Chronic Plan: - see above (4) Anxiety and depression ICD Codes: F41.8 - Other specified anxiety disorders Status: Chronic (5) Pancytopenia ICD Codes: D61.818 - Other pancytopenia Status: Acute (6) Fever ICD Codes: R50.9 - Fever, unspecified Status: Acute Problem Qualifiers (1) Abdominal pain: Qualified Codes: R10.31 - Right lower quadrant pain (2) Uterine cancer: Qualified Codes: C55 - Malignant neoplasm of uterus, part unspecified Abel Garvin DO Sep 30, 2017 15:50
[2017-09-30 16:10] VITALS: BP 108/51; PULSE 85; RESP 16; TEMP 98.7; O2SAT 94
[2017-09-30] MEDS: MAGNESIUM HYDROXIDE SUSP 30 ML CUP PO SCH (16:24)
[2017-09-30] MEDS: CALCIUM CARBONATE 500 MG CHEWABLE TAB CHEW PRN (16:24)
[2017-09-30 21:00] VITALS: BP 112/59; PULSE 80; RESP 16; TEMP 98.4; O2SAT 96
[2017-09-30] MEDS: PARoxetine HCL 20 MG TAB PO SCH (21:06)
[2017-09-30] MEDS: PRAVASTATIN SOD 80 MG TAB PO SCH (21:06)
[2017-10-01] MEDS: oxyCODONE/ACETAMINOPHEN 10 MG/325 MG TAB PO PRN ×6 (00:25→21:22)
[2017-10-01 04:15] VITALS: BP 108/60; PULSE 79; RESP 18; TEMP 99.3; O2SAT 93
[2017-10-01] MEDS: SODIUM CHLORIDE 0.9% 10 ML VIAL IRRIGATION SCH ×3 (06:24→21:23)
[2017-10-01] MEDS ORDERED: MORPHINE SULFATE 4 MG/ML INJ IV PRN ×2 (07:15)
[2017-10-01 08:31] VITALS: BP 110/52; PULSE 66; RESP 20; TEMP 99.3; O2SAT 94
[2017-10-01] MEDS: PANTOPRAZOLE SOD 40 MG DELAYED RELEASE TAB PO SCH (08:54)
[2017-10-01] MEDS: POTASSIUM CHLORIDE 20 MEQ CONTROLLED RELEASE TAB PO SCH ×2 (08:54→21:23)
[2017-10-01] MEDS: MAGNESIUM HYDROXIDE SUSP 30 ML CUP PO SCH (08:54)
[2017-10-01] MEDS: DOCUSATE SODIUM 100 MG CAP PO SCH ×2 (08:54→21:23)
[2017-10-01] MEDS: SODIUM CHLORIDE 0.9% FLUSH 10 ML FLUSH IV FLUSH SCH ×2 (08:55→21:23)
[2017-10-01 11:42] VITALS: BP 115/57; PULSE 74; RESP 20; TEMP 99; O2SAT 94
[2017-10-01 16:01] VITALS: BP 114/64; PULSE 76; RESP 20; TEMP 98.8; O2SAT 95
--- NOTE | 2017-10-01 16:30 | HHI.PR ---
Subjective Remarks Per nursing, pt sleeping most of the day. Pt requesting percocet for abdominal pain when she awakens. Pt requested extra dose of IV Morphine this AM. Objective Vitals Vital Signs Date Time Temp Pulse Resp B/P (MAP) Pulse Ox O2 Delivery O2 Flow Rate FiO2 10/01/17 16:01 98.8 76 20 114/64 (81) 95 10/01/17 14:00 20 10/01/17 11:42 99.0 74 20 115/57 (76) 94 10/01/17 08:31 99.3 66 20 110/52 (71) 94 10/01/17 07:35 20 10/01/17 04:15 99.3 79 18 108/60 (76) 93 09/30/17 21:00 98.4 80 16 112/59 (76) 96 10/01/17 10/01/17 10/02/17 15:00 23:00 07:00 # Voids 3 Result Diagram: 09/28/17 0647 09/28/17 0647 Imaging Last Impressions Abdomen X-Ray 09/30/17 0800 Signed Impressions: Service Date/Time: Saturday, September 30, 2017 08:10 - CONCLUSION: Nonobstructive bowel gas pattern. A moderate amount of stool is noted. Basilio Carpio MD Abdomen/Pelvis CT 09/27/17 0000 Signed Impressions: Service Date/Time: Wednesday, September 27, 2017 19:33 - CONCLUSION: 1. Moon remains in place though the fluid question is not decreased in size measuring 16 CM by 8 CM. Repositioning of the catheter could be considered. 2. Right hydronephrosis secondary to ureteral compression mild in nature. 3. New hypodensity which may be subcapsular over the dome of the liver and reflect trapped fluid. The appearance is atypical for metastatic disease. 4. Stable 6 mm nodule in the right lower lobe. Eyal Grimaldo MD Catheter Change 09/19/17 0000 Signed Impressions: Service Date/Time: Tuesday, September 19, 2017 14:01 - CONCLUSION: The right lower quadrant drainage catheter was manipulated deeper into the collection. 4 mg of TPA was instilled into the collection to try and improve drainage. Sno Elizabeth Jr., MD Chest X-Ray 09/15/17 0000 Signed Impressions: Service Date/Time: September 09:14 - CONCLUSION: 1. No acute cardiopulmonary disease. Jamaal Meadows MD Abscess Drainage CT 09/06/17 0833 Signed Impressions: Service Date/Time: Wednesday, September 06, 2017 15:39 - CONCLUSION: 1. Uncomplicated CT-guided drainage catheter placement in left pelvic fluid collection. Only a small amount of serosanguineous fluid could be aspirated immediately following catheter placement. Entire sample was submitted for laboratory analysis. Overall, findings are most consistent with pelvic hematoma. Jamaal Meadows MD Objective Remarks General: NAD, AAOx3 Chest: CTA Cardiac: Regular Abd: +BS, soft, nontender, drain in place Ext: No edema Joshi catheter in place A/P Problem List: (1) Abdominal pain ICD Codes: R10.9 - Unspecified abdominal pain Status: Acute Plan: Abdominal pain Uterine cancer (carcinosarcoma) pelvic mass/hematoma - This is a 57 year old female with a past medical history which includes anxiety/depression, lumbar radiculopathy, chronic back pain, hyperlipidemia, uterine cancer. Patient is currently following with Dr. Garsia. She had three chemotherapy treatment then on 06/30/17 Robotic assisted Laparoscopic hysterectomy, BSO, resection of pelvic mass, omentectomy and tumor debulking with Dr. Garsia. After surgery patient has had two additional rounds of chemotherapy. Patient was seen in ER 08/24/17 for lower abdominal pain. - CT abd/pelvic (08/24/17) --> Large heterogeneous mass in the uterine surgical bed measuring 9.6 x 5.0 x6.8 cm. Patient was then DC with follow up with Dr. Garsia as an outpatient. - Patient returned to the ER on 09/05/17 due to worsening abdominal pain x 3 days. Pain constant, pressure like, sharp, worse with eating, improved by bringing her legs closer to her. Pt reports that she is constipated and has decreased appetite. Pt had a fever of 100.2 at home, associated with some chills and night sweats. - CT Abd/Pelvis (09/05/17) --> mass 12.7 cm which has progressed in size from previous study. Predominantly cystic mass in the pelvis larger when compared to the comparison study either hematoma or seroma. Abscess cannot be entirely excluded Hemangioma right lobe of the liver. - IR placed drain into abdomen fluid collection on 09/06 with noted bloody fluid - f/u cytology shows malignant cells and gs/cx ngtd - Pt with fevers 09/07 and was given Zosyn empirically. Blood cx (09/07/17) with NGTD. Presumed related to fluid collection. - C.diff was positive on 09/10/17. Flagyl started on 09/10 and Zosyn stopped. - Repeat CT Abd/pelvis (09/10/17) --> pelvic fluid collection essentially unchanged - Case d/w IR, Dr. Stein (09/12) - IR will place tPA in drain (09/12) - IR does NOT feel that pt would benefit from a 2nd drain. - Case d/w Dr. Garsia (09/12). He reevaluated pt (09/13). He discussed options regarding further chemo or radiation. - Less output from drainage catheter in the last few days - Pt continues with pelvic/abd pain requiring IV pain medication - (09/19) Repositioned new 12 F tube deeper into collection and coiled a wire within the collection to try to break up some of the locules. Placed 4mg TPA into collection to try to aid in aspiration. - Case discussed with Dr. Garsia. Case discussed with Dr. Otto (09/19) plan for radiation. CT simulation done on 09/21 and planned for 10 treatments. Radiation started on 09/23 - discharge to home once pt's pain is better controlled. - Pt does NOT want morphine frequency decreased because of continued pain - prn IV morphine, PO percocet - case d/w Dr. Garsia (09/27) - Case d/w Dr. Otto (09/27). He feels pt will likely require 5-10 sessions of radiation before any possible improvement. - repeat CT abd/pelvis (09/28) --> no change in size of fluid collection - IR re-evaluated drainage catheter (09/28). No adjustment was necessary per IR. - increase duragesic to 100mgc (09/29) - stop prn morphine in the AM (09/30) - colace 100mg BID - start MOM 30ml daily - KUB (09/30) --> moderate stool burden - supportive care - Pt to have next radiation therapy treatment Tuesday and visit with Dr. Otto - Consider requesting repeat visit with Palliative Medicine Tuesday - If possible would like to discharge to home on Tuesday following Radiation treatment - remove joshi - repeat KUB 10/02 C. difficile colitis - Zosyn stopped. (09/08 - 09/10/17) - PO Flagyl (09/10 - 09/24) - stop Questran - Repeat stool studies on 09/19 are negative for C. diff - supportive care. - Overall improved. Uterine cancer - see above Anxiety and depression - Continue home Paxil 40 mg PO QHS Pancytopenia - She did require 2 units PRBC transfused (09/14) and 1 unit PRBCs on 09/15. H/H has been stable since then. - Patient also received Plt (09/14). Plt count has been increasing. - No signs of active bleeding - Patient reports last chemotherapy treatment was 08/31/17 - Hematology/Medical oncology following and they feel that the drop in Hgb and Plt likely secondary to myelosuppression secondary to chemotherapy two weeks ago. (2) C. difficile colitis ICD Codes: A04.72 - Enterocolitis due to Clostridium difficile, not specified as recurrent Status: Acute (3) Uterine cancer ICD Codes: C55 - Malignant neoplasm of uterus, part unspecified Status: Chronic Plan: - see above (4) Anxiety and depression ICD Codes: F41.8 - Other specified anxiety disorders Status: Chronic (5) Pancytopenia ICD Codes: D61.818 - Other pancytopenia Status: Acute (6) Fever ICD Codes: R50.9 - Fever, unspecified Status: Acute Problem Qualifiers (1) Abdominal pain: Qualified Codes: R10.31 - Right lower quadrant pain (2) Uterine cancer: Qualified Codes: C55 - Malignant neoplasm of uterus, part unspecified Abel Garvin DO Oct 01, 2017 16:30
[2017-10-01 20:10] VITALS: BP 112/55; PULSE 82; RESP 17; TEMP 100.1; O2SAT 94
[2017-10-01] MEDS: PARoxetine HCL 20 MG TAB PO SCH (21:23)
[2017-10-01] MEDS: PRAVASTATIN SOD 80 MG TAB PO SCH (21:23)
[2017-10-02] VITALS (9 sets, daily range): BP systolic 103–144; BP diastolic 57–80; PULSE 68–84; RESP 17–20; TEMP 97.8–99; O2SAT 92–100
[2017-10-02] MEDS: oxyCODONE/ACETAMINOPHEN 10 MG/325 MG TAB PO PRN ×4 (01:20→15:29)
[2017-10-02] MEDS: SODIUM CHLORIDE 0.9% 10 ML VIAL IRRIGATION SCH ×3 (06:14→20:23)
[2017-10-02 06:53] LABS: AUTOMATED NEUTROPHIL # 1.4 TH/MM3 (1.8-7.7); BASOPHIL % 0.3 % (0.0-2.0); EOSINOPHIL % 0.3 % (0.0-4.0); HEMATOCRIT 21.2 % (35.0-46.0); HEMOGLOBIN 7.2 GM/DL (11.6-15.3); LYMPH % 13.7 % (9.0-44.0); LYMPHOCYTE # 0.3 TH/MM3 (1.0-4.8); MEAN CELL VOLUME 91.3 FL (80.0-100.0); MEAN CORPUSCULAR HEMOGLOBIN 30.9 PG (27.0-34.0); MEAN CORPUSCULAR HGB CONC 33.8 % (32.0-36.0); MEAN PLATELET VOLUME 7.5 FL (7.0-11.0); MONO % 17.4 % (0.0-8.0); MONOCYTE # 0.4 TH/MM3 (0-0.9); NEUT % 68.3 % (16.0-70.0); PLATELET COUNT 237 TH/MM3 (150-450); RED BLOOD COUNT 2.32 MIL/MM3 (4.00-5.30); WHITE BLOOD COUNT 2.1 TH/MM3 (4.0-11.0)
[2017-10-02 07:12] LABS: BICARBONATE 30.6 MEQ/L (21.0-32.0); CALCIUM 8.8 MG/DL (8.5-10.1); CREATININE 0.78 MG/DL (0.50-1.00); MAGNESIUM 1.7 MG/DL (1.5-2.5)
[2017-10-02] MEDS: MAGNESIUM HYDROXIDE SUSP 30 ML CUP PO SCH (08:35)
[2017-10-02] MEDS: SODIUM CHLORIDE 0.9% FLUSH 10 ML FLUSH IV FLUSH SCH ×2 (08:35→20:23)
[2017-10-02] MEDS: DOCUSATE SODIUM 100 MG CAP PO SCH ×2 (08:35→20:23)
[2017-10-02] MEDS: POTASSIUM CHLORIDE 20 MEQ CONTROLLED RELEASE TAB PO SCH ×2 (08:36→20:23)
[2017-10-02] MEDS: PANTOPRAZOLE SOD 40 MG DELAYED RELEASE TAB PO SCH (08:36)
--- NOTE | 2017-10-02 09:11 | RADRPT ---
EXAM DATE/TIME: 10/02/2017 08:49 [facility] COMPARISON: CT ABDOMEN & PELVIS W CONTRAST, September 10, 2017, 19:22. ABDOMEN KUB ONLY, September 30, 2017, 8:10. INDICATIONS : Abdominal pain and distention MEDICAL HISTORY : Cardiovascular disease. Uterine cancer with metastasis. Radiation SURGICAL HISTORY : Hysterectomy. ENCOUNTER: Subsequent ACUITY: 1 month PAIN SCORE: 5/10 LOCATION: Bilateral lower quadrant Abdomen FINDINGS: Supine view of the abdomen was performed. The abdominal bowel gas pattern is normal. No abnormal ma sses, calcifications, or organomegaly is seen. Abscess drainage catheter right lower quadrant The o sseous structures are unremarkable. CONCLUSION: Abscess drainage catheter right lower quadrant otherwise negative Nahum Carrasco MD FACR on October 02, 2017 at 9:09 Board Certified Radiologist. This report was verified electronically.
[2017-10-02] MEDS ORDERED: POTASSIUM CHLORIDE 20 MEQ CONTROLLED RELEASE TAB PO ONE (11:00)
[2017-10-02] MEDS ORDERED: SODIUM CHLOR 0.9% 250 ML INJ 250 ML IV ONE (11:00)
[2017-10-02] MEDS ORDERED: FUROSEMIDE 20 MG/2 ML VIAL IV PUSH ONE (11:00)
[2017-10-02] MEDS ORDERED: MORPHINE SULFATE 4 MG/ML INJ IV PUSH ONE (14:00)
--- NOTE | 2017-10-02 15:21 | HHI.PR ---
Subjective Remarks Pt c/o rectal pain. Pt states that she develops severe rectal pain which is somewhat relieved with defecation. Pt demanding that prn IV morphine be resumed. Objective Vitals Vital Signs Date Time Temp Pulse Resp B/P (MAP) Pulse Ox O2 Delivery O2 Flow Rate FiO2 10/02/17 12:38 97.8 77 20 113/67 (82) 96 10/02/17 12:35 18 10/02/17 08:42 98.9 68 20 117/61 (79) 92 10/02/17 05:16 98.5 74 17 103/60 (74) 95 10/02/17 00:34 99.0 79 17 103/57 (72) 95 10/01/17 20:10 100.1 82 17 112/55 (74) 94 10/01/17 16:01 98.8 76 20 114/64 (81) 95 10/02/17 10/02/17 10/03/17 14:59 22:59 06:59 Intake Total 20 ml Balance 20 ml Blood Product IV Normal Saline Flush 20 ml Result Diagram: 10/02/17 0555 10/02/17 0555 Imaging Last Impressions Abdomen X-Ray 09/30/17 0800 Signed Impressions: Service Date/Time: Saturday, September 30, 2017 08:10 - CONCLUSION: Nonobstructive bowel gas pattern. A moderate amount of stool is noted. Basilio Carpio MD Abdomen/Pelvis CT 09/27/17 0000 Signed Impressions: Service Date/Time: Wednesday, September 27, 2017 19:33 - CONCLUSION: 1. Moon remains in place though the fluid question is not decreased in size measuring 16 CM by 8 CM. Repositioning of the catheter could be considered. 2. Right hydronephrosis secondary to ureteral compression mild in nature. 3. New hypodensity which may be subcapsular over the dome of the liver and reflect trapped fluid. The appearance is atypical for metastatic disease. 4. Stable 6 mm nodule in the right lower lobe. Eyal Grimaldo MD Catheter Change 09/19/17 0000 Signed Impressions: Service Date/Time: Tuesday, September 19, 2017 14:01 - CONCLUSION: The right lower quadrant drainage catheter was manipulated deeper into the collection. 4 mg of TPA was instilled into the collection to try and improve drainage. Son Elizabeth Jr., MD Chest X-Ray 2/15/18 0000 Signed Impressions: Service Date/Time: September 09:14 - CONCLUSION: 1. No acute cardiopulmonary disease. Jamaal Meadows MD Abscess Drainage CT 09/06/17 0833 Signed Impressions: Service Date/Time: Wednesday, September 06, 2017 15:39 - CONCLUSION: 1. Uncomplicated CT-guided drainage catheter placement in left pelvic fluid collection. Only a small amount of serosanguineous fluid could be aspirated immediately following catheter placement. Entire sample was submitted for laboratory analysis. Overall, findings are most consistent with pelvic hematoma. Jamaal Meadows MD Objective Remarks General: NAD, AAOx3 Chest: CTA Cardiac: Regular Abd: +BS, soft, nontender, drain in place Ext: No edema Rectal: multiple external hemorrhoids noted A/P Problem List: (1) Hemorrhoids, external ICD Codes: K64.4 - Residual hemorrhoidal skin tags Status: Acute Plan: - continue bowel regimen with colace and MOM - wipe with tucks pads after each BM - Anusol sup tid - observe (2) Abdominal pain ICD Codes: R10.9 - Unspecified abdominal pain Status: Acute Plan: Abdominal pain Uterine cancer (carcinosarcoma) pelvic mass/hematoma - This is a 57 year old female with a past medical history which includes anxiety/depression, lumbar radiculopathy, chronic back pain, hyperlipidemia, uterine cancer. Patient is currently following with Dr. Garsia. She had three chemotherapy treatment then on 06/30/17 Robotic assisted Laparoscopic hysterectomy, BSO, resection of pelvic mass, omentectomy and tumor debulking with Dr. Garsia. After surgery patient has had two additional rounds of chemotherapy. Patient was seen in ER 08/24/17 for lower abdominal pain. - CT abd/pelvic (08/24/17) --> Large heterogeneous mass in the uterine surgical bed measuring 9.6 x 5.0 x6.8 cm. Patient was then DC with follow up with Dr. Garsia as an outpatient. - Patient returned to the ER on 09/05/17 due to worsening abdominal pain x 3 days. Pain constant, pressure like, sharp, worse with eating, improved by bringing her legs closer to her. Pt reports that she is constipated and has decreased appetite. Pt had a fever of 100.2 at home, associated with some chills and night sweats. - CT Abd/Pelvis (09/05/17) --> mass 12.7 cm which has progressed in size from previous study. Predominantly cystic mass in the pelvis larger when compared to the comparison study either hematoma or seroma. Abscess cannot be entirely excluded Hemangioma right lobe of the liver. - IR placed drain into abdomen fluid collection on 09/06 with noted bloody fluid - f/u cytology shows malignant cells and gs/cx ngtd - Pt with fevers 09/07 and was given Zosyn empirically. Blood cx (09/07/17) with NGTD. Presumed related to fluid collection. - C.diff was positive on 09/10/17. Flagyl started on 09/10 and Zosyn stopped. - Repeat CT Abd/pelvis (09/10/17) --> pelvic fluid collection essentially unchanged - Case d/w IR, Dr. Stein (09/12) - IR will place tPA in drain (09/12) - IR does NOT feel that pt would benefit from a 2nd drain. - Case d/w Dr. Garsia (09/12). He reevaluated pt (09/13). He discussed options regarding further chemo or radiation. - Less output from drainage catheter in the last few days - Pt continues with pelvic/abd pain requiring IV pain medication - (09/19) Repositioned new 12 F tube deeper into collection and coiled a wire within the collection to try to break up some of the locules. Placed 4mg TPA into collection to try to aid in aspiration. - Case discussed with Dr. Garsia. Case discussed with Dr. Otto (09/19) plan for radiation. CT simulation done on 09/21 and planned for 10 treatments. Radiation started on 09/23 - discharge to home once pt's pain is better controlled. - Pt does NOT want morphine frequency decreased because of continued pain - prn IV morphine, PO percocet - case d/w Dr. Garsia (09/27) - Case d/w Dr. Otto (09/27). He feels pt will likely require 5-10 sessions of radiation before any possible improvement. - repeat CT abd/pelvis (09/28) --> no change in size of fluid collection - IR re-evaluated drainage catheter (09/28). No adjustment was necessary per IR. - increase duragesic to 100mgc (09/29) - stop prn morphine in the AM (09/30) - colace 100mg BID - start MOM 30ml daily - KUB (09/30) --> moderate stool burden - Pt to have next radiation therapy treatment Tuesday10/03/[address] Otto - will need to review case with Dr. Garsia 10/03 - will requesting repeat visit with Palliative Medicine Tuesday - If possible would like to discharge to home on Tuesday following Radiation treatment - joshi removed 10/02/17 - repeat KUB 10/02 --> nonspecific, no worsening from 09/30 - DVT prophylaxis - supportive care C. difficile colitis - Zosyn stopped. (09/08 - 09/10/17) - PO Flagyl (09/10 - 09/24) - stop Questran - Repeat stool studies on 09/19 are negative for C. diff - supportive care. - Overall improved. Uterine cancer - see above Anxiety and depression - Continue home Paxil 40 mg PO QHS Pancytopenia - She did require 2 units PRBC transfused (09/14) and 1 unit PRBCs on 09/15. H/H has been stable since then. - Patient also received Plt (09/14). Plt count has been increasing. - No signs of active bleeding - Patient reports last chemotherapy treatment was 08/31/17 - Hematology/Medical oncology following and they feel that the drop in Hgb and Plt likely secondary to myelosuppression secondary to chemotherapy two weeks ago. (3) C. difficile colitis ICD Codes: A04.72 - Enterocolitis due to Clostridium difficile, not specified as recurrent Status: Acute (4) Uterine cancer ICD Codes: C55 - Malignant neoplasm of uterus, part unspecified Status: Chronic Plan: - see above (5) Anxiety and depression ICD Codes: F41.8 - Other specified anxiety disorders Status: Chronic (6) Pancytopenia ICD Codes: D61.818 - Other pancytopenia Status: Acute (7) Fever ICD Codes: R50.9 - Fever, unspecified Status: Acute Problem Qualifiers (1) Abdominal pain: Qualified Codes: R10.31 - Right lower quadrant pain (2) Uterine cancer: Qualified Codes: C55 - Malignant neoplasm of uterus, part unspecified Abel Garvin DO Oct 02, 2017 15:21
[2017-10-02] MEDS: REMOVE OLD FENTANYL PATCH T-DERMAL SCH (15:51)
[2017-10-02] MEDS: fentaNYL 100 MCG/HR PATCH T-DERMAL SCH (15:51)
[2017-10-02] MEDS ORDERED: WITCH HAZEL 50%/GLYCERIN 12.5% 40 PAD JAR TOPICAL PRN (16:45)
[2017-10-02] MEDS: HYDROCORTISONE ACETATE 25 MG SUPP RECTAL SCH (18:00)
[2017-10-02] MEDS: MORPHINE SULFATE 8 MG/ML INJ IV PUSH PRN ×2 (18:21→23:20)
[2017-10-02] MEDS: PARoxetine HCL 20 MG TAB PO SCH (20:23)
[2017-10-02] MEDS: PRAVASTATIN SOD 80 MG TAB PO SCH (20:23)
[2017-10-03 00:37] VITALS: BP 120/93; PULSE 87; RESP 17; TEMP 99.3; O2SAT 95
[2017-10-03] MEDS: oxyCODONE/ACETAMINOPHEN 10 MG/325 MG TAB PO PRN (03:20)
[2017-10-03 05:08] VITALS: BP 144/79; PULSE 87; RESP 17; TEMP 98.6; O2SAT 98
[2017-10-03] MEDS: SODIUM CHLORIDE 0.9% 10 ML VIAL IRRIGATION SCH ×3 (05:26→22:00)
--- NOTE | 2017-10-03 07:28 | PD.ONC.PN ---
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 she is having diarrhea explained that could be side effect of radiation she states she "feels terrible today" she states she feels very tired Objective Data Date Time Temp Pulse Resp B/P (MAP) Pulse Ox O2 Delivery O2 Flow Rate FiO2 10/03/17 05:08 98.6 87 17 144/79 (100) 98 10/03/17 00:37 99.3 87 17 120/93 (102) 95 10/02/17 20:57 97.8 73 18 136/80 95 10/02/17 20:57 98.9 79 18 144/66 (92) 98 10/02/17 18:30 98.7 78 20 133/71 97 10/02/17 18:30 20 10/02/17 16:30 98.5 84 20 117/61 (79) 100 10/02/17 16:30 20 10/02/17 16:30 20 10/02/17 15:45 98.5 84 20 117/61 100 10/02/17 14:56 99.0 78 20 138/78 100 10/02/17 14:05 20 10/02/17 12:38 97.8 77 20 113/67 (82) 96 10/02/17 08:42 98.9 68 20 117/61 (79) 92 10/03/17 10/03/17 10/03/17 07:00 15:00 23:00 Intake Total 480 ml Balance 480 ml Result Diagram: 10/02/17 0555 10/02/17 0555 Imaging Studies Last Impressions Abdomen X-Ray 10/02/17 0800 Signed Impressions: Service Date/Time: Monday, October 02, 2017 08:49 - CONCLUSION: Abscess drainage catheter right lower quadrant otherwise negative Nahum Carrasco MD FACR Abdomen/Pelvis CT 09/27/17 0000 Signed Impressions: Service Date/Time: Wednesday, September 27, 2017 19:33 - CONCLUSION: 1. Moon remains in place though the fluid question is not decreased in size measuring 16 CM by 8 CM. Repositioning of the catheter could be considered. 2. Right hydronephrosis secondary to ureteral compression mild in nature. 3. New hypodensity which may be subcapsular over the dome of the liver and reflect trapped fluid. The appearance is atypical for metastatic disease. 4. Stable 6 mm nodule in the right lower lobe. Eyal Grimaldo MD Catheter Change 09/19/17 0000 Signed Impressions: Service Date/Time: Tuesday, September 19, 2017 14:01 - CONCLUSION: The right lower quadrant drainage catheter was manipulated deeper into the collection. 4 mg of TPA was instilled into the collection to try and improve drainage. Son Elizabeth Jr., MD Chest X-Ray 09/15/17 0000 Signed Impressions: Service Date/Time: September 09:14 - CONCLUSION: 1. No acute cardiopulmonary disease. Jamaal Meadows MD Abscess Drainage CT 09/06/17 0833 Signed Impressions: Service Date/Time: Wednesday, September 06, 2017 15:39 - CONCLUSION: 1. Uncomplicated CT-guided drainage catheter placement in left pelvic fluid collection. Only a small amount of serosanguineous fluid could be aspirated immediately following catheter placement. Entire sample was submitted for laboratory analysis. Overall, findings are most consistent with pelvic hematoma. Jamaal Meadows MD Last 24 hours Impressions Abdomen X-Ray 10/02/17 0800 Signed Impressions: Service Date/Time: Monday, October 02, 2017 08:49 - CONCLUSION: Abscess drainage catheter right lower quadrant otherwise negative Nahum Carrasco MD FACR Administered Medications Medications (Trade) Dose Ordered Sig/Khloe Route PRN Reason Start Time Stop Time Status Last Admin Dose Admin Sodium Chloride (NS Flush) 2 ml UNSCH PRN IV FLUSH FLUSH AFTER USING IV ACCESS 09/05/17 16:15 09/21/17 16:02 Sodium Chloride (NS Flush) 2 ml BID IV FLUSH 09/05/17 21:00 10/02/17 20:23 Acetaminophen (Tylenol) 650 mg Q4H PRN PO TEMP > 100.4 09/05/17 16:15 09/27/17 16:23 Pantoprazole Sodium (Protonix) 40 mg DAILY PO 09/06/17 09:00 10/02/17 08:36 Paroxetine HCl (Paxil) 40 mg HS PO 09/05/17 21:00 10/02/17 20:23 Pravastatin Sodium (Pravachol) 80 mg HS PO 09/05/17 21:00 10/02/17 20:23 Sodium Chloride (NS Inj) 10 ml Q8HR IRRIGATION 09/06/17 22:00 10/03/17 05:26 Potassium Chloride (KCl) 20 meq Q12HR PO 09/07/17 21:00 10/02/17 20:23 Oxycodone/ Acetaminophen (Percocet 10-325 Mg) 1 tab Q4H PRN PO pain 1-5 09/08/17 09:45 10/03/17 03:20 Calcium Carbonate (Tums Chew) 500 mg Q2H PRN CHEW INDIGESTION 09/13/17 17:00 09/30/17 16:24 Docusate Sodium (Colace) 100 mg BID PO 09/29/17 21:00 10/02/17 20:23 Fentanyl (Duragesic 100 Mcg Patch.72 Hr) 1 patch Q3D T-DERMAL 09/29/17 16:00 10/02/17 15:51 Miscellaneous Information 1 Q3D T-DERMAL 09/29/17 16:00 10/02/17 15:51 Magnesium Hydroxide (Milk Of Magnesia Liq) 30 ml DAILY PO 09/30/17 16:00 10/02/17 08:35 Morphine Sulfate (Morphine Inj) 4 mg Q4H PRN IV PUSH pain 6-10 10/02/17 15:45 10/02/17 23:20 Objective Remarks GENERAL: Well-nourished, well-developed patient. SKIN: Warm and dry. HEAD: Normocephalic. EYES: No scleral icterus. No injection or drainage. CARDIOVASCULAR: Regular rate and rhythm without murmurs. RESPIRATORY: Breath sounds equal bilaterally. No accessory muscle use. GASTROINTESTINAL: drain with bloody drainage MUSCULOSKELETAL: Adequate muscle tone. NEUROLOGICAL: No obvious focal deficit. Awake, alert, and oriented x3. Assessment/Plan Problem List: (1) Pancytopenia ICD Codes: D61.818 - Other pancytopenia Status: Acute Plan: --monitor the CBC daily and transfuse if the hemoglobin is less than 8 and/or platelet count is less than 15. --pancytopenia likely d/t chemotherapy (carboplatin) -- last chemotherapy was 2 weeks ago on August 31. 09/19/17: ANC improved 1600, T max 99.0, continued thrombocytopenia but improving . continue to monitor daily labs 09/21/17: platelets continue to improve, afebrile 09/28/17: resolved and hem/onc signed off 10/03/17: patient hem dropped to 7.2, 2 units PRBCs transfused 10/02/17 labs pending this morning (2) Abdominal fluid collection ICD Codes: R18.8 - Other ascites Status: Acute Plan: s/p IR drainage of pelvic fluid collection 09/06/17 drain placed cultures pending monitor drain outpt 09/19/17: patient to IR today to switch out drain for larger one in hopes of draining mass pelvic fluid cultures negative malignant cells found in pelvic fluid, radiation oncology consulted 09/21/17: drain replaced on 09/19/17 with small improvement in drainage malignant cells found in mass, patient to start palliative radiation under direction of Dr. Otto, simulation today in hopes to shrink mass discharge per hospitalist 09/28/17: ct scan, no change in mass, probable fluid to dome of liver, mild hydronephrosis, lung lesion-- mets (?). drain in place with bloody drainage s/p 3 radiation treatments, 4th scheduled for today, Dr. Otto feels will take ~ 5-10 treatments Palliative Care following pain control per medicine team, appreciate assistance with Ms. Allenmaria fernanda 10/03/17: drain still in place Palliative Care asked to reevaluate and assist with pain management still requiring IV morphine continue with radiation, scheduled through will follow up with Dr. Garsia 1-2 weeks after discharge from hospital. Assessment 57y/o female with uterine cancer. Hematology consulted for thrombocytopenia. Plan 1. no transfusion needed today 2. monitor CBC Andriy Laguna Oct 03, 2017 07:28
[2017-10-03 08:00] VITALS: BP 158/88; PULSE 80; RESP 16; TEMP 99.1; O2SAT 95
[2017-10-03] MEDS: PANTOPRAZOLE SOD 40 MG DELAYED RELEASE TAB PO SCH (09:19)
[2017-10-03] MEDS: MORPHINE SULFATE 8 MG/ML INJ IV PUSH PRN ×4 (09:22→22:54)
[2017-10-03] MEDS: SODIUM CHLORIDE 0.9% FLUSH 10 ML FLUSH IV FLUSH SCH ×2 (09:22→21:37)
[2017-10-03] MEDS: MAGNESIUM HYDROXIDE SUSP 30 ML CUP PO SCH (09:23)
[2017-10-03] MEDS: HYDROCORTISONE ACETATE 25 MG SUPP RECTAL SCH ×3 (09:23→17:18)
[2017-10-03] MEDS: POTASSIUM CHLORIDE 20 MEQ CONTROLLED RELEASE TAB PO SCH ×2 (09:23→21:37)
[2017-10-03] MEDS: DOCUSATE SODIUM 100 MG CAP PO SCH (09:23)
[2017-10-03] MEDS: ONDANSETRON HCL 4 MG/2 ML VIAL IVP PRN (09:27)
[2017-10-03 09:40] LABS: BASOPHIL % 0.2 % (0.0-2.0); EOSINOPHIL % 0.2 % (0.0-4.0); HEMATOCRIT 30.2 % (35.0-46.0); HEMOGLOBIN 10.5 GM/DL (11.6-15.3); LYMPH % 5.7 % (9.0-44.0); LYMPHOCYTE # 0.2 TH/MM3 (1.0-4.8); MEAN CELL VOLUME 89.6 FL (80.0-100.0); MEAN CORPUSCULAR HGB CONC 34.6 % (32.0-36.0); MEAN PLATELET VOLUME 8.2 FL (7.0-11.0); MONO % 15.1 % (0.0-8.0); MONOCYTE # 0.6 TH/MM3 (0-0.9); NEUT % 78.8 % (16.0-70.0); PLATELET COUNT 252 TH/MM3 (150-450); RED BLOOD COUNT 3.37 MIL/MM3 (4.00-5.30); RED CELL DISTRIBUTION WIDTH 16.8 % (11.6-17.2); WHITE BLOOD COUNT 3.8 TH/MM3 (4.0-11.0)
--- NOTE | 2017-10-03 11:16 | HHI.HCPN ---
Reason for visit a. To assist with evaluation and management of symptoms including: pain. b. To assist medical decision maker(s) with: better understanding of current medical conditions; weighing benefits/burdens of medical treatment options; making medical treatment decisions. . Subjective/Interval History Palliative care following for assistance with pain and symptom management, goals of care. 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 Clinical course complicated by cystic mass in the pelvis s/p abdominal drainage catheter placement. Patient seen in her room, in bed in moderate distress secondary to abdominal pain. Sister at bedside. Patient endorsing pelvic and right upper and lower quadrant abdominal pain, currently rated at 8/10. Pain is well localized, crampy vs sharp in nature. Exacerbated with movement, alleviated with pain medication and rest. Patient reports that Percocet is somewhat effective, however, short duration of approximately 2-3 hours. Morphine IV was reinstated yesterday for breakthrough pain given increased abdominal pain. Patient also endorsing persistent nausea with one episode of emesis overnight. Poor appetite. Reporting "not feeling well today". Patient undergoing palliative radiation, scheduled for treatment 7 out of 10 today. Treatment likely to be completed this , 10/06/17. Patient endorsing rectal pain secondary to several bowel movements today. Patient afebrile, stable hemodynamically. Tolerating room air with oxygen saturation in the mid to high 90s. Patient received 2 packs of red blood cells yesterday for hemoglobin of 7.2, laboratory workup today revealing Hgb 10.5. Reviewed recommendations with patient to include opiate rotation with single agent given increased abdominal pain not controlled with current regimen. She reports that her pain goal is between 4 and 5 out of 10 which will allow her to rest. Reviewed once more that further palliative systemic treatment depends on her clinical condition, performance status. Reviewed in detail hospice philosophy and benefits given progression of illness with likely lung metastasis as well as increased symptom burden. Patient and sister receptive. Patient to consider hospice for pain and symptom management upon discharge. . Family/friend interactions See interval note. . Advance Directives Living Will: Copy in medical record Health Care Surrogate: Copy in medical record Advance Directive Specifics Date completed: 06/30/2017. . Health Care Surrogate(s): Patient has designated her sister Yoana Lopez as healthcare surrogate decision- maker, alternate surrogate is her mother Janice Abbott. . Documented care wishes: Living will with standard verbiage as it pertains to terminal condition, end- stage condition or persistent vegetative state. . Significant change in goals: Goals of therapy remain unchanged at this time. . Objective Vital Signs Date Time Temp Pulse Resp B/P (MAP) Pulse Ox O2 Delivery O2 Flow Rate FiO2 10/03/17 08:00 99.1 80 16 158/88 (111) 95 10/03/17 05:08 98.6 87 17 144/79 (100) 98 10/03/17 00:37 99.3 87 17 120/93 (102) 95 10/02/17 20:57 97.8 73 18 136/80 95 10/02/17 20:57 98.9 79 18 144/66 (92) 98 10/02/17 18:30 98.7 78 20 133/71 97 10/02/17 18:30 20 10/02/17 16:30 98.5 84 20 117/61 (79) 100 10/02/17 16:30 20 10/02/17 16:30 20 10/02/17 15:45 98.5 84 20 117/61 100 10/02/17 14:56 99.0 78 20 138/78 100 10/02/17 14:05 20 10/02/17 12:38 97.8 77 20 113/67 (82) 96 Intake & Output 10/03/17 10/03/17 07:00 19:00 Intake Total 1166 ml Balance 1166 ml Intake Oral 480 ml Packed Cells 686 ml # Voids 6 # Bowel Movements 2 Physical Exam CONSTITUTIONAL/GENERAL: This is an adequately nourished patient in moderate distress secondary to abdominal pain. Patient pale, ill looking. TUBES/LINES/DRAINS: PIV's, pelvic drainage catheter with moderate amount of serosanguineous output. SKIN: pale. No jaundice, rashes, or lesions. Ecchymoses on upper extremities. No wounds seen anteriorly. Skin temperature appropriate. Not diaphoretic. HEAD: Atraumatic. Normocephalic. EYES: Pupils equal and round and reactive. Extraocular motions intact. No scleral icterus. No injection or drainage. ENT: Hearing grossly normal. Nose without bleeding or purulent drainage. Moist oral mucosa. NECK: Trachea midline. Supple, nontender. CARDIOVASCULAR: Regular rate and rhythm without murmurs, gallops, or rubs. No JVD. Peripheral pulses symmetric. RESPIRATORY/CHEST: Symmetric, unlabored respirations. Clear to auscultation. Breath sounds equal bilaterally. No wheezes, rales, or rhonchi. GASTROINTESTINAL: Abdomen soft, round, tender to palpation. Pelvic drainage catheter in place -moderate amount of serosanguineous output. Bowel sounds present. GENITOURINARY: Without palpable bladder distension. MUSCULOSKELETAL: Extremities without clubbing, cyanosis, or edema. No joint tenderness or effusion noted. No calf tenderness. No mottling or clubbing. NEUROLOGICAL: Awake and alert. Motor and sensory grossly within normal limits. Follows commands. Cognitively sharp. Moves all extremities. PSYCHIATRIC: No obvious anxiety/depression. no apparent hallucinations or other psychotic thought process. Pleasant and cooperative. . Diagnostic Tests Laboratory Laboratory Tests Test 10/02/17 05:55 10/03/17 07:42 White Blood Count 2.1 TH/MM3 (4.0-11.0) 3.8 TH/MM3 (4.0-11.0) Red Blood Count 2.32 MIL/MM3 (4.00-5.30) 3.37 MIL/MM3 (4.00-5.30) Hemoglobin 7.2 GM/DL (11.6-15.3) 10.5 GM/DL (11.6-15.3) Hematocrit 21.2 % (35.0-46.0) 30.2 % (35.0-46.0) Mean Corpuscular Volume 91.3 FL (80.0-100.0) 89.6 FL (80.0-100.0) Mean Corpuscular Hemoglobin 30.9 PG (27.0-34.0) 31.0 PG (27.0-34.0) Mean Corpuscular Hemoglobin Concent 33.8 % (32.0-36.0) 34.6 % (32.0-36.0) Red Cell Distribution Width 19.0 % (11.6-17.2) 16.8 % (11.6-17.2) Platelet Count 237 TH/MM3 (150-450) 252 TH/MM3 (150-450) Mean Platelet Volume 7.5 FL (7.0-11.0) 8.2 FL (7.0-11.0) Neutrophils (%) (Auto) 68.3 % (16.0-70.0) 78.8 % (16.0-70.0) Lymphocytes (%) (Auto) 13.7 % (9.0-44.0) 5.7 % (9.0-44.0) Monocytes (%) (Auto) 17.4 % (0.0-8.0) 15.1 % (0.0-8.0) Eosinophils (%) (Auto) 0.3 % (0.0-4.0) 0.2 % (0.0-4.0) Basophils (%) (Auto) 0.3 % (0.0-2.0) 0.2 % (0.0-2.0) Neutrophils # (Auto) 1.4 TH/MM3 (1.8-7.7) 3.0 TH/MM3 (1.8-7.7) Lymphocytes # (Auto) 0.3 TH/MM3 (1.0-4.8) 0.2 TH/MM3 (1.0-4.8) Monocytes # (Auto) 0.4 TH/MM3 (0-0.9) 0.6 TH/MM3 (0-0.9) Eosinophils # (Auto) 0.0 TH/MM3 (0-0.4) 0.0 TH/MM3 (0-0.4) Basophils # (Auto) 0.0 TH/MM3 (0-0.2) 0.0 TH/MM3 (0-0.2) CBC Comment DIFF FINAL DIFF FINAL Differential Comment Blood Urea Nitrogen 8 MG/DL (7-18) Creatinine 0.78 MG/DL (0.50-1.00) Random Glucose 95 MG/DL (74-106) Calcium Level 8.8 MG/DL (8.5-10.1) Magnesium Level 1.7 MG/DL (1.5-2.5) Sodium Level 136 MEQ/L (136-145) Potassium Level 3.4 MEQ/L (3.5-5.1) Chloride Level 98 MEQ/L (98-107) Carbon Dioxide Level 30.6 MEQ/L (21.0-32.0) Anion Gap 7 MEQ/L (5-15) Estimat Glomerular Filtration Rate 76 ML/MIN (>89) Result Diagram: 10/03/17 0742 10/02/17 0555 Imaging Last 48 hours Impressions Abdomen X-Ray 10/02/17 0800 Signed Impressions: Service Date/Time: Monday, October 02, 2017 08:49 - CONCLUSION: Abscess drainage catheter right lower quadrant otherwise negative Nahum Carrasco MD FACR Procedures * 09/06/17: Pelvic drainage catheter placement. * 09/19/17: Replacement of pelvic drainage catheter. . Assessment and Plan Disease Oriented Problem List: (1) Uterine cancer (2) Anemia (3) Pancytopenia (4) Abdominal fluid collection (5) Pelvic mass in female (6) Anxiety and depression Symptom Scale: (1) Abdominal pain 0-10 Scale: 8 Pertinent Non-Medical Issues Psychosocial: Patient originally from [place]. Moved to [place] 6 years ago. Patient is , in 2002. Patient has 3 children. 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 Spiritual: day Alevism marian. Legal: Advance directives completed. Ethical issues impacting care: No ethical issues have been identified. . Important Contacts Sister/[facility] Yoana Lopez . Mother/alt [facility] Janice Abbott . Prognosis Mrs. 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 Medical course complicated by abdominal cystic mass requiring catheter drainage placement. Patient with progressive disease in spite of chemotherapy. Currently seeking palliative radiation. Patient at a very high risk for further complications, continue decline and . Patient appears hospice appropriate should she elects comfort-directed care. . Code Status: Full Code Plan * CODE STATUS: Full code. * HEALTHCARE DECISION-MAKING: Patient participating in medical decision-making. Patient has a very good understanding of her diagnosis, prognosis and retains the ability to weight benefits versus burden of treatment options. Advance directives completed. Patient has designated her sister Yoana Lopez as healthcare surrogate decision-maker, alternate surrogate is her mother Janice Abbott. * GOALS OF CARE: Overall goal is for palliation of symptom management and prolongation of survival. Patient undergoing palliative radiation for symptom management. Patient verbalized being aware that she may not be a candidate for further systemic chemotherapy given performance status. Reviewed the future role of hospice should her symptoms burden increases or she has additional functional decline. Patient and family are receptive to this. Provided additional information regarding hospice services at home. Patient receptive to palliative care follow-ups. * SYMPTOMS: * =Abdominal pain, secondary to burden of disease, abdominal mass. Abdominal drainage in place, moderate amount of serosanguineous fluid. Pain localized to pelvic region and right upper and lower quadrant, rated at 8/10 during my visit. Pain goal is 4/10. Pain is well localized, crampy vs sharp in nature. Exacerbated with movement, alleviated with pain medication and rest. Currently on fentanyl 100 mcg transdermal patch, Percocet 10/325mg q4hr PRN. Has received 4 doses yesterday and 1 today with poor to moderate effect. Patient reports that Percocet is somewhat effective, however, short duration of approximately 2-3 hours. Morphine IV 4mg was reinstated yesterday for breakthrough pain given increased abdominal pain. Has received 2 doses yesterday and 1 dose today. Total Oral Morphine equivalent received in the last 24hr 111mg + Fent patch. Case discussed with Dr. Casas, palliative care recommends opioid rotation with single agent given persistent pain not controlled with current regimen. Patient to continue with Fentanyl TD 100mcg q72hrs. Discontinue Percocet 10/325, add Hydromorphone 4mg PO q4hr PRN. Patient was encouraged to reserve morphine IV for breakthrough pain not relieved with hydromorphone oral. Patient verbalized agreement with recommendations. * =Nausea: Zofran 4 mg every 6 hours available as needed. Received 1 dose this morning. Palliative care recommends low dose benzodiazepine such as Lorazepam 0.5 mg q8hr PRN nausea or anxiety. * =Anxiety: Exacerbated by pain. Primary CARE recommends low-dose benzodiazepine as stated above. * =Rectal pain: Likely secondary to frequent bowel movements/diarrhea. Hydrocortisone suppository and Tucks pads available as needed. No further recommendations at this time. * Case discussed with Dr. Garvin and Dr. Solorio. * Contact information has been provided to patient and sister Carmen. * Palliative care will continue to follow-up for further clarifications of goals of care as patient's clinical course continues to evolve. . Time Spent Total Floor Time (mins): 44 (Total time to include review of medical records, physical exam, goals of care conversation with patient and sister, case discussion. ) >50% Counseling/Coord of Care: Yes Attestation To help prompt me to consider important information that might be impacting today's encounter and assessment, information from prior notes written by myself or my colleagues may have been "brought forward" into today's note. My signature on this note, however, is an attestation that I personally performed the exam, history, and/or decision-making noted today, and, unless otherwise indicated, the interactions with patient, family, and staff as well as the review of records all occurred today. I also attest that the listed assessment and stated plan reflect my best clinical judgment today based on the combination of historical information, prior notes, and today's exam/ interactions. When time spent is documented, it refers only to time spent today by the signer, or if indicated, combined time spent today by collaborating physician/nurse practitioner. Lucy Grimm Oct 03, 2017 11:16
--- NOTE | 2017-10-03 11:40 | HHI.PR ---
Subjective Remarks more diarrhea. 15-20x. alot of pain miserable Objective Vitals heart reg lung cta abd diffuse tender. more epigastric ext no edema Vital Signs Date Time Temp Pulse Resp B/P (MAP) Pulse Ox O2 Delivery O2 Flow Rate FiO2 10/03/17 08:00 99.1 80 16 158/88 (111) 95 10/03/17 05:08 98.6 87 17 144/79 (100) 98 10/03/17 00:37 99.3 87 17 120/93 (102) 95 10/02/17 20:57 97.8 73 18 136/80 95 10/02/17 20:57 98.9 79 18 144/66 (92) 98 10/02/17 18:30 98.7 78 20 133/71 97 10/02/17 18:30 20 10/02/17 16:30 98.5 84 20 117/61 (79) 100 10/02/17 16:30 20 10/02/17 16:30 20 10/02/17 15:45 98.5 84 20 117/61 100 10/02/17 14:56 99.0 78 20 138/78 100 10/02/17 14:05 20 10/02/17 12:38 97.8 77 20 113/67 (82) 96 Result Diagram: 10/03/17 0742 10/02/17 0555 Imaging Last Impressions Abdomen X-Ray 09/30/17 0800 Signed Impressions: Service Date/Time: Saturday, September 30, 2017 08:10 - CONCLUSION: Nonobstructive bowel gas pattern. A moderate amount of stool is noted. Basilio Carpio MD Abdomen/Pelvis CT 09/27/17 0000 Signed Impressions: Service Date/Time: Wednesday, September 27, 2017 19:33 - CONCLUSION: 1. Moon remains in place though the fluid question is not decreased in size measuring 16 CM by 8 CM. Repositioning of the catheter could be considered. 2. Right hydronephrosis secondary to ureteral compression mild in nature. 3. New hypodensity which may be subcapsular over the dome of the liver and reflect trapped fluid. The appearance is atypical for metastatic disease. 4. Stable 6 mm nodule in the right lower lobe. Eyal Grimaldo MD Catheter Change 09/19/17 0000 Signed Impressions: Service Date/Time: Tuesday, September 19, 2017 14:01 - CONCLUSION: The right lower quadrant drainage catheter was manipulated deeper into the collection. 4 mg of TPA was instilled into the collection to try and improve drainage. Son Elizabeth Jr., MD Chest X-Ray 09/15/17 0000 Signed Impressions: Service Date/Time: September 09:14 - CONCLUSION: 1. No acute cardiopulmonary disease. Jamaal Meadows MD Abscess Drainage CT 09/06/17 0833 Signed Impressions: Service Date/Time: Wednesday, September 06, 2017 15:39 - CONCLUSION: 1. Uncomplicated CT-guided drainage catheter placement in left pelvic fluid collection. Only a small amount of serosanguineous fluid could be aspirated immediately following catheter placement. Entire sample was submitted for laboratory analysis. Overall, findings are most consistent with pelvic hematoma. Jamaal Meadows MD A/P Problem List: (1) Abdominal pain ICD Codes: R10.9 - Unspecified abdominal pain Status: Acute Plan: Abdominal pain Uterine cancer (carcinosarcoma) pelvic mass/hematoma - This is a 57 year old female with a past medical history which includes anxiety/depression, lumbar radiculopathy, chronic back pain, hyperlipidemia, uterine cancer. Patient is currently following with Dr. Garsia. She had three chemotherapy treatment then on 06/30/17 Robotic assisted Laparoscopic hysterectomy, BSO, resection of pelvic mass, omentectomy and tumor debulking with Dr. Garsia. After surgery patient has had two additional rounds of chemotherapy. Patient was seen in ER 08/24/17 for lower abdominal pain. - CT abd/pelvic (08/24/17) --> Large heterogeneous mass in the uterine surgical bed measuring 9.6 x 5.0 x6.8 cm. Patient was then DC with follow up with Dr. Garsia as an outpatient. - Patient returned to the ER on 09/05/17 due to worsening abdominal pain x 3 days. Pain constant, pressure like, sharp, worse with eating, improved by bringing her legs closer to her. Pt reports that she is constipated and has decreased appetite. Pt had a fever of 100.2 at home, associated with some chills and night sweats. - CT Abd/Pelvis (09/05/17) --> mass 12.7 cm which has progressed in size from previous study. Predominantly cystic mass in the pelvis larger when compared to the comparison study either hematoma or seroma. Abscess cannot be entirely excluded Hemangioma right lobe of the liver. - IR placed drain into abdomen fluid collection on 09/06 with noted bloody fluid - f/u cytology shows malignant cells and gs/cx ngtd - Pt with fevers 09/07 and was given Zosyn empirically. Blood cx (09/07/17) with NGTD. Presumed related to fluid collection. - C.diff was positive on 09/10/17. Flagyl started on 09/10 and Zosyn stopped. - Repeat CT Abd/pelvis (09/10/17) --> pelvic fluid collection essentially unchanged - Case d/w IR, Dr. Stein (09/12) - IR will place tPA in drain (09/12) - IR does NOT feel that pt would benefit from a 2nd drain. - Case d/w Dr. Garsia (09/12). He reevaluated pt (09/13). He discussed options regarding further chemo or radiation. - Less output from drainage catheter in the last few days - Pt continues with pelvic/abd pain requiring IV pain medication - (09/19) Repositioned new 12 F tube deeper into collection and coiled a wire within the collection to try to break up some of the locules. Placed 4mg TPA into collection to try to aid in aspiration. - Case discussed with Dr. Garsia. Case discussed with Dr. Otto (09/19) plan for radiation. CT simulation done on 09/21 and planned for 10 treatments. Radiation started on 09/23 - discharge to home once pt's pain is better controlled. - Pt so far not having any benefit from the radiation and no slow down of drain output. - more diarrhea and abd pain today. asking for more iv pain meds. -palliative following...we have discussed hospice with this patient and she is considering it. cont fentanyl. dilaudid po added prn. try to use less iv morphine. C. difficile colitis - Zosyn stopped. (09/08 - 09/10/17) - PO Flagyl (09/10 - 09/24) - stop Questran - Repeat stool studies on 09/19 are negative for C. diff - supportive care. Uterine cancer - see above Anxiety and depression - Continue home Paxil 40 mg PO QHS Pancytopenia - She did require 2 units PRBC transfused (09/14) and 1 unit PRBCs on 09/15. H/H has been stable since then. - Patient also received Plt (09/14). Plt count has been increasing. - No signs of active bleeding - Patient reports last chemotherapy treatment was 08/31/17 - Hematology/Medical oncology following and they feel that the drop in Hgb and Plt likely secondary to myelosuppression secondary to chemotherapy two weeks ago. (2) Hemorrhoids, external ICD Codes: K64.4 - Residual hemorrhoidal skin tags Status: Acute Plan: - continue bowel regimen with colace and MOM - wipe with tucks pads after each BM - Anusol sup tid - observe (3) C. difficile colitis ICD Codes: A04.72 - Enterocolitis due to Clostridium difficile, not specified as recurrent Status: Acute (4) Uterine cancer ICD Codes: C55 - Malignant neoplasm of uterus, part unspecified Status: Chronic Plan: - see above (5) Anxiety and depression ICD Codes: F41.8 - Other specified anxiety disorders Status: Chronic (6) Pancytopenia ICD Codes: D61.818 - Other pancytopenia Status: Acute (7) Fever ICD Codes: R50.9 - Fever, unspecified Status: Acute Problem Qualifiers (1) Abdominal pain: Qualified Codes: R10.31 - Right lower quadrant pain (2) Uterine cancer: Qualified Codes: C55 - Malignant neoplasm of uterus, part unspecified Jakub Solorio MD Oct 03, 2017 11:40
[2017-10-03 12:00] VITALS: BP 158/85; PULSE 70; RESP 16; TEMP 98.7; O2SAT 96
[2017-10-03] MEDS ORDERED: LOPERAMIDE HCL 2 MG CAP PO ONE (12:00)
[2017-10-03] MEDS: HYDROmorphone HCL 4 MG TAB PO PRN ×3 (12:29→21:41)
[2017-10-03] MEDS: SODIUM CHLORIDE 0.9% FLUSH 10 ML FLUSH IV FLUSH PRN (12:29)
[2017-10-03 16:00] VITALS: BP 122/75; PULSE 79; RESP 16; TEMP 98.7; O2SAT 97
[2017-10-03 20:00] VITALS: BP 143/74; PULSE 65; RESP 18; TEMP 99; O2SAT 97
[2017-10-03] MEDS: PARoxetine HCL 20 MG TAB PO SCH (21:36)
[2017-10-03] MEDS: PRAVASTATIN SOD 80 MG TAB PO SCH (21:37)
[2017-10-04] VITALS: BP_SYST 131; BP_SYST 134; BP_DIAS 57; PULSE 62; PULSE 99; RESP 18; TEMP 97.5; TEMP 98.8; O2SAT 98
[2017-10-04] MEDS: HYDROmorphone HCL 4 MG TAB PO PRN ×5 (01:49→20:52)
[2017-10-04 04:00] VITALS: BP 121/67; PULSE 71; RESP 18; TEMP 98.5; O2SAT 93
[2017-10-04] MEDS: SODIUM CHLORIDE 0.9% 10 ML VIAL IRRIGATION SCH ×3 (06:00→20:54)
[2017-10-04 08:00] VITALS: BP 108/58; PULSE 73; RESP 18; TEMP 99.1; O2SAT 92
[2017-10-04] MEDS: POTASSIUM CHLORIDE 20 MEQ CONTROLLED RELEASE TAB PO SCH ×2 (08:50→20:51)
[2017-10-04] MEDS: HYDROCORTISONE ACETATE 25 MG SUPP RECTAL SCH ×3 (08:51→18:24)
[2017-10-04] MEDS: SODIUM CHLORIDE 0.9% FLUSH 10 ML FLUSH IV FLUSH SCH ×2 (08:51→20:53)
[2017-10-04] MEDS: PANTOPRAZOLE SOD 40 MG DELAYED RELEASE TAB PO SCH (08:51)
[2017-10-04] MEDS: MORPHINE SULFATE 8 MG/ML INJ IV PUSH PRN ×4 (08:51→23:50)
--- NOTE | 2017-10-04 12:28 | HHI.PR ---
Subjective Remarks Pt says the combination of fentanyl and dilaudid will work for her on d/c home her drain came out overnight and she used some iv morphine. diarrhea stopped she is interested in hospice meeting Objective Vitals heart reg lung cta abd rlq drain site. no drainage. no erythema Vital Signs Date Time Temp Pulse Resp B/P (MAP) Pulse Ox O2 Delivery O2 Flow Rate FiO2 10/04/17 08:00 99.1 73 18 108/58 (75) 92 10/04/17 04:00 98.5 71 18 121/67 (85) 93 10/04/17 00:00 97.5 99 18 131/57 (81) 98 10/04/17 00:00 98.8 62 18 134/57 (82) 98 10/03/17 20:00 99.0 65 18 143/74 (97) 97 10/03/17 16:00 98.7 79 16 122/75 (91) 97 Result Diagram: 10/03/17 0742 10/02/17 0555 Imaging Last Impressions Abdomen X-Ray 09/30/17 0800 Signed Impressions: Service Date/Time: Saturday, September 30, 2017 08:10 - CONCLUSION: Nonobstructive bowel gas pattern. A moderate amount of stool is noted. Basilio Carpio MD Abdomen/Pelvis CT 09/27/17 0000 Signed Impressions: Service Date/Time: Wednesday, September 27, 2017 19:33 - CONCLUSION: 1. Moon remains in place though the fluid question is not decreased in size measuring 16 CM by 8 CM. Repositioning of the catheter could be considered. 2. Right hydronephrosis secondary to ureteral compression mild in nature. 3. New hypodensity which may be subcapsular over the dome of the liver and reflect trapped fluid. The appearance is atypical for metastatic disease. 4. Stable 6 mm nodule in the right lower lobe. Eyal Grimaldo MD Catheter Change 09/19/17 0000 Signed Impressions: Service Date/Time: Tuesday, September 19, 2017 14:01 - CONCLUSION: The right lower quadrant drainage catheter was manipulated deeper into the collection. 4 mg of TPA was instilled into the collection to try and improve drainage. Son Elizabeth Jr., MD Chest X-Ray 09/15/17 0000 Signed Impressions: Service Date/Time: September 09:14 - CONCLUSION: 1. No acute cardiopulmonary disease. Jamaal Meadows MD Abscess Drainage CT 09/06/17 0833 Signed Impressions: Service Date/Time: Wednesday, September 06, 2017 15:39 - CONCLUSION: 1. Uncomplicated CT-guided drainage catheter placement in left pelvic fluid collection. Only a small amount of serosanguineous fluid could be aspirated immediately following catheter placement. Entire sample was submitted for laboratory analysis. Overall, findings are most consistent with pelvic hematoma. Jamaal Meadows MD A/P Problem List: (1) Abdominal pain ICD Codes: R10.9 - Unspecified abdominal pain Status: Acute Plan: Abdominal pain Uterine cancer (carcinosarcoma) pelvic mass/hematoma - This is a 57 year old female with a past medical history which includes anxiety/depression, lumbar radiculopathy, chronic back pain, hyperlipidemia, uterine cancer. Patient is currently following with Dr. Garsia. She had three chemotherapy treatment then on 06/30/17 Robotic assisted Laparoscopic hysterectomy, BSO, resection of pelvic mass, omentectomy and tumor debulking with Dr. Garsia. After surgery patient has had two additional rounds of chemotherapy. Patient was seen in ER 08/24/17 for lower abdominal pain. - CT abd/pelvic (08/24/17) --> Large heterogeneous mass in the uterine surgical bed measuring 9.6 x 5.0 x6.8 cm. Patient was then DC with follow up with Dr. Garsia as an outpatient. - Patient returned to the ER on 09/05/17 due to worsening abdominal pain x 3 days. Pain constant, pressure like, sharp, worse with eating, improved by bringing her legs closer to her. Pt reports that she is constipated and has decreased appetite. Pt had a fever of 100.2 at home, associated with some chills and night sweats. - CT Abd/Pelvis (09/05/17) --> mass 12.7 cm which has progressed in size from previous study. Predominantly cystic mass in the pelvis larger when compared to the comparison study either hematoma or seroma. Abscess cannot be entirely excluded Hemangioma right lobe of the liver. - IR placed drain into abdomen fluid collection on 09/06 with noted bloody fluid - f/u cytology shows malignant cells and gs/cx ngtd - Pt with fevers 09/07 and was given Zosyn empirically. Blood cx (09/07/17) with NGTD. Presumed related to fluid collection. - C.diff was positive on 09/10/17. Flagyl started on 09/10 and Zosyn stopped. - Repeat CT Abd/pelvis (09/10/17) --> pelvic fluid collection essentially unchanged - Case d/w IR, Dr. Stein (09/12) - IR will place tPA in drain (09/12) - IR does NOT feel that pt would benefit from a 2nd drain. - Case d/w Dr. Garsia (09/12). He reevaluated pt (09/13). He discussed options regarding further chemo or radiation. - Less output from drainage catheter in the last few days - Pt continues with pelvic/abd pain requiring IV pain medication - (09/19) Repositioned new 12 F tube deeper into collection and coiled a wire within the collection to try to break up some of the locules. Placed 4mg TPA into collection to try to aid in aspiration. - Case discussed with Dr. Garsia. Case discussed with Dr. Otto (09/19) plan for radiation. CT simulation done on 09/21 and planned for 10 treatments. Radiation started on 09/23 - discharge to home once pt's pain is better controlled. - Pt so far not having any benefit from the radiation and no slow down of drain output. - more diarrhea and abd pain today. asking for more iv pain meds. -palliative following...we have discussed hospice with this patient and she is considering it. cont fentanyl. dilaudid po added prn. try to use less iv morphine. -drain fell out this morning. Long talk with pt and her sister and we agreed to just leave it out and see how things go - we also discussed going home with hospice to monitor her symptom control closely and make any comfort care/med adjustment that are necessary. She was also interested in having the care center option should her condition require it. Will ask hospice to meet with her. We have agreed on a target d/c home date of this Tuesday after her last radiation treatment. C. difficile colitis - Zosyn stopped. (09/08 - 09/10/17) - PO Flagyl (09/10 - 09/24) - stop Questran - Repeat stool studies on 09/19 are negative for C. diff - supportive care. Uterine cancer - see above Anxiety and depression - Continue home Paxil 40 mg PO QHS Pancytopenia - She did require 2 units PRBC transfused (09/14) and 1 unit PRBCs on 09/15. H/H has been stable since then. - Patient also received Plt (09/14). Plt count has been increasing. - 2 units blood on 10/02 - No signs of active bleeding - Patient reports last chemotherapy treatment was 08/31/17 (2) Hemorrhoids, external ICD Codes: K64.4 - Residual hemorrhoidal skin tags Status: Acute Plan: - continue bowel regimen with colace and MOM - wipe with tucks pads after each BM - Anusol sup tid - observe (3) C. difficile colitis ICD Codes: A04.72 - Enterocolitis due to Clostridium difficile, not specified as recurrent Status: Acute (4) Uterine cancer ICD Codes: C55 - Malignant neoplasm of uterus, part unspecified Status: Chronic Plan: - see above (5) Anxiety and depression ICD Codes: F41.8 - Other specified anxiety disorders Status: Chronic (6) Pancytopenia ICD Codes: D61.818 - Other pancytopenia Status: Acute (7) Fever ICD Codes: R50.9 - Fever, unspecified Status: Acute Problem Qualifiers (1) Abdominal pain: Qualified Codes: R10.31 - Right lower quadrant pain (2) Uterine cancer: Qualified Codes: C55 - Malignant neoplasm of uterus, part unspecified Jakub Solorio MD Oct 04, 2017 12:28
[2017-10-04 12:36] VITALS: BP 120/58; PULSE 92; RESP 18; TEMP 98.7; O2SAT 98
[2017-10-04] MEDS: BACITRACIN TOP OINT 15 GM TUBE TOPICAL SCH ×2 (14:00→22:00)
--- NOTE | 2017-10-04 14:11 | HHI.HCPN ---
Reason for visit a. To assist with evaluation and management of symptoms including: pain. b. To assist medical decision maker(s) with: better understanding of current medical conditions; weighing benefits/burdens of medical treatment options; making medical treatment decisions. . Subjective/Interval History Palliative care following for assistance with pain and symptom management, goals of care. 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 Clinical course complicated by cystic mass in the pelvis s/p abdominal drainage catheter placement. Patient currently undergoing palliative radiation. She was seen in her room, in bed in moderate distress secondary to abdominal pain. Pain treatment plan adjusted yesterday. Percocet was discontinued, patient was placed on hydromorphone 4 mg q4hr PRN. She has received 3 doses yesterday and 3 doses today. Verbalized that hydromorphone it is more effective for abdominal pain. However, abdominal drainage catheter was dislodged yesterday and came out. Patient experiencing more abdominal pain/pressure requiring PRN IV morphine. Pain still described as well localized, cramping nature. Exacerbated with movement and alleviated with pain medication and rest. Patient denies nausea or shortness of breath. Reports that diarrhea stopped yesterday. Appetite has improved. No new laboratory or imaging for review. Patient verbalized being receptive to hospice at this time. Goal is to discharge home with hospice services for close pain and symptom management. Hospice referral has been sent, case discussed with admissions advisor Carolina. [employer] CODE STATUS. Patient wishes to remain FULL code at this time. . Family/friend interactions No family at bedside. . Advance Directives Living Will: Copy in medical record Health Care Surrogate: Copy in medical record Advance Directive Specifics Date completed: 06/30/2017. . Health Care Surrogate(s): Patient has designated her sister Yoana Lopez as healthcare surrogate decision- maker, alternate surrogate is her mother Janice Abbott. . Documented care wishes: Living will with standard verbiage as it pertains to terminal condition, end- stage condition or persistent vegetative state. . Significant change in goals: Patient considering hospice upon discharge. . Objective Vital Signs Date Time Temp Pulse Resp B/P (MAP) Pulse Ox O2 Delivery O2 Flow Rate FiO2 10/04/17 12:36 98.7 92 18 120/58 (78) 98 10/04/17 08:00 99.1 73 18 108/58 (75) 92 10/04/17 04:00 98.5 71 18 121/67 (85) 93 10/04/17 00:00 97.5 99 18 131/57 (81) 98 10/04/17 00:00 98.8 62 18 134/57 (82) 98 10/03/17 20:00 99.0 65 18 143/74 (97) 97 10/03/17 16:00 98.7 79 16 122/75 (91) 97 Intake & Output 10/04/17 10/04/17 07:00 19:00 Output Total 240 ml Balance -240 ml Drainage Total 240 ml # Voids 8 # Bowel Movements 12 Physical Exam CONSTITUTIONAL/GENERAL: This is an adequately nourished patient in moderate distress secondary to abdominal pain. TUBES/LINES/DRAINS: PIV's. SKIN: No jaundice, rashes, or lesions. Ecchymoses on upper extremities. No wounds seen anteriorly. Skin temperature appropriate. Not diaphoretic. HEAD: Atraumatic. Normocephalic. EYES: Pupils equal and round and reactive. Extraocular motions intact. No scleral icterus. No injection or drainage. ENT: Hearing grossly normal. Nose without bleeding or purulent drainage. Moist oral mucosa. NECK: Trachea midline. Supple, nontender. CARDIOVASCULAR: Regular rate and rhythm without murmurs, gallops, or rubs. No JVD. Peripheral pulses symmetric. RESPIRATORY/CHEST: Symmetric, unlabored respirations. Clear to auscultation. Breath sounds equal bilaterally. No wheezes, rales, or rhonchi. GASTROINTESTINAL: Abdomen soft, round, tender to palpation. Bowel sounds present. GENITOURINARY: Without palpable bladder distension. MUSCULOSKELETAL: Extremities without clubbing, cyanosis, or edema. No joint tenderness or effusion noted. No calf tenderness. No mottling or clubbing. NEUROLOGICAL: Awake and alert. Motor and sensory grossly within normal limits. Follows commands. Cognitively sharp. Moves all extremities. PSYCHIATRIC: No obvious anxiety/depression. no apparent hallucinations or other psychotic thought process. Pleasant and cooperative. . Diagnostic Tests Laboratory Laboratory Tests Test 10/02/17 05:55 10/03/17 07:42 White Blood Count 2.1 TH/MM3 (4.0-11.0) 3.8 TH/MM3 (4.0-11.0) Red Blood Count 2.32 MIL/MM3 (4.00-5.30) 3.37 MIL/MM3 (4.00-5.30) Hemoglobin 7.2 GM/DL (11.6-15.3) 10.5 GM/DL (11.6-15.3) Hematocrit 21.2 % (35.0-46.0) 30.2 % (35.0-46.0) Mean Corpuscular Volume 91.3 FL (80.0-100.0) 89.6 FL (80.0-100.0) Mean Corpuscular Hemoglobin 30.9 PG (27.0-34.0) 31.0 PG (27.0-34.0) Mean Corpuscular Hemoglobin Concent 33.8 % (32.0-36.0) 34.6 % (32.0-36.0) Red Cell Distribution Width 19.0 % (11.6-17.2) 16.8 % (11.6-17.2) Platelet Count 237 TH/MM3 (150-450) 252 TH/MM3 (150-450) Mean Platelet Volume 7.5 FL (7.0-11.0) 8.2 FL (7.0-11.0) Neutrophils (%) (Auto) 68.3 % (16.0-70.0) 78.8 % (16.0-70.0) Lymphocytes (%) (Auto) 13.7 % (9.0-44.0) 5.7 % (9.0-44.0) Monocytes (%) (Auto) 17.4 % (0.0-8.0) 15.1 % (0.0-8.0) Eosinophils (%) (Auto) 0.3 % (0.0-4.0) 0.2 % (0.0-4.0) Basophils (%) (Auto) 0.3 % (0.0-2.0) 0.2 % (0.0-2.0) Neutrophils # (Auto) 1.4 TH/MM3 (1.8-7.7) 3.0 TH/MM3 (1.8-7.7) Lymphocytes # (Auto) 0.3 TH/MM3 (1.0-4.8) 0.2 TH/MM3 (1.0-4.8) Monocytes # (Auto) 0.4 TH/MM3 (0-0.9) 0.6 TH/MM3 (0-0.9) Eosinophils # (Auto) 0.0 TH/MM3 (0-0.4) 0.0 TH/MM3 (0-0.4) Basophils # (Auto) 0.0 TH/MM3 (0-0.2) 0.0 TH/MM3 (0-0.2) CBC Comment DIFF FINAL DIFF FINAL Differential Comment Blood Urea Nitrogen 8 MG/DL (7-18) Creatinine 0.78 MG/DL (0.50-1.00) Random Glucose 95 MG/DL (74-106) Calcium Level 8.8 MG/DL (8.5-10.1) Magnesium Level 1.7 MG/DL (1.5-2.5) Sodium Level 136 MEQ/L (136-145) Potassium Level 3.4 MEQ/L (3.5-5.1) Chloride Level 98 MEQ/L (98-107) Carbon Dioxide Level 30.6 MEQ/L (21.0-32.0) Anion Gap 7 MEQ/L (5-15) Estimat Glomerular Filtration Rate 76 ML/MIN (>89) Result Diagram: 10/03/17 0742 10/02/17 0555 Procedures * 09/06/17: Pelvic drainage catheter placement. * 09/19/17: Replacement of pelvic drainage catheter. * 10/04/17: Accidental removal of pelvic drainage catheter. . Assessment and Plan Disease Oriented Problem List: (1) Uterine cancer (2) Anemia (3) Pancytopenia (4) Abdominal fluid collection (5) Pelvic mass in female (6) Anxiety and depression Symptom Scale: (1) Abdominal pain 0-10 Scale: 8 Pertinent Non-Medical Issues Psychosocial: Patient originally from [place]. Moved to [place] 6 years ago. Patient is , in 2002. Patient has 3 children. 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 Spiritual: Seventh day Confucianist marian. Legal: Advance directives completed. Ethical issues impacting care: No ethical issues have been identified. . Important Contacts Sister/HCS Yoana Lopez . Mother/alt HCS Janice Abbott . Prognosis Mrs. 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 Medical course complicated by abdominal cystic mass requiring catheter drainage placement. Patient with progressive disease in spite of chemotherapy. Currently seeking palliative radiation. Patient at a very high risk for further complications, continue decline and . Patient appears hospice appropriate should she elects comfort-directed care. . Code Status: Full Code Plan * CODE STATUS: Full code. * HEALTHCARE DECISION-MAKING: Patient participating in medical decision-making. Patient has a very good understanding of her diagnosis, prognosis and retains the ability to weight benefits versus burden of treatment options. Advance directives completed. Patient has designated her sister Yoana Lopez as healthcare surrogate decision-maker, alternate surrogate is her mother Janice Abbott. * GOALS OF CARE: Overall goal is for palliation of symptom. Currently undergoing palliative radiation, scheduled to be completed on 10/07/17. Patient considering discharge home with hospice services for pain and symptom management. Hospice referral sent. * SYMPTOMS: * =Abdominal pain, secondary to burden of disease, abdominal mass. Abdominal drainage in place accidentally dislodged/removed. Pain regimen adjusted yesterday. Patient currently on fentanyl transdermal 100 mcg q72hrs, hydromorphone 4 mg q4hr PRN and Morphine IV 4mg q4hr PRN. Patient was encouraged to reduce her morphine IV for breakthrough pain not relieved with hydromorphone oral. However, acute abdominal pain anticipated to worsen secondary to accidental removal of abdominal drainage. Palliative care recommends follow-up abdominal/pelvic CT in the next 24-48 hrs to monitor progression of abdominal fluid collection. * =Nausea: Zofran 4 mg every 6 hours available as needed. Palliative care recommends low dose benzodiazepine such as Lorazepam 0.5 mg q8hr PRN nausea or anxiety. * =Anxiety: Exacerbated by pain. Recommendations as stated above. * =Rectal pain: Likely secondary to frequent bowel movements/diarrhea. Hydrocortisone suppository and Tucks pads available as needed. No further recommendations at this time. * Case discussed with bridges and buildings supervisor Carolina. * Contact information has been provided to patient and sister Carmen. * Palliative care will continue to follow-up for further clarifications of goals of care as patient's clinical course continues to evolve. . Time Spent Total Floor Time (mins): 41 (Total time to include review medical records, physical exam, goals of care conversation with patient, case discussion with bridges and buildings supervisor.) >50% Counseling/Coord of Care: Yes Attestation To help prompt me to consider important information that might be impacting today's encounter and assessment, information from prior notes written by myself or my colleagues may have been "brought forward" into today's note. My signature on this note, however, is an attestation that I personally performed the exam, history, and/or decision-making noted today, and, unless otherwise indicated, the interactions with patient, family, and staff as well as the review of records all occurred today. I also attest that the listed assessment and stated plan reflect my best clinical judgment today based on the combination of historical information, prior notes, and today's exam/ interactions. When time spent is documented, it refers only to time spent today by the signer, or if indicated, combined time spent today by collaborating physician/nurse practitioner. Lucy Grimm Oct 04, 2017 14:11
[2017-10-04] MEDS: ONDANSETRON HCL 4 MG/2 ML VIAL IVP PRN (16:03)
[2017-10-04] MEDS: ACETAMINOPHEN 325 MG TAB PO PRN (16:04)
[2017-10-04 16:25] VITALS: BP 118/61; PULSE 94; RESP 18; TEMP 102.9; O2SAT 96
[2017-10-04] MEDS: IBUPROFEN 400 MG TAB PO PRN (17:35)
[2017-10-04 18:10] LABS: BILIRUBIN, URINE NEG (NEG); BLOOD, URINE NEG (NEG); GLUCOSE,URINE NEG (NEG); KETONE, URINE NEG (NEG); NITRITE,URINE NEG (NEG); SQUAMOUS EPITHELIAL CELL URINE 1 /hpf (0-5); TRANSITIONAL EPI CELLS, URINE <1 /hpf; URINE COLOR YELLOW (YELLW/STRAW); URINE LEUKOCYTE ESTERASE TRACE (NEG)
[2017-10-04] MEDS: PARoxetine HCL 20 MG TAB PO SCH (20:51)
[2017-10-04] MEDS: PRAVASTATIN SOD 80 MG TAB PO SCH (20:52)
[2017-10-04 21:56] VITALS: BP 100/51; PULSE 85; RESP 20; TEMP 99.6; O2SAT 95
[2017-10-05 00:37] VITALS: TEMP 102.7
[2017-10-05] MEDS: IBUPROFEN 400 MG TAB PO PRN ×4 (00:37→21:13)
[2017-10-05] MEDS: SODIUM CHLORIDE 0.9% 10 ML VIAL IRRIGATION SCH ×3 (05:16→21:14)
[2017-10-05 05:52] VITALS: BP 106/61; PULSE 93; RESP 20; TEMP 99.1; O2SAT 93
[2017-10-05] MEDS: BACITRACIN TOP OINT 15 GM TUBE TOPICAL SCH ×3 (06:13→21:14)
[2017-10-05] MEDS: HYDROmorphone HCL 4 MG TAB PO PRN ×5 (06:13→22:33)
[2017-10-05 07:46] VITALS: BP 117/61; PULSE 82; RESP 18; TEMP 100.3; O2SAT 96
--- NOTE | 2017-10-05 08:00 | PD.ONC.PN ---
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 I agree that this is a good idea as the cancer she has is unpredictable and aggressive. She has unfortunately had advancement of disease despite treatment. currently she is undergoing radiation but we are unsure if this will prove any benefit, any additional IV chemotherapy would be strictly palliative. Objective Data Date Time Temp Pulse Resp B/P (MAP) Pulse Ox O2 Delivery O2 Flow Rate FiO2 10/05/17 07:46 100.3 82 18 117/61 (79) 96 10/05/17 05:52 99.1 93 20 106/61 (76) 93 10/05/17 00:37 102.7 10/04/17 21:56 99.6 85 20 100/51 (67) 95 10/04/17 16:25 102.9 94 18 118/61 (80) 96 10/04/17 12:36 98.7 92 18 120/58 (78) 98 10/04/17 08:00 99.1 73 18 108/58 (75) 92 Result Diagram: 10/03/17 0742 10/02/17 0555 Laboratory Results Laboratory Tests Test 10/04/17 17:40 Urine Color YELLOW Urine Turbidity CLEAR Urine pH 6.0 Urine Specific [place] 1.013 Urine Protein TRACE mg/dL Urine Glucose (UA) NEG mg/dL Urine Ketones NEG mg/dL Urine Occult Blood NEG Urine Nitrite NEG Urine Bilirubin NEG Urine Urobilinogen LESS THAN 2.0 MG/DL Urine Leukocyte Esterase TRACE Urine RBC 1 /hpf Urine WBC 3 /hpf Urine Squamous Epithelial Cells 1 /hpf Urine Transitional Epithelial Cells <1 /hpf Microscopic Urinalysis Comment CULT NOT INDICATED Culture Results Microbiology Date/Time Source Procedure Growth Status 10/04/17 16:59 Blood Peripheral Aerobic Blood Culture Pending Received 10/04/17 16:59 Blood Peripheral Anaerobic Blood Culture Pending Received 10/04/17 16:54 Blood Peripheral Aerobic Blood Culture Pending Received 10/04/17 16:54 Blood Peripheral Anaerobic Blood Culture Pending Received Administered Medications Medications (Trade) Dose Ordered Sig/Khloe Route PRN Reason Start Time Stop Time Status Last Admin Dose Admin Sodium Chloride (NS Flush) 2 ml UNSCH PRN IV FLUSH FLUSH AFTER USING IV ACCESS 09/05/17 16:15 10/03/17 12:29 Sodium Chloride (NS Flush) 2 ml BID IV FLUSH 09/05/17 21:00 10/04/17 20:53 Ondansetron HCl (Zofran Inj) 4 mg Q6H PRN IVP NAUSEA OR VOMITING 09/05/17 16:15 10/04/17 16:03 Pantoprazole Sodium (Protonix) 40 mg DAILY PO 09/06/17 09:00 10/04/17 08:51 Paroxetine HCl (Paxil) 40 mg HS PO 09/05/17 21:00 10/04/17 20:51 Pravastatin Sodium (Pravachol) 80 mg HS PO 09/05/17 21:00 10/04/17 20:52 Sodium Chloride (NS Inj) 10 ml Q8HR IRRIGATION 09/06/17 22:00 10/03/17 05:26 Potassium Chloride (KCl) 20 meq Q12HR PO 09/07/17 21:00 10/04/17 20:51 Calcium Carbonate (Tums Chew) 500 mg Q2H PRN CHEW INDIGESTION 09/13/17 17:00 09/30/17 16:24 Fentanyl (Duragesic 100 Mcg Patch.72 Hr) 1 patch Q3D T-DERMAL 09/29/17 16:00 10/02/17 15:51 Miscellaneous Information 1 Q3D T-DERMAL 09/29/17 16:00 10/02/17 15:51 Hydrocortisone Acetate (Hemorrhoidal Hc Supp) 25 mg TID RECTAL 10/02/17 18:00 10/03/17 09:23 Morphine Sulfate (Morphine Inj) 4 mg Q3H PRN IV PUSH SEE LABEL COMMENTS 10/03/17 12:00 10/04/17 23:50 Hydromorphone HCl (Dilaudid) 4 mg Q4H PRN PO SEE LABEL COMMENTS 10/03/17 12:00 10/05/17 06:13 Bacitracin (Baciguent Oint) 1 applic Q8HR TOPICAL 10/04/17 14:00 10/05/17 06:13 Ibuprofen (Motrin) 400 mg Q6H PRN PO FEVER 10/04/17 16:15 10/05/17 00:37 Objective Remarks GENERAL: Well-nourished, well-developed patient, fatigued SKIN: Warm and dry. HEAD: Normocephalic. EYES: No scleral icterus. No injection or drainage. NECK: Supple, trachea midline CARDIOVASCULAR: Regular rate and rhythm without murmurs. RESPIRATORY: No accessory muscle use. EXTREMITIES: teds and scds MUSCULOSKELETAL: Adequate muscle tone. NEUROLOGICAL: No obvious focal deficit. PSYCHIATRIC: Appropriate mood and affect; insight and judgment normal. Assessment/Plan Problem List: (1) Pancytopenia ICD Codes: D61.818 - Other pancytopenia Status: Acute Plan: --monitor the CBC daily and transfuse if the hemoglobin is less than 8 and/or platelet count is less than 15. --pancytopenia likely d/t chemotherapy (carboplatin) -- last chemotherapy was 2 weeks ago on August 31. 09/19/17: ANC improved 1600, T max 99.0, continued thrombocytopenia but improving . continue to monitor daily labs 09/21/17: platelets continue to improve, afebrile 09/28/17: resolved and hem/onc signed off 10/03/17: patient hem dropped to 7.2, 2 units PRBCs transfused 10/02/17 labs pending this morning (2) Abdominal fluid collection ICD Codes: R18.8 - Other ascites Status: Acute Plan: s/p IR drainage of pelvic fluid collection 09/06/17 drain placed cultures pending monitor drain outpt 09/19/17: patient to IR today to switch out drain for larger one in hopes of draining mass pelvic fluid cultures negative malignant cells found in pelvic fluid, radiation oncology consulted 09/21/17: drain replaced on 09/19/17 with small improvement in drainage malignant cells found in mass, patient to start palliative radiation under direction of Dr. Otto, simulation today in hopes to shrink mass discharge per hospitalist 09/28/17: ct scan, no change in mass, probable fluid to dome of liver, mild hydronephrosis, lung lesion-- mets (?). drain in place with bloody drainage s/p 3 radiation treatments, 4th scheduled for today, Dr. Otto feels will take ~ 5-10 treatments Palliative Care following pain control per medicine team, appreciate assistance with Portia Reyna 10/03/17: drain still in place Palliative Care asked to reevaluate and assist with pain management still requiring IV morphine continue with radiation, scheduled through will follow up with Dr. Garsia 1-2 weeks after discharge from hospital. 10/05/17: last radiation 10/07/17 patient interested in talking with Hospice, Palliative Care following poor prognosis Assessment 57y/o female with uterine cancer. Hematology consulted for thrombocytopenia. Plan 1. no transfusion needed today 2. monitor CBC Andriy Laguna Oct 05, 2017 08:00
[2017-10-05] MEDS: PANTOPRAZOLE SOD 40 MG DELAYED RELEASE TAB PO SCH (08:13)
[2017-10-05] MEDS: SODIUM CHLORIDE 0.9% FLUSH 10 ML FLUSH IV FLUSH SCH ×2 (08:13→21:00)
[2017-10-05] MEDS: POTASSIUM CHLORIDE 20 MEQ CONTROLLED RELEASE TAB PO SCH ×2 (08:14→21:13)
[2017-10-05] MEDS: HYDROCORTISONE ACETATE 25 MG SUPP RECTAL SCH (08:14)
[2017-10-05] MEDS: MORPHINE SULFATE 8 MG/ML INJ IV PUSH PRN ×5 (08:15→23:56)
--- NOTE | 2017-10-05 10:12 | HHI.PR ---
Subjective Remarks c/o fever starting last evening. no flatus/bm no n/v. still with abdomen pains. pt/sister were agreeable to discuss with hospice but then ask about cancer [facility] options. Objective Vitals heart reg lung cta abd diffuse tenderness. reduced bs ext no pitting. Vital Signs Date Time Temp Pulse Resp B/P (MAP) Pulse Ox O2 Delivery O2 Flow Rate FiO2 10/05/17 07:46 100.3 82 18 117/61 (79) 96 10/05/17 05:52 99.1 93 20 106/61 (76) 93 10/05/17 00:37 102.7 10/04/17 21:56 99.6 85 20 100/51 (67) 95 10/04/17 16:25 102.9 94 18 118/61 (80) 96 10/04/17 12:36 98.7 92 18 120/58 (78) 98 Result Diagram: 10/03/17 0742 10/02/17 0555 Imaging Last Impressions Abdomen X-Ray 09/30/17 0800 Signed Impressions: Service Date/Time: Saturday, September 30, 2017 08:10 - CONCLUSION: Nonobstructive bowel gas pattern. A moderate amount of stool is noted. Basilio Carpio MD Abdomen/Pelvis CT 09/27/17 0000 Signed Impressions: Service Date/Time: Wednesday, September 27, 2017 19:33 - CONCLUSION: 1. Moon remains in place though the fluid question is not decreased in size measuring 16 CM by 8 CM. Repositioning of the catheter could be considered. 2. Right hydronephrosis secondary to ureteral compression mild in nature. 3. New hypodensity which may be subcapsular over the dome of the liver and reflect trapped fluid. The appearance is atypical for metastatic disease. 4. Stable 6 mm nodule in the right lower lobe. Eyal Grimaldo MD Catheter Change 09/19/17 0000 Signed Impressions: Service Date/Time: Tuesday, September 19, 2017 14:01 - CONCLUSION: The right lower quadrant drainage catheter was manipulated deeper into the collection. 4 mg of TPA was instilled into the collection to try and improve drainage. Son Elizabeth Jr., MD Chest X-Ray 09/15/17 0000 Signed Impressions: Service Date/Time: September 09:14 - CONCLUSION: 1. No acute cardiopulmonary disease. Jamaal Meadows MD Abscess Drainage CT 09/06/17 0833 Signed Impressions: Service Date/Time: Wednesday, September 06, 2017 15:39 - CONCLUSION: 1. Uncomplicated CT-guided drainage catheter placement in left pelvic fluid collection. Only a small amount of serosanguineous fluid could be aspirated immediately following catheter placement. Entire sample was submitted for laboratory analysis. Overall, findings are most consistent with pelvic hematoma. Jamaal Meadows MD A/P Problem List: (1) Abdominal pain ICD Codes: R10.9 - Unspecified abdominal pain Status: Acute Plan: Abdominal pain Uterine cancer (carcinosarcoma) pelvic mass/hematoma - This is a 57 year old female with a past medical history which includes anxiety/depression, lumbar radiculopathy, chronic back pain, hyperlipidemia, uterine cancer. Patient is currently following with Dr. Garsia. She had three chemotherapy treatment then on 06/30/17 Robotic assisted Laparoscopic hysterectomy, BSO, resection of pelvic mass, omentectomy and tumor debulking with Dr. Garsia. After surgery patient has had two additional rounds of chemotherapy. Patient was seen in ER 08/24/17 for lower abdominal pain. - CT abd/pelvic (08/24/17) --> Large heterogeneous mass in the uterine surgical bed measuring 9.6 x 5.0 x6.8 cm. Patient was then DC with follow up with Dr. Garsia as an outpatient. - Patient returned to the ER on 09/05/17 due to worsening abdominal pain x 3 days. Pain constant, pressure like, sharp, worse with eating, improved by bringing her legs closer to her. Pt reports that she is constipated and has decreased appetite. Pt had a fever of 100.2 at home, associated with some chills and night sweats. - CT Abd/Pelvis (09/05/17) --> mass 12.7 cm which has progressed in size from previous study. Predominantly cystic mass in the pelvis larger when compared to the comparison study either hematoma or seroma. Abscess cannot be entirely excluded Hemangioma right lobe of the liver. - IR placed drain into abdomen fluid collection on 09/06 with noted bloody fluid - f/u cytology shows malignant cells and gs/cx ngtd - Pt with fevers 09/07 and was given Zosyn empirically. Blood cx (09/07/17) with NGTD. Presumed related to fluid collection. - C.diff was positive on 09/10/17. Flagyl started on 09/10 and Zosyn stopped. - Repeat CT Abd/pelvis (09/10/17) --> pelvic fluid collection essentially unchanged - Case d/w IR, Dr. Stein (09/12) - IR will place tPA in drain (09/12) - IR does NOT feel that pt would benefit from a 2nd drain. - Case d/w Dr. Garsia (09/12). He reevaluated pt (09/13). He discussed options regarding further chemo or radiation. - Less output from drainage catheter in the last few days - Pt continues with pelvic/abd pain requiring IV pain medication - (09/19) Repositioned new 12 F tube deeper into collection and coiled a wire within the collection to try to break up some of the locules. Placed 4mg TPA into collection to try to aid in aspiration. - Case discussed with Dr. Garsia. Case discussed with Dr. Otto (09/19) plan for radiation. CT simulation done on 09/21 and planned for 10 treatments. Radiation started on 09/23 - discharge to home once pt's pain is better controlled. - Pt so far not having any benefit from the radiation and no slow down of drain output. - severe diarrhea 3/ after getting some laxatives. improved -palliative following...we have discussed hospice with this patient and she is considering it. cont fentanyl. dilaudid po added prn. try to use less iv morphine. -drain fell out 10/04.. Long talk with pt and her sister and we agreed to just leave it out and see how things go - we also discussed going home with hospice to monitor her symptom control closely and make any comfort care/med adjustment that are necessary. She was also interested in having the care center option should her condition require it. Will ask hospice to meet with her. We have agreed on a target d/c home date of this Tuesday after her last radiation treatment. ..she now has fever. unclear source. describes urinary sx's but ua negative. check kub. trying to avoid abx given high risk of cdiff. f/u blood cx. ..?recurrent c.diff...consider emperic trial of flagyl again but will get kub first. C. difficile colitis - Zosyn stopped. (09/08 - 09/10/17) - PO Flagyl (09/10 - 09/24) - stop Questran - Repeat stool studies on 09/19 are negative for C. diff - supportive care. Uterine cancer - see above Anxiety and depression - Continue home Paxil 40 mg PO QHS Pancytopenia - She did require 2 units PRBC transfused (09/14) and 1 unit PRBCs on 09/15. H/H has been stable since then. - Patient also received Plt (09/14). Plt count has been increasing. - 2 units blood on 10/02 - No signs of active bleeding - Patient reports last chemotherapy treatment was 08/31/17 (2) Hemorrhoids, external ICD Codes: K64.4 - Residual hemorrhoidal skin tags Status: Acute (3) C. difficile colitis ICD Codes: A04.72 - Enterocolitis due to Clostridium difficile, not specified as recurrent Status: Acute (4) Uterine cancer ICD Codes: C55 - Malignant neoplasm of uterus, part unspecified Status: Chronic Plan: - see above (5) Anxiety and depression ICD Codes: F41.8 - Other specified anxiety disorders Status: Chronic (6) Pancytopenia ICD Codes: D61.818 - Other pancytopenia Status: Acute (7) Fever ICD Codes: R50.9 - Fever, unspecified Status: Acute Problem Qualifiers (1) Abdominal pain: Qualified Codes: R10.31 - Right lower quadrant pain (2) Uterine cancer: Qualified Codes: C55 - Malignant neoplasm of uterus, part unspecified Jakub Solorio MD Oct 05, 2017 10:12
[2017-10-05 11:45] VITALS: BP 119/66; PULSE 79; RESP 18; TEMP 99; O2SAT 99
--- NOTE | 2017-10-05 11:55 | RADRPT ---
EXAM DATE/TIME: 10/05/2017 11:21 [place] COMPARISON: ABDOMEN KUB ONLY, October 02, 2017, 8:49. INDICATIONS : Lower right abdominal pain. MEDICAL HISTORY : Cardiovascular disease. Uterine cancer with metastasis. Radiation therapy. SURGICAL HISTORY : Hysterectomy. ENCOUNTER: Subsequent ACUITY: 1 month PAIN SCORE: 8/10 LOCATION: Right lower quadrant abdomen FINDINGS: The bowel gas pattern is within normal limits. There is no free air identified. No abnormal calcifica tions are seen. No organomegaly is noted. There are degenerative changes in the hips bilaterally. The osseous structures are otherwise intact. CONCLUSION: 1. Benign-appearing KUB. 2. A small bore drainage catheter in the right lower Quadrant has been removed. Benji Carrasco MD on October 05, 2017 at 11:52 Board Certified Radiologist. This report was verified electronically.
[2017-10-05] MEDS: fentaNYL 100 MCG/HR PATCH T-DERMAL SCH (15:51)
[2017-10-05] MEDS: REMOVE OLD FENTANYL PATCH T-DERMAL SCH (15:51)
[2017-10-05 16:28] VITALS: BP 102/58; PULSE 82; RESP 18; TEMP 100.4; O2SAT 97
[2017-10-05 20:00] VITALS: BP 111/57; PULSE 82; RESP 18; TEMP 100; O2SAT 100
[2017-10-05] MEDS: PARoxetine HCL 20 MG TAB PO SCH (21:14)
[2017-10-05] MEDS: PRAVASTATIN SOD 80 MG TAB PO SCH (21:14)
[2017-10-06] VITALS: BP 110/56; PULSE 81; RESP 18; TEMP 101.2; O2SAT 94
[2017-10-06] MEDS ORDERED: ACETAMINOPHEN 325 MG TAB PO PRN (01:00)
[2017-10-06 04:00] VITALS: BP 101/57; PULSE 75; RESP 18; TEMP 99.8; O2SAT 97
[2017-10-06] MEDS: HYDROmorphone HCL 4 MG TAB PO PRN ×6 (04:02→23:51)
[2017-10-06] MEDS: MORPHINE SULFATE 8 MG/ML INJ IV PUSH PRN ×7 (05:30→23:04)
[2017-10-06] MEDS: BACITRACIN TOP OINT 15 GM TUBE TOPICAL SCH ×3 (05:38→23:05)
[2017-10-06] MEDS: SODIUM CHLORIDE 0.9% 10 ML VIAL IRRIGATION SCH ×3 (05:38→19:46)
[2017-10-06 07:13] LABS: AUTOMATED NEUTROPHIL # 4.6 TH/MM3 (1.8-7.7); BASOPHIL % 0.2 % (0.0-2.0); EOSINOPHIL % 0.2 % (0.0-4.0); HEMATOCRIT 28.8 % (35.0-46.0); HEMOGLOBIN 9.8 GM/DL (11.6-15.3); LYMPH % 4.8 % (9.0-44.0); LYMPHOCYTE # 0.3 TH/MM3 (1.0-4.8); MEAN CELL VOLUME 90.5 FL (80.0-100.0); MEAN CORPUSCULAR HEMOGLOBIN 30.8 PG (27.0-34.0); MEAN PLATELET VOLUME 8.2 FL (7.0-11.0); MONO % 16.8 % (0.0-8.0); PLATELET COUNT 206 TH/MM3 (150-450); RED BLOOD COUNT 3.18 MIL/MM3 (4.00-5.30); RED CELL DISTRIBUTION WIDTH 16.8 % (11.6-17.2); WHITE BLOOD COUNT 5.9 TH/MM3 (4.0-11.0)
[2017-10-06] MEDS: POTASSIUM CHLORIDE 20 MEQ CONTROLLED RELEASE TAB PO SCH ×2 (08:03→19:48)
[2017-10-06] MEDS: PANTOPRAZOLE SOD 40 MG DELAYED RELEASE TAB PO SCH (08:03)
[2017-10-06] MEDS: SODIUM CHLORIDE 0.9% FLUSH 10 ML FLUSH IV FLUSH SCH ×2 (08:03→19:46)
[2017-10-06] MEDS: metroNIDAZOLE 500 MG INJ 100 ML IV SCH ×2 (08:04→15:40)
[2017-10-06 08:32] VITALS: BP 116/58; PULSE 86; RESP 20; TEMP 98.5; O2SAT 98
[2017-10-06] MEDS: ONDANSETRON HCL 4 MG/2 ML VIAL IVP PRN (09:38)
--- NOTE | 2017-10-06 10:00 | PD.ONC.PN ---
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 I explained that we are concerned that the radiation has not helped to shrink this mass as her symptoms have not improved, it seems that the pain has gotten worse despite medication changes. Palliative Care has been following and we appreciate assistance. Ms. Reyna tells me she has talked to Hospice a couple of times. She is concerned that her pain will not be controlled and she will suffer. I explained that Hospice has many protocols in place along with a great physician support to help keep her as comfortable as possible. Objective Data Date Time Temp Pulse Resp B/P (MAP) Pulse Ox O2 Delivery O2 Flow Rate FiO2 10/06/17 08:32 98.5 86 20 116/58 (77) 98 10/06/17 04:00 99.8 75 18 101/57 (72) 97 10/06/17 00:00 101.2 81 18 110/56 (74) 94 10/05/17 20:00 100.0 82 18 111/57 (75) 100 10/05/17 16:28 100.4 82 18 102/58 (73) 97 10/05/17 11:45 99.0 79 18 119/66 (83) 99 10/06/17 10/06/17 10/06/17 07:00 15:00 23:00 Intake Total 100 ml Balance 100 ml Result Diagram: 10/06/17 0633 10/02/17 0555 Laboratory Results Laboratory Tests Test 10/06/17 06:33 White Blood Count 5.9 TH/MM3 Red Blood Count 3.18 MIL/MM3 Hemoglobin 9.8 GM/DL Hematocrit 28.8 % Mean Corpuscular Volume 90.5 FL Mean Corpuscular Hemoglobin 30.8 PG Mean Corpuscular Hemoglobin Concent 34.0 % Red Cell Distribution Width 16.8 % Platelet Count 206 TH/MM3 Mean Platelet Volume 8.2 FL Neutrophils (%) (Auto) 78.0 % Lymphocytes (%) (Auto) 4.8 % Monocytes (%) (Auto) 16.8 % Eosinophils (%) (Auto) 0.2 % Basophils (%) (Auto) 0.2 % Neutrophils # (Auto) 4.6 TH/MM3 Lymphocytes # (Auto) 0.3 TH/MM3 Monocytes # (Auto) 1.0 TH/MM3 Eosinophils # (Auto) 0.0 TH/MM3 Basophils # (Auto) 0.0 TH/MM3 CBC Comment DIFF FINAL Differential Comment Culture Results Microbiology Date/Time Source Procedure Growth Status 10/04/17 16:59 Blood Peripheral Aerobic Blood Culture - Preliminary NO GROWTH IN 1 DAY Resulted 10/04/17 16:59 Blood Peripheral Anaerobic Blood Culture - Preliminary NO GROWTH IN 1 DAY Resulted 10/04/17 16:54 Blood Peripheral Aerobic Blood Culture - Preliminary NO GROWTH IN 1 DAY Resulted 10/04/17 16:54 Blood Peripheral Anaerobic Blood Culture - Preliminary NO GROWTH IN 1 DAY Resulted Administered Medications Medications (Trade) Dose Ordered Sig/Khloe Route PRN Reason Start Time Stop Time Status Last Admin Dose Admin Sodium Chloride (NS Flush) 2 ml UNSCH PRN IV FLUSH FLUSH AFTER USING IV ACCESS 09/05/17 16:15 10/03/17 12:29 Sodium Chloride (NS Flush) 2 ml BID IV FLUSH 09/05/17 21:00 10/06/17 08:03 Ondansetron HCl (Zofran Inj) 4 mg Q6H PRN IVP NAUSEA OR VOMITING 09/05/17 16:15 10/06/17 09:38 Pantoprazole Sodium (Protonix) 40 mg DAILY PO 09/06/17 09:00 10/06/17 08:03 Paroxetine HCl (Paxil) 40 mg HS PO 09/05/17 21:00 10/05/17 21:14 Pravastatin Sodium (Pravachol) 80 mg HS PO 09/05/17 21:00 10/05/17 21:14 Sodium Chloride (NS Inj) 10 ml Q8HR IRRIGATION 09/06/17 22:00 10/03/17 05:26 Potassium Chloride (KCl) 20 meq Q12HR PO 09/07/17 21:00 10/06/17 08:03 Calcium Carbonate (Tums Chew) 500 mg Q2H PRN CHEW INDIGESTION 09/13/17 17:00 09/30/17 16:24 Fentanyl (Duragesic 100 Mcg Patch.72 Hr) 1 patch Q3D T-DERMAL 09/29/17 16:00 10/05/17 15:51 Miscellaneous Information 1 Q3D T-DERMAL 09/29/17 16:00 10/05/17 15:51 Morphine Sulfate (Morphine Inj) 4 mg Q3H PRN IV PUSH SEE LABEL COMMENTS 10/03/17 12:00 10/06/17 08:56 Hydromorphone HCl (Dilaudid) 4 mg Q4H PRN PO SEE LABEL COMMENTS 10/03/17 12:00 10/06/17 08:03 Bacitracin (Baciguent Oint) 1 applic Q8HR TOPICAL 10/04/17 14:00 10/06/17 05:38 Ibuprofen (Motrin) 400 mg Q6H PRN PO FEVER 10/04/17 16:15 10/05/17 21:13 Acetaminophen (Tylenol) 650 mg Q6H PRN PO TEMPERATURE > 100.4 F 10/06/17 01:00 10/06/17 01:05 Metronidazole 100 ml @ 100 mls/hr Q8H IV 10/06/17 08:00 10/06/17 08:04 Objective Remarks GENERAL: Well-nourished, well-developed patient, mild amount of depressed SKIN: Warm and dry. HEAD: Normocephalic. EYES: No scleral icterus. No injection or drainage. CARDIOVASCULAR: Regular rate and rhythm without murmurs. RESPIRATORY: Breath sounds equal bilaterally. No accessory muscle use. EXTREMITIES: teds and scds MUSCULOSKELETAL: Adequate muscle tone. NEUROLOGICAL: No obvious focal deficit. Awake, alert, and oriented x3. PSYCHIATRIC: Appropriate mood and affect; insight and judgment normal. Assessment/Plan Problem List: (1) Pancytopenia ICD Codes: D61.818 - Other pancytopenia Status: Acute Plan: --monitor the CBC daily and transfuse if the hemoglobin is less than 8 and/or platelet count is less than 15. --pancytopenia likely d/t chemotherapy (carboplatin) -- last chemotherapy was 2 weeks ago on August 31. 09/19/17: ANC improved 1600, T max 99.0, continued thrombocytopenia but improving . continue to monitor daily labs 09/21/17: platelets continue to improve, afebrile 09/28/17: resolved and hem/onc signed off 10/03/17: patient hem dropped to 7.2, 2 units PRBCs transfused 10/02/17 labs pending this morning 10/06/17: hem 9.8 stable post transfusion. (2) Abdominal fluid collection ICD Codes: R18.8 - Other ascites Status: Acute Plan: s/p IR drainage of pelvic fluid collection 09/06/17 drain placed cultures pending monitor drain outpt 09/19/17: patient to IR today to switch out drain for larger one in hopes of draining mass pelvic fluid cultures negative malignant cells found in pelvic fluid, radiation oncology consulted 09/21/17: drain replaced on 09/19/17 with small improvement in drainage malignant cells found in mass, patient to start palliative radiation under direction of Dr. Otto, simulation today in hopes to shrink mass discharge per hospitalist 09/28/17: ct scan, no change in mass, probable fluid to dome of liver, mild hydronephrosis, lung lesion-- mets (?). drain in place with bloody drainage s/p 3 radiation treatments, 4th scheduled for today, Dr. Otto feels will take ~ 5-10 treatments Palliative Care following pain control per medicine team, appreciate assistance with Portia Reyna 10/03/17: drain still in place Palliative Care asked to reevaluate and assist with pain management still requiring IV morphine continue with radiation, scheduled through will follow up with Dr. Garsia 1-2 weeks after discharge from hospital. 10/05/17: last radiation 10/07/17 patient interested in talking with Hospice, Palliative Care following poor prognosis 10/06/17: continues with daily radiation final radiation is 10/07/17 increasing pain and symptoms concern that no improvement despite radiation, IV chemotherapy and surgery. Hospice appropriate. Assessment 57y/o female with uterine cancer. Hematology consulted for thrombocytopenia. Plan 1. no transfusion needed today 2. monitor CBC Attending Statement Discussed with Dr. Garsia he is in agreement. Andriy Laguna Oct 06, 2017 10:00
[2017-10-06] MEDS ORDERED: METHYLNALTREXONE BROMIDE 12 MG/0.6 ML VIAL SQ ONE (10:30)
--- NOTE | 2017-10-06 11:21 | HHI.PR ---
Subjective Remarks absolutely miserable. alot of abdomen pain and rectal pressure. asking for more pain meds. Sister also asking for more meds. Objective Vitals appears to be in pain heart reg lung cta abd diminished bs. soft ext no edema Vital Signs Date Time Temp Pulse Resp B/P (MAP) Pulse Ox O2 Delivery O2 Flow Rate FiO2 10/06/17 08:32 98.5 86 20 116/58 (77) 98 10/06/17 04:00 99.8 75 18 101/57 (72) 97 10/06/17 00:00 101.2 81 18 110/56 (74) 94 10/05/17 20:00 100.0 82 18 111/57 (75) 100 10/05/17 16:28 100.4 82 18 102/58 (73) 97 10/05/17 11:45 99.0 79 18 119/66 (83) 99 10/06/17 10/06/17 10/07/17 15:00 23:00 07:00 Intake Total 100 ml Balance 100 ml IV Total 100 ml Result Diagram: 10/06/17 0633 10/02/17 0555 Imaging Last Impressions Abdomen X-Ray 09/30/17 0800 Signed Impressions: Service Date/Time: Saturday, September 30, 2017 08:10 - CONCLUSION: Nonobstructive bowel gas pattern. A moderate amount of stool is noted. Basilio Carpio MD Abdomen/Pelvis CT 09/27/17 0000 Signed Impressions: Service Date/Time: Wednesday, September 27, 2017 19:33 - CONCLUSION: 1. Moon remains in place though the fluid question is not decreased in size measuring 16 CM by 8 CM. Repositioning of the catheter could be considered. 2. Right hydronephrosis secondary to ureteral compression mild in nature. 3. New hypodensity which may be subcapsular over the dome of the liver and reflect trapped fluid. The appearance is atypical for metastatic disease. 4. Stable 6 mm nodule in the right lower lobe. Eyal Grimaldo MD Catheter Change 09/19/17 0000 Signed Impressions: Service Date/Time: Tuesday, September 19, 2017 14:01 - CONCLUSION: The right lower quadrant drainage catheter was manipulated deeper into the collection. 4 mg of TPA was instilled into the collection to try and improve drainage. Son Elizabeth Jr., MD Chest X-Ray 09/15/17 0000 Signed Impressions: Service Date/Time: September 09:14 - CONCLUSION: 1. No acute cardiopulmonary disease. Jamaal Meadows MD Abscess Drainage CT 09/06/17 0833 Signed Impressions: Service Date/Time: Wednesday, September 06, 2017 15:39 - CONCLUSION: 1. Uncomplicated CT-guided drainage catheter placement in left pelvic fluid collection. Only a small amount of serosanguineous fluid could be aspirated immediately following catheter placement. Entire sample was submitted for laboratory analysis. Overall, findings are most consistent with pelvic hematoma. Jamaal Meadows MD A/P Problem List: (1) Abdominal pain ICD Codes: R10.9 - Unspecified abdominal pain Status: Acute Plan: Abdominal pain Uterine cancer (carcinosarcoma) pelvic mass/hematoma - This is a 57 year old female with a past medical history which includes anxiety/depression, lumbar radiculopathy, chronic back pain, hyperlipidemia, uterine cancer. Patient is currently following with Dr. Garsia. She had three chemotherapy treatment then on 06/30/17 Robotic assisted Laparoscopic hysterectomy, BSO, resection of pelvic mass, omentectomy and tumor debulking with Dr. Garsia. After surgery patient has had two additional rounds of chemotherapy. Patient was seen in ER 08/24/17 for lower abdominal pain. - CT abd/pelvic (08/24/17) --> Large heterogeneous mass in the uterine surgical bed measuring 9.6 x 5.0 x6.8 cm. Patient was then DC with follow up with Dr. Garsia as an outpatient. - Patient returned to the ER on 09/05/17 due to worsening abdominal pain x 3 days. Pain constant, pressure like, sharp, worse with eating, improved by bringing her legs closer to her. Pt reports that she is constipated and has decreased appetite. Pt had a fever of 100.2 at home, associated with some chills and night sweats. - CT Abd/Pelvis (09/05/17) --> mass 12.7 cm which has progressed in size from previous study. Predominantly cystic mass in the pelvis larger when compared to the comparison study either hematoma or seroma. Abscess cannot be entirely excluded Hemangioma right lobe of the liver. - IR placed drain into abdomen fluid collection on 09/06 with noted bloody fluid - f/u cytology shows malignant cells and gs/cx ngtd - Pt with fevers 09/07 and was given Zosyn empirically. Blood cx (09/07/17) with NGTD. Presumed related to fluid collection. - C.diff was positive on 09/10/17. Flagyl started on 09/10 and Zosyn stopped. - Repeat CT Abd/pelvis (09/10/17) --> pelvic fluid collection essentially unchanged - Case d/w IR, Dr. Stein (09/12) - IR will place tPA in drain (09/12) - IR does NOT feel that pt would benefit from a 2nd drain. - Case d/w Dr. Garsia (09/12). He reevaluated pt (09/13). He discussed options regarding further chemo or radiation. - Less output from drainage catheter in the last few days - Pt continues with pelvic/abd pain requiring IV pain medication - (09/19) Repositioned new 12 F tube deeper into collection and coiled a wire within the collection to try to break up some of the locules. Placed 4mg TPA into collection to try to aid in aspiration. - Case discussed with Dr. Garsia. Case discussed with Dr. Otto (09/19) plan for radiation. CT simulation done on 09/21 and planned for 10 treatments. Radiation started on 09/23 - discharge to home once pt's pain is better controlled. - Pt so far not having any benefit from the radiation and no slow down of drain output. - severe diarrhea 3/ after getting some laxatives. improved -palliative following...we have discussed hospice with this patient and she is considering it. cont fentanyl. dilaudid po added prn. try to use less iv morphine. -drain fell out 10/04.. Long talk with pt and her sister and we agreed to just leave it out and see how things go - we also discussed going home with hospice to monitor her symptom control closely and make any comfort care/med adjustment that are necessary. She was also interested in having the care center option should her condition require it. Hospice met with her. We have agreed on a target d/c home date of this Tuesday after her last radiation treatment. ..she now has fever. unclear source. describes urinary sx's but ua negative. checked kub. trying to avoid abx given high risk of cdiff. f/u blood cx. will try emperic flagyl. Pt is absolutely miserable and c/o worsening pain despite high doses of fentanyl /dilaudid/morphine......Her sister is in complete agreement with hospice. I have agreed to increase the fentanyl and dilaudid po. Again trying to avoid the iv morphine. dose relistor. Pt left for radiation but will confirm dnr status upon return. Will continue to encourage d/c tomorrow with HOSPICE C. difficile colitis - Zosyn stopped. (09/08 - 09/10/17) - PO Flagyl (09/10 - 09/24) - stop Questran - Repeat stool studies on 09/19 are negative for C. diff - supportive care. Uterine cancer - see above Anxiety and depression - Continue home Paxil 40 mg PO QHS Pancytopenia - She did require 2 units PRBC transfused (09/14) and 1 unit PRBCs on 09/15. H/H has been stable since then. - Patient also received Plt (09/14). Plt count has been increasing. - 2 units blood on 10/02 - No signs of active bleeding - Patient reports last chemotherapy treatment was 08/31/17 (2) Hemorrhoids, external ICD Codes: K64.4 - Residual hemorrhoidal skin tags Status: Acute (3) C. difficile colitis ICD Codes: A04.72 - Enterocolitis due to Clostridium difficile, not specified as recurrent Status: Acute (4) Uterine cancer ICD Codes: C55 - Malignant neoplasm of uterus, part unspecified Status: Chronic Plan: - see above (5) Anxiety and depression ICD Codes: F41.8 - Other specified anxiety disorders Status: Chronic (6) Pancytopenia ICD Codes: D61.818 - Other pancytopenia Status: Acute (7) Fever ICD Codes: R50.9 - Fever, unspecified Status: Acute Problem Qualifiers (1) Abdominal pain: Qualified Codes: R10.31 - Right lower quadrant pain (2) Uterine cancer: Qualified Codes: C55 - Malignant neoplasm of uterus, part unspecified Jakub Solorio MD Oct 06, 2017 11:21
[2017-10-06 11:40] VITALS: BP 131/60; PULSE 90; RESP 20; TEMP 100.3; O2SAT 99
[2017-10-06] MEDS: IBUPROFEN 400 MG TAB PO PRN (11:50)
[2017-10-06] MEDS ORDERED: fentaNYL 100 MCG/HR PATCH T-DERMAL ONE (12:00)
[2017-10-06] MEDS ORDERED: fentaNYL 50 MCG/HR PATCH T-DERMAL ONE (12:00)
[2017-10-06] MEDS ORDERED: REMOVE OLD FENTANYL PATCH T-DERMAL SCH (12:00)
--- NOTE | 2017-10-06 13:37 | HHI.HCPN ---
Reason for visit a. To assist with evaluation and management of symptoms including: pain. b. To assist medical decision maker(s) with: better understanding of current medical conditions; weighing benefits/burdens of medical treatment options; making medical treatment decisions. . Subjective/Interval History Palliative care following for assistance with pain and symptom management, goals of care. 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 Clinical course complicated by cystic mass in the pelvis s/p abdominal drainage catheter placement. Patient currently undergoing palliative radiation, scheduled for last treatment tomorrow 10/07/17. Patient seen in her room, in moderate distress secondary to abdominal pain. Patient endorsing feeling "terrible". 10/05 KUB negative for acute process. Having fever, max temp 101.2 around midnight. Patient endorsing poor appetite and constipation. Patient's pain regimen has increased by attending. Currently on fentanyl patch 150 mcg, Dilaudid 8 mg q4hr PRN and morphine IV 4 mg every 2 hours as needed. Lengthy discussion with patient and sister Yoana at bedside. Patient planning to discharge home after completion of radiation therapy scheduled for tomorrow . However, given worsening pain, patient considering hospice care center for symptom management. Reviewed with patient that palliative care recommends hospice care center as a transition to home given worsening pain. Code status readdressed, patient verbalized that she wishes DNR/DNI. Patient reports that there has been communicated to attending. . Family/friend interactions See interval note. . Advance Directives Living Will: Copy in medical record Health Care Surrogate: Copy in medical record Advance Directive Specifics Date completed: 06/30/2017. . Health Care Surrogate(s): Patient has designated her sister Yoana Lopez as healthcare surrogate decision- maker, alternate surrogate is her mother Janice Abbott. . Documented care wishes: Living will with standard verbiage as it pertains to terminal condition, end- stage condition or persistent vegetative state. . Significant change in goals: Comfort directed care with hospice upon completion of palliative radiation. . Objective Vital Signs Date Time Temp Pulse Resp B/P (MAP) Pulse Ox O2 Delivery O2 Flow Rate FiO2 10/06/17 13:16 16 10/06/17 11:40 100.3 90 20 131/60 (83) 99 10/06/17 08:32 98.5 86 20 116/58 (77) 98 3/8/18 04:00 99.8 75 18 101/57 (72) 97 10/06/17 00:00 101.2 81 18 110/56 (74) 94 10/05/17 20:00 100.0 82 18 111/57 (75) 100 10/05/17 16:28 100.4 82 18 102/58 (73) 97 Intake & Output 10/06/17 10/06/17 07:00 19:00 Intake Total 100 ml Balance 100 ml IV Total 100 ml # Voids 3 Physical Exam CONSTITUTIONAL/GENERAL: This is an adequately nourished patient in moderate distress secondary to abdominal pain. TUBES/LINES/DRAINS: PIV's. SKIN: No jaundice, rashes, or lesions. Ecchymoses on upper extremities. No wounds seen anteriorly. Skin temperature appropriate. Not diaphoretic. HEAD: Atraumatic. Normocephalic. EYES: Pupils equal and round and reactive. Extraocular motions intact. No scleral icterus. No injection or drainage. ENT: Hearing grossly normal. Nose without bleeding or purulent drainage. Moist oral mucosa. NECK: Trachea midline. Supple, nontender. CARDIOVASCULAR: Regular rate and rhythm without murmurs, gallops, or rubs. No JVD. Peripheral pulses symmetric. RESPIRATORY/CHEST: Symmetric, unlabored respirations. Clear to auscultation. Breath sounds equal bilaterally. No wheezes, rales, or rhonchi. GASTROINTESTINAL: Abdomen round, tender to palpation. Bowel sounds present. GENITOURINARY: Without palpable bladder distension. MUSCULOSKELETAL: Extremities without clubbing, cyanosis, or edema. No joint tenderness or effusion noted. No calf tenderness. No mottling or clubbing. NEUROLOGICAL: Awake and alert. Motor and sensory grossly within normal limits. Follows commands. Cognitively sharp. Moves all extremities. PSYCHIATRIC: Anxious. . Diagnostic Tests Laboratory Laboratory Tests Test 10/04/17 17:40 10/06/17 06:33 Urine Color YELLOW (YELLW/STRAW) Urine Turbidity CLEAR (CLEAR) Urine pH 6.0 (5.0-8.5) Urine Specific Starke 1.013 (1.002-1.035) Urine Protein TRACE mg/dL (NEG-TRACE) Urine Glucose (UA) NEG mg/dL (NEG) Urine Ketones NEG mg/dL (NEG) Urine Occult Blood NEG (NEG) Urine Nitrite NEG (NEG) Urine Bilirubin NEG (NEG) Urine Urobilinogen LESS THAN 2.0 MG/DL (LESS Urine Leukocyte Esterase TRACE (NEG) Urine RBC 1 /hpf (0-3) Urine WBC 3 /hpf (0-5) Urine Squamous Epithelial Cells 1 /hpf (0-5) Urine Transitional Epithelial Cells <1 /hpf (NONE) Microscopic Urinalysis Comment CULT NOT INDICATED White Blood Count 5.9 TH/MM3 (4.0-11.0) Red Blood Count 3.18 MIL/MM3 (4.00-5.30) Hemoglobin 9.8 GM/DL (11.6-15.3) Hematocrit 28.8 % (35.0-46.0) Mean Corpuscular Volume 90.5 FL (80.0-100.0) Mean Corpuscular Hemoglobin 30.8 PG (27.0-34.0) Mean Corpuscular Hemoglobin Concent 34.0 % (32.0-36.0) Red Cell Distribution Width 16.8 % (11.6-17.2) Platelet Count 206 TH/MM3 (150-450) Mean Platelet Volume 8.2 FL (7.0-11.0) Neutrophils (%) (Auto) 78.0 % (16.0-70.0) Lymphocytes (%) (Auto) 4.8 % (9.0-44.0) Monocytes (%) (Auto) 16.8 % (0.0-8.0) Eosinophils (%) (Auto) 0.2 % (0.0-4.0) Basophils (%) (Auto) 0.2 % (0.0-2.0) Neutrophils # (Auto) 4.6 TH/MM3 (1.8-7.7) Lymphocytes # (Auto) 0.3 TH/MM3 (1.0-4.8) Monocytes # (Auto) 1.0 TH/MM3 (0-0.9) Eosinophils # (Auto) 0.0 TH/MM3 (0-0.4) Basophils # (Auto) 0.0 TH/MM3 (0-0.2) CBC Comment DIFF FINAL Differential Comment Result Diagram: 10/06/17 0633 10/02/17 0555 Microbiology Microbiology Date/Time Source Procedure Growth Status 10/04/17 16:59 Blood Peripheral Aerobic Blood Culture - Preliminary NO GROWTH IN 2 DAYS Resulted 3/6/18 16:59 Blood Peripheral Anaerobic Blood Culture - Preliminary NO GROWTH IN 2 DAYS Resulted 10/04/17 16:54 Blood Peripheral Aerobic Blood Culture - Preliminary NO GROWTH IN 2 DAYS Resulted 10/04/17 16:54 Blood Peripheral Anaerobic Blood Culture - Preliminary NO GROWTH IN 2 DAYS Resulted Imaging Last 48 hours Impressions Abdomen X-Ray 10/05/17 0000 Signed Impressions: Service Date/Time: Thursday, October 05, 2017 11:21 - CONCLUSION: 1. Benign-appearing KUB. 2. A small bore drainage catheter in the right lower Quadrant has been removed. Benji Carrasco MD Procedures * 09/06/17: Pelvic drainage catheter placement. * 09/19/17: Replacement of pelvic drainage catheter. * 10/04/17: Accidental removal of pelvic drainage catheter. . Assessment and Plan Disease Oriented Problem List: (1) Uterine cancer (2) Anemia (3) Pancytopenia (4) Abdominal fluid collection (5) Pelvic mass in female (6) Anxiety and depression Symptom Scale: (1) Abdominal pain 0-10 Scale: 9 Pertinent Non-Medical Issues Psychosocial: Patient originally from [place]. Moved to [place] 6 years ago. Patient is , in 2002. Patient has 3 children. 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 Spiritual: Seventh day Sikh marian. Legal: Advance directives completed. Ethical issues impacting care: No ethical issues have been identified. . Important Contacts Sister/HCS Yoana Lopez . Mother/alt HCS Janice Abbott . Prognosis Mrs. 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 Medical course complicated by abdominal cystic mass requiring catheter drainage placement. Patient with progressive disease in spite of chemotherapy. Currently seeking palliative radiation. Patient at a very high risk for further complications, continue decline and . Patient appears hospice appropriate should she elects comfort-directed care. . Code Status: No Code Plan * CODE STATUS: DNR/DNI. * HEALTHCARE DECISION-MAKING: Patient participating in medical decision-making. Patient has a very good understanding of her diagnosis, prognosis and retains the ability to weight benefits versus burden of treatment options. Advance directives completed. Patient has designated her sister Yoana Lopez as healthcare surrogate decision-maker, alternate surrogate is her mother Janice Abbott. * GOALS OF CARE: Patient electing comfort-directed care with hospice upon completion of palliative radiation scheduled for 10/07/17. At this time considering hospice care center for symptom management of worsening abdominal pain, anxiety and generalized debility. * SYMPTOMS: * =Abdominal pain, secondary to burden of disease, abdominal mass. Abdominal drainage dislodged/removed 2 days ago. Pain regimen adjusted this morning. Patient currently on fentanyl transdermal 150 mcg q72hrs, hydromorphone 8 mg q4hr PRN and Morphine IV 4mg q2hr PRN. No further recommendations at this time. * =Nausea: Zofran 4 mg every 6 hours available as needed. Palliative care recommends low dose benzodiazepine such as Lorazepam 0.5 mg q6hr PRN nausea or anxiety. * =Anxiety: Exacerbated by pain. Recommendations as stated above. * =Rectal pain/constipation: Likely secondary to frequent bowel movements/ diarrhea. Hydrocortisone suppository and Tucks pads available as needed. Constipation exacerbated by increased opioid use. Milk of magnesia and Dulcolax available as needed. Patient was encouraged to use PRN dose. * Contact information has been provided to patient and sister Carmen. * Palliative care will continue to follow-up for further clarifications of goals of care as patient's clinical course continues to evolve. . Time Spent Total Floor Time (mins): 33 (Total time to include review medical records, physical exam, goals of care conversation with patient and sister.) >50% Counseling/Coord of Care: Yes Attestation To help prompt me to consider important information that might be impacting today's encounter and assessment, information from prior notes written by myself or my colleagues may have been "brought forward" into today's note. My signature on this note, however, is an attestation that I personally performed the exam, history, and/or decision-making noted today, and, unless otherwise indicated, the interactions with patient, family, and staff as well as the review of records all occurred today. I also attest that the listed assessment and stated plan reflect my best clinical judgment today based on the combination of historical information, prior notes, and today's exam/ interactions. When time spent is documented, it refers only to time spent today by the signer, or if indicated, combined time spent today by collaborating physician/nurse practitioner. Lucy Grimm Oct 06, 2017 13:37
[2017-10-06 16:01] VITALS: BP 109/66; PULSE 77; RESP 20; TEMP 98.8; O2SAT 97
[2017-10-06] MEDS: PRAVASTATIN SOD 80 MG TAB PO SCH (19:45)
[2017-10-06] MEDS: PARoxetine HCL 20 MG TAB PO SCH (19:45)
[2017-10-06 20:43] VITALS: BP 137/67; PULSE 72; RESP 18; TEMP 98.6; O2SAT 99
[2017-10-06] MEDS: SODIUM CHLORIDE 0.9% FLUSH 10 ML FLUSH IV FLUSH PRN (23:04)
[2017-10-07 00:25] VITALS: BP 127/85; PULSE 79; RESP 18; TEMP 99.4; O2SAT 98
[2017-10-07] MEDS: IBUPROFEN 400 MG TAB PO PRN (04:21)
[2017-10-07] MEDS: HYDROmorphone HCL 4 MG TAB PO PRN ×4 (04:21→16:24)
[2017-10-07 05:02] VITALS: BP 127/65; PULSE 88; RESP 18; TEMP 102; O2SAT 94
[2017-10-07] MEDS: MORPHINE SULFATE 8 MG/ML INJ IV PUSH PRN ×5 (05:43→15:15)
[2017-10-07] MEDS: SODIUM CHLORIDE 0.9% 10 ML VIAL IRRIGATION SCH ×2 (06:00→13:23)
[2017-10-07] MEDS: BACITRACIN TOP OINT 15 GM TUBE TOPICAL SCH ×2 (06:00→13:27)
[2017-10-07] MEDS: PANTOPRAZOLE SOD 40 MG DELAYED RELEASE TAB PO SCH (07:57)
[2017-10-07] MEDS: POTASSIUM CHLORIDE 20 MEQ CONTROLLED RELEASE TAB PO SCH (07:57)
[2017-10-07] MEDS: SODIUM CHLORIDE 0.9% FLUSH 10 ML FLUSH IV FLUSH SCH (07:57)
[2017-10-07 08:00] VITALS: BP 146/60; PULSE 50; RESP 16; TEMP 98.3; O2SAT 94
[2017-10-07] MEDS: metroNIDAZOLE 500 MG INJ 100 ML IV SCH ×3 (08:00→14:54)
[2017-10-07] MEDS ORDERED: DILA4TAB10 PO (09:16)
[2017-10-07] MEDS ORDERED: FENT50T T-DERMAL (09:16)
[2017-10-07] MEDS ORDERED: FENT100T T-DERMAL (09:16)
--- NOTE | 2017-10-07 09:19 | HHI.DS ---
Discharge Summary Admission Date Sep 05, 2017 at 15:33 Discharge Date: Oct 07, 2017 Admitting Diagnosis hematoma (1) Uterine cancer Diagnosis: Principal ICD Codes: C55 - Malignant neoplasm of uterus, part unspecified Status: Chronic (2) Abdominal pain Diagnosis: Principal ICD Codes: R10.9 - Unspecified abdominal pain Status: Acute (3) Hemorrhoids, external Diagnosis: Principal ICD Codes: K64.4 - Residual hemorrhoidal skin tags Status: Acute (4) C. difficile colitis Diagnosis: Principal ICD Codes: A04.72 - Enterocolitis due to Clostridium difficile, not specified as recurrent Status: Acute (5) Anxiety and depression Diagnosis: Secondary ICD Codes: F41.8 - Other specified anxiety disorders Status: Chronic (6) Pancytopenia Diagnosis: Secondary ICD Codes: D61.818 - Other pancytopenia Status: Acute (7) Fever Diagnosis: Principal ICD Codes: R50.9 - Fever, unspecified Status: Acute Brief History This is a 57 year old female with a past medical history which includes anxiety/ depression, lumbar radiculopathy, chronic back pain, hyperlipidemia, uterine cancer. Patient is currently following with Dr. Garsia last chemotherapy this past Tuesday. She had three chemotherapy treatment then on 06/30/17 Robotic assisted Laparoscopic hysterectomy, BSO, resection of pelvic mass, omentectomy and tumor debulking with Dr. Garsia. After surgery patient has had two additional rounds of chemotherapy. Patient was seen in ER 08/24/17 for lower abdominal pain. CT abd/pelvic revealed: Large heterogeneous mass in the uterine surgical bed measuring 9.6 x 5.0 x6.8 cm. Patient was then DC with follow up with Dr. Garsia as an outpatient. Today patient returned to the ER due to worsening abdominal pain for the past 3 days. Pain constant, pressure like, sharp, worse with eating, improved by bringing her legs closer to her. Pt. reports that she is constipated and has decreased appetite. Pt. had a fever of 100.2 at home, associated with some chills and night sweats. CT abd/Pelvis (09/05/17) revealed: mass 12.7 cm which has progressed in size from previous study. Predominantly cystic mass in the pelvis larger when compared to the comparison study either hematoma or seroma. Abscess cannot be entirely excluded Hemangioma right lobe of the liver. CBC/BMP: 10/06/17 0633 Significant Findings Laboratory Tests Test 10/04/17 17:40 10/06/17 06:33 Urine Leukocyte Esterase TRACE (NEG) Red Blood Count 3.18 MIL/MM3 (4.00-5.30) Hemoglobin 9.8 GM/DL (11.6-15.3) Hematocrit 28.8 % (35.0-46.0) Neutrophils (%) (Auto) 78.0 % (16.0-70.0) Lymphocytes (%) (Auto) 4.8 % (9.0-44.0) Monocytes (%) (Auto) 16.8 % (0.0-8.0) Lymphocytes # (Auto) 0.3 TH/MM3 (1.0-4.8) Monocytes # (Auto) 1.0 TH/MM3 (0-0.9) Hospital Course (1) Abdominal pain Abdominal pain Uterine cancer (carcinosarcoma) pelvic mass/hematoma - This is a 57 year old female with a past medical history which includes anxiety/depression, lumbar radiculopathy, chronic back pain, hyperlipidemia, uterine cancer. Patient is currently following with Dr. Garsia. She had three chemotherapy treatment then on 06/30/17 Robotic assisted Laparoscopic hysterectomy, BSO, resection of pelvic mass, omentectomy and tumor debulking with Dr. Garsia. After surgery patient has had two additional rounds of chemotherapy. Patient was seen in ER 08/24/17 for lower abdominal pain. - CT abd/pelvic (08/24/17) --> Large heterogeneous mass in the uterine surgical bed measuring 9.6 x 5.0 x6.8 cm. Patient was then DC with follow up with Dr. Garsia as an outpatient. - Patient returned to the ER on 09/05/17 due to worsening abdominal pain x 3 days. Pain constant, pressure like, sharp, worse with eating, improved by bringing her legs closer to her. Pt reports that she is constipated and has decreased appetite. Pt had a fever of 100.2 at home, associated with some chills and night sweats. - CT Abd/Pelvis (09/05/17) --> mass 12.7 cm which has progressed in size from previous study. Predominantly cystic mass in the pelvis larger when compared to the comparison study either hematoma or seroma. Abscess cannot be entirely excluded Hemangioma right lobe of the liver. - IR placed drain into abdomen fluid collection on 09/06 with noted bloody fluid - f/u cytology shows malignant cells and gs/cx ngtd - Pt with fevers 09/07 and was given Zosyn empirically. Blood cx (09/07/17) with NGTD. Presumed related to fluid collection. - C.diff was positive on 09/10/17. Flagyl started on 09/10 and Zosyn stopped. - Repeat CT Abd/pelvis (09/10/17) --> pelvic fluid collection essentially unchanged - Case d/w IR, Dr. Stein (09/12) - IR will place tPA in drain (09/12) - IR does NOT feel that pt would benefit from a 2nd drain. - Case d/w Dr. Garisa (09/12). He reevaluated pt (09/13). He discussed options regarding further chemo or radiation. - Less output from drainage catheter in the last few days - Pt continues with pelvic/abd pain requiring IV pain medication - (09/19) Repositioned new 12 F tube deeper into collection and coiled a wire within the collection to try to break up some of the locules. Placed 4mg TPA into collection to try to aid in aspiration. - Case discussed with Dr. Garsia. Case discussed with Dr. Otto (09/19) plan for radiation. CT simulation done on 09/21 and planned for 10 treatments. Radiation started on 09/23 - discharge to home once pt's pain is better controlled. - Pt so far not having any benefit from the radiation and no slow down of drain output. - severe diarrhea 3/5 after getting some laxatives. improved -palliative following...we have discussed hospice with this patient and she is considering it. cont fentanyl. dilaudid po added prn. try to use less iv morphine. -drain fell out 10/04.. Long talk with pt and her sister and we agreed to just leave it out and see how things go - we also discussed going home with hospice to monitor her symptom control closely and make any comfort care/med adjustment that are necessary. She was also interested in having the care center option should her condition require it. Hospice met with her. We have agreed on a target d/c home date of this Tuesday after her last radiation treatment. ..she now has fever. unclear source. describes urinary sx's but ua negative. checked kub. trying to avoid abx given high risk of cdiff. f/u blood cx. will try emperic flagyl. Pt was miserable yesterday and fentanyl increased to 150mcg patch and dilaudid 8mg po q4hr prn. Feels more comfortable. completes 10radiation treatments today. Will go to Hospice care center for comfort measures. C. difficile colitis - Zosyn stopped. (09/08 - 09/10/17) - PO Flagyl (09/10 - 09/24) - stop Questran - Repeat stool studies on 09/19 are negative for C. diff - supportive care. Uterine cancer - see above Anxiety and depression - Continue home Paxil 40 mg PO QHS Pancytopenia - She did require 2 units PRBC transfused (09/14) and 1 unit PRBCs on 09/15. H/H has been stable since then. - Patient also received Plt (09/14). Plt count has been increasing. - 2 units blood on 10/02 - No signs of active bleeding - Patient reports last chemotherapy treatment was 08/31/17 (2) Hemorrhoids, external ICD Codes: K64.4 - Residual hemorrhoidal skin tags Status: Acute (3) C. difficile colitis ICD Codes: A04.72 - Enterocolitis due to Clostridium difficile, not specified as recurrent Status: Acute (4) Uterine cancer ICD Codes: C55 - Malignant neoplasm of uterus, part unspecified Status: Chronic Plan: - see above (5) Anxiety and depression ICD Codes: F41.8 - Other specified anxiety disorders Status: Chronic (6) Pancytopenia ICD Codes: D61.818 - Other pancytopenia Status: Acute (7) Fever ICD Codes: R50.9 - Fever, unspecified Status: Acute \ Pt Condition on Discharge: Fair Discharge Disposition: Hospice/Med Facility Discharge Instructions DIET: Follow Instructions for: As Tolerated, No Restrictions Activities you can perform: Regular-No Restrictions New Medications: Fentanyl (Duragesic) 50 Mcg/Hour Patch.td72 1 PATCH T-DERMAL Q3D for Pain Management for 30 Days, PATCH Fentanyl (Duragesic) 100 Mcg/Hour Patch.td72 1 PATCH T-DERMAL Q3D for Pain Management, #30 PATCH Hydromorphone (Dilaudid) 4 Mg Tab 8 MG PO Q4H PRN for SEE LABEL COMMENTS for 60 Days, #720 TAB Continued Medications: Paroxetine (Paxil) 10 Mg Tab 40 MG PO HS, #30 TAB 0 Refills Discontinued Medications: Calcium Carbonate-Cholecalciferol (Calcium 600 with Vitamin D) 600-400 mg-Unit Tab 1 TAB PO DAILY for Calcium Supplement, TAB 0 Refills Ondansetron (Zofran) 4 Mg Tab 4 MG PO Q8HR PRN for NAUSEA OR VOMITING, TAB 0 Refills Oxycodone HCl/Acetaminophen (Oxycodone-Acetaminophen 5-325) 5 Mg-325 Mg Tablet 1 TAB PO Q4H PRN for PAIN SCALE 1 TO 5, #30 TAB Pantoprazole (Protonix) 40 Mg Tab 40 MG PO DAILY for Reflux, #30 TAB 0 Refills Simvastatin (Zocor) 40 Mg Tab 40 MG PO HS for Cholesterol Management, #30 TAB 0 Refills Jakub Solorio MD Oct 07, 2017 09:19
--- NOTE | 2017-10-07 09:32 | MB ---
cc: Rohini Garsia MD, Richard L MD Schwartz,Delmar Reddy MD,Dillon Wilson MD DATE OF CONSULT: 10/07/2017 This is a followup to a consultation. Approximately 15 minutes of this [id number] encounter spent in counseling and coordination of care. This morning it was good to see that she has reached a point of comfort. She has been suffering from intense pain the last 2 or more days even more than baseline, but last night she reports that she got a good nights sleep. She is smiling. She is sitting up and she is eating breakfast and that is excellent to see. She has had a series of discussions with multiple caregivers. She has met with hospice. She and her family have met with them and the plan is in action to finish her last palliative radiation treatment today and then transfer her to the [facility] where she will spend a number of days anticipating and planning for what she will need as she transitions to home care. We discussed the unfortunate and frustrating nature of this tumor and the sarcoma has manifested as pelvic recurrence starting approximately 8 weeks after surgery. Whereas it initially was responsive to chemotherapy, it showed no additional response. Palliative radiation thus far has not shown measurable improvement and the indwelling drain to alleviate the fluid component and bloody component never reduced the size of the mass, although these steps may have helped slow the growth or help palliate some of the symptoms. I explained that the likelihood of getting this tumor to respond in any significant or sustained fashion are unfortunately low, but we always support her decision-making and would consider additional treatment if she wished to pursue it, however as noted even from the chemotherapy previously given, she had a profound and prolonged rico such it is uncertain to what extent her bone marrow would tolerate additional treatment. She seems comfortable with the decision that has been made regarding hospice care. She understands the difficult nature of her situation. We wish for her all the best. She understands that she can contact our office at any time or we can see her in the office if we can be of any assistance and we would love to hear from her to hear how she is doing. Discussion ensued, questions were asked and answered and she seems grateful for the care provided. MD MORALES Chavez/SAMANTHA , 08:43 AM , 09:31 AM
[2017-10-07 12:18] VITALS: BP 116/55; PULSE 63; RESP 16; TEMP 98.1; O2SAT 95
[2017-10-09] MEDS ORDERED: fentaNYL 50 MCG/HR PATCH T-DERMAL SCH (12:00)
[2017-10-09] MEDS ORDERED: fentaNYL 100 MCG/HR PATCH T-DERMAL SCH (12:00)
== END 2017-10-07 16:40 | disposition hospice, inpatient (51) | DRG 755 ==
LOC: NEPD 09:51 → NEDA 15:33 → N05A 18:15
PROVIDERS: ADMIT Hospitalist; ATTEND Hospitalist
PROC: 0W9G3ZX Drainage of Peritoneal Cavity, Percutaneous Approach, Diagnostic (ICD-10-PCS; principal; 2017-09-06)
PROC: 30233R1 Transfusion of Nonautologous Platelets into Peripheral Vein, Percutaneous Approach (ICD-10-PCS; 2017-09-14)
PROC: 30233N1 Transfusion of Nonautologous Red Blood Cells into Peripheral Vein, Percutaneous Approach (ICD-10-PCS; 2017-09-14)
PROC: 0W2FX0Z Change Drainage Device in Abdominal Wall, External Approach (ICD-10-PCS; 2017-09-19)
DX: C55 Malignant neoplasm of uterus, part unspecified (principal); R18.0 Malignant ascites; D61.818 Other pancytopenia; D69.59 Other secondary thrombocytopenia; A04.72 Enterocolitis due to Clostridium difficile, not specified as recurrent; G89.3 Neoplasm related pain (acute) (chronic); F41.8 Other specified anxiety disorders; E78.5 Hyperlipidemia, unspecified; K59.00 Constipation, unspecified; D64.81 Anemia due to antineoplastic chemotherapy; T45.1X5A Adverse effect of antineoplastic and immunosuppressive drugs, initial encounter; Z51.5 Encounter for palliative care
CPT/HCPCS: 36430; 36593; 71045; 74018; 74177; 75984; 75989; 76937; 77002; 77263; 77290; 77295; 77300; 77334; 77336; 77412; 77417; 77427; 80048; 80053; 81001; 83735; 85007; 85025; 85027; 85610; 85730; 86850; 86900; 86901; 86920; 87040; 87070; 87086; 87205; 87493; 88112; 88305; 94150; 96374; 96376; 99152; 99153; 99212; 99214; 99222; C1729; C1769; C1887; G0463; J0696; J1940; J2212; J2250; J2270; J2405; J2543; J2997; J3010; J7030; J7050; P9016; P9037; Q9963; Q9967